=== PATIENT | female | born 1950 | race Caucasian/White ===

== ENCOUNTER → 2016-08-10 | Outpatient (CLI) | payer MEDICARE ==
[~2016-08-10] MED LIST: REGADENOSON 0.4 MG/5 ML SYRINGE IV ONE
--- NOTE | 2016-08-10 11:10 | NM ---
EXAMINATION TYPE: NM stress lexiscan cardiolite DATE OF EXAM: 08/10/2016 COMPARISON: NONE HISTORY: Abnormal EKG per order. History of tobacco use quit 20 years ago and history of diabetes TECHNIQUE: After the intravenous administration of 10.4 mCi Tc 99m Sestamibi - Cardiolite resting SP ECT images acquired 45 minutes post injection. The patient received 0.4mg Lexiscan, 27.5 mCi Tc 99m Sestamibi - Stress images obtained [address] injection FINDINGS: Review of stress and rest SPECT images demonstrates large area of nonperfusion involving anterior lef t ventricular wall on stress and rest SPECT images suspicious for large infarct in the LAD distributi on. Gated analysis shows normal wall motion of other ruvalcaba with an estimated left ventricular ejecti on fraction of 55 %. 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 No convincing evidence for reversible ischemia.
--- NOTE | 2016-08-10 12:12 | EST ---
DATE OF SERVICE: 08/10/2016 AGE: 65Y SEX: F HT: 62" WT: 267 lbs. Protocol Dimitry: Other: Lexiscan Cardiolite Stage: Dur. of Exercise: *Heart Rate Blood Pressure *Rest: 72 Rest: 176/91 * *Max. Achieved: 100 Maximum BP: 190/80 85% PMHR: 130 100% PMHR: 153 *METS: INDICATIONS: Abnormal EKG. MEDICATIONS: Patient was given Lexiscan injection over a period of 15 seconds. Peak heart rate of 100 was achieved. Maximum blood pressure of 190/80 mmHg was noted. Resting EKG shows normal sinus rhythm with normal IN interval and QRS duration and normal ST-T waves. No ST segment depression suggestive of ischemia was noted. The results of the nuclear study will follow .
== END ==
LOC: RADNMMAIN 07:57
PROVIDERS: ATTEND Internal Medicine
DX: R94.31 Abnormal electrocardiogram [ECG] [EKG] (principal)
CPT/HCPCS: 93017; 78452; A9500; J2785

== ENCOUNTER 2016-09-03 05:45 | Day surgery (SDC) | payer MEDICARE ==
[2016-08-28 14:28] VITALS: BMI 47.5
[2016-09-03] MEDS ORDERED: ALPRAZolam 0.5 MG TAB PO PRN (05:58)
[2016-09-03] MEDS ORDERED: ALPRAZolam 0.25 MG TAB PO PRN (05:58)
[2016-09-03] MEDS ORDERED: NITROGLYCERIN SL TABS 0.4 MG TAB SUBLINGUAL PRN ×2 (05:58→08:25)
[2016-09-03] MEDS ORDERED: ASPIRIN 325 MG TAB PO STA (05:58)
[2016-09-03] MEDS ORDERED: ATORVASTATIN 80 MG TAB PO STA (05:58)
[2016-09-03] MEDS ORDERED: SODIUM CHLORIDE 0.9% 1,000 ML in EMPTY BAG 1 BAG IV ONE (06:00)
[2016-09-03 06:41] LABS: Glucose,Whole Blood 133 mg/dL (75-99)
[2016-09-03] MEDS ORDERED: diphenhydrAMINE 50 MG/ML 1 ML VIAL IVP ONE (07:36)
[2016-09-03] MEDS ORDERED: fentaNYL (PF) 50 MCG/ML 2 ML AMP IV ONE (07:36)
[2016-09-03] MEDS ORDERED: LIDOCAINE 2% INJ 20 MG/ML SQ ONE (07:44)
[2016-09-03] MEDS ORDERED: VERAPAMIL SYRINGE (5 MG/10 ML) INTRAARTER ONE (07:45)
[2016-09-03] MEDS ORDERED: HEPARIN SODIUM 1,000 UN/ML (10ML VL) IV ONE (07:54)
[2016-09-03] MEDS ORDERED: BIVALIRUDIN BOLUS 250 MG/50 ML IV ONE (08:00)
[2016-09-03] MEDS ORDERED: BIVALIRUDIN 250 MG in SODIUM CHLORIDE 0.9% 35 ML IV ONE (08:00)
[2016-09-03] MEDS ORDERED: CLOPIDOGREL 75 MG TAB PO ONE (08:02)
[2016-09-03] MEDS ORDERED: NITROGLYCERIN 1000MCG/10ML SYRINGE INTRACORON ONE (08:07)
[2016-09-03 08:18] LABS: Anion Gap 7 mmol/L; Blood Urea Nitrogen 18 mg/dL (7-17); Calcium 9.1 mg/dL (8.4-10.2); Carbon Dioxide 27 mmol/L (22-30); Chloride 106 mmol/L (98-107); Glucose 151 mg/dL (74-99); Non-African American GFR(MDRD) >60 (>60 ml/min/1.73 sqM); Potassium 4.6 mmol/L (3.5-5.1); Sodium 140 mmol/L (137-145)
[2016-09-03] MEDS ORDERED: IODIXANOL 320 MG/ML 100 ML INTRAARTER ONE (08:19)
[2016-09-03] MEDS ORDERED: ATROPINE SULFATE 0.1 MG/ML 10ML SYRINGE IV PRN (08:25)
[2016-09-03] MEDS ORDERED: MAG HYDROX/AL HYDROX/SIMETH 30 ML CUP PO PRN (08:25)
[2016-09-03] MEDS ORDERED: RX INFO: IV CONTRAST WAS GIVEN 1 EACH MISC MISCELLANE PRN (08:25)
[2016-09-03] MEDS ORDERED: SODIUM CHLORIDE 0.9% 1,000 ML IV SCH (08:30)
[2016-09-03] MEDS: LISINOPRIL 2.5 MG TAB PO SCH (10:09)
[2016-09-03] MEDS: CALCIUM CARB-VIT D 500MG-200UN 1 EACH TAB PO SCH (10:09)
[2016-09-03] MEDS: MULTIVITAMINS, THERA 1 EACH TAB PO SCH (10:10)
[2016-09-03] MEDS: CYANOCOBALAMIN 500 MCG TAB PO SCH (10:10)
[2016-09-03] MEDS: GLIMEPIRIDE 2 MG TAB PO SCH ×2 (10:10→18:48)
[2016-09-03] MEDS: METOPROLOL TARTRATE 25 MG TAB PO SCH ×2 (10:11→21:45)
--- NOTE | 2016-09-03 10:47 | CC ---
Mrs. Sim is a 65-year-old female with known history of diabetes mellitus who presented with symptoms of dyspnea, underwent myocardial perfusion imaging that reveal anterior wall defect. In view of that, recommendation made regarding cardiac catheterization. The procedure as well as the risks and complications were discussed with the patient who is in full understanding and agreement. PROCEDURE: The patient was brought to the [facility] in the fasting semi-sedated state after receiving fentanyl and Benadryl and achieving moderate conscious sedated state. Using Xylocaine anesthesia and Seldinger technique, a 6 Armenian sheath as introduced in the right radial artery. Selective right and left angiograph were performed using 5 Armenian 3.5 Bend right Gina catheter. Multiple views of the right coronary artery including annabel-axial views were obtained. Following that, a 5 Armenian tight Pigtail catheter was introduced in the left ventricle and pressures were calculated. Following that, catheter was removed. Images were reviewed. Of note, patient received 5000 units of intravenous heparin, as well as intra-arterial Verapamil. FINDINGS: LEFT MAIN: This is a large size vessel bifurcating into left circumflex, left anterior descending artery and ramus intermedius. Left main coronary artery is without any obstructive coronary artery disease. LEFT ANTERIOR DESCENDING ARTERY: This is a large-sized vessel reaching toward the apex with a wrap around apex segment, giving rise to a small diagonal branch before the takeoff of the obtuse marginal branch in midsegment. There is an eccentric 70% plaque. The rest of the vessel has mild intimal disease without any evidence of high-grade stenosis. LEFT CIRCUMFLEX: This is a nondominant vessel given rise to one obtuse marginal branch of large caliber. The left circumflex and its branches have no evidence of obstructive coronary artery disease. RAMUS INTERMEDIUS: This is a moderately sized vessel reaching toward the apical lateral wall. The ramus intermedius has a 40% to 50% plaque proximally. The rest of the vessel has no high-grade stenosis. RIGHT CORONARY ARTERY: This has a large dominant vessel bifurcating into distal edge of PDA, posterolateral segment and branches. The right coronary artery in midsegment has a plaque of 20%. The rest of the vessel has no high- grade stenosis. LEFT VENTRICULOGRAM: Left ventriculogram is not performed. HEMODYNAMICS: There was no gradient across the aortic valve. The left ventricular end-diastolic pressure was 20 mmHg. CONCLUSION: 1. Significant disease in the mid LAD artery. 2. Mild disease in the ramus intermedius as well as the mid-right coronary artery. RECOMMENDATION: In view of the finding anatomy, I have recommended proceeding with angioplasty and stenting of the LAD. The procedure, risks and complications were discussed with the patient in full understanding and agreement. JARED
--- NOTE | 2016-09-03 10:59 | PTCA ---
Mrs. Sim is a 65-year-old female with known history of diabetes mellitus who had no myocardial imaging, underwent cardiac catheterization, was found to have mid LAD significant disease. In view of that, recommendation made regarding angioplasty and stenting. The procedure as well as risks and complications were discussed with the patient who was in full understanding and agreement. PROCEDURE: A 6 Finnish FL3.5 guiding catheter introduced into the system after cannulating the left main, a 0.014 Advance medium J-wire was advanced across the lesion, positioned distally, then a 2.5 x 15 mm Xience Alpine stent was deployed, post-dilated at 14 atmospheres, after the last inflation, after appropriate weight, the balloon and the guidewire were removed back in the guided catheter, images ere obtained and repeated. Those images reveal stable successful stenting at that point. The guiding catheter, the balloon and the guidewire were removed. The sheath was removed. Hemostasis was obtained with deployment of a TR band. There was no immediate complication. Patient was returned to her room in stable condition. Of note, patient has no chest discomfort but she had mild EKG changes which resolved at the end of the procedure. She received Angiomax per protocol as well as oral loading dose of Clopidogrel. RESULTS: Successful stenting of the mid-LAD with reduction in stenosis from 70 % to 0%. RECOMMENDATION: Patient will be continued on aspirin, Plavix, beta navarro Resumed patient's statin. The importable of dual antiplatelet treatment was discussed with the patient and her family who are in full understanding and agreement. Duration of the procedure is 37 minutes. MTDD
--- NOTE | 2016-09-03 11:06 | MISC ---
Dear Dr. Wooten; I had the pleasure to perform cardiac catheterization, coronary angioplasty and stenting on Mrs. Sim at [facility] on September 03, 2016 and a full copy of the procedure not is being forwarded to you. In brief, she was found to have significant disease involving the mid LAD and underwent successful stenting of that vessel using a drug-eluting stent. I am hopeful that this procedure will stabilize her status and thank you again for allowing me to participate in this patient's personal care. Please fee free to call for any questions. Sincerely yours; Krysta Hooper. JARED
[2016-09-03 19:43] VITALS: RESP 18
[2016-09-03] MEDS ORDERED: ZOLPIDEM 5 MG TAB PO PRN (21:00)
[2016-09-03] MEDS ORDERED: ATORVASTATIN 40 MG TAB PO SCH (21:00)
[2016-09-03 21:51] LABS: Glucose,Whole Blood 102 mg/dL (75-99)
[2016-09-03] MEDS ORDERED: amLODIPine 5 MG TAB PO STA (22:10)
[2016-09-04 05:42] LABS: Glucose,Whole Blood 114 mg/dL (75-99)
[2016-09-04] MEDS: GLIMEPIRIDE 2 MG TAB PO SCH (06:30)
[2016-09-04 07:18] LABS: Calcium 9.3 mg/dL (8.4-10.2); Potassium 4.4 mmol/L (3.5-5.1)
[2016-09-04] MEDS: LISINOPRIL 2.5 MG TAB PO SCH (09:00)
[2016-09-04] MEDS: CALCIUM CARB-VIT D 500MG-200UN 1 EACH TAB PO SCH (09:00)
[2016-09-04] MEDS: CYANOCOBALAMIN 500 MCG TAB PO SCH (09:00)
[2016-09-04] MEDS ORDERED: ASPIRIN 81 MG CHEW PO SCH (09:00)
[2016-09-04] MEDS: MULTIVITAMINS, THERA 1 EACH TAB PO SCH (09:00)
[2016-09-04] MEDS ORDERED: CLOPIDOGREL 75 MG TAB PO SCH (09:00)
[2016-09-04] MEDS: METOPROLOL TARTRATE 25 MG TAB PO SCH (09:01)
[2016-09-04] MEDS ORDERED: amLODIPine 5 MG TAB PO SCH (09:15)
[2016-09-04 10:04] VITALS: BP 204/88; PULSE 73; TEMP 97.4
--- NOTE | 2016-09-04 10:52 | PN ---
Mrs. Sim is a 65-year-old female with known history of hypertension, hyperlipidemia, diabetes mellitus who presented with an abnormal myocardial perfusion imaging. Underwent cardiac catheterization and was found to have critical stenosis involving the mid LAD, underwent stenting of that vessel. She is doing well this morning, ambulating without difficulty. Denying any chest pain, dizziness or palpitation. She continues to be on aspirin once a day , Lipitor 40 mg daily, Plavix 75 mg daily, glimepiride 2 mg twice a day, lisinopril 2.5 mg daily, metoprolol tartrate 25 mg twice a day. PHYSICAL EXAMINATION: Blood pressure running in the 150s to 160s with the heart rate in the 60s. LUNGS: Clear. HEART: Regular rate and rhythm. S1, S2. No S3, no rub. ABDOMEN: Soft, nontender. Obese. EXTREMITIES: No edema. Lab data revealed a BUN and creatinine of 18 and 1.12. Potassium 4.4. EKG revealed no acute changes. IMPRESSION: 1. Status post stenting of the left anterior descending coronary artery. 2. Hypertension. 3. Hyperlipidemia. 4. Diabetes mellitus. 5. History of chronic kidney disease. RECOMMENDATION: From the cardiac standpoint, she is stable to be discharged home today. She will follow her blood pressure and depending on the trend. Further recommendation will be made. JARED
== END 2016-09-04 09:56 | disposition home or self-care (01) ==
LOC: CATHCVL 05:45 → 6SEL 08:17 → CATHCVL 09-04 09:56
PROVIDERS: ATTEND Internal Medicine Interventional Cardiology
DX: I25.10 Atherosclerotic heart disease of native coronary artery without angina pectoris (principal); N18.9 Chronic kidney disease, unspecified; I12.9 Hypertensive chronic kidney disease with stage 1 through stage 4 chronic kidney disease, or unspecified chronic kidney disease; Z87.891 Personal history of nicotine dependence; E11.9 Type 2 diabetes mellitus without complications; Z79.84 Long term (current) use of oral hypoglycemic drugs; E78.5 Hyperlipidemia, unspecified
CPT/HCPCS: 94760; 93458; 85347; 80048 ×2; 99152; 99153 ×2; C9600; C1769 ×2; C1887; C1894; C1874; J2001; J1200; Q9967; J3010; J1644; J0583

== ENCOUNTER → 2016-11-02 | Outpatient (CLI) | payer MEDICARE | END | disposition home or self-care (01) | LOC: RADCTMAIN 13:55 | PROVIDERS: ATTEND Internal Medicine | DX: R09.02 Hypoxemia (principal) | CPT/HCPCS: 82565; 84520 ==

== ENCOUNTER 2018-04-06 09:55 | Emergency (ER) | payer MEDICARE ==
--- NOTE | 2018-04-06 10:20 | ED ---
Fall HPI - General Chief Complaint: Fall Stated Complaint: fall Time Seen by Provider: 04/06/18 10:02 Source: patient Mode of arrival: wheelchair - History of Present Illness Initial Comments: 67-year-old female with past medical history of diabetes presenting today for chief complaint of fall. Patient states that her cat puked on the steps in her home, he states he stepped on it slipping down 3 steps on her butt. She states when she stood up she noticed left hip pain, she denied any back pain. She denied any sharp shooting pain down the legs numbness tingling or loss of sensation. She states she can ambulate however this increases the pain at the left hip. She denies any head injury, injury to the neck or upper back, she denies any loss of conscious. Patient denies any chest pain, dyspnea, dyspnea on exertion, dizziness, headache or any other symptoms prior to falling. She states it was mechanical from slipping on what substance on stairs. Patient denies any pain of the upper extremities. She denies any pain of the knees or ankles. Remaining review of systems negative, upon arrival patient is ambulatory does not appear to have difficulties. Patient denies any recent fever , chills, shortness of breath, chest pain, back pain, abdominal pain, nausea or vomiting, numbness or tingling, dysuria or hematuria, constipation or diarrhea, headaches or visual changes, or any other complaints. Patient denies taking any medication prior to arrival, she states she doesn't need any. - Related Data Home Medications Medication Instructions Recorded Confirmed Aspirin [Adult Low Dose Aspirin EC] 81 mg PO DAILY 08/28/16 09/03/16 Calcium Carbonate [Calcium] 600 mg PO DAILY 08/28/16 09/03/16 Cyanocobalamin (Vitamin B-12) 2,000 mcg PO DAILY 08/28/16 09/03/16 [Vitamin B-12] Lisinopril [Zestril] 2.5 mg PO QAM 08/28/16 09/03/16 Multivit-Min/FA/Lycopen/Lutein 1 each PO DAILY 08/28/16 09/03/16 [Centrum Silver Tablet] Previous Rx's Medication Instructions Recorded Glimepiride [Amaryl] 2 mg PO BID #60 tablet 07/09/13 metFORMIN HCL [Glucophage] 500 mg PO AC-BID #60 tab 07/09/13 Atorvastatin [Lipitor] 40 mg PO HS #90 tab 09/04/16 Clopidogrel [Plavix] 75 mg PO DAILY #90 tab 09/04/16 Metoprolol Tartrate [Lopressor] 25 mg PO BID #180 tab 09/04/16 Nitroglycerin Sl Tabs [Nitrostat] 0.4 mg SUBLINGUAL Q5M PRN #25 tab 09/04/16 amLODIPine BESYLATE [Norvasc] 5 mg PO DAILY #1 tablet 09/04/16 Allergies Allergy/AdvReac Type Severity Reaction Status Date / Time No Known Allergies Allergy Verified 04/06/18 10:00 Review of Systems ROS Statement: Those systems with pertinent positive or pertinent negative responses have been documented in the HPI. ROS Other: All systems not noted in ROS Statement are negative. Past Medical History Past Medical History: Diabetes Mellitus, Skin Disorder Additional Past Medical History / Comment(s): Hx Psoriasis History of Any Multi-Drug Resistant Organisms: None Reported Past Surgical History: No Surgical Hx Reported Additional Past Surgical History / Comment(s): Cataracts, abcess on buttocks. Past Anesthesia/Blood Transfusion Reactions: No Reported Reaction Past Psychological History: No Psychological Hx Reported Smoking Status: Former smoker Past Alcohol Use History: None Reported Past Drug Use History: None Reported - Past Family History Mother Family Medical History: Hypertension Father Family Medical History: Hypertension General Exam - General Exam Comments Initial Comments: General: The patient is awake and alert, in no distress, and does not appear acutely ill. Eye: Pupils are equal, round and reactive to light, extra-ocular movements are intact. No nystagmus. There is normal conjunctiva bilaterally. No signs of icterus. Ears, nose, mouth and throat: There are moist mucous membranes and no oral lesions. Neck: The neck is supple, there is no tenderness or JVD. Cardiovascular: There is a regular rate and rhythm. No murmur, rub or gallop is appreciated. Respiratory: Lungs are clear to auscultation, respirations are non-labored, breath sounds are equal. No wheezes, stridor, rales, or rhonchi. Gastrointestinal: Soft, non-distended, non-tender abdomen without masses or organomegaly noted. There is no rebound or guarding present. Musculoskeletal: Upon inspection of the hip there is no ecchymosis, soft tissue swelling or erythema. No abrasions or lacerations. Neuro inspection of the thoracic and lumbar spine. There is no pain to palpation of the cervical thoracic or lumbar spine neither paravertebral or midline. Patient did have tenderness to palpation over the left hip lateral aspect. Patient does have full range of motion at the hips bilaterally, including extensor mechanism intact. Strength 5/5 of the lower extremities including at the hips, knees ankles bilaterally equal comparison. Sensation intact of the lower extremities including the saddle region of the lower extremities equal bilaterally. DP pulses equal bilaterally 2+. There is an area of ecchymosis of the right billings, pt denies any knee pain, no large hematomas. Neurological: A&O x 3. CN II-XII intact, There are no obvious motor or sensory deficits. Coordination appears grossly intact. Speech is normal. Skin: Skin is warm and dry and no rashes or lesions are noted. Psychiatric: Cooperative, appropriate mood & affect, normal judgment. Limitations: no limitations Course Vital Signs 04/06/18 04/06/18 09:57 11:38 Temperature 97.9 F 97.7 F Pulse Rate 79 78 Respiratory 18 19 Rate Blood Pressure 138/76 153/83 O2 Sat by Pulse 98 96 Oximetry Medical Decision Making - Medical Decision Making 67-year-old female presenting today for chief complaint of fall left hip pain. Upon examination patient has no midline tenderness to palpation of the thoracic or lumbar spine. She no complaints of radicular symptoms, full strength of the lower extremities with no neurovascular deficits. Patient did have localized pain to the left hip upon palpation. X-ray negative for acute osseous process. Patient is ambulatory. Patient refuses any pain medication. Patient denied any head or neck injury. At this time I do feel patient is stable for discharge with outpatient follow-up in the next 1-2 days. Return parameters were discussed at length with patient who verbalized understanding. I did discuss case with attending provider Dr. Ryan reviewed imaging studies patient discharged in stable condition, attending provider agreeable with plan and discharge. Disposition Clinical Impression: Left hip pain, Fall Disposition: HOME SELF-CARE Condition: Good Instructions (If sedation given, give patient instructions): Fall Prevention ( ED), Hip Pain (ED) Additional Instructions: Please use medication as discussed. Please follow-up with family doctor in the next 2 days. Please return to emergency room if the symptoms increase or worsen or for any other concerns. Is patient prescribed a controlled substance at d/c from ED?: No Referrals: Dimple Wooten MD [Primary Care Provider] - 1-2 days Time of Disposition: 11:28
--- NOTE | 2018-04-06 11:13 | XR ---
EXAMINATION TYPE: AP view pelvis and 2 views left hip DATE OF EXAM: 04/06/2018 COMPARISON: NONE HISTORY: 67-year-old female with pain after fall FINDINGS: Mild degenerative superolateral joint space narrowing of the hips. Mild osteopenia. No acute fracture , subluxation, or dislocation seen. IMPRESSION: Mild degenerative changes of the hips. Mild osteopenia. No acute fracture seen.
[2018-04-06 11:39] VITALS: BP 153/83; PULSE 78; RESP 19; TEMP 97.7
== END 2018-04-06 11:39 | disposition home or self-care (01) ==
LOC: EC 09:55
DX: M25.552 Pain in left hip (principal); S80.11XA Contusion of right lower leg, initial encounter; Z87.891 Personal history of nicotine dependence; Z53.29 Procedure and treatment not carried out because of patient's decision for other reasons; Z79.82 Long term (current) use of aspirin; Z79.899 Other long term (current) drug therapy; W10.9XXA Fall (on) (from) unspecified stairs and steps, initial encounter; Y92.89 Other specified places as the place of occurrence of the external cause
CPT/HCPCS: 73502; 99283

== ENCOUNTER 2018-04-08 08:58 | Inpatient (IN) | payer MEDICARE ==
[2018-04-08] MEDS ORDERED: KETOROLAC 60 MG/2 ML VIAL IVP STA (09:24)
[2018-04-08] MEDS ORDERED: MORPHINE SULFATE 2 MG/ML SYRINGE IVP STA (09:25)
--- NOTE | 2018-04-08 09:28 | ED ---
General Adult HPI - General Chief complaint: Fall Stated complaint: Fall/Back Pain Time Seen by Provider: 04/08/18 09:00 Source: EMS, RN notes reviewed Mode of arrival: EMS Limitations: no limitations - History of Present Illness Initial comments: This is a 67-year-old female presents emergency Department complaining of left hip pain. Patient states she fell on Saturday and was able to walk out of the emergency department but was in quite a bit of pain. Patient states since then the pain is gotten worse and she is unable to and related all. Patient states the pain is in the posterior hip. Patient states his been no injuries since the original injury. Patient denies any lower back pain. Patient denies any knee pain. Patient has no other complaints. - Related Data Home Medications Medication Instructions Recorded Confirmed Aspirin [Adult Low Dose Aspirin EC] 81 mg PO DAILY 08/28/16 04/08/18 Multivit-Min/FA/Lycopen/Lutein 1 tab PO DAILY 08/28/16 04/08/18 [Centrum Silver Tablet] Cholecalciferol (Vitamin D3) 2,000 unit PO DAILY 04/08/18 04/08/18 [Vitamin D3] Glimepiride [Amaryl] 4 mg PO BID 04/08/18 04/08/18 Levothyroxine Sodium [Synthroid] 25 mcg PO DAILY 04/08/18 04/08/18 Lisinopril [Zestril] 5 mg PO DAILY 04/08/18 04/08/18 Vit C/E/Zn/Coppr/Lutein/Zeaxan 2 cap PO DAILY 04/08/18 04/08/18 [Preservision Areds 2 Softgel] sitaGLIPtin [Januvia] 50 mg PO DAILY 04/08/18 04/08/18 Previous Rx's Medication Instructions Recorded Atorvastatin [Lipitor] 40 mg PO HS #90 tab 09/04/16 Metoprolol Tartrate [Lopressor] 25 mg PO BID #180 tab 09/04/16 Nitroglycerin Sl Tabs [Nitrostat] 0.4 mg SUBLINGUAL Q5M PRN #25 tab 09/04/16 amLODIPine BESYLATE [Norvasc] 5 mg PO DAILY #1 tablet 09/04/16 Allergies Allergy/AdvReac Type Severity Reaction Status Date / Time No Known Allergies Allergy Verified 04/08/18 10:13 Review of Systems ROS Statement: Those systems with pertinent positive or pertinent negative responses have been documented in the HPI. ROS Other: All systems not noted in ROS Statement are negative. Past Medical History Past Medical History: Diabetes Mellitus, Skin Disorder Additional Past Medical History / Comment(s): Hx Psoriasis History of Any Multi-Drug Resistant Organisms: None Reported Past Surgical History: No Surgical Hx Reported Additional Past Surgical History / Comment(s): Cataracts, abcess on buttocks. Past Anesthesia/Blood Transfusion Reactions: No Reported Reaction Past Psychological History: No Psychological Hx Reported Smoking Status: Former smoker Past Alcohol Use History: None Reported Past Drug Use History: None Reported - Past Family History Mother Family Medical History: Hypertension Father Family Medical History: Hypertension General Exam - General Exam Comments Initial Comments: GENERAL Patient is well-developed and well-nourished. Patient is in mild distress. EYES Patient's pupils are equal and round. Extraocular motion is intact SKIN Unremarkable NEURO The patient is alert and oriented 3 PYSCH Patient has normal interpersonal interactions. MUSCULOSKELETAL Patient has tenderness in the posterior left hip. Patient has pain with external rotation and flexion. Limitations: no limitations Course Vital Signs 04/08/18 09:02 Temperature 99.4 F Pulse Rate 86 Respiratory 16 Rate Blood Pressure 135/52 O2 Sat by Pulse 85 L Oximetry Medical Decision Making - Medical Decision Making CAT scan showed a nondisplaced subtle fracture of the sacrum I spoke with Dr. Govea he agreed to admit the patient admitted the patient wrote admitting orders. Disposition Clinical Impression: Sacral fracture, Unable to ambulate Disposition: ADMITTED IP TO THIS [facility] Referrals: Dimple Wooten MD [Primary Care Provider] - 1-2 days Time of Disposition: 12:50
--- NOTE | 2018-04-08 10:49 | CT ---
EXAMINATION TYPE: CT hip LT wo con DATE OF EXAM: 04/08/2018 COMPARISON: Radiograph 04/06/2018 HISTORY: 67-year-old female left hip pain after fall 2 days ago Fall TECHNIQUE: Contiguous axial scanning of the left hip without IV contrast. Coronal and sagittal recons tructions performed. CT DLP: 856.5 mGycm Automated exposure control for dose reduction was used. FINDINGS: There is osteopenia with loss of the tensile trabecula of the proximal femur.. No displaced fracture. Mild degenerative changes of the hips. There are no hip joint effusion. No pelvic free fluid. No evidence of soft tissue abnormality. IMPRESSION: 1. OSTEOPENIA. NO DISPLACED FRACTURES. IF THERE REMAINS PERSISTENT CLINICAL CONCERN FOR OCCULT OSSEOU S INJURY OR IF THE PATIENT IS NONWEIGHTBEARING, MRI CAN PROVIDE MORE SENSITIVE EVALUATION. 2. NOTE THAT THE SACRUM IS NOT INCLUDED ON THIS EXAM OF THE LEFT HIP.
--- NOTE | 2018-04-08 11:37 | CT ---
EXAMINATION TYPE: CT pelvis wo con DATE OF EXAM: 04/08/2018 COMPARISON: Correlation CT left hip and prior radiographs. HISTORY: 67-year-old female Fall/back pain TECHNIQUE: Contiguous axial scanning of the pelvis without IV contrast. Coronal and sagittal reconstr uctions performed. CT DLP: 724.4 mGycm Automated exposure control for dose reduction was used. FINDINGS: Small to moderate sized 2.3 cm wide fat-containing umbilical hernia. Again, there is osteopenia with loss of the tensile trabecula of the proximal femurs. No displaced pe lvic bone or proximal femoral fracture is identified. There is very subtle cortical irregularity involving the left sacroiliac, refer to coronal image 76 a nd very subtle cortical lucency of the left sacral alar, refer to coronal image 72, 73, and 74. Minim al presacral soft tissue thickening here. Pronounced osteopenia limits assessment. Moderate degenerative disc disease with discussed by complex and facet arthropathy lower lumbar spine . Mild bilateral neural foraminal stenosis at L5-S1. IMPRESSION: 1. FINDINGS HIGHLY SUSPICIOUS FOR A VERY SUBTLE NONDISPLACED ZONE 1 LEFT SACRAL ALAR INSUFFICIENCY FR ACTURE (CORONAL IMAGES 72 THROUGH 76). 2. OSTEOPENIA. NO DISPLACED PELVIC FRACTURES.
[2018-04-08] MEDS ORDERED: SODIUM CHLORIDE 0.9% 1,000 ML IV ONE (12:52)
[2018-04-08] MEDS: MORPHINE SULFATE 2 MG/ML SYRINGE IVP PRN ×2 (15:38→20:51)
[2018-04-08 17:11] LABS: Glucose,Whole Blood 96 mg/dL (75-99)
[2018-04-08] MEDS: KETOROLAC 30 MG/ML 1 ML VIAL IVP SCH (17:30)
[2018-04-08] MEDS ORDERED: NITROGLYCERIN SL TABS 0.4 MG TAB SUBLINGUAL PRN (19:22)
--- NOTE | 2018-04-08 19:45 | P.HPIM ---
History of Present Illness H&P Date: 04/08/18 Chief Complaint: Sacrum fracture 67-year-old morbidly obese female one of Dr. Wooten's patient with past medical history of CAD, diabetes, hypertension, hypothyroidism and hyperlipidemia who has obstructive sleep apnea and had known history of CAD post PCI and stent placement seen cardiology regular basis. Patient apparently fell on Saturday and developed to have severe left hip pain and lower back pain. Ended up coming to [facility] where was seen and evaluated finding came back negative for any major fracture. Patient continued to have significant decline in mobility not been able to ambulate walk or put any pressure on the left hip area ended up coming to the emergency department today by EMS further testing including lumbar and sacral x-ray along with CAT scan revealed sacrum fracture. Otherwise the hip is a clear. Patient was admitted to the hospital to control her symptoms Will be seen orthopedics and see if there is any intervention required at this point. Review of Systems CONSTITUTIONAL: Morbidly obese laying in bed complaining of lower back pain and sacrum pain in no acute respiratory distress. EYES: No icterus sclerae, no conjunctivitis. EARS, NOSE, MOUTH, THROAT, and FACE: No sore throat, lymphadenopathy, carotid bruits or deformity. RESPIRATORY: No SOB cough or wheezes. CARDIOVASCULAR: No CP, Palpitation, PND, Orthopnea, or angina. GASTROINTESTINAL: No Abd pain, Nausea or vomiting, no Diarrhea or constipation, No GI Bleed, no distention or masses. GENITOURINARY: Negative for Hematuria or UTI, no kidney stones. INTEGUMENT/BREAST: Negative for any muscular injury with mild osteoarthritis.. HEMATOLOGIC/LYMPHATIC: Negative for bleed or purpura. MUSCULOSKELTAL: Positive left hip pain and sacral pain as well. NEURLOGICAL: No LOC, Sz or syncope, blurred vision dizziness or abnormality.. BEHAVIORAL/PSYCH: Negative. ENDOCRINE: Negative. Past Medical History Past Medical History: Diabetes Mellitus, Skin Disorder Additional Past Medical History / Comment(s): Hx Psoriasis History of Any Multi-Drug Resistant Organisms: None Reported Past Surgical History: No Surgical Hx Reported Additional Past Surgical History / Comment(s): Cataracts, abcess on buttocks. Past Anesthesia/Blood Transfusion Reactions: No Reported Reaction Past Psychological History: No Psychological Hx Reported Smoking Status: Former smoker Past Alcohol Use History: None Reported Additional Past Alcohol Use History / Comment(s): Smoked 1 PPD for 20 yrs quit 30 yrs ago Past Drug Use History: None Reported - Past Family History Mother Family Medical History: Hypertension Father Family Medical History: Hypertension Medications and Allergies Home Medications Medication Instructions Recorded Confirmed Type Aspirin [Adult Low Dose Aspirin EC] 81 mg PO DAILY 08/28/16 04/08/18 History Multivit-Min/FA/Lycopen/Lutein 1 tab PO DAILY 08/28/16 04/08/18 History [Centrum Silver Tablet] Atorvastatin [Lipitor] 40 mg PO HS #90 tab 09/04/16 04/08/18 Rx Metoprolol Tartrate [Lopressor] 25 mg PO BID #180 tab 09/04/16 04/08/18 Rx Nitroglycerin Sl Tabs [Nitrostat] 0.4 mg SUBLINGUAL Q5M PRN #25 tab 09/04/16 Rx amLODIPine BESYLATE [Norvasc] 5 mg PO DAILY #1 tablet 09/04/16 04/08/18 Rx Cholecalciferol (Vitamin D3) 2,000 unit PO DAILY 04/08/18 04/08/18 History [Vitamin D3] Glimepiride [Amaryl] 4 mg PO BID 04/08/18 04/08/18 History Levothyroxine Sodium [Synthroid] 25 mcg PO DAILY 04/08/18 04/08/18 History Lisinopril [Zestril] 5 mg PO DAILY 04/08/18 04/08/18 History Vit C/E/Zn/Coppr/Lutein/Zeaxan 2 cap PO DAILY 04/08/18 04/08/18 History [Preservision Areds 2 Softgel] sitaGLIPtin [Januvia] 50 mg PO DAILY 04/08/18 04/08/18 History Allergies Allergy/AdvReac Type Severity Reaction Status Date / Time No Known Allergies Allergy Verified 04/08/18 10:13 Physical Exam Vitals: Vital Signs Temp Pulse Resp BP Pulse Ox 04/08/18 16:00 16 04/08/18 14:56 98.2 F 68 16 118/56 93 L 04/08/18 13:05 73 18 135/69 96 04/08/18 10:05 75 16 96 04/08/18 09:02 99.4 F 86 16 135/52 85 L Intake and Output 04/08/18 04/08/18 04/08/18 06:59 14:59 22:59 Other: Weight 117.934 kg General Appearance: Alert, cooperative, no distress, appears stated age. Morbidly obese laying in bed still in pain Neck HEENT: Supple, no lymphadenopathy, no thyroid enlargement, no carotid bruits. Lungs: Clear to auscultation without crackles or wheezes no rhonchi, no deformity. Chest Wall: Chest wall normal expansion with deep inspiration no tenderness and no deformity was found on exam, no costochondral pain or discomfort. Heart: Regular rate and rhythm, S1, S2 normal, no murmur, rub or gallop. Back: Significant pain and discomfort in the lumbar area in the sacral area with no major deformity otherwise. Abdomen: Soft, non-tender, bowel sounds active all four quadrants, no masses, no organomegaly. Extremities: 1+ edema left hip has limited mobility with slight discomfort when attempting to and an irritated the hip. Still have mild discomfort in both knees. Pulses: 2+ and symmetric. Skin: Skin color, texture, tugor normal, no rashes or lesions. Neurologic: Alert oriented x3 cranial nerves II through XII intact, no motor deficit, no abnormal balance or gait. Thrombosis Risk Factor Assmnt - DVT/VTE Prophylaxis DVT/VTE Prophylaxis: Pharmacologic Prophylaxis ordered, Mechanical Prophylaxis ordered - Choose All That Apply Each Factor Represents 1 point: Obesity (BMI >25) Each Risk Factor Represents 2 Points: Age 61-74 years Thrombosis Risk Factor Assessment Total Risk Factor Score: 3 Thrombosis Risk Factor Assessment Level: Moderate Risk Assessment and Plan Assessment: 1 severe intractable left hip pain and sacral pain: Combination of fracture of the sacrum with possible occult fracture of the hip, patient will be seen orthopedic continue pain management bedrest and physical therapy will be started and advanced gradually might need to go for further testing including possible bone scan if needed to exclude the full possibility of hip fracture this point. 2 CAD post PCI and stent placement still seeing cardiology and has been on secondary prevention at this point. 3 type 2 diabetes on oral hypoglycemic agent still on the glyburide 4 mg twice a day and use metformin along with Januvia continue oral medication continue Accu-Chek with sliding scales coverage by Humalog before meals and at bedtime. 4 hypertension: Remain on lisinopril 5 mg a day and metoprolol 25 mg twice a day. 5 hyperlipidemia: Has been on atorvastatin 40 mg daily. 6 hypothyroidism continue levothyroxine 25 g daily. 7 chronic edema: On demand Dyazide or furosemide. 8 severe GERD/GI prophylaxis: Patient will be on Pepcid 20 mg daily. 9 DVT prophylaxis: Patient will be on heparin 5000 units subcutaneous twice a day continue Venodyne boots and knee-high AKIN hose. CODE STATUS: Full code. Admit patient to inpatient status for more than 2 nights.
[2018-04-08] MEDS: GLIMEPIRIDE 2 MG TAB PO SCH (20:04)
[2018-04-08] MEDS: ATORVASTATIN 40 MG TAB PO SCH (20:04)
[2018-04-08] MEDS: METOPROLOL TARTRATE 25 MG TAB PO SCH (20:04)
[2018-04-08 20:50] LABS: Glucose,Whole Blood 107 mg/dL (75-99)
--- NOTE | 2018-04-08 22:21 | XR ---
PROCEDURE: XR lumbar spine - 3V DATE AND TIME: 04/08/2018 6:34 PM CLINICAL INDICATION: PHH; low back pain TECHNIQUE: AP and 2 crosstable lateral views were obtained. COMPARISON: None FINDINGS: There is no fracture or malalignment. The soft tissues are unremarkable. IMPRESSION: NO ACUTE PROCESS.
[2018-04-09] MEDS: KETOROLAC 30 MG/ML 1 ML VIAL IVP SCH ×4 (00:23→19:02)
[2018-04-09] MEDS: LEVOTHYROXINE 25 MCG TAB PO SCH (05:41)
[2018-04-09 07:09] LABS: Glucose,Whole Blood 83 mg/dL (75-99)
[2018-04-09] MEDS ORDERED: HYDROcodone/APAP 5-325MG 1 EACH TAB PO PRN (09:01)
--- NOTE | 2018-04-09 09:09 | P.CNOR ---
History of Present Illness - [facility] Consult date: 04/09/18 Requesting physician: Mukund Tolentino Consult reason: fracture History of present illness: Patient is a pleasant 67-year-old female seen at bedside this morning in consultation for low back buttock pain. She was admitted through the emergency department for pain in difficulty with weightbearing due to the pain. She states she fell on her buttocks on 04/05/2018. She slipped on her steps and fell backwards. She's had pain in the low back and buttock area since. She denies radicular symptoms down her lower extremities including numbness, tingling or weakness. She has no loss of bowel or bladder control. She has no saddle anesthesia. Computed tomography scan of the pelvis showed subtle sacral insufficiency fracture at the left ala zone 1. No other acute process seen. She has no other complaints today. Review of Systems All systems: negative Past Medical History Past Medical History: Diabetes Mellitus, Skin Disorder Additional Past Medical History / Comment(s): Hx Psoriasis History of Any Multi-Drug Resistant Organisms: None Reported Past Surgical History: No Surgical Hx Reported Additional Past Surgical History / Comment(s): Cataracts, abcess on buttocks. Past Anesthesia/Blood Transfusion Reactions: No Reported Reaction Past Psychological History: No Psychological Hx Reported Smoking Status: Former smoker Past Alcohol Use History: None Reported Additional Past Alcohol Use History / Comment(s): Smoked 1 PPD for 20 yrs quit 30 yrs ago Past Drug Use History: None Reported - Past Family History Mother Family Medical History: Hypertension Father Family Medical History: Hypertension Medications and Allergies Home Medications Medication Instructions Recorded Confirmed Type Aspirin [Adult Low Dose Aspirin EC] 81 mg PO DAILY 08/28/16 04/08/18 History Multivit-Min/FA/Lycopen/Lutein 1 tab PO DAILY 08/28/16 04/08/18 History [Centrum Silver Tablet] Atorvastatin [Lipitor] 40 mg PO HS #90 tab 09/04/16 04/08/18 Rx Metoprolol Tartrate [Lopressor] 25 mg PO BID #180 tab 09/04/16 04/08/18 Rx Nitroglycerin Sl Tabs [Nitrostat] 0.4 mg SUBLINGUAL Q5M PRN #25 tab 09/04/16 Rx amLODIPine BESYLATE [Norvasc] 5 mg PO DAILY #1 tablet 09/04/16 04/08/18 Rx Cholecalciferol (Vitamin D3) 2,000 unit PO DAILY 04/08/18 04/08/18 History [Vitamin D3] Glimepiride [Amaryl] 4 mg PO BID 04/08/18 04/08/18 History Levothyroxine Sodium [Synthroid] 25 mcg PO DAILY 04/08/18 04/08/18 History Lisinopril [Zestril] 5 mg PO DAILY 04/08/18 04/08/18 History Vit C/E/Zn/Coppr/Lutein/Zeaxan 2 cap PO DAILY 04/08/18 04/08/18 History [Preservision Areds 2 Softgel] sitaGLIPtin [Januvia] 50 mg PO DAILY 04/08/18 04/08/18 History Allergies Allergy/AdvReac Type Severity Reaction Status Date / Time No Known Allergies Allergy Verified 04/08/18 10:13 Physical Examination Inspection of the low back or lower extremities are benign. There is no deformity, erythema or ecchymoses. Lower extremities show there is no true straight leg raising. She has low back, buttock pain with range of motion of the hips. Motor L2 through S1 is intact 5 out of 5 bilaterally. Sensation to light touch is intact L2 through S1 dermatomes. Reflexes are 1+ knee jerk and ankle jerk. There is no clonus or pathological reflexes. Calves are soft and nontender. 2+ dorsalis pedis pulse and less than 2 second cap refill is present. Results Computed tomography scan of the pelvis shows very subtle nondisplaced sacral insufficiency fracture at the left ala zone 1. No displacement. X-rays lumbar spine show multilevel degenerative disc disease with no acute process or fractures or instability. - Labs Labs: Abnormal Lab Results - Last 24 Hours (Table) 04/08/18 Range/Units 20:39 POC Glucose (mg/dL) 107 H (75-99) mg/dL - Diagnostic results Lumbar AP/lateral x-ray: report reviewed, image reviewed Assessment and Plan (1) Sacral fracture Narrative/Plan: Patient has no neurological symptoms nor deficit. CT suggest subtle sacral insufficiency fracture. There is no plans for immediate surgical intervention. Recommend working with physical therapy, protected weightbearing as tolerated , and pain management. She may benefit from placement an extended care facility. She may follow-up as an outpatient in 1 week. Current Visit: Yes Status: Acute Code(s): S32.10XA - UNSP FRACTURE OF SACRUM , INIT ENCNTR FOR CLOSED FRACTURE SNOMED Code(s): 548194852 Time with Patient: Less than 30
[2018-04-09] MEDS: VIT A,C & E-LUTEIN-MINERALS 1 EACH TAB PO SCH (10:09)
[2018-04-09] MEDS: amLODIPine 5 MG TAB PO SCH (10:10)
[2018-04-09] MEDS: GLIMEPIRIDE 2 MG TAB PO SCH ×2 (10:10→18:05)
[2018-04-09] MEDS: METOPROLOL TARTRATE 25 MG TAB PO SCH ×2 (10:10→20:27)
[2018-04-09] MEDS: CHOLECALCIFEROL 1,000 UNIT TAB PO SCH (10:10)
[2018-04-09] MEDS: ASPIRIN 81 MG PO SCH (10:11)
[2018-04-09] MEDS: LINAGLIPTIN 5 MG TABLET PO SCH (10:11)
[2018-04-09] MEDS: LISINOPRIL 5 MG TAB PO SCH (10:11)
--- NOTE | 2018-04-09 11:42 | P.PN ---
Subjective Progress Note Date: 04/09/18 67-year-old morbidly obese female one of Dr. Wooten's patient with past medical history of CAD, diabetes, hypertension, hypothyroidism and hyperlipidemia who has obstructive sleep apnea and had known history of CAD post PCI and stent placement seen cardiology regular basis. Patient apparently fell on Saturday and developed to have severe left hip pain and lower back pain. Ended up coming to [facility] where was seen and evaluated finding came back negative for any major fracture. Patient continued to have significant decline in mobility not been able to ambulate walk or put any pressure on the left hip area ended up coming to the emergency department today by EMS further testing including lumbar and sacral x-ray along with CAT scan revealed sacrum fracture. Otherwise the hip is a clear. Patient was admitted to the hospital to control her symptoms Will be seen orthopedics and see if there is any intervention required at this point. 04/09: Patient has been seen by orthopedics with recommendations for PT, protected weightbearing as tolerated and pain management. Temperature max 99.6 , heart rate in the 80s and 90s, blood pressure 115/66, pulse ox 96% on room air. Patient states that she didn't sleep well last night. She continues to have low sacral pain and left hip pain. Sister is at the bedside. Physical therapy to start working with the patient today. Social work to follow up regarding subacute rehab. Review of Systems CONSTITUTIONAL: Morbidly obese laying in bed complaining of lower back pain and sacrum pain left hip pain. EYES: No icterus sclerae, no conjunctivitis. EARS, NOSE, MOUTH, THROAT, and FACE: No sore throat, lymphadenopathy, carotid bruits or deformity. RESPIRATORY: No SOB cough or wheezes. CARDIOVASCULAR: No CP, Palpitation, PND, Orthopnea, or angina. GASTROINTESTINAL: No Abd pain, Nausea or vomiting, no Diarrhea or constipation, No GI Bleed, no distention or masses. GENITOURINARY: Negative for Hematuria or UTI, no kidney stones. INTEGUMENT/BREAST: Negative for any muscular injury with mild osteoarthritis.. HEMATOLOGIC/LYMPHATIC: Negative for bleed or purpura. MUSCULOSKELTAL: Positive left hip pain and sacral pain as well. NEURLOGICAL: No LOC, Sz or syncope, blurred vision dizziness or abnormality.. BEHAVIORAL/PSYCH: Negative. ENDOCRINE: Negative. Objective - Vital Signs Vital signs: Vital Signs Temp 99.1 F 04/09/18 07:00 Pulse 92 04/09/18 07:00 Resp 16 04/09/18 07:00 BP 115/66 04/09/18 07:00 Pulse Ox 97 04/08/18 23:50 Intake & Output 04/08/18 04/09/18 04/09/18 18:59 06:59 18:59 Intake Total 480 1066 Output Total 300 Balance 180 1066 Weight 117.934 kg Intake: Oral 480 1066 Output: Urine 300 - Exam General Appearance: Alert, cooperative, no distress, appears stated age. Morbidly obese laying in bed still in pain Neck HEENT: Supple, no lymphadenopathy, no thyroid enlargement, no carotid bruits. Lungs: Clear to auscultation without crackles or wheezes no rhonchi, no deformity. Chest Wall: Chest wall normal expansion with deep inspiration no tenderness and no deformity was found on exam, no costochondral pain or discomfort. Heart: Regular rate and rhythm, S1, S2 normal, no murmur, rub or gallop. Back: Significant pain and discomfort in the lumbar area in the sacral area with no major deformity otherwise. Abdomen: Soft, non-tender, bowel sounds active all four quadrants, no masses, no organomegaly. Extremities: 1+ edema left hip has limited mobility with slight discomfort when attempting to and an irritated the hip. Still have mild discomfort in both knees. Pulses: 2+ and symmetric. Skin: Skin color, texture, tugor normal, no rashes or lesions. Neurologic: Alert oriented x3 cranial nerves II through XII intact, no motor deficit, gait not assessed. - Labs Labs: Abnormal Lab Results - Last 24 Hours (Table) 04/08/18 Range/Units 20:39 POC Glucose (mg/dL) 107 H (75-99) mg/dL Assessment and Plan Plan: 1 severe intractable left hip pain and sacral pain: Combination of fracture of the sacrum with possible occult fracture of the hip, patient will be seen orthopedic continue pain management bedrest and physical therapy will be started and advanced gradually might need to go for further testing including possible bone scan if needed to exclude the full possibility of hip fracture this point. Orthopedic consult appreciated. 2 CAD post PCI and stent placement still seeing cardiology and has been on secondary prevention at this point. 3 type 2 diabetes on oral hypoglycemic agent still on the glyburide 4 mg twice a day and use metformin along with Januvia continue oral medication continue Accu-Chek with sliding scales coverage by Humalog before meals and at bedtime. 4 hypertension: Remain on lisinopril 5 mg a day and metoprolol 25 mg twice a day. 5 hyperlipidemia: Has been on atorvastatin 40 mg daily. 6 hypothyroidism continue levothyroxine 25 g daily. 7 chronic edema: On demand Dyazide or furosemide. 8 severe GERD/GI prophylaxis: Patient will be on Pepcid 20 mg daily. 9 DVT prophylaxis: Patient will be on heparin 5000 units subcutaneous twice a day continue Venodyne boots and knee-high AKIN hose. CODE STATUS: Full code. Discharge plan: Subacute rehab Impression and plan of care have been directed as dictated by the signing physician. Antonette Carson nurse practitioner acting as scribe for signing physician.
[2018-04-09 12:16] LABS: Glucose,Whole Blood 96 mg/dL (75-99)
[2018-04-09] MEDS: MULTIVITAMINS, THERA 1 EACH TAB PO SCH (13:42)
[2018-04-09 17:18] LABS: Glucose,Whole Blood 82 mg/dL (75-99)
[2018-04-09] MEDS: ATORVASTATIN 40 MG TAB PO SCH (20:27)
[2018-04-09 20:43] LABS: Glucose,Whole Blood 76 mg/dL (75-99)
[2018-04-10] MEDS: KETOROLAC 30 MG/ML 1 ML VIAL IVP SCH ×3 (00:47→12:23)
[2018-04-10] MEDS: LEVOTHYROXINE 25 MCG TAB PO SCH (06:14)
[2018-04-10 07:40] LABS: Glucose,Whole Blood 62 mg/dL (75-99)
[2018-04-10] MEDS: amLODIPine 5 MG TAB PO SCH (08:09)
[2018-04-10] MEDS: ASPIRIN 81 MG PO SCH (08:09)
[2018-04-10] MEDS: VIT A,C & E-LUTEIN-MINERALS 1 EACH TAB PO SCH (08:09)
[2018-04-10] MEDS: GLIMEPIRIDE 2 MG TAB PO SCH (08:09)
[2018-04-10] MEDS: LISINOPRIL 5 MG TAB PO SCH (08:09)
[2018-04-10] MEDS: CHOLECALCIFEROL 1,000 UNIT TAB PO SCH (08:09)
[2018-04-10] MEDS: LINAGLIPTIN 5 MG TABLET PO SCH ×2 (08:09→08:13)
[2018-04-10] MEDS: METOPROLOL TARTRATE 25 MG TAB PO SCH (08:09)
[2018-04-10] MEDS: MULTIVITAMINS, THERA 1 EACH TAB PO SCH (08:10)
[2018-04-10 08:15] VITALS: BP 127/75; PULSE 85; RESP 16; TEMP 97.8
[2018-04-10 08:57] LABS: Glucose,Whole Blood 125 mg/dL (75-99)
--- NOTE | 2018-04-10 09:58 | P.DS ---
Providers Date of admission: 04/08/18 12:52 Expected date of discharge: 04/10/18 Attending physician: Martinez Govea Consults: 04/08/18 12:52 Consult Physician Urgent Consulting Provider: Mukund Tolentino Consult Reason/Comments: sacral fracture Do you want consulting provider notified?: Yes Primary care physician: Dimple Wooten Hospital Course: 67-year-old morbidly obese female one of Dr. Wooten's patient with past medical history of CAD, diabetes, hypertension, hypothyroidism and hyperlipidemia who has obstructive sleep apnea and had known history of CAD post PCI and stent placement seen cardiology regular basis. Patient apparently fell on Saturday and developed to have severe left hip pain and lower back pain. Ended up coming to [facility] where was seen and evaluated finding came back negative for any major fracture. Patient continued to have significant decline in mobility not been able to ambulate walk or put any pressure on the left hip area ended up coming to the emergency department today by EMS further testing including lumbar and sacral x-ray along with CAT scan revealed sacrum fracture. Otherwise the hip is a clear. Patient was admitted to the hospital to control her symptoms Will be seen orthopedics and see if there is any intervention required at this point. 04/09: Patient has been seen by orthopedics with recommendations for PT, protected weightbearing as tolerated and pain management. Temperature max 99.6 , heart rate in the 80s and 90s, blood pressure 115/66, pulse ox 96% on room air. Patient states that she didn't sleep well last night. She continues to have low sacral pain and left hip pain. Sister is at the bedside. Physical therapy to start working with the patient today. Social work to follow up regarding subacute rehab. 04/10: Patient has been afebrile, blood pressure 127/75, pulse ox 94% on room air , heart rate running in the 70s and 80s. Patient has worked with physical therapy with recommendations for subacute rehab. The patient has met with social work with plan for discharge to [facility]. At this point, we are waiting for insurance authorization. We will plan to prepare patient for discharge today pending insurance authorization. Discharge diagnoses: 1 severe intractable left hip pain and sacral pain due to fracture of the sacrum 2 CAD post PCI and stent placement 3 type 2 diabetes 4 hypertension 5 hyperlipidemia 6 hypothyroidism 7 chronic edema 8 severe GERD Discharge plan: [place] under the care of Dr. Wooten Impression and plan of care have been directed as dictated by the signing physician. Antonette Carson nurse practitioner acting as scribe for signing physician. Patient Condition at Discharge: Good Plan - Discharge Summary Discharge Rx Participant: Yes New Discharge Prescriptions: New HYDROcodone/APAP 5-325MG [[place] 5-325] 1 each PO Q6HR PRN #12 tab PRN Reason: Pain Continue Multivit-Min/FA/Lycopen/Lutein [Centrum Silver Tablet] 1 tab PO DAILY Aspirin [Adult Low Dose Aspirin EC] 81 mg PO DAILY Atorvastatin [Lipitor] 40 mg PO HS #90 tab Metoprolol Tartrate [Lopressor] 25 mg PO BID #180 tab Nitroglycerin Sl Tabs [Nitrostat] 0.4 mg SUBLINGUAL Q5M PRN #25 tab PRN Reason: Chest Pain amLODIPine BESYLATE [Norvasc] 5 mg PO DAILY #1 tablet Lisinopril [Zestril] 5 mg PO DAILY Glimepiride [Amaryl] 4 mg PO BID Levothyroxine Sodium [Synthroid] 25 mcg PO DAILY sitaGLIPtin [Januvia] 50 mg PO DAILY Vit C/E/Zn/Coppr/Lutein/Zeaxan [Preservision Areds 2 Softgel] 2 cap PO DAILY Cholecalciferol (Vitamin D3) [Vitamin D3] 2,000 unit PO DAILY Discharge Medication List Aspirin [Adult Low Dose Aspirin EC] 81 mg PO DAILY 08/28/16 [History] Multivit-Min/FA/Lycopen/Lutein [Centrum Silver Tablet] 1 tab PO DAILY 08/28/16 [ History] Atorvastatin [Lipitor] 40 mg PO HS #90 tab 09/04/16 [Rx] Metoprolol Tartrate [Lopressor] 25 mg PO BID #180 tab 09/04/16 [Rx] Nitroglycerin Sl Tabs [Nitrostat] 0.4 mg SUBLINGUAL Q5M PRN #25 tab 09/04/16 [Rx ] amLODIPine BESYLATE [Norvasc] 5 mg PO DAILY #1 tablet 09/04/16 [Rx] Cholecalciferol (Vitamin D3) [Vitamin D3] 2,000 unit PO DAILY 04/08/18 [History] Glimepiride [Amaryl] 4 mg PO BID 04/08/18 [History] Levothyroxine Sodium [Synthroid] 25 mcg PO DAILY 04/08/18 [History] Lisinopril [Zestril] 5 mg PO DAILY 04/08/18 [History] Vit C/E/Zn/Coppr/Lutein/Zeaxan [Preservision Areds 2 Softgel] 2 cap PO DAILY [History] sitaGLIPtin [Januvia] 50 mg PO DAILY 04/08/18 [History] HYDROcodone/APAP 5-325MG [[place] 5-325] 1 each PO Q6HR PRN #12 tab 04/10/18 [Rx] Follow up Appointment(s)/Referral(s): Dimple Wooten MD [Primary Care Provider] - 1 Week (at [facility] ) Rene Hill DO [Doctor of Osteopathic Medicine] - 1 Week [facility] Charlie, [NON-STAFF] - As Needed Discharge Disposition: TRANSFER TO SNF/ECF
[2018-04-10 12:13] LABS: Glucose,Whole Blood 82 mg/dL (75-99)
== END 2018-04-10 13:45 | DRG 552 ==
LOC: EC 08:58 → 4SSUR 12:52
PROVIDERS: ADMIT Internal Medicine Geriatric Medicine; ATTEND Internal Medicine Geriatric Medicine
DX: S32.110A Nondisplaced Zone I fracture of sacrum, initial encounter for closed fracture (principal); Z68.42 Body mass index [BMI] 45.0-49.9, adult; E66.01 Morbid (severe) obesity due to excess calories; M51.36 Other intervertebral disc degeneration, lumbar region; I10 Essential (primary) hypertension; G47.33 Obstructive sleep apnea (adult) (pediatric); E03.9 Hypothyroidism, unspecified; E11.9 Type 2 diabetes mellitus without complications; E78.5 Hyperlipidemia, unspecified; I25.10 Atherosclerotic heart disease of native coronary artery without angina pectoris; K21.9 Gastro-esophageal reflux disease without esophagitis; R60.9 Edema, unspecified; L40.9 Psoriasis, unspecified; W01.0XXA Fall on same level from slipping, tripping and stumbling without subsequent striking against object, initial encounter; Z79.82 Long term (current) use of aspirin; Z79.84 Long term (current) use of oral hypoglycemic drugs; Z79.890 Hormone replacement therapy; Z79.899 Other long term (current) drug therapy; Z87.891 Personal history of nicotine dependence; Z98.42 Cataract extraction status, left eye; Z98.41 Cataract extraction status, right eye; Z95.5 Presence of coronary angioplasty implant and graft; Z82.49 Family history of ischemic heart disease and other diseases of the circulatory system
CPT/HCPCS: 72100; 72192; 83036; 96374; 96375; 99285

== ENCOUNTER 2019-01-05 08:34 | Day surgery (SDC) | payer MEDICARE ==
[2019-01-02 09:05] VITALS: BMI 47.5
[~2019-01-05 08:34] MED LIST changes: +LACTATED RINGERS 1,000 ML IV SCH; +LIDOCAINE 1% 20 ML VIAL (10MG/ML) FOR IV START INTRADERMA PRN; -REGADENOSON 0.4 MG/5 ML SYRINGE IV ONE
[2019-01-05 09:07] VITALS: RESP 16; TEMP 97.5
[2019-01-05 09:19] LABS: Glucose,Whole Blood 142 mg/dL (75-99)
[2019-01-05] MEDS ORDERED: PROPOFOL 10 MG/ML 20 ML VIAL IV ONE (09:30)
[2019-01-05] MEDS ORDERED: LIDOCAINE 1% INJ 10MG/ML (20 ML MDV) ONE (09:30)
--- NOTE | 2019-01-05 09:39 | P.GSHP ---
History of Present Illness H&P Date: 01/05/19 Chief Complaint: Colon cancer screening Patient here today for colonoscopy. Last colonoscopy 5 years ago. Patient had hyperplastic rectal polyps at that time. Patient is otherwise asymptomatic. She is not aware of any polyps prior to that. No family history of colon can cer. Past Medical History Past Medical History: Diabetes Mellitus, Hyperlipidemia, Hypertension, Skin Disorder Additional Past Medical History / Comment(s): Hx Psoriasis History of Any Multi-Drug Resistant Organisms: None Reported Past Surgical History: Heart Catheterization With Stent Additional Past Surgical History / Comment(s): Cataracts, abcess on buttocks, colonoscopies Past Anesthesia/Blood Transfusion Reactions: No Reported Reaction Date of Last Stent Placement:: unknown Smoking Status: Former smoker - Past Family History Mother Family Medical History: Hypertension Father Family Medical History: Hypertension Medications and Allergies Home Medications Medication Instructions Recorded Confirmed Type Aspirin [Adult Low Dose Aspirin EC] 81 mg PO DAILY 08/28/16 01/02/19 History Multivit-Min/FA/Lycopen/Lutein 1 tab PO DAILY 08/28/16 01/02/19 History [Centrum Silver Tablet] Atorvastatin [Lipitor] 40 mg PO HS #90 tab 09/04/16 01/02/19 Rx Metoprolol Tartrate [Lopressor] 25 mg PO BID #180 tab 09/04/16 01/02/19 Rx Nitroglycerin Sl Tabs [Nitrostat] 0.4 mg SUBLINGUAL Q5M PRN #25 tab 09/04/16 01/02/19 Rx amLODIPine BESYLATE [Norvasc] 5 mg PO DAILY #1 tablet 09/04/16 01/02/19 Rx Cholecalciferol (Vitamin D3) 2,000 unit PO DAILY 04/08/18 01/02/19 History [Vitamin D3] Glimepiride [Amaryl] 4 mg PO BID 04/08/18 01/02/19 History Levothyroxine Sodium [Synthroid] 25 mcg PO DAILY 04/08/18 01/02/19 History Lisinopril [Zestril] 5 mg PO DAILY 04/08/18 01/02/19 History Vit C/E/Zn/Coppr/Lutein/Zeaxan 2 cap PO DAILY 04/08/18 01/02/19 History [Preservision Areds 2 Softgel] sitaGLIPtin [Januvia] 50 mg PO DAILY 04/08/18 01/02/19 History Canagliflozin [Invokana] 100 mg PO DAILY 01/02/19 01/02/19 History Furosemide [Lasix] 40 mg PO MOWEFR 01/02/19 01/02/19 History Allergies Allergy/AdvReac Type Severity Reaction Status Date / Time No Known Allergies Allergy Verified 01/05/19 09:01 Surgical - Exam Vital Signs Temp Pulse Resp BP Pulse Ox 97.5 F L 80 16 149/80 95 01/05/19 09:06 01/05/19 09:06 01/05/19 09:06 01/05/19 09:06 01/05/19 09:06 Physical exam: General: Well-developed, well-nourished HEENT: Normocephalic, sclerae nonicteric Abdomen: Nontender, nondistended Extremities: No edema Neuro: Alert and oriented Results - Labs Abnormal Lab Results - Last 24 Hours (Table) 01/05/19 Range/Units 09:14 POC Glucose (mg/dL) 142 H (75-99) mg/dL Assessment and Plan (1) Colon cancer screening Narrative/Plan: Will proceed with colonoscopy Current Visit: Yes Status: Acute Code(s): Z12.11 - ENCOUNTER FOR SCREENING FOR MALIGNANT NEOPLASM OF COLON SNOMED Code(s): 936571333
--- NOTE | 2019-01-05 10:11 | P.PCN ---
Date of Procedure: 01/05/19 Procedure(s) Performed: PREOPERATIVE DIAGNOSIS: Colon cancer screening POSTOPERATIVE DIAGNOSIS: Hepatic flexure and sigmoid polyp PROCEDURE: Colonoscopy with snare polypectomy ANESTHESIA: MAC SURGEON: Roldan Mejai M.D. SPECIMENS: Polyps ENDOSCOPIC PROCEDURE: The patient was placed on the endoscopy table in the left decubitus position. The Olympus colonoscope was inserted into the anus and passed under direct visualization to the base of the cecum. The appendiceal orifice was visualized. From that point the scope was slowly withdrawn inspecting all surfaces carefully. There were no neoplastic inflammatory or polypoid lesions throughout the cecum or ascending colon. At the hepatic flexure a small polyp was identified and removed using the snare with cautery technique. The remainder of the transverse and descending colon appear normal. In the sigmoid colon another small polyp was identified and removed in a similar fashion. The remainder of the sigmoid and rectum was normal. There was no visible diverticulosis. Digital rectal examination revealed small internal and external hemorrhoids. The patient was taken to the recovery room in stable condition per anesthesia guidelines. RECOMMENDATIONS: Await biopsy results. Probable colonoscopy 5 years.
[2019-01-05 10:17] VITALS: BP 124/80; PULSE 79
== END 2019-01-05 10:41 | disposition home or self-care (01) ==
LOC: ORWHC2ENDO 08:34
PROVIDERS: ATTEND Surgery
DX: Z12.11 Encounter for screening for malignant neoplasm of colon (principal); D12.3 Benign neoplasm of transverse colon; K63.5 Polyp of colon; K64.4 Residual hemorrhoidal skin tags; K64.8 Other hemorrhoids; I25.10 Atherosclerotic heart disease of native coronary artery without angina pectoris; I10 Essential (primary) hypertension; E78.5 Hyperlipidemia, unspecified; E11.9 Type 2 diabetes mellitus without complications; G47.33 Obstructive sleep apnea (adult) (pediatric); L40.9 Psoriasis, unspecified; Z87.891 Personal history of nicotine dependence; Z79.84 Long term (current) use of oral hypoglycemic drugs; Z79.82 Long term (current) use of aspirin; Z79.890 Hormone replacement therapy; Z79.899 Other long term (current) drug therapy; Z95.5 Presence of coronary angioplasty implant and graft; Z87.19 Personal history of other diseases of the digestive system; Z98.49 Cataract extraction status, unspecified eye; Z99.89 Dependence on other enabling machines and devices; Z82.49 Family history of ischemic heart disease and other diseases of the circulatory system
CPT/HCPCS: 88305; 45385; J2001; J2704

== ENCOUNTER 2019-08-31 15:56 | Inpatient (IN) | payer MEDICARE ==
[2019-08-31] MEDS ORDERED: methylPREDNISolone SOD SUCCI 125 MG/2 ML VIAL IV STA (16:21)
[2019-08-31] MEDS ORDERED: IPRATROPIUM-ALBUTEROL 3 ML NEB INHALATION STA (16:21)
--- NOTE | 2019-08-31 16:23 | ED ---
SOB HPI - General Chief Complaint: Shortness of Breath Stated Complaint: SOB Time Seen by Provider: 08/31/19 16:06 Source: patient, RN notes reviewed, old records reviewed Mode of arrival: wheelchair Limitations: physical limitation - History of Present Illness Initial Comments: This is a 68-year-old female DF for evaluation patient Dese for evaluation of shortness of breath. Patient has hypoxia outpatient setting patient sent to ER for evaluation and management. Patient admits to continue shortness of breath here but no chest pain currently denying any fevers cough or congestion MD Complaint: shortness of breath, cough, pain with inspiration -: days(s) Severity: moderate Severity scale (1-10): 7 Quality: dull Consistency: constant Improves With: rest, bronchodilators Worsens With: exertion Known History Of: COPD Context: recent URI Associated Symptoms: chest pain, pain with inspiration, cough - Related Data Home Medications Medication Instructions Recorded Confirmed Aspirin [Adult Low Dose Aspirin EC] 81 mg PO DAILY 08/28/16 08/31/19 Multivit-Min/FA/Lycopen/Lutein 2 tab PO DAILY 08/28/16 08/31/19 [Centrum Silver Tablet] Cholecalciferol (Vitamin D3) 2,000 unit PO DAILY 04/08/18 08/31/19 [Vitamin D3] Glimepiride [Amaryl] 4 mg PO BID 04/08/18 08/31/19 Levothyroxine Sodium [Synthroid] 25 mcg PO DAILY 04/08/18 08/31/19 Lisinopril [Zestril] 5 mg PO DAILY 04/08/18 08/31/19 Vit C/E/Zn/Coppr/Lutein/Zeaxan 2 cap PO DAILY 04/08/18 08/31/19 [Preservision Areds 2 Softgel] sitaGLIPtin [Januvia] 50 mg PO DAILY 04/08/18 08/31/19 Furosemide [Lasix] 40 mg PO DAILY 01/02/19 08/31/19 Previous Rx's Medication Instructions Recorded Atorvastatin [Lipitor] 40 mg PO HS #90 tab 09/04/16 Metoprolol Tartrate [Lopressor] 25 mg PO BID #180 tab 09/04/16 Nitroglycerin Sl Tabs [Nitrostat] 0.4 mg SUBLINGUAL Q5M PRN #25 tab 09/04/16 amLODIPine BESYLATE [Norvasc] 5 mg PO DAILY #1 tablet 09/04/16 Allergies Allergy/AdvReac Type Severity Reaction Status Date / Time No Known Allergies Allergy Verified 08/31/19 17:41 Review of Systems ROS Statement: Those systems with pertinent positive or pertinent negative responses have been documented in the HPI. ROS Other: All systems not noted in ROS Statement are negative. Past Medical History Past Medical History: Diabetes Mellitus, Hyperlipidemia, Hypertension, Skin Disorder Additional Past Medical History / Comment(s): Hx Psoriasis History of Any Multi-Drug Resistant Organisms: None Reported Past Surgical History: Heart Catheterization With Stent Additional Past Surgical History / Comment(s): Cataracts, abcess on buttocks, colonoscopies Past Anesthesia/Blood Transfusion Reactions: No Reported Reaction Date of Last Stent Placement:: unknown Past Psychological History: No Psychological Hx Reported Smoking Status: Former smoker Past Alcohol Use History: None Reported Past Drug Use History: None Reported - Past Family History Mother Family Medical History: Hypertension Father Family Medical History: Hypertension General Exam Limitations: physical limitation General appearance: alert, in no apparent distress Head exam: Present: atraumatic, normocephalic, normal inspection Eye exam: Present: normal appearance, PERRL, EOMI. Absent: scleral icterus, conjunctival injection, periorbital swelling ENT exam: Present: normal exam, mucous membranes moist Neck exam: Present: normal inspection. Absent: tenderness, meningismus, lymphadenopathy Respiratory exam: Present: respiratory distress, wheezes. Absent: rales, rhonchi, stridor Cardiovascular Exam: Present: regular rate, normal rhythm, normal heart sounds. Absent: systolic murmur, diastolic murmur, rubs, gallop, clicks GI/Abdominal exam: Present: soft, normal bowel sounds. Absent: distended, tenderness, guarding, rebound, rigid Extremities exam: Present: normal inspection, full ROM, normal capillary refill. Absent: tenderness, pedal edema, joint swelling, calf tenderness Back exam: Present: normal inspection Neurological exam: Present: alert, oriented X3, CN II-XII intact Psychiatric exam: Present: normal affect, normal mood Skin exam: Present: warm, dry, intact, normal color. Absent: rash Course Vital Signs 08/31/19 08/31/19 08/31/19 15:58 16:56 17:25 Temperature 98 F Pulse Rate 94 76 78 Respiratory 26 H Rate Blood Pressure 135/75 O2 Sat by Pulse 89 L Oximetry 08/31/19 08/31/19 18:09 18:11 Temperature 98.2 F Pulse Rate 82 Respiratory 16 18 Rate Blood Pressure 150/55 O2 Sat by Pulse 94 L Oximetry - Reevaluation(s) Reevaluation #1: 08/31/19 16:23 Medical records reviewed Reevaluation #2: 08/31/19 17:12 Mild improvement here in the emergency department - Consultations Consultation #1: Spoke with Dr. Wooten who agrees to admit this patient Medical Decision Making - Medical Decision Making 68 female DF for evaluation will be admitted for COPD hypoxia, rule out covert - Lab Data Result diagrams: 08/31/19 16:59 08/31/19 16:59 - EKG Data -: EKG Interpreted by Me (EKG is A. fib of 86 QRS 74 QTC 428) - Radiology Data Radiology results: report reviewed (Chest x-ray is nonspecific me bilateral infiltrates, ), image reviewed Critical Care Time Critical Care Time: Yes Total Critical Care Time: 31 Disposition Clinical Impression: Acute exacerbation of chronic obstructive pulmonary disease, Hypoxia, Pneumonia Narrative: roCOVID Disposition: ADMITTED IP TO THIS HOSP Condition: Fair Is patient prescribed a controlled substance at d/c from ED?: No
[2019-08-31 17:44] LABS: Basophils % (A) 0 %; Eosinophils # (A) 0.1 k/uL (0-0.7); Eosinophils % (A) 1 %; HCT 32.5 % (34.0-46.0); HGB 10.7 gm/dL (11.4-16.0); INR 0.9 (<1.2); Lymphocytes # (A) 1.1 k/uL (1.0-4.8); Lymphocytes % (A) 9 %; MCV 112.3 fL (80.0-100.0); Macrocytosis Marked; Mean Platelet Volume 10.4; Monocytes # (A) 0.5 k/uL (0-1.0); Monocytes % (A) 4 %; Neutrophils # (A) 10.1 k/uL (1.3-7.7); Neutrophils % (A) 85 %; Partial Thromboplastin Time 24.7 sec (22.0-30.0); Platelet Count 236 k/uL (150-450); Prothrombin Time 9.8 sec (9.0-12.0); WBC 11.9 k/uL (3.8-10.6)
[2019-08-31 17:50] LABS: D-Dimer 1.62 mg/L FEU (<0.60)
[2019-08-31 17:54] LABS: C Reactive Protein 198.9 mg/L (<10.0)
[2019-08-31 17:59] LABS: Albumin 3.7 g/dL (3.5-5.0); Calcium 8.9 mg/dL (8.4-10.2); Magnesium 2.3 mg/dL (1.6-2.3); Potassium 4.6 mmol/L (3.5-5.1); Total Bilirubin 0.7 mg/dL (0.2-1.3); Total Protein 6.4 g/dL (6.3-8.2)
[2019-08-31] MEDS: methylPREDNISolone SOD SUCCI 125 MG/2 ML VIAL IV SCH (18:13)
--- NOTE | 2019-08-31 18:56 | XR ---
EXAMINATION TYPE: XR chest 1V portable DATE OF EXAM: 08/31/2019 CLINICAL HISTORY: Suspected COVID-19 pneumonia. Shortness of breath with exertion. TECHNIQUE: Single AP portable upright view of the chest is obtained. COMPARISON: Chest x-ray November 22, 2015 FINDINGS: Suboptimal study due to large body habitus and portable technique. More prominent cardiome mickie. Chronic parenchymal changes with pain and increased opacities mid to lower lung bilaterally fel t present. No pleural effusion or pneumothorax seen. IMPRESSION: More prominent cardiomegaly. Suboptimal study with suggestion of mid to lower lung faint edema and/or infiltrates bilaterally. Progress study advised.
[2019-08-31] MEDS ORDERED: AZITHROMYCIN 500 MG in SODIUM CHLORIDE 0.9% 250 ML IVPB STA (19:25)
[2019-08-31] MEDS: ALBUTEROL NEBULIZED 2.5 MG/3 ML INHALATION SCH (21:02)
[2019-09-01 02:15] LABS: Ferritin 235.2 ng/mL (10.0-291.0)
[2019-09-01] MEDS: methylPREDNISolone SOD SUCCI 125 MG/2 ML VIAL IV SCH ×5 (07:16→23:41)
[2019-09-01] MEDS: ALBUTEROL NEBULIZED 2.5 MG/3 ML INHALATION SCH ×2 (07:19→12:34)
[2019-09-01] MEDS ORDERED: NITROGLYCERIN SL TABS 0.4 MG TAB SUBLINGUAL PRN (07:25)
[2019-09-01] MEDS: BUDESONIDE 0.5 MG/2 ML NEBU INHALATION SCH ×2 (08:06→20:15)
[2019-09-01 08:14] LABS: Glucose,Whole Blood 262 mg/dL (75-99)
[2019-09-01] MEDS ORDERED: ENOXAPARIN 40 MG/0.4 ML SYRINGE SQ SCH (09:00)
[2019-09-01] MEDS: INSULIN ASPART (NovoLOG) 100 UNIT/ML VIAL SQ SCH ×4 (10:03→21:01)
[2019-09-01] MEDS: ASPIRIN 81 MG PO SCH (10:04)
[2019-09-01] MEDS: amLODIPine 5 MG TAB PO SCH (10:04)
[2019-09-01] MEDS: CHOLECALCIFEROL 1,000 UNIT TAB PO SCH (10:04)
[2019-09-01] MEDS: GLIMEPIRIDE 4 MG TAB PO SCH ×2 (10:05→21:10)
[2019-09-01] MEDS: FUROSEMIDE 40 MG TAB PO SCH (10:05)
[2019-09-01] MEDS: LINAGLIPTIN 5 MG TABLET PO SCH (10:06)
[2019-09-01] MEDS: LEVOTHYROXINE 25 MCG TAB PO SCH (10:06)
[2019-09-01] MEDS: MULTIVITAMINS, THERA 1 EACH TAB PO SCH (10:06)
[2019-09-01] MEDS: METOPROLOL TARTRATE 25 MG TAB PO SCH ×2 (10:06→21:01)
[2019-09-01] MEDS: VIT A,C & E-LUTEIN-MINERALS 1 EACH TAB PO SCH (10:07)
--- NOTE | 2019-09-01 12:20 | NM ---
EXAMINATION TYPE: NM pul vent and perfuse DATE OF EXAM: 09/01/2019 COMPARISON: Chest x-ray 08/31/2019 HISTORY: Elevated d-dimer, difficulty breathing TECHNIQUE: Utilizing inhalation of 64.5 mCi Tc 99m DTPA aerosol and intravenous injection of 5.1 mCi of Tc 99m MAA, ventilation and perfusion images are acquired post injection in multiple projections. FINDINGS: No moderate or large mismatched defects are evident. No triple matched defects are evident. IMPRESSION: Low probability for pulmonary embolism
[2019-09-01 12:39] LABS: Glucose,Whole Blood 311 mg/dL (75-99)
[2019-09-01] MEDS ORDERED: IPRATROPIUM-ALBUTEROL 3 ML NEB INHALATION PRN (13:12)
--- NOTE | 2019-09-01 13:19 | P.HPIM ---
History of Present Illness H&P Date: 09/01/19 Chief Complaint: AMI This is a 68-year-old female patient of Dr. Wooten with past medical history of diabetes mellitus type 2, psoriasis, COPD, hypertension, coronary artery disease status post stenting of the mid LAD [place] [address] Zavala, remote history of tobacco use and dependence. Patient states that she developed increasing shortness of breath about 2 days ago along with chest congestion. She states she has not been eating very well the last couple days. She denies any wheezing. She also had a cough but was not originally productive. It is productive this morning. She complains of sweats this morning but no actual fever or chills. She denies having any weakness. Her last bowel movement was yesterday. No nausea or vomiting. No abdominal pain. Patient came into [facility] emergency center for evaluation. She was afebrile, heart rate 94, respiratory rate 26, blood pressure 135/75 and pulse ox 89% on room air. D-dimer 1.6 to. WBC 11.9, hemoglobin 10.7, platelet count 236. BUN 40 creatinine 1.53, sodium 135. Alk phos is 131. CRP 198.9, pro calcitonin 0.17. Chest x-ray reveals more prominent cardiomegaly suboptimal study. Suggest mid to lower faint edema or infiltrate. She was given nebulizer treatment, IV Solu-Medrol 125 mg and she states she was feeling better at the time of evaluation. Patient admitted to the [facility] floor with consult placed to Dr. Adams. Review of Systems Constitutional: Reports fatigue, Reports poor appetite, Reports sweats, Denies chills, Denies fever, Denies weight loss Eyes: denies blurred vision, denies pain Ears, nose, mouth and throat: Denies headache, Denies sore throat, Denies vertigo Cardiovascular: Reports decreased exercise tolerance, Reports dyspnea on exertion, Reports shortness of breath, Denies chest pain, Denies edema, Denies leg edema, Denies lightheadedness Respiratory: Reports cough, Reports cough with sputum, Reports dyspnea, Denies excessive sputum, Denies hemoptysis, Denies home oxygen Gastrointestinal: Reports loss of appetite, Denies abdominal pain, Denies change in bowel habits, Denies diarrhea, Denies melena, Denies nausea, Denies vomiting Genitourinary: Denies dysuria, Denies hematuria, Denies urgency, Denies urinary frequency Musculoskeletal: Denies frequent falls, Denies gait dysfunction, Denies myalgias Integumentary: Denies pruritus, Denies rash, Denies wounds Neurological: Denies change in mentation, Denies change in speech, Denies numbness, Denies seizures, Denies weakness Psychiatric: Denies anxiety, Denies depression Endocrine: Denies fatigue, Denies weight change Past Medical History Past Medical History: Diabetes Mellitus, Hyperlipidemia, Hypertension, Skin Diso rder Additional Past Medical History / Comment(s): Hx Psoriasis History of Any Multi-Drug Resistant Organisms: None Reported Past Surgical History: Heart Catheterization With Stent Additional Past Surgical History / Comment(s): Cataracts, abcess on buttocks, colonoscopies Past Anesthesia/Blood Transfusion Reactions: No Reported Reaction Date of Last Stent Placement:: unknown Past Psychological History: No Psychological Hx Reported Past Alcohol Use History: None Reported Additional Past Alcohol Use History / Comment(s): Patient was a smoker one pack per day for 20 years and quit approximately 30 years ago. She denies any marijuana, street drug or alcohol use. She lives at home and her nephew lives with her. Past Drug Use History: None Reported - Past Family History Mother Family Medical History: Hypertension Additional Family Medical History / Comment(s): Mother in her 80s from old age. Father Family Medical History: Hypertension Additional Family Medical History / Comment(s): Father at age 70 during his sleep of unknown cause. Sister(s) Additional Family Medical History / Comment(s): Patient has 3 sisters and one has from ovarian cancer. One is alive with colon cancer and doing very poorly expected to sound. One sister has no major medical problems. Brother(s) Additional Family Medical History / Comment(s): The patient has 1 brother with no major medical problems. Patient does not have any children. Medications and Allergies Home Medications Medication Instructions Recorded Confirmed Type Aspirin [Adult Low Dose Aspirin EC] 81 mg PO DAILY 08/28/16 08/31/19 History Multivit-Min/FA/Lycopen/Lutein 2 tab PO DAILY 08/28/16 08/31/19 History [Centrum Silver Tablet] Atorvastatin [Lipitor] 40 mg PO HS #90 tab 09/04/16 08/31/19 Rx Metoprolol Tartrate [Lopressor] 25 mg PO BID #180 tab 09/04/16 08/31/19 Rx Nitroglycerin Sl Tabs [Nitrostat] 0.4 mg SUBLINGUAL Q5M PRN #25 tab 09/04/16 08/31/19 Rx amLODIPine BESYLATE [Norvasc] 5 mg PO DAILY #1 tablet 09/04/16 08/31/19 Rx Cholecalciferol (Vitamin D3) 2,000 unit PO DAILY 04/08/18 08/31/19 History [Vitamin D3] Glimepiride [Amaryl] 4 mg PO BID 04/08/18 08/31/19 History Levothyroxine Sodium [Synthroid] 25 mcg PO DAILY 04/08/18 08/31/19 History Lisinopril [Zestril] 5 mg PO DAILY 04/08/18 08/31/19 History Vit C/E/Zn/Coppr/Lutein/Zeaxan 2 cap PO DAILY 04/08/18 08/31/19 History [Preservision Areds 2 Softgel] sitaGLIPtin [Januvia] 50 mg PO DAILY 04/08/18 08/31/19 History Furosemide [Lasix] 40 mg PO DAILY 01/02/19 08/31/19 History Allergies Allergy/AdvReac Type Severity Reaction Status Date / Time No Known Allergies Allergy Verified 08/31/19 17:41 Physical Exam Vitals: Vital Signs Temp Pulse Resp BP Pulse Ox 09/01/19 07:13 76 20 124/76 95 09/01/19 00:28 86 20 106/76 93 L 08/31/19 21:14 80 08/31/19 21:05 76 08/31/19 19:53 85 24 150/74 91 L 08/31/19 18:11 18 08/31/19 18:09 98.2 F 82 16 150/55 94 L 08/31/19 17:25 78 08/31/19 16:56 76 08/31/19 15:58 98 F 94 26 H 135/75 89 L Intake and Output 08/31/19 09/01/19 09/01/19 22:59 06:59 14:59 Other: Weight 117.934 kg Physical Examination Gen: This is a 68-year-old female. She is resting on the ER stretcher and appears in no acute distress. HEENT: Head is atraumatic, normocephalic. Pupils equal, round. Sclerae is anicteric. NECK: Supple. No JVD. No lymphadenopathy. No thyromegaly. LUNGS: Few scattered expiratory wheeze. No intercostal retractions. No accessory muscle usage. HEART: Regular rate and rhythm. No murmur. ABDOMEN: Soft. Bowel sounds are present. No masses. No tenderness. EXTREMITIES: No pedal edema. No calf tenderness. Dorsalis pedis +2 krista aterally. NEUROLOGICAL: Patient is awake, alert and oriented x3. Cranial nerves 2 through 12 are grossly intact. No weakness, good strength in upper and lower extremities. Results CBC & Chem 7: 08/31/19 16:59 08/31/19 16:59 Labs: Abnormal Lab Results - Last 24 Hours (Table) 08/31/19 08/31/19 08/31/19 Range/Units 16:57 16:59 16:59 WBC 11.9 H (3.8-10.6) k/uL RBC 2.90 L (3.80-5.40) m/uL Hgb 10.7 L (11.4-16.0) gm/dL Hct 32.5 L (34.0-46.0) % MCV 112.3 H (80.0-100.0) fL MCH 37.0 H (25.0-35.0) pg Neutrophils # 10.1 H (1.3-7.7) k/uL Macrocytosis Marked A D-Dimer 1.62 H (<0.60) mg/L FEU Sodium (137-145) mmol/L BUN (7-17) mg/dL Creatinine (0.52-1.04) mg/dL Glucose (74-99) mg/dL Alkaline Phosphatase (38-126) U/L C-Reactive Protein (<10.0) mg/L Procalcitonin 0.17 H (0.02-0.09) ng/mL 08/31/19 Range/Units 16:59 WBC (3.8-10.6) k/uL RBC (3.80-5.40) m/uL Hgb (11.4-16.0) gm/dL Hct (34.0-46.0) % MCV (80.0-100.0) fL MCH (25.0-35.0) pg Neutrophils # (1.3-7.7) k/uL Macrocytosis D-Dimer (<0.60) mg/L FEU Sodium 135 L (137-145) mmol/L BUN 40 H (7-17) mg/dL Creatinine 1.53 H (0.52-1.04) mg/dL Glucose 175 H (74-99) mg/dL Alkaline Phosphatase 131 H (38-126) U/L C-Reactive Protein 198.9 H (<10.0) mg/L Procalcitonin (0.02-0.09) ng/mL Thrombosis Risk Factor Assmnt - DVT/VTE Prophylaxis DVT/VTE Prophylaxis: Pharmacologic Prophylaxis ordered Assessment and Plan Plan: 1. Acute hypoxic respiratory failure secondary to acute COPD exacerbation, possible early pneumonia. DuoNeb treatments scheduled 3 times daily and as needed, Pulmicort added 0.5 mg twice daily, continue azithromycin. Solu-Medrol 60 mg IV every [address] Adams. VQ scan low probability for pulmonary embolism 2. Acute kidney injury. Avoid nephrotoxic agents. Recheck renal function in the morning. 3. Diabetes mellitus type 2. Continue glimepiride 4 mg twice daily, Cogentin daily,. 4. Hypothyroidism. Continue levothyroxine 0.5 g daily. 5. Hypertension. Continue amlodipine 5 mg daily, Lopressor 5 mg twice daily. 6. History of coronary artery disease with previous stent of the mid LAD. Continue aspirin 81 mg daily, Lipitor 40 mg at bedtime and Lopressor 7. Hyperlipidemia. Continue atorvastatin. 8. DVT prophylaxis. Lovenox. 9. GI prophylaxis. Protonix. 10. COVID-19 infection not present. Patient will be admitted to the hospital for a minimum of 2 night stay. Discharge plan: Return home Impression and plan of care have been directed as dictated by the signing physician. Antonette Carson nurse practitioner acting as scribe for signing physician.
[2019-09-01 16:40] LABS: Glucose,Whole Blood 304 mg/dL (75-99)
[2019-09-01] MEDS: AZITHROMYCIN 500 MG in SODIUM CHLORIDE 0.9% 250 ML IVPB SCH (16:55)
--- NOTE | 2019-09-01 16:56 | P.CNPUL ---
History of Present Illness Consult date: 09/01/19 Reason for consult: dyspnea History of present illness: There is a morbidly obese 68-year-old female patient who is known to me because of her underlying obstructive sleep apnea the patient has an AHI of 20 and she has been maintenance CPAP pressure of 13 cm of water on outpatient basis. The patient also known to have COPD, coronary artery disease and the patient has undergone previous stenting of the mid LAD back in 2017 and she has diabetes mellitus and hypertension and psoriasis. She is a chronic smoker. The patient came into the hospital because of worsening shortness of breath. She denied having any angina. She had some increased chest congestion. No fever. No chills. No night sweats. No nausea. No vomiting. No abdominal pain. She was afebrile at time of admission and she was hemodynamically stable. D-dimer was at 1.6 with a white cell count of 11.9 and hemoglobin of 10.7. Her BNP was at 40 with a creatinine of 1.5. Her pro-calcitonin level was 0.17. Chest x-ray showed cardiomegaly and was a suboptimal film due to morbid obesity. The VQ scan came back negative on a low probability. She was admitted under the diagnosis of COPD exacerbation. She was started on a combination of bronchodilators and systemic steroids. The price virus nasal swab is still pending for now. The patient currently receiving DuoNeb nebulized treatment [id number], IV Solu-Medrol, Zithromax on empiric antibiotic coverage. Patient is also on oral Lasix 40 mg on a daily basis. Review of Systems Constitutional: Reports fatigue, Reports poor appetite, Reports sweats, Denies chills, Denies fever, Denies weight loss Eyes: denies blurred vision, denies pain Ears, nose, mouth and throat: Denies headache, Denies sore throat, Denies vertigo Cardiovascular: Reports decreased exercise tolerance, Reports dyspnea on exertion, Reports shortness of breath, Denies chest pain, Denies edema, Denies leg edema, Denies lightheadedness Respiratory: Reports cough, Reports cough with sputum, Reports dyspnea, Denies excessive sputum, Denies hemoptysis, Denies home oxygen Gastrointestinal: Reports loss of appetite, Denies abdominal pain, Denies change in bowel habits, Denies diarrhea, Denies melena, Denies nausea, Denies vomiting Genitourinary: Denies dysuria, Denies hematuria, Denies urgency, Denies urinary frequency Musculoskeletal: Denies frequent falls, Denies gait dysfunction, Denies myalgias Integumentary: Denies pruritus, Denies rash, Denies wounds Neurological: Denies change in mentation, Denies change in speech, Denies nu mbness, Denies seizures, Denies weakness Psychiatric: Denies anxiety, Denies depression Endocrine: Denies fatigue, Denies weight change Past Medical History Past Medical History: Coronary Artery Disease (CAD), Diabetes Mellitus, Hyperlipidemia, Hypertension, Skin Disorder, Sleep Apnea/CPAP/BIPAP Additional Past Medical History / Comment(s): Hx Psoriasis History of Any Multi-Drug Resistant Organisms: None Reported Past Surgical History: Heart Catheterization With Stent Additional Past Surgical History / Comment(s): Cataracts, abcess on buttocks, colonoscopies Past Anesthesia/Blood Transfusion Reactions: No Reported Reaction Date of Last Stent Placement:: unknown Past Psychological History: No Psychological Hx Reported Past Alcohol Use History: None Reported Additional Past Alcohol Use History / Comment(s): Patient was a smoker one pack per day for 20 years and quit approximately 30 years ago. She denies any marijuana, street drug or alcohol use. She lives at home and her nephew lives with her. Past Drug Use History: None Reported - Past Family History Mother Family Medical History: Hypertension Additional Family Medical History / Comment(s): Mother in her 80s from old age. Father Family Medical History: Hypertension Additional Family Medical History / Comment(s): Father at age 70 during his sleep of unknown cause. Sister(s) Additional Family Medical History / Comment(s): Patient has 3 sisters and one has from ovarian cancer. One is alive with colon cancer and doing very poorly expected to sound. One sister has no major medical problems. Brother(s) Additional Family Medical History / Comment(s): The patient has 1 brother with no major medical problems. Patient does not have any children. Medications and Allergies Home Medications Medication Instructions Recorded Confirmed Type Aspirin [Adult Low Dose Aspirin EC] 81 mg PO DAILY 08/28/16 08/31/19 History Multivit-Min/FA/Lycopen/Lutein 2 tab PO DAILY 08/28/16 08/31/19 History [Centrum Silver Tablet] Atorvastatin [Lipitor] 40 mg PO HS #90 tab 09/04/16 08/31/19 Rx Metoprolol Tartrate [Lopressor] 25 mg PO BID #180 tab 09/04/16 08/31/19 Rx Nitroglycerin Sl Tabs [Nitrostat] 0.4 mg SUBLINGUAL Q5M PRN #25 tab 09/04/16 08/31/19 Rx amLODIPine BESYLATE [Norvasc] 5 mg PO DAILY #1 tablet 09/04/16 08/31/19 Rx Cholecalciferol (Vitamin D3) 2,000 unit PO DAILY 04/08/18 08/31/19 History [Vitamin D3] Glimepiride [Amaryl] 4 mg PO BID 04/08/18 08/31/19 History Levothyroxine Sodium [Synthroid] 25 mcg PO DAILY 04/08/18 08/31/19 History Lisinopril [Zestril] 5 mg PO DAILY 04/08/18 08/31/19 History Vit C/E/Zn/Coppr/Lutein/Zeaxan 2 cap PO DAILY 04/08/18 08/31/19 History [Preservision Areds 2 Softgel] sitaGLIPtin [Januvia] 50 mg PO DAILY 04/08/18 08/31/19 History Furosemide [Lasix] 40 mg PO DAILY 01/02/19 08/31/19 History Allergies Allergy/AdvReac Type Severity Reaction Status Date / Time No Known Allergies Allergy Verified 08/31/19 17:41 Physical Exam Vitals: Vital Signs Temp Pulse Pulse Resp BP BP Pulse Ox 09/01/19 15:09 79 22 09/01/19 14:54 97.9 F 79 22 148/78 92 L 09/01/19 12:46 98.2 F 69 16 136/73 98 09/01/19 12:22 69 16 136/73 98 09/01/19 07:28 84 09/01/19 07:20 82 09/01/19 07:13 76 20 124/76 95 09/01/19 00:28 86 20 106/76 93 L 08/31/19 21:14 80 08/31/19 21:05 76 08/31/19 19:53 85 24 150/74 91 L 08/31/19 18:11 18 08/31/19 18:09 98.2 F 82 16 150/55 94 L 08/31/19 17:25 78 08/31/19 16:56 76 Intake and Output 09/01/19 09/01/19 09/01/19 06:59 14:59 22:59 Other: # Voids 2 Weight 117.934 kg Gen. appearance obese, comfortable not in acute respiratory distress Head exam was generally normal. There was no scleral icterus or corneal arcus. Mucous membranes were moist. Neck was supple and without jugular venous distension, thyromegaly, or carotid bruits. Carotids were easily palpable bilaterally. There was no adenopathy. Mallampati class IV and there is significant crowding of the posterior oropharynx. Lungs sounds are diminished bilaterally along with some few scattered external wheeze Cardiac exam revealed the PMI to be normally situated and sized. The rhythm was regular and no extrasystoles were noted during several minutes of auscultation. The first and second heart sounds were normal and physiologic splitting of the second heart sound was noted. There were no murmurs, rubs, clicks, or gallops. Abdomen is obese soft ,nontender. No significant organomegaly. No ascites. Organs cannot be accurately palpated. Examination of the extremities revealed easily palpable radial, femoral and pedal pulses. There was no cyanosis, clubbing or edema. Examination of the skin revealed no evidence of significant rashes, suspicious appearing nevi or other concerning lesions. neurologically awake and alert and is no focal neurological deficits. Results - Laboratory Findings CBC and BMP: 08/31/19 16:59 08/31/19 16:59 ABG WBC 11.9 k/uL (3.8-10.6) H 08/31/19 16:59 RBC 2.90 m/uL (3.80-5.40) L 08/31/19 16:59 Hgb 10.7 gm/dL (11.4-16.0) L 08/31/19 16:59 Hct 32.5 % (34.0-46.0) L 08/31/19 16:59 MCV 112.3 fL (80.0-100.0) H 08/31/19 16:59 MCH 37.0 pg (25.0-35.0) H 08/31/19 16:59 MCHC 33.0 g/dL (31.0-37.0) 08/31/19 16:59 RDW 14.0 % (11.5-15.5) 08/31/19 16:59 Plt Count 236 k/uL (150-450) 08/31/19 16:59 Neutrophils % 85 % 08/31/19 16:59 Lymphocytes % 9 % 08/31/19 16:59 Monocytes % 4 % 08/31/19 16:59 Eosinophils % 1 % 08/31/19 16:59 Basophils % 0 % 08/31/19 16:59 Neutrophils # 10.1 k/uL (1.3-7.7) H 08/31/19 16:59 Lymphocytes # 1.1 k/uL (1.0-4.8) 08/31/19 16:59 Monocytes # 0.5 k/uL (0-1.0) 08/31/19 16:59 Eosinophils # 0.1 k/uL (0-0.7) 08/31/19 16:59 Basophils # 0.0 k/uL (0-0.2) 08/31/19 16:59 Manual Slide Review Performed 08/31/19 16:59 Macrocytosis Marked A 08/31/19 16:59 PT 9.8 sec (9.0-12.0) 08/31/19 16:59 INR 0.9 (<1.2) 08/31/19 16:59 APTT 24.7 sec (22.0-30.0) 08/31/19 16:59 D-Dimer 1.62 mg/L FEU (<0.60) H 08/31/19 16:59 Sodium 135 mmol/L (137-145) L 08/31/19 16:59 Potassium 4.6 mmol/L (3.5-5.1) 08/31/19 16:59 Chloride 103 mmol/L (98-107) 08/31/19 16:59 Carbon Dioxide 22 mmol/L (22-30) 08/31/19 16:59 Anion Gap 10 mmol/L 08/31/19 16:59 BUN 40 mg/dL (7-17) H 08/31/19 16:59 Creatinine 1.53 mg/dL (0.52-1.04) H 08/31/19 16:59 Est GFR (CKD-EPI)AfAm 40 (>60 ml/min/1.73 sqM) 08/31/19 16:59 Est GFR (CKD-EPI)NonAf 34 (>60 ml/min/1.73 sqM) 08/31/19 16:59 Glucose 175 mg/dL (74-99) H 08/31/19 16:59 POC Glucose (mg/dL) 311 mg/dL (75-99) H 09/01/19 12:38 POC Glu [employer] Oriana Cerda 09/01/19 12:38 Plasma Lactic Acid Koby 1.4 mmol/L (0.7-2.0) 08/31/19 16:59 Calcium 8.9 mg/dL (8.4-10.2) 08/31/19 16:59 Magnesium 2.3 mg/dL (1.6-2.3) 08/31/19 16:59 Ferritin 235.2 ng/mL (10.0-291.0) 08/31/19 16:59 Total Bilirubin 0.7 mg/dL (0.2-1.3) 08/31/19 16:59 AST 15 U/L (14-36) 08/31/19 16:59 ALT 14 U/L (4-34) 08/31/19 16:59 Alkaline Phosphatase 131 U/L (38-126) H 08/31/19 16:59 Lactate Dehydrogenase 561 U/L (313-618) 08/31/19 16:59 C-Reactive Protein 198.9 mg/L (<10.0) H 08/31/19 16:59 Total Protein 6.4 g/dL (6.3-8.2) 08/31/19 16:59 Albumin 3.7 g/dL (3.5-5.0) 08/31/19 16:59 Procalcitonin 0.17 ng/mL (0.02-0.09) H 08/31/19 16:57 PT/INR, D-dimer PT 9.8 sec (9.0-12.0) 08/31/19 16:59 INR 0.9 (<1.2) 08/31/19 16:59 D-Dimer 1.62 mg/L FEU (<0.60) H 08/31/19 16:59 Abnormal lab findings: Abnormal Labs 08/31/19 08/31/19 08/31/19 16:57 16:59 16:59 WBC 11.9 H RBC 2.90 L Hgb 10.7 L Hct 32.5 L MCV 112.3 H MCH 37.0 H Neutrophils # 10.1 H Macrocytosis Marked A D-Dimer 1.62 H Sodium BUN Creatinine Glucose POC Glucose (mg/dL) Alkaline Phosphatase C-Reactive Protein Procalcitonin 0.17 H 08/31/19 09/01/19 09/01/19 16:59 08:11 12:38 WBC RBC Hgb Hct MCV MCH Neutrophils # Macrocytosis D-Dimer Sodium 135 L BUN 40 H Creatinine 1.53 H Glucose 175 H POC Glucose (mg/dL) 262 H 311 H Alkaline Phosphatase 131 H C-Reactive Protein 198.9 H Procalcitonin - Diagnostic Findings Chest x-ray: image reviewed Assessment and Plan Plan: 1 acute COPD exacerbation with secondary shortness of breath. VQ scan is of a low probability. Chest x-ray showed no clear evidence of pneumonia. Pro calcitonin level is slightly elevated. Patient is being managed accordingly 2 shortness of breath related to above 3 acute kidney injury in the creatinine is up to 1.5 4 coronary artery disease with previous coronary stenting of the mid LAD 5 hyperlipidemia 6 hypertension 7 hypothyroidism 8 obstructive sleep apnea maintained on CPAP at a pressure of 13 cm of water on outpatient basis with her baseline AHI of 20. 9 morbid obesity BMI 47.6 Plan Agree on the current treatment. The the bronchodilators. Continue steroids. Continue antibiotics. Continue oral Lasix. Offer CPAP therapy the same pressure. We'll continue to follow.
[2019-09-01] MEDS: IPRATROPIUM-ALBUTEROL 3 ML NEB INHALATION SCH (20:15)
[2019-09-01 20:37] LABS: Glucose,Whole Blood 226 mg/dL (75-99)
[2019-09-01] MEDS: ATORVASTATIN 40 MG TAB PO SCH (21:01)
[2019-09-02] MEDS: methylPREDNISolone SOD SUCCI 125 MG/2 ML VIAL IV SCH ×4 (06:23→23:14)
[2019-09-02] MEDS: LEVOTHYROXINE 25 MCG TAB PO SCH (06:26)
[2019-09-02 06:56] LABS: Glucose,Whole Blood 289 mg/dL (75-99)
[2019-09-02] MEDS: PANTOPRAZOLE 40 MG TABLET PO SCH (07:02)
[2019-09-02] MEDS: MULTIVITAMINS, THERA 1 EACH TAB PO SCH (07:02)
[2019-09-02] MEDS: ASPIRIN 81 MG PO SCH (07:02)
[2019-09-02] MEDS: amLODIPine 5 MG TAB PO SCH (07:02)
[2019-09-02] MEDS: FUROSEMIDE 40 MG TAB PO SCH (07:03)
[2019-09-02] MEDS: CHOLECALCIFEROL 1,000 UNIT TAB PO SCH (07:03)
[2019-09-02] MEDS: LINAGLIPTIN 5 MG TABLET PO SCH (07:03)
[2019-09-02] MEDS: METOPROLOL TARTRATE 25 MG TAB PO SCH ×2 (07:03→20:37)
[2019-09-02] MEDS: GLIMEPIRIDE 4 MG TAB PO SCH ×2 (07:04→20:37)
[2019-09-02] MEDS: VIT A,C & E-LUTEIN-MINERALS 1 EACH TAB PO SCH (07:04)
[2019-09-02] MEDS: INSULIN ASPART (NovoLOG) 100 UNIT/ML VIAL SQ SCH ×4 (07:05→20:37)
[2019-09-02 07:38] LABS: Albumin 3.6 g/dL (3.5-5.0); Calcium 8.9 mg/dL (8.4-10.2); Total Bilirubin 0.4 mg/dL (0.2-1.3); Total Protein 6.2 g/dL (6.3-8.2)
[2019-09-02 07:41] LABS: HCT 31.8 % (34.0-46.0); HGB 10.3 gm/dL (11.4-16.0); Hypochromasia Slight; MCH 37.1 pg (25.0-35.0); MCHC 32.5 g/dL (31.0-37.0); Macrocytosis Marked; Mean Platelet Volume 9.4; Platelet Count 278 k/uL (150-450); RBC 2.78 m/uL (3.80-5.40); WBC 12.5 k/uL (3.8-10.6)
[2019-09-02 07:48] LABS: MCV 114.3 fL (80.0-100.0)
[2019-09-02] MEDS: BUDESONIDE 0.5 MG/2 ML NEBU INHALATION SCH ×2 (08:43→20:48)
[2019-09-02] MEDS: IPRATROPIUM-ALBUTEROL 3 ML NEB INHALATION SCH ×3 (08:43→20:48)
[2019-09-02] MEDS ORDERED: ENOXAPARIN 30 MG/0.3 ML SYRINGE SQ SCH (09:00)
[2019-09-02 11:40] LABS: Glucose,Whole Blood 384 mg/dL (75-99)
--- NOTE | 2019-09-02 14:09 | P.PN ---
Subjective Progress Note Date: 09/02/19 This is a 68-year-old female patient of Dr. Wooten with past medical history of diabetes mellitus type 2, psoriasis, COPD, hypertension, coronary artery disease status post stenting of the mid LAD [place] [address] Zavala, remote history of tobacco use and dependence. Patient states that she developed increasing shortness of breath about 2 days ago along with chest congestion. She states she has not been eating very well the last couple days. She denies any wheezing. She also had a cough but was not originally productive. It is productive this morning. She complains of sweats this morning but no actual fever or chills. She denies having any weakness. Her last bowel movement was yesterday. No nausea or vomiting. No abdominal pain. Patient came into [facility] emergency center for evaluation. She was afebrile, heart rate 94, respiratory rate 26, blood pressure 135/75 and pulse ox 89% on room air. D-dimer 1.6 to. WBC 11.9, hemoglobin 10.7, platelet count 236. BUN 40 creatinine 1.53, sodium 135. Alk phos is 131. CRP 198.9, pro calcitonin 0.17. Chest x-ray reveals more prominent cardiomegaly suboptimal study. Suggest mid to lower faint edema or infiltrate. She was given nebulizer treatment, IV Solu-Medrol 125 mg and she states she was feeling better at the time of evaluation. Patient admitted to the [facility] floor with consult placed to Dr. Adams. 09/01: Patient has been seen in evaluated by Dr. Adams. Plan is to continue current management. Patient has been afebrile, heart rate 74, blood pressure 129/86, pulse ox 95% on 2 L nasal cannula. Repeat blood work reveals WBC 12.5, hemoglobin 10.3. Sodium 136, potassium 5.0, CO2 21, renal function increasing with BUN 64 and creatinine 1.83. Lasix discontinued. Blood sugars are running in the 200s to 300s. Levemir 24 units at bedtime added. We'll decrease IV Medrol to 40 every 8 hours and start prednisone tomorrow. Patient has been cleared for discharge by pulmonary medicine. Patient states that she has a productive cough. She denies having a bowel movement. Initial EKG shows an irregular rhythm without clear P waves, possible atrial fibrillation which would be new for the patient. Repeat EKG ordered and consult with cardiology. Anticipate possible discharge by tomorrow. Objective - Vital Signs Vital signs: Vital Signs Temp 97.4 F L 09/02/19 07:00 Pulse 84 09/02/19 09:09 Resp 20 09/02/19 07:10 BP 129/86 09/02/19 07:00 Pulse Ox 95 09/02/19 07:00 Intake & Output 09/01/19 09/02/19 09/02/19 18:59 06:59 18:59 Intake Total 250 Balance 250 Weight 117.934 kg Intake: Intake, IV Titration 250 Amount Azithromycin 500 mg In 250 Sodium Chloride 0.9% 250 ml @ 250 mls/hr IVPB DAILY@1800 [facility] Rx#: [id number] Other: # Voids 2 2 - Exam Review of Systems Constitutional: Reports fatigue, Reports poor appetite, Reports sweats, Denies chills, Denies fever, Denies weight loss Eyes: denies blurred vision, denies pain Ears, nose, mouth and throat: Denies headache, Denies sore throat, Denies vertigo Cardiovascular: Reports decreased exercise tolerance, Reports dyspnea on exertion, Reports shortness of breath, Denies chest pain, Denies edema, Denies leg edema, Denies lightheadedness Respiratory: Reports cough, Reports cough with sputum, Reports dyspnea, Denies excessive sputum, Denies hemoptysis, Denies home oxygen Gastrointestinal: Reports loss of appetite, Denies abdominal pain, Denies change in bowel habits, Denies diarrhea, Denies melena, Denies nausea, Denies vomiting Genitourinary: Denies dysuria, Denies hematuria, Denies urgency, Denies urinary frequency Musculoskeletal: Denies frequent falls, Denies gait dysfunction, Denies myalgias Integumentary: Denies pruritus, Denies rash, Denies wounds Neurological: Denies change in mentation, Denies change in speech, Denies numbness, Denies seizures, Denies weakness Psychiatric: Denies anxiety, Denies depression Endocrine: Denies fatigue, Denies weight change, reports abnormal blood sugars Physical Examination Gen: This is a 68-year-old female. She is resting in chair and appears in no acute distress. HEENT: Head is atraumatic, normocephalic. Pupils equal, round. Sclerae is anicteric. NECK: Supple. No JVD. No lymphadenopathy. No thyromegaly. LUNGS: Minimal scattered expiratory wheeze. No intercostal retractions. No accessory muscle usage. HEART: Regular rate and rhythm. No murmur. ABDOMEN: Soft. Bowel sounds are present. No masses. No tenderness. EXTREMITIES: No pedal edema. No calf tenderness. Dorsalis pedis +2 bilaterally. NEUROLOGICAL: Patient is awake, alert and oriented x3. Cranial nerves 2 through 12 are grossly intact. No weakness, good strength in upper and lower extremities. - Labs CBC & Chem 7: 09/02/19 06:38 09/02/19 06:38 Labs: Abnormal Lab Results - Last 24 Hours (Table) 09/01/19 09/01/19 09/01/19 Range/Units 12:38 16:38 20:33 WBC (3.8-10.6) k/uL RBC (3.80-5.40) m/uL Hgb (11.4-16.0) gm/dL Hct (34.0-46.0) % MCV (80.0-100.0) fL MCH (25.0-35.0) pg Macrocytosis Sodium (137-145) mmol/L Carbon Dioxide (22-30) mmol/L BUN (7-17) mg/dL Creatinine (0.52-1.04) mg/dL Glucose (74-99) mg/dL POC Glucose (mg/dL) 311 H 304 H 226 H (75-99) mg/dL Total Protein (6.3-8.2) g/dL 09/02/19 09/02/19 09/02/19 Range/Units 06:38 06:38 06:54 WBC 12.5 H (3.8-10.6) k/uL RBC 2.78 L (3.80-5.40) m/uL Hgb 10.3 L (11.4-16.0) gm/dL Hct 31.8 L (34.0-46.0) % MCV 114.3 H (80.0-100.0) fL MCH 37.1 H (25.0-35.0) pg Macrocytosis Marked A Sodium 136 L (137-145) mmol/L Carbon Dioxide 21 L (22-30) mmol/L BUN 64 H (7-17) mg/dL Creatinine 1.83 H (0.52-1.04) mg/dL Glucose 254 H (74-99) mg/dL POC Glucose (mg/dL) 289 H (75-99) mg/dL Total Protein 6.2 L (6.3-8.2) g/dL 09/02/19 Range/Units 11:37 WBC (3.8-10.6) k/uL RBC (3.80-5.40) m/uL Hgb (11.4-16.0) gm/dL Hct (34.0-46.0) % MCV (80.0-100.0) fL MCH (25.0-35.0) pg Macrocytosis Sodium (137-145) mmol/L Carbon Dioxide (22-30) mmol/L BUN (7-17) mg/dL Creatinine (0.52-1.04) mg/dL Glucose (74-99) mg/dL POC Glucose (mg/dL) 384 H (75-99) mg/dL Total Protein (6.3-8.2) g/dL Microbiology - Last 24 Hours (Table) 08/31/19 20:11 Blood Culture - Preliminary Blood No Growth after 24 hours Assessment and Plan Plan: 1. Acute hypoxic respiratory failure secondary to acute COPD exacerbation, possible early pneumonia. DuoNeb treatments scheduled 3 times daily and as needed, Pulmicort added 0.5 mg twice daily, continue azithromycin. Solu-Medrol decreased to 40 mg every 8 hours since her prednisone in the morning. Consult with Dr. Bryan reynolds. VQ scan low probability for pulmonary embolism 2. Acute kidney injury. Avoid nephrotoxic agents. Recheck renal function in the morning. Discontinue Lasix. 3. Diabetes mellitus type 2, uncontrolled with hyperglycemia secondary to steroids. Continue glimepiride 4 mg twice daily, Tradjenta daily, start Levemir 24 units at bedtime. 4. Hypothyroidism. Continue levothyroxine 25 g daily. 5. Hypertension. Continue amlodipine 5 mg daily, Lopressor 5 mg twice daily. 6. History of coronary artery disease with previous stent of the mid LAD. Continue aspirin 81 mg daily, Lipitor 40 mg at bedtime and Lopressor 7. Hyperlipidemia. Continue atorvastatin. 8. DVT prophylaxis. Lovenox. 9. GI prophylaxis. Protonix. 10. Possible new onset of atrial fibrillation, paroxysmal atrial fibrillation. Repeat EKG and consult with cardiology. Continue Lopressor 25 mg twice daily. 11. COVID-19 infection not present. Discharge plan: Return home Impression and plan of care have been directed as dictated by the signing physician. Antonette Carson nurse practitioner acting as scribe for signing physician.
--- NOTE | 2019-09-02 14:10 | P.PN ---
Subjective Progress Note Date: 09/02/19 Principal diagnosis: acute exacerbation of COPD There is a morbidly obese 68-year-old female patient who is known to me because of her underlying obstructive sleep apnea the patient has an AHI of 20 and she has been maintenance CPAP pressure of 13 cm of water on outpatient basis. The patient also known to have COPD, coronary artery disease and the patient has undergone previous stenting of the mid LAD back in 2017 and she has diabetes mellitus and hypertension and psoriasis. She is a chronic smoker. The patient came into the hospital because of worsening shortness of breath. She denied having any angina. She had some increased chest congestion. No fever. No chills. No night sweats. No nausea. No vomiting. No abdominal pain. She was afebrile at time of admission and she was hemodynamically stable. D-dimer was at 1.6 with a white cell count of 11.9 and hemoglobin of 10.7. Her BNP was at 40 with a creatinine of 1.5. Her pro-calcitonin level was 0.17. Chest x-ray showed cardiomegaly and was a suboptimal film due to morbid obesity. The VQ scan came back negative on a low probability. She was admitted under the diagnosis of COPD exacerbation. She was started on a combination of bronchodilators and systemic steroids. The price virus nasal swab is still pending for now. The patient currently receiving DuoNeb nebulized treatment [id number], IV Solu-Medrol, Zithromax on empiric antibiotic coverage. Patient is also on oral Lasix 40 mg on a daily basis. On 09/02/2019 patient seen in follow-up on general medical surgical floor. she is on 2 L of oxygen with pulse ox of 95%, breathing is improving, patient is doing well, COVID 19 negative, no acute events overnight, patient remains on IV steroids, empiric antibiotics in the form of azithromycin, and nebulized bronchodilators, she is improving. her chest x-ray showed chronic parenchymal changes with increased opacity in the mid to lower lungs bilaterally, no pleural effusion or pneumothorax. VQ scan showed low probability for pulmonary embolism. no complaints of chest pain, no significant cough or congestion, no hemoptysis or pleuritic chest pain.today's labs have been reviewed, showing white blood cell count of 12.5, hemoglobin is 10.3, sodium is 136, potassium 5.0, CO2 is 21, B1 is 64, creatinine is 1.83,renal profile slightly worsened from yesterday, and Lasix is currently on hold Objective - Vital Signs Vital signs: Vital Signs Temp 97.4 F L 09/02/19 07:00 Pulse 84 09/02/19 12:56 Resp 20 09/02/19 07:10 BP 129/86 09/02/19 07:00 Pulse Ox 95 09/02/19 07:00 Intake & Output 09/01/19 09/02/19 09/02/19 18:59 06:59 18:59 Intake Total 250 Balance 250 Weight 117.934 kg Intake: Intake, IV Titration 250 Amount Azithromycin 500 mg In 250 Sodium Chloride 0.9% 250 ml @ 250 mls/hr IVPB DAILY@1800 [facility] Rx#: [id number] Other: # Voids 2 2 - Exam GENERAL EXAM: Alert, very pleasant, 68-year-old white female, on 2 L of oxygen and the pulse ox of 95%comfortable in no apparent distress. HEAD: Normocephalic/atraumatic. EYES: Normal reaction of pupils, equal size. Conjunctiva pink, sclera white. NOSE: Clear with pink turbinates. THROAT: No erythema or exudates. NECK: No masses, no JVD, no thyroid enlargement, no adenopathy. CHEST: No chest wall deformity. Symmetrical expansion. LUNGS: Equal air entry with Limited crackles at the left base, no wheezing CVS: Regular rate and rhythm, normal S1 and S2, no gallops, no murmurs, no rubs ABDOMEN: Soft, nontender. No hepatosplenomegaly, normal bowel sounds, no guarding or rigidity. EXTREMITIES: No clubbing, no edema, no cyanosis, 2+ pulses and upper and lower extremities. MUSCULOSKELETAL: Muscle strength and tone normal. SPINE: No scoliosis or deformity SKIN: No rashes CENTRAL NERVOUS SYSTEM: Alert and oriented -3. No focal deficits, tone is normal in all 4 extremities. PSYCHIATRIC: Alert and oriented -3. Appropriate affect. Intact judgment and insight. - Labs CBC & Chem 7: 09/02/19 06:38 09/02/19 06:38 Labs: Abnormal Lab Results - Last 24 Hours (Table) 09/01/19 09/01/19 09/02/19 Range/Units 16:38 20:33 06:38 WBC 12.5 H (3.8-10.6) k/uL RBC 2.78 L (3.80-5.40) m/uL Hgb 10.3 L (11.4-16.0) gm/dL Hct 31.8 L (34.0-46.0) % MCV 114.3 H (80.0-100.0) fL MCH 37.1 H (25.0-35.0) pg Macrocytosis Marked A Sodium (137-145) mmol/L Carbon Dioxide (22-30) mmol/L BUN (7-17) mg/dL Creatinine (0.52-1.04) mg/dL Glucose (74-99) mg/dL POC Glucose (mg/dL) 304 H 226 H (75-99) mg/dL Total Protein (6.3-8.2) g/dL 09/02/19 09/02/19 09/02/19 Range/Units 06:38 06:54 11:37 WBC (3.8-10.6) k/uL RBC (3.80-5.40) m/uL Hgb (11.4-16.0) gm/dL Hct (34.0-46.0) % MCV (80.0-100.0) fL MCH (25.0-35.0) pg Macrocytosis Sodium 136 L (137-145) mmol/L Carbon Dioxide 21 L (22-30) mmol/L BUN 64 H (7-17) mg/dL Creatinine 1.83 H (0.52-1.04) mg/dL Glucose 254 H (74-99) mg/dL POC Glucose (mg/dL) 289 H 384 H (75-99) mg/dL Total Protein 6.2 L (6.3-8.2) g/dL Microbiology - Last 24 Hours (Table) 08/31/19 20:11 Blood Culture - Preliminary Blood No Growth after 24 hours Assessment and Plan Plan: 1 acute COPD exacerbation with secondary shortness of breath. VQ scan is of a low probability. Chest x-ray showed no clear evidence of pneumonia. Pro calcitonin level is slightly elevated. Patient is being managed accordingly 2 shortness of breath related to above 3 acute kidney injury in the creatinine is up to 1.5 4 coronary artery disease with previous coronary stenting of the mid LAD 5 hyperlipidemia 6 hypertension 7 hypothyroidism 8 obstructive sleep apnea maintained on CPAP at a pressure of 13 cm of water on outpatient basis with her baseline AHI of 20. 9 morbid obesity BMI 47.6 Plan: Continue current medical treatment, patient has improved, slight worsening of renal profile, diuretics were placed on hold, continue bronchodilators, and antibiotics, no clear evidence of pneumonia on the chest x-ray, patient can be considered for discharge home from pulmonary perspective either today or tomorrow. I performed a history & physical examination of the patient and discussed their management with my nurse practitioner, Hannah Beltran. I reviewed the nurse practitioner's note and agree with the documented findings and plan of care. Lung sounds are positive for mild crackles at the left base. The findings and the impression was discussed with the patient. I attest to the documentation by the nurse practitioner. Time with Patient: Less than 30
--- NOTE | 2019-09-02 15:19 | P.CRDCN ---
History of Present Illness History of present illness: HISTORY OF PRESENTING ILLNESS This is a pleasant 68-year-old female past medical history significant for coronary artery disease status post drug-eluting stent placement to the mid LAD in 2017, hypertension, dyslipidemia, diabetes mellitus, obstructive sleep apnea, chronic kidney disease and morbid obesity. She follows in the office with Dr. Zavala. We have been asked to see in consultation for new onset atrial fibrillation. Presented to the hospital with symptoms of shortness of breath and is currently being treated for an acute exacerbation of COPD and pneumonia. EKG on admission revealed atrial fibrillation with controlled ventricular rates. She is seen and examined sitting up in the chair in no acute distress. She states her breathing has greatly improved since admission. Telemetry tracings reveal persistent atrial fibrillation. She denies symptoms of palpitations, dizziness or chest pain. Laboratory data reviewed, WBC 12.5, hemoglobin 10.3, platelets 278, sodium 136, potassium 5.0, creatinine 1.83 with a GFR of 28, d- dimer 1.62, pro-calcitonin 0.17 and magnesium 2.3. Chest x-ray revealed cardiomegaly with possible mid to lower lung edema and/or infiltrates bilaterally. Suboptimal study. VQ scan is low probability for PE. Most recent echocardiogram obtained in the office May 2018 revealed preserved LV systolic function with mild mitral regurgitation and mild tricuspid regurgitation. REVIEW OF SYSTEMS At the time of my exam: CONSTITUTIONAL: Denies fever or chills. CARDIOVASCULAR: Denies chest pain, shortness of breath, orthopnea, PND or palpitations. RESPIRATORY: Denies cough. GASTROINTESTINAL: Denies abdominal pain, diarrhea, constipation, nausea or vomiting. MUSCULOSKELETAL: Denies myalgias. NEUROLOGIC: Denies numbness, tingling or weakness. ENDOCRINE: Denies fatigue, weight change, polydipsia or polyurina. GENITOURINARY: Denies burning, hematuria or urgency with micturation. HEMATOLOGIC: Denies history of anemia or bleeding. PHYSICAL EXAMINATION Blood pressure 129/86 heart rate 84 afebrile and maintaining oxygen saturation on so cannula. CONSTITUTIONAL: No apparent distress. Morbidly obese. HEENT: Head is normocephalic. Pupils are equal, round. Sclerae anicteric. Mucous membranes of the mouth are moist. No JVD. No carotid bruit. CHEST EXAMINATION: Lungs are clear to auscultation. No chest wall tenderness is noted on palpation or with deep breathing. Diminished bilaterally. HEART EXAMINATION: Irregular rate and rhythm. S1, S2 heard. Soft systolic ejection murmur at the left sternal border, no gallops or rub. ABDOMEN: Soft, nontender. Positive bowel sounds. EXTREMITIES: 2+ peripheral pulses, no lower extremity edema and no calf tenderness. NEUROLOGIC EXAMINATION: Patient is awake, alert and oriented x3. ASSESSMENT New onset paroxysmal atrial fibrillation Acute hypoxia Exacerbation of COPD and pneumonia Hypertension Dyslipidemia Diabetes mellitus Chronic kidney disease Coronary artery disease status post PCI 2017 to the [facility] Obstructive sleep apnea Morbid obesity, BMI 47 PLAN Patient is currently rate controlled atrial fibrillation. Initiate Eliquis 5 mg twice a day for a CHADS-VASC score of 4. Obtain 2-D echocardiogram and Doppler study to assess cardiac structure and function. Thank you kindly for this consultation. Nurse Practitioner note has been reviewed, I agree with a documented findings and plan of care. Patient was seen and examined. Past Medical History Past Medical History: Coronary Artery Disease (CAD), Diabetes Mellitus, Hyperlipidemia, Hypertension, Skin Disorder, Sleep Apnea/CPAP/BIPAP Additional Past Medical History / Comment(s): Hx Psoriasis History of Any Multi-Drug Resistant Organisms: None Reported Past Surgical History: Heart Catheterization With Stent Additional Past Surgical History / Comment(s): Cataracts, abcess on buttocks, colonoscopies Past Anesthesia/Blood Transfusion Reactions: No Reported Reaction Date of Last Stent Placement:: unknown Past Psychological History: No Psychological Hx Reported Past Alcohol Use History: None Reported Additional Past Alcohol Use History / Comment(s): Patient was a smoker one pack per day for 20 years and quit approximately 30 years ago. She denies any marijuana, street drug or alcohol use. She lives at home and her nephew lives with her. Past Drug Use History: None Reported - Past Family History Mother Family Medical History: Hypertension Additional Family Medical History / Comment(s): Mother in her 80s from old age. Father Family Medical History: Hypertension Additional Family Medical History / Comment(s): Father at age 70 during his sleep of unknown cause. Sister(s) Additional Family Medical History / Comment(s): Patient has 3 sisters and one has from ovarian cancer. One is alive with colon cancer and doing very poorly expected to sound. One sister has no major medical problems. Brother(s) Additional Family Medical History / Comment(s): The patient has 1 brother with no major medical problems. Patient does not have any children. Medications and Allergies Home Medications Medication Instructions Recorded Confirmed Type Aspirin [Adult Low Dose Aspirin EC] 81 mg PO DAILY 08/28/16 08/31/19 History Multivit-Min/FA/Lycopen/Lutein 2 tab PO DAILY 08/28/16 08/31/19 History [Centrum Silver Tablet] Atorvastatin [Lipitor] 40 mg PO HS #90 tab 09/04/16 08/31/19 Rx Metoprolol Tartrate [Lopressor] 25 mg PO BID #180 tab 09/04/16 08/31/19 Rx Nitroglycerin Sl Tabs [Nitrostat] 0.4 mg SUBLINGUAL Q5M PRN #25 tab 09/04/16 08/31/19 Rx amLODIPine BESYLATE [Norvasc] 5 mg PO DAILY #1 tablet 09/04/16 08/31/19 Rx Cholecalciferol (Vitamin D3) 2,000 unit PO DAILY 04/08/18 08/31/19 History [Vitamin D3] Glimepiride [Amaryl] 4 mg PO BID 04/08/18 08/31/19 History Levothyroxine Sodium [Synthroid] 25 mcg PO DAILY 04/08/18 08/31/19 History Lisinopril [Zestril] 5 mg PO DAILY 04/08/18 08/31/19 History Vit C/E/Zn/Coppr/Lutein/Zeaxan 2 cap PO DAILY 04/08/18 08/31/19 History [Preservision Areds 2 Softgel] sitaGLIPtin [Januvia] 50 mg PO DAILY 04/08/18 08/31/19 History Furosemide [Lasix] 40 mg PO DAILY 01/02/19 08/31/19 History Allergies Allergy/AdvReac Type Severity Reaction Status Date / Time No Known Allergies Allergy Verified 08/31/19 17:41 Physical Exam Vitals: Vital Signs Temp Pulse Pulse Resp BP BP Pulse Ox 09/02/19 12:56 84 09/02/19 12:44 84 09/02/19 09:09 84 09/02/19 08:43 84 09/02/19 07:10 20 09/02/19 07:00 97.4 F L 74 20 129/86 95 09/02/19 03:40 18 09/02/19 01:33 97.5 F L 86 18 106/69 95 09/01/19 21:00 97 141/75 09/01/19 20:39 84 09/01/19 20:16 80 09/01/19 19:17 98.3 F 60 18 103/62 93 L 09/01/19 15:09 79 22 Intake and Output 09/02/19 09/02/19 09/02/19 06:59 14:59 22:59 Other: # Voids 2 Results 09/02/19 06:38 09/02/19 06:38 Cardiac Enzymes 09/02/19 Range/Units 06:38 AST 23 (14-36) U/L CBC 09/02/19 Range/Units 06:38 WBC 12.5 H (3.8-10.6) k/uL RBC 2.78 L (3.80-5.40) m/uL Hgb 10.3 L (11.4-16.0) gm/dL Hct 31.8 L (34.0-46.0) % Plt Count 278 (150-450) k/uL Comprehensive Metabolic Panel 09/02/19 Range/Units 06:38 Sodium 136 L (137-145) mmol/L Potassium 5.0 (3.5-5.1) mmol/L Chloride 105 (98-107) mmol/L Carbon Dioxide 21 L (22-30) mmol/L BUN 64 H (7-17) mg/dL Creatinine 1.83 H (0.52-1.04) mg/dL Glucose 254 H (74-99) mg/dL Calcium 8.9 (8.4-10.2) mg/dL AST 23 (14-36) U/L ALT 20 (4-34) U/L Alkaline Phosphatase 125 (38-126) U/L Total Protein 6.2 L (6.3-8.2) g/dL Albumin 3.6 (3.5-5.0) g/dL Current Medications Generic Name Dose Route Start Last Admin Trade Name Freq PRN Reason Stop Dose Admin Albuterol/Ipratropium 3 ml 09/01/19 20:00 09/02/19 12:44 Duoneb 0.5 Mg-3 Mg/3 Ml Soln INHALATION 3 ml RT-TID [facility]HE[facility] Administration Albuterol/Ipratropium 3 ml 09/01/19 13:12 Duoneb 0.5 Mg-3 Mg/3 Ml Soln INHALATION RT-QID PRN Shortness Of Breath Or Wheezing Amlodipine Besylate 5 mg 09/01/19 09:00 09/02/19 07:02 Norvasc PO 5 mg DAILY DOROTHEA Administration Aspirin 81 mg 09/01/19 09:00 09/02/19 07:02 Aspirin PO 81 mg DAILY DOROTHEA Administration Atorvastatin Calcium 40 mg 09/01/19 21:00 09/01/19 21:01 Lipitor PO 40 mg HS [facility] Administration Budesonide 0.5 mg 09/01/19 08:00 09/02/19 08:43 Pulmicort INHALATION 0.5 mg RT-BID [facility] Administration Cholecalciferol 2,000 unit 09/01/19 09:00 09/02/19 07:03 Vitamin D3 (25 Mcg = 1000 Iu) PO 2,000 unit DAILY [facility] Administration Enoxaparin Sodium 30 mg 09/02/19 09:00 09/02/19 07:04 Lovenox SQ 30 mg DAILY [facility] Administration Glimepiride 4 mg 09/01/19 09:00 09/02/19 07:04 Amaryl PO 4 mg BID [facility] Administration Azithromycin 500 mg/ Sodium 250 mls @ 250 mls/hr 09/01/19 18:00 09/01/19 16:55 Chloride IVPB 250 mls/hr DAILY@1800 [facility] Administration Insulin Aspart 0 unit 09/01/19 07:30 09/02/19 12:16 Novolog SQ 11 unit ACHS [facility] Administration Protocol Insulin Detemir 24 unit 09/02/19 21:00 Levemir SQ HS [facility] Levothyroxine Sodium 25 mcg 09/01/19 09:00 09/02/19 06:26 Synthroid PO 25 mcg DAILY@0630 [facility] Administration Linagliptin 5 mg 09/01/19 09:00 09/02/19 07:03 Tradjenta PO 5 mg DAILY [facility] Administration Methylprednisolone Sodium Succinate 60 mg 08/31/19 18:00 09/02/19 12:15 Solu-Medrol IV Not Given Q6HR [facility] Methylprednisolone Sodium Succinate 40 mg 09/02/19 16:00 Solu-Medrol IV 09/02/19 23:59 Q8HR [facility] Metoprolol Tartrate 25 mg 09/01/19 09:00 09/02/19 07:03 Lopressor PO 25 mg BID [facility] Administration Multivitamins 1 each 09/01/19 09:00 09/02/19 07:02 Theragran PO 1 each DAILY [facility] Administration Multivitamins/Minerals 1 each 09/01/19 09:00 09/02/19 07:04 Ivite PO 1 each DAILY [facility] Administration Nitroglycerin 0.4 mg 09/01/19 07:25 Nitrostat SUBLINGUAL Q5M PRN Chest Pain Pantoprazole Sodium 40 mg 09/02/19 07:30 09/02/19 07:02 Protonix PO 40 mg [id number] [facility] Administration Prednisone 40 mg 09/03/19 09:00 PO DAILY [facility] Intake and Output 09/02/19 09/02/19 09/02/19 06:59 14:59 22:59 Other: # Voids 2 09/02/19 06:38 09/02/19 06:38
[2019-09-02] MEDS ORDERED: methylPREDNISolone SOD SUCCI 40 MG/ML 1 ML VIAL IV SCH (16:00)
[2019-09-02 17:25] LABS: Glucose,Whole Blood 382 mg/dL (75-99)
[2019-09-02] MEDS: AZITHROMYCIN 500 MG in SODIUM CHLORIDE 0.9% 250 ML IVPB SCH (17:31)
--- NOTE | 2019-09-02 18:02 | ECHOF ---
Referral Reason:new onset afib MEASUREMENTS -------- HEIGHT: 157.5 cm WEIGHT: 117.9 kg BP: 129/86 RVIDd: 2.7 cm (< 3.3) IVSd: 1.4 cm (0.6 - 1.1) LVIDd: 3.6 cm (3.9 - 5.3) LVPWd: 1.3 cm (0.6 - 1.1) IVSs: 1.8 cm LVIDs: 2.8 cm LVPWs: 1.5 cm LA Diam: 3.2 cm (2.7 - 3.8) Ao Diam: 3.1 cm (2.0 - 3.7) MV EXCURSION: 10.412 mm (> 18.000) MV EF SLOPE: 79 mm/s (70 - 150) EPSS: 0.3 cm RAP: 15.00 mmHg RVSP: 56.36 mmHg FINDINGS -------- Atrial fibrillation. This was a technically difficult study with suboptimal views. The left ventricular size is normal. There is moderate concentric left ventricular hypertrophy. O verall left ventricular systolic function is normal with, an EF between 55 - 60 %. The right ventricle is normal in size. Normal LA size by volume 22+/-6 ml/m2. The right atrial size is normal. 1.5mg of Definity was utilized for enhancement of images There is mild aortic valve sclerosis. Moderate mitral annular calcification present. Mild mitral regurgitation is present. The tricuspid valve was not well visualized. Mild tricuspid regurgitation present. There is moder ate pulmonary hypertension. The right ventricular systolic pressure, as measured by Doppler, is 56. 36mmHg. The pulmonic valve was not well visualized. There is no pulmonic regurgitation present. The aortic root size is normal. Normal inferior vena cava with less than 50% inspiratory collapse consistent with estimated right atr ial pressure of 15 mmHg. There is no pericardial effusion. CONCLUSIONS -------- 1. This was a technically difficult study with suboptimal views. 2. There is moderate concentric left ventricular hypertrophy. 3. Overall left ventricular systolic function is normal with, an EF between 55 - 60 %. 4. Normal LA size by volume 22+/-6 ml/m2. 5. 1.5mg of Definity was utilized for enhancement of images 6. There is mild aortic valve sclerosis. 7. Moderate mitral annular calcification present. 8. Mild mitral regurgitation is present. 9. Mild tricuspid regurgitation present. 10. There is moderate pulmonary hypertension. 11. There is no pericardial effusion. LEAN FACILITATOR: Fay Reaves RDCS
[2019-09-02 20:28] LABS: Glucose,Whole Blood 307 mg/dL (75-99)
[2019-09-02] MEDS: ATORVASTATIN 40 MG TAB PO SCH (20:37)
[2019-09-02] MEDS: APIXABAN 5 MG TAB PO SCH (20:38)
[2019-09-02] MEDS ORDERED: INSULIN DETEMIR (LEVEMIR) 100 UNIT/ML SYR SQ SCH (21:00)
[2019-09-03] MEDS: LEVOTHYROXINE 25 MCG TAB PO SCH (05:33)
[2019-09-03] MEDS: methylPREDNISolone SOD SUCCI 125 MG/2 ML VIAL IV SCH (05:34)
[2019-09-03 06:46] LABS: Glucose,Whole Blood 260 mg/dL (75-99)
[2019-09-03] MEDS: BUDESONIDE 0.5 MG/2 ML NEBU INHALATION SCH (07:16)
[2019-09-03] MEDS: IPRATROPIUM-ALBUTEROL 3 ML NEB INHALATION SCH ×2 (07:16→11:47)
[2019-09-03 07:41] VITALS: BP 132/76; RESP 18; TEMP 97.6
--- NOTE | 2019-09-03 07:47 | P.DS ---
Providers Date of admission: 08/31/19 16:21 Expected date of discharge: 09/03/19 Attending physician: Dimple Wooten Consults: 08/31/19 16:21 Consult Physician Routine Consulting Provider: Laura Adams Consult Reason/Comments: copd Do you want consulting provider notified?: Yes 09/02/19 13:26 Consult Physician Routine Consulting Provider: Cedric Zavala Consult Reason/Comments: possible afib on admit Do you want consulting provider notified?: Yes Primary care physician: Dimple Wooten Hospital Course: This is a 68-year-old female patient of Dr. Wooten with past medical history of diabetes mellitus type 2, psoriasis, COPD, hypertension, coronary artery disease status post stenting of the mid LAD [place] [address] Zavala, remote history of tobacco use and dependence. Patient states that she developed increasing shortness of breath about 2 days ago along with chest congestion. She states she has not been eating very well the last couple days. She denies any wheezing. She also had a cough but was not originally productive. It is productive this morning. She complains of sweats this morning but no actual fever or chills. She denies having any weakness. Her last bowel movement was yesterday. No nausea or vomiting. No abdominal pain. Patient came into [facility] emergency center for evaluation. She was afebrile, heart rate 94, respiratory rate 26, blood pressure 135/75 and pulse ox 89% on room air. D-dimer 1.6 to. WBC 11.9, hemoglobin 10.7, platelet count 236. BUN 40 creatinine 1.53, sodium 135. Alk phos is 131. CRP 198.9, pro calcitonin 0.17. Chest x-ray reveals more prominent cardiomegaly suboptimal study. Suggest mid to lower faint edema or infiltrate. She was given nebulizer treatment, IV Solu-Medrol 125 mg and she states she was feeling better at the time of evaluation. Patient admitted to the [facility] floor with consult placed to Dr. Adams. 09/01: Patient has been seen in evaluated by Dr. Adams. Plan is to continue current management. Patient has been afebrile, heart rate 74, blood pressure 129/86, pulse ox 95% on 2 L nasal cannula. Repeat blood work reveals WBC 12.5, hemoglobin 10.3. Sodium 136, potassium 5.0, CO2 21, renal function increasing with BUN 64 and creatinine 1.83. Lasix discontinued. Blood sugars are running in the 200s to 300s. Levemir 24 units at bedtime added. We'll decrease IV Medrol to 40 every 8 hours and start prednisone tomorrow. Patient has been cleared for discharge by pulmonary medicine. Patient states that she has a productive cough. She denies having a bowel movement. Initial EKG shows an irregular rhythm without clear P waves, possible atrial fibrillation which would be new for the patient. Repeat EKG ordered and consult with cardiology. A nticipate possible discharge by tomorrow. 09/02: Patient was evaluated yesterday by cardiology for new onset paroxysmal atrial fibrillation. Patient has been started on eliquis, rate is controlled an d patient continued on metoprolol 25 mg twice daily. Echocardiogram reveals EF of 55-60% with moderate concentric left ventricular hypertrophy, mild aortic valve sclerosis. Moderate mitral calcification. Mild mitral regurgitation, mild tricuspid regurgitation, moderate pulmonary hypertension. Patient denies any new complaints. She states her breathing status is stable. Patient has been afebrile, heart rate running in the 70s and 80s, blood pressure 132/76, pulse ox 95% on 2 L nasal cannula. Repeat blood work reveals sodium 136, potassium 5.2, chloride 105, CO2 21, BUN 71 and creatinine 1.58. Nursing will check home oxygen need and patient's pulse ox was 90-93% with ambulation in the hallway. Patient does not require home oxygen. Patient does not have a nebulizer which will be ordered and case liner will arrange. Patient will be discharged home today in stable condition. Discharge diagnoses: 1. Acute hypoxic respiratory failure secondary to acute COPD exacerbation, possible early pneumonia. 2. Acute kidney injury. 3. Diabetes mellitus type 2, uncontrolled with hyperglycemia secondary to steroids. 4. Hypothyroidism. 5. Hypertension. 6. History of coronary artery disease with previous stent of the mid LAD. 7. Hyperlipidemia. 8. New onset of atrial fibrillation, paroxysmal atrial fibrillation. 11. COVID-19 infection not present. Discharge plan: Return home Impression and plan of care have been directed as dictated by the signing physician. Antonette Carson nurse practitioner acting as scribe for signing physician. Patient Condition at Discharge: Good Plan - Discharge Summary Discharge Rx Participant: No New Discharge Prescriptions: New Ipratropium-Albuterol Nebulize [Duoneb 0.5 mg-3 mg/3 ml Soln] 3 ml INHALATION RT-QID #120 ml Apixaban [Eliquis] 5 mg PO BID #60 tab predniSONE 0 mg PO DIRECTED #30 tab Pantoprazole [Protonix] 40 mg PO AC-BRKFST #30 tablet. Azithromycin [Zithromax Tri-Hugo] 500 mg PO DAILY 3 Days #3 tab [place], Insulin Disposable [Bd Ultra-Fine Pen Needle 4mm 32g] 1 needle SQ DIRECTED #30 needle Insulin Detemir [Levemir Flextouch] 27 units SQ HS #1 box Continue Multivit-Min/FA/Lycopen/Lutein [Centrum Silver Tablet] 2 tab PO DAILY Aspirin [Adult Low Dose Aspirin EC] 81 mg PO DAILY Atorvastatin [Lipitor] 40 mg PO HS #90 tab Metoprolol Tartrate [Lopressor] 25 mg PO BID #180 tab Nitroglycerin Sl Tabs [Nitrostat] 0.4 mg SUBLINGUAL Q5M PRN #25 tab PRN Reason: Chest Pain amLODIPine BESYLATE [Norvasc] 5 mg PO DAILY #1 tablet Glimepiride [Amaryl] 4 mg PO BID Levothyroxine Sodium [Synthroid] 25 mcg PO DAILY sitaGLIPtin [Januvia] 50 mg PO DAILY Vit C/E/Zn/Coppr/Lutein/Zeaxan [Preservision Areds 2 Softgel] 2 cap PO DAILY Cholecalciferol (Vitamin D3) [Vitamin D3] 2,000 unit PO DAILY Furosemide [Lasix] 40 mg PO DAILY Changed Lisinopril [Zestril] 2.5 mg PO DAILY #0 Discharge Medication List Aspirin [Adult Low Dose Aspirin EC] 81 mg PO DAILY 08/28/16 [History] Multivit-Min/FA/Lycopen/Lutein [Centrum Silver Tablet] 2 tab PO DAILY 08/28/16 [History] Atorvastatin [Lipitor] 40 mg PO HS #90 tab 09/04/16 [Rx] Metoprolol Tartrate [Lopressor] 25 mg PO BID #180 tab 09/04/16 [Rx] Nitroglycerin Sl Tabs [Nitrostat] 0.4 mg SUBLINGUAL Q5M PRN #25 tab 09/04/16 [Rx] amLODIPine BESYLATE [Norvasc] 5 mg PO DAILY #1 tablet 09/04/16 [Rx] Cholecalciferol (Vitamin D3) [Vitamin D3] 2,000 unit PO DAILY 04/08/18 [History] Glimepiride [Amaryl] 4 mg PO BID 04/08/18 [History] Levothyroxine Sodium [Synthroid] 25 mcg PO DAILY 04/08/18 [History] Vit C/E/Zn/Coppr/Lutein/Zeaxan [Preservision Areds 2 Softgel] 2 cap PO DAILY 04/08/18 [History] sitaGLIPtin [Januvia] 50 mg PO DAILY 04/08/18 [History] Furosemide [Lasix] 40 mg PO DAILY 01/02/19 [History] Apixaban [Eliquis] 5 mg PO BID #60 tab 09/03/19 [Rx] Azithromycin [Zithromax Tri-Hugo] 500 mg PO DAILY 3 Days #3 tab 09/03/19 [Rx] Insulin Detemir [Levemir Flextouch] 27 units SQ HS #1 box 09/03/19 [Rx] Ipratropium-Albuterol Nebulize [Duoneb 0.5 mg-3 mg/3 ml Soln] 3 ml INHALATION RT-QID #120 ml 09/03/19 [Rx] Lisinopril [Zestril] 2.5 mg PO DAILY #0 09/03/19 [Rx] [place], Insulin Disposable [Bd Ultra-Fine Pen Needle 4mm 32g] 1 needle SQ DIRECTED #30 needle 09/03/19 [Rx] Pantoprazole [Protonix] 40 mg PO AC-BRKFST #30 tablet.dr 09/03/19 [Rx] predniSONE 0 mg PO DIRECTED #30 tab 09/03/19 [Rx] Follow up Appointment(s)/Referral(s): Cedric Zavala MD [STAFF PHYSICIAN] - 1 Week Dimple Wooten MD [Primary Care Provider] - 1 Week [facility] [NON-STAFF] - As Needed (nebulizer) Laura Adams MD [STAFF PHYSICIAN] - 1 Week Discharge Disposition: HOME SELF-CARE
[2019-09-03] MEDS: ASPIRIN 81 MG PO SCH (08:21)
[2019-09-03] MEDS: INSULIN ASPART (NovoLOG) 100 UNIT/ML VIAL SQ SCH (08:21)
[2019-09-03] MEDS: CHOLECALCIFEROL 1,000 UNIT TAB PO SCH (08:21)
[2019-09-03] MEDS: APIXABAN 5 MG TAB PO SCH (08:22)
[2019-09-03] MEDS: MULTIVITAMINS, THERA 1 EACH TAB PO SCH (08:22)
[2019-09-03] MEDS: GLIMEPIRIDE 4 MG TAB PO SCH (08:22)
[2019-09-03] MEDS: VIT A,C & E-LUTEIN-MINERALS 1 EACH TAB PO SCH (08:22)
[2019-09-03] MEDS: amLODIPine 5 MG TAB PO SCH (08:22)
[2019-09-03] MEDS: PANTOPRAZOLE 40 MG TABLET PO SCH (08:22)
[2019-09-03] MEDS: LINAGLIPTIN 5 MG TABLET PO SCH (08:22)
[2019-09-03] MEDS: METOPROLOL TARTRATE 25 MG TAB PO SCH (08:22)
[2019-09-03] MEDS ORDERED: predniSONE 20 MG TAB PO SCH (09:00)
[2019-09-03 09:16] LABS: Calcium 9.1 mg/dL (8.4-10.2); Potassium 5.2 mmol/L (3.5-5.1)
[2019-09-03 11:36] LABS: Glucose,Whole Blood 272 mg/dL (75-99)
[2019-09-03 11:58] VITALS: PULSE 72
--- NOTE | 2019-09-03 12:43 | P.PN ---
Subjective Progress Note Date: 09/03/19 Principal diagnosis: acute exacerbation of COPD There is a morbidly obese 68-year-old female patient who is known to me because of her underlying obstructive sleep apnea the patient has an AHI of 20 and she has been maintenance CPAP pressure of 13 cm of water on outpatient basis. The patient also known to have COPD, coronary artery disease and the patient has undergone previous stenting of the mid LAD back in 2017 and she has diabetes mellitus and hypertension and psoriasis. She is a chronic smoker. The patient came into the hospital because of worsening shortness of breath. She denied having any angina. She had some increased chest congestion. No fever. No chills. No night sweats. No nausea. No vomiting. No abdominal pain. She was afebrile at time of admission and she was hemodynamically stable. D-dimer was at 1.6 with a white cell count of 11.9 and hemoglobin of 10.7. Her BNP was at 40 with a creatinine of 1.5. Her pro-calcitonin level was 0.17. Chest x-ray showed cardiomegaly and was a suboptimal film due to morbid obesity. The VQ scan came back negative on a low probability. She was admitted under the diagnosis of COPD exacerbation. She was started on a combination of bronchodilators and systemic steroids. The price virus nasal swab is still pending for now. The patient currently receiving DuoNeb nebulized treatment [id number], IV Solu-Medrol, Zithromax on empiric antibiotic coverage. Patient is also on oral Lasix 40 mg on a daily basis. On 09/02/2019 patient seen in follow-up on general medical surgical floor. she is on 2 L of oxygen with pulse ox of 95%, breathing is improving, patient is doing well, COVID 19 negative, no acute events overnight, patient remains on IV steroids, empiric antibiotics in the form of azithromycin, and nebulized bronchodilators, she is improving. her chest x-ray showed chronic parenchymal changes with increased opacity in the mid to lower lungs bilaterally, no pleural effusion or pneumothorax. VQ scan showed low probability for pulmonary embolism. no complaints of chest pain, no significant cough or congestion, no hemoptysis or pleuritic chest pain.today's labs have been reviewed, showing white blood cell count of 12.5, hemoglobin is 10.3, sodium is 136, potassium 5.0, CO2 is 21, B1 is 64, creatinine is 1.83,renal profile slightly worsened from yesterday, and Lasix is currently on hold On 09/03/2019 patient is seen in follow-up on general medical surgical floor. She is awake and alert, she is sitting up in the chair, in no acute distress, remains on 2 L of oxygen and the pulse ox of 95%, vital signs are stable, breathing is non-labored, lung sounds revealed a few crackles at bilateral posterior bases, no rhonchi or wheezing. Patient is a new onset atrial fibrillation, she was evaluated by cardiology, she has been started on Eliquis for anticoagulation, she has been treated with the Zithromax, oral prednisone, and breathing treatments, occasional cough, no phlegm production. A. fib is controlled, vital signs are stable. Echocardiogram was completely showing moderate concentric LVH, preserved LV function with EF of 55-60%, mild mitral regurg, mild tricuspid regurg, moderate pulmonary hypertension with right-sided pressures of 56.3 mmHg. Objective - Vital Signs Vital signs: Vital Signs Temp 97.6 F 09/03/19 07:02 Pulse 72 09/03/19 11:57 Resp 18 09/03/19 07:02 BP 132/76 09/03/19 07:02 Pulse Ox 95 09/03/19 07:02 Intake & Output 09/02/19 09/03/19 09/03/19 18:59 06:59 18:59 Other: Voiding Method Toilet Toilet # Voids 3 2 - Exam GENERAL EXAM: Alert, very pleasant, 68-year-old white female, on 2 L of oxygen and the pulse ox of 95%comfortable in no apparent distress. HEAD: Normocephalic/atraumatic. EYES: Normal reaction of pupils, equal size. Conjunctiva pink, sclera white. NOSE: Clear with pink turbinates. THROAT: No erythema or exudates. NECK: No masses, no JVD, no thyroid enlargement, no adenopathy. CHEST: No chest wall deformity. Symmetrical expansion. LUNGS: Equal air entry with Limited crackles at the left base, no wheezing CVS: Irregular rate and rhythm, normal S1 and S2, no gallops, no murmurs, no rubs ABDOMEN: Soft, nontender. No hepatosplenomegaly, normal bowel sounds, no guarding or rigidity. EXTREMITIES: No clubbing, no edema, no cyanosis, 2+ pulses and upper and lower extremities. MUSCULOSKELETAL: Muscle strength and tone normal. SPINE: No scoliosis or deformity SKIN: No rashes CENTRAL NERVOUS SYSTEM: Alert and oriented -3. No focal deficits, tone is normal in all 4 extremities. PSYCHIATRIC: Alert and oriented -3. Appropriate affect. Intact judgment and insight. - Labs CBC & Chem 7: 09/02/19 06:38 09/03/19 08:03 Labs: Abnormal Lab Results - Last 24 Hours (Table) 09/02/19 09/02/19 09/03/19 Range/Units 17:03 20:27 06:44 Sodium (137-145) mmol/L Potassium (3.5-5.1) mmol/L Carbon Dioxide (22-30) mmol/L BUN (7-17) mg/dL Creatinine (0.52-1.04) mg/dL Glucose (74-99) mg/dL POC Glucose (mg/dL) 382 H 307 H 260 H (75-99) mg/dL 09/03/19 09/03/19 Range/Units 08:03 11:35 Sodium 136 L (137-145) mmol/L Potassium 5.2 H (3.5-5.1) mmol/L Carbon Dioxide 21 L (22-30) mmol/L BUN 71 H (7-17) mg/dL Creatinine 1.58 H (0.52-1.04) mg/dL Glucose 274 H (74-99) mg/dL POC Glucose (mg/dL) 272 H (75-99) mg/dL Microbiology - Last 24 Hours (Table) 08/31/19 20:11 Blood Culture - Preliminary Blood No Growth after 48 hours Assessment and Plan Plan: 1 acute COPD exacerbation with secondary shortness of breath. VQ scan is of a low probability. Chest x-ray showed no clear evidence of pneumonia. Pro calcitonin level is slightly elevated. Patient is being managed accordingly 2 shortness of breath related to above 3 acute kidney injury in the creatinine is up to 1.5 4 coronary artery disease with previous coronary stenting of the mid LAD 5 hyperlipidemia 6 hypertension 7 hypothyroidism 8 obstructive sleep apnea maintained on CPAP at a pressure of 13 cm of water on outpatient basis with her baseline AHI of 20. 9 morbid obesity BMI 47.6 10 new-onset A. fib, rate controlled, patient has been started on oral Eliquis 11 moderate pulmonary hypertension with right-sided pressures 56 mmHg, mild MR and mild TR, preserved LV function with an EF of 55-60% Plan: Has remained stable overnight, no acute events, no worsening dyspnea, increase activity as tolerated, from pulmonary perspective she stable for discharge home today, she remains in atrial fibrillation with a controlled rate, cardiology consultation has been noted, oral intake patient has been started, patient can be discharged home on prednisone taper, and breathing treatments, she can finish course of oral Zithromax, she will need follow-up in the outpatient clinic in one week I performed a history & physical examination of the patient and discussed their management with my nurse practitioner, Hannah Beltran. I reviewed the nurse practitioner's note and agree with the documented findings and plan of care. Lung sounds are positive for mild crackles at the left base. The findings and the impression was discussed with the patient. I attest to the documentation by the nurse practitioner. Time with Patient: Less than 30
--- NOTE | 2019-09-03 13:34 | P.PN ---
Subjective HISTORY OF PRESENTING ILLNESS This is a pleasant 68-year-old female past medical history significant for coronary artery disease status post drug-eluting stent placement to the mid LAD in 2017, hypertension, dyslipidemia, diabetes mellitus, obstructive sleep apnea, chronic kidney disease and morbid obesity. She follows in the office wi brenden Zavala. She continues to maintain atrial fibrillation on telemetry. No chest pain, shortness of breath, dizziness or palpitations. Blood pressure 132/76 heart rate 72 afebrile and maintaining oxygen saturation on nasal cannula. Echocardiogram reveals preserved LV systolic function with ejection fraction 55-60%, moderate concentric LVH, moderate mitral calcifications, mild MR and mild TR and moderate pulmonary hypertension with an RVSP of 56 mmHg. PHYSICAL EXAMINATION CONSTITUTIONAL: No apparent distress. Morbidly obese. HEENT: Head is normocephalic. Pupils are equal, round. Sclerae anicteric. Mucous membranes of the mouth are moist. No JVD. No carotid bruit. CHEST EXAMINATION: Lungs are clear to auscultation. No chest wall tenderness is noted on palpation or with deep breathing. Diminished bilaterally. HEART EXAMINATION: Irregular rate and rhythm. S1, S2 heard. Soft systolic ejection murmur at the left sternal border, no gallops or rub. EXTREMITIES: 2+ peripheral pulses, no lower extremity edema and no calf tenderness. ASSESSMENT New onset paroxysmal atrial fibrillation Acute hypoxia Exacerbation of COPD and pneumonia Hypertension Dyslipidemia Diabetes mellitus Chronic kidney disease Coronary artery disease status post PCI 2017 to the LAD Obstructive sleep apnea Morbid obesity, BMI 47 PLAN Continue on current medical regimen. Follow-up in the office with Dr. Zavala in 1-2 weeks. Nurse Practitioner note has been reviewed, I agree with a documented findings and plan of care. Patient was seen and examined. Objective - Vital Signs Vital signs: Vital Signs Temp 97.6 F 09/03/19 07:02 Pulse 72 09/03/19 11:57 Resp 18 09/03/19 07:02 BP 132/76 09/03/19 07:02 Pulse Ox 95 09/03/19 07:02 Intake & Output 09/02/19 09/03/19 09/03/19 18:59 06:59 18:59 Other: Voiding Method Toilet Toilet # Voids 3 2 - Labs CBC & Chem 7: 09/02/19 06:38 09/03/19 08:03 Labs: Abnormal Lab Results - Last 24 Hours (Table) 07/15/20 07/15/20 07/16/20 Range/Units 17:03 20:27 06:44 Sodium (137-145) mmol/L Potassium (3.5-5.1) mmol/L Carbon Dioxide (22-30) mmol/L BUN (7-17) mg/dL Creatinine (0.52-1.04) mg/dL Glucose (74-99) mg/dL POC Glucose (mg/dL) 382 H 307 H 260 H (75-99) mg/dL 09/03/19 09/03/19 Range/Units 08:03 11:35 Sodium 136 L (137-145) mmol/L Potassium 5.2 H (3.5-5.1) mmol/L Carbon Dioxide 21 L (22-30) mmol/L BUN 71 H (7-17) mg/dL Creatinine 1.58 H (0.52-1.04) mg/dL Glucose 274 H (74-99) mg/dL POC Glucose (mg/dL) 272 H (75-99) mg/dL Microbiology - Last 24 Hours (Table) 08/31/19 20:11 Blood Culture - Preliminary Blood No Growth after 48 hours
[2019-09-03] MEDS ORDERED: AZITHROMYCIN 500 MG TAB PO SCH (18:00)
--- NOTE | 2019-09-04 09:21 | CDI ---
Documentation Clarification Form Date: 09/04/19 From: Ana Lliia Palomino CCS Phone: If you have a question about this query, please contact Iris Green, Senior Business Development Analyst at [phone] between 8am and 5pm. Admit Date: 08/31/19 Discharge Date:09/03/19 Patient Name: Kayleen Sim Visit Number: [id number] ATTENTION: The Clinical Documentation Specialists (CDI) and [facility] Coding Staff appreciate your assistance in clarifying documentation. Please respond to the clarification below the line at the bottom and electronically sign. The CDI & [facility] Coding staff will review the response and follow-up if needed. Please note: Queries are made part of the Legal Health Record. If you have any questions, please contact the author of this message via ITS. Dear Dr. Wooten, CKD is documented in the 09/01 Consult, 09/02 PN. History/Risk Factors: HTN, DM, Morbid obesity, PHTN, MARELY Clinical Indicators: Acute on chronic renal failure Current BUN/CR/GFR: BUN: 40, 64, 71 CR: 1.53, 1.83, 1.58 GFR: 24, 28, 33 In order to capture the severity of condition, please clarify the stage of the CKD, if known: CKD Stage 1 (GFR > 90) CKD Stage 2 (GFR 60-89) CKD Stage 3 (GFR 30-59) CKD Stage 4 (GFR 15-29) CKD Stage 5 (GFR <15) ESRD Other, please specify Unable to determine Acute on chronic kidney disease stage 3 MTDD
== END 2019-09-03 13:45 | disposition home or self-care (01) | DRG 190 ==
LOC: EC 15:56 → 4SSUR 16:21
PROVIDERS: ADMIT Internal Medicine; ATTEND Internal Medicine
DX: J44.1 Chronic obstructive pulmonary disease with (acute) exacerbation (principal); J96.01 Acute respiratory failure with hypoxia; J18.9 Pneumonia, unspecified organism; N17.9 Acute kidney failure, unspecified; Z68.42 Body mass index [BMI] 45.0-49.9, adult; Z20.828 Contact with and (suspected) exposure to other viral communicable diseases; I27.20 Pulmonary hypertension, unspecified; E11.22 Type 2 diabetes mellitus with diabetic chronic kidney disease; I13.10 Hypertensive heart and chronic kidney disease without heart failure, with stage 1 through stage 4 chronic kidney disease, or unspecified chronic kidney disease; J44.0 Chronic obstructive pulmonary disease with (acute) lower respiratory infection; E11.65 Type 2 diabetes mellitus with hyperglycemia; E66.01 Morbid (severe) obesity due to excess calories; I48.0 Paroxysmal atrial fibrillation; L40.9 Psoriasis, unspecified; I25.10 Atherosclerotic heart disease of native coronary artery without angina pectoris; E78.5 Hyperlipidemia, unspecified; N18.9 Chronic kidney disease, unspecified; E03.9 Hypothyroidism, unspecified; N18.3 Chronic kidney disease, stage 3 (moderate); G47.33 Obstructive sleep apnea (adult) (pediatric); I08.3 Combined rheumatic disorders of mitral, aortic and tricuspid valves; T38.0X5A Adverse effect of glucocorticoids and synthetic analogues, initial encounter; Z79.890 Hormone replacement therapy; Z79.899 Other long term (current) drug therapy; Z79.82 Long term (current) use of aspirin; Z79.84 Long term (current) use of oral hypoglycemic drugs; Z98.42 Cataract extraction status, left eye; Z98.41 Cataract extraction status, right eye; Z87.891 Personal history of nicotine dependence; Z95.5 Presence of coronary angioplasty implant and graft; Z98.890 Other specified postprocedural states; Z82.49 Family history of ischemic heart disease and other diseases of the circulatory system; Z80.41 Family history of malignant neoplasm of ovary; Z80.0 Family history of malignant neoplasm of digestive organs
CPT/HCPCS: 36415; 71045; 78582; 80048; 80053; 82728; 83605; 83615; 83735; 84145; 85025; 85027; 85379; 85610; 85730; 86140; 87040; 93005; 93306; 94640; 96365; 96372; 96375; 96376; 99291

== ENCOUNTER 2020-11-11 08:40 | Inpatient (IN) | payer MEDICARE ==
--- NOTE | 2020-11-11 09:02 | ED ---
General Adult HPI - General Chief complaint: Shortness of Breath Stated complaint: AMI Time Seen by Provider: 11/11/20 08:46 Source: patient Mode of arrival: wheelchair Limitations: no limitations - History of Present Illness Initial comments: Dictation was produced using [employer] dictation software. please excuse any grammatical, word or spelling errors. Chief Complaint: 70-year-old female presents with shortness of breath History of Present Illness: Patient is 70-year-old female she has past medical history of A. fib. Patient states she's been feeling short of breath upon waking this morning. She felt fine last night. Last night her nephew brought over to let us for dinner. Patient doesn't usually eat food-like this. Patient states she takes a water pill. She has a slack cooper. She seen a slack cooper recently for checkup and was told that everything looks fine and that she should follow-up in 6 months. Patient states she feels short of breath. She denies any chest pain. She states worse when she lies flat. She wears CPAP machine at night however due to power outage she did not use it yesterday. Patient c omplains of swelling in her bilateral lower extremities. Denies any fevers. No cough. No constitutional symptoms. No myalgias The ROS documented in this emergency department record has been reviewed and confirmed by me. Those systems with pertinent positive or negative responses have been documented in the HPI. All other systems are other negative and/or noncontributory. PHYSICAL EXAM: General Impression: Alert and oriented x3, mildly dyspneic HEENT: Normocephalic atraumatic, extra-ocular movements intact, pupils equal and reactive to light bilaterally, mucous membranes moist. Cardiovascular: Heart regular rate and rhythm Chest: Able to complete 5-6 word sentences, mildly dyspneic, diffuse crackles with auscultation Abdomen: abdomen soft, non-tender, non-distended, no organomegaly Musculoskeletal: Pulses present and equal in all extremities, 2+ bilateral pitting edema Motor: no focal deficits noted Neurological: CN II-XII grossly intact, no focal motor or sensory deficits noted Skin: Intact with no visualized rashes Psych: Normal affect and mood ED course: 70-year-old male presents to the emergency department for chief complaint of acute dyspnea. Vital signs upon arrival shows 83% on room air, rest of vital signs within acceptable limits. Patient's oxygenation improved with nasal cannula however still in the 80s. Patient ordered for BiPAP. Patient's medications are reviewed. Patient reevaluated after several minutes on BiPAP with improvement of oxygenation and tachypnea. Laboratory evaluation obtained. Mild leukocytosis 12.8. Cardiac panel is negative. Blood gas shows pO2 162 with 40% FiO2 on BiPAP. Metabolic panel is within acceptable limits. Brain natruretic peptide elevated at 3870. Coronal virus negative. Chest x-ray shows prominent pulmonar y interstitium may represent atypical pneumonia. Clinically her symptoms suggest heart failure. Patient given Lasix. She is also started on antibiotics. Patient admitted. Case discussed with Dr. Wooten. Cardiology pulmonology consulted. - Related Data Home Medications Medication Instructions Recorded Confirmed Aspirin [Adult Low Dose Aspirin EC] 81 mg PO DAILY 08/28/16 08/31/19 Multivit-Min/FA/Lycopen/Lutein 2 tab PO DAILY 08/28/16 08/31/19 [Centrum Silver Tablet] Cholecalciferol (Vitamin D3) 2,000 unit PO DAILY 04/08/18 08/31/19 [Vitamin D3] Glimepiride [Amaryl] 4 mg PO BID 04/08/18 08/31/19 Levothyroxine Sodium [Synthroid] 25 mcg PO DAILY 04/08/18 08/31/19 Vit C/E/Zn/Coppr/Lutein/Zeaxan 2 cap PO DAILY 04/08/18 08/31/19 [Preservision Areds 2 Softgel] sitaGLIPtin [Januvia] 50 mg PO DAILY 04/08/18 08/31/19 Furosemide [Lasix] 40 mg PO DAILY 01/02/19 08/31/19 Previous Rx's Medication Instructions Recorded Atorvastatin [Lipitor] 40 mg PO HS #90 tab 09/04/16 Metoprolol Tartrate [Lopressor] 25 mg PO BID #180 tab 09/04/16 Nitroglycerin Sl Tabs [Nitrostat] 0.4 mg SUBLINGUAL Q5M PRN #25 tab 09/04/16 amLODIPine BESYLATE [Norvasc] 5 mg PO DAILY #1 tablet 09/04/16 Apixaban [Eliquis] 5 mg PO BID #60 tab 09/03/19 Azithromycin [Zithromax Tri-Hugo (3 500 mg PO DAILY 3 Days #3 tab 09/03/19 tabs)] Ipratropium-Albuterol Nebulize 3 ml INHALATION RT-QID #120 ml 09/03/19 [Duoneb 0.5 mg-3 mg/3 ml Soln] [place], Insulin Disposable [Bd 1 needle SQ DIRECTED #30 needle 09/03/19 Ultra-Fine Pen Needle 4mm 32g] Pantoprazole [Protonix] 40 mg PO AC-BRKFST #30 tablet. 09/03/19 Semaglutide [Ozempic] 0.25 mg SQ Q7DAYS #1 pen.injctr 09/03/19 lisinopriL [Zestril] 2.5 mg PO DAILY #0 09/03/19 predniSONE 0 mg PO DIRECTED #30 tab 09/03/19 Allergies Allergy/AdvReac Type Severity Reaction Status Date / Time No Known Allergies Allergy Verified 11/11/20 11:33 Review of Systems ROS Statement: Those systems with pertinent positive or pertinent negative responses have been documented in the HPI. ROS Other: All systems not noted in ROS Statement are negative. Past Medical History Past Medical History: Coronary Artery Disease (CAD), Diabetes Mellitus, Hyperlipidemia, Hypertension, Skin Disorder, Sleep Apnea/CPAP/BIPAP Additional Past Medical History / Comment(s): Hx Psoriasis History of Any Multi-Drug Resistant Organisms: None Reported Past Surgical History: Heart Catheterization With Stent Additional Past Surgical History / Comment(s): Cataracts, abcess on buttocks, colonoscopies Past Anesthesia/Blood Transfusion Reactions: No Reported Reaction Date of Last Stent Placement:: unknown Past Psychological History: No Psychological Hx Reported Smoking Status: Never smoker Past Alcohol Use History: None Reported Past Drug Use History: None Reported - Past Family History Mother Family Medical History: Hypertension Additional Family Medical History / Comment(s): Mother in her 80s from old age. Father Family Medical History: Hypertension Additional Family Medical History / Comment(s): Father at age 70 during his sleep of unknown cause. Sister(s) Additional Family Medical History / Comment(s): Patient has 3 sisters and one has from ovarian cancer. One is alive with colon cancer and doing very poorly expected to sound. One sister has no major medical problems. Brother(s) Additional Family Medical History / Comment(s): The patient has 1 brother with no major medical problems. Patient does not have any children. General Exam Limitations: no limitations Course Vital Signs 11/11/20 11/11/20 11/11/20 08:42 08:53 09:18 Temperature 98 F Pulse Rate 72 88 80 Respiratory 18 24 30 H Rate Blood Pressure 112/62 140/114 137/74 O2 Sat by Pulse 83 L 93 L Oximetry 11/11/20 10:21 Temperature Pulse Rate 70 Respiratory 25 H Rate Blood Pressure 118/75 O2 Sat by Pulse 98 Oximetry Medical Decision Making - Lab Data Result diagrams: 11/11/20 09:07 11/11/20 09:07 Lab Results 11/11/20 11/11/20 11/11/20 Range/Units 09:07 09:07 09:07 WBC 12.8 H (3.8-10.6) k/uL RBC 3.20 L (3.80-5.40) m/uL Hgb 11.6 (11.4-16.0) gm/dL Hct 35.5 (34.0-46.0) % MCV 110.9 H (80.0-100.0) fL MCH 36.2 H (25.0-35.0) pg MCHC 32.6 (31.0-37.0) g/dL RDW 14.5 (11.5-15.5) % Plt Count 265 (150-450) k/uL MPV 10.3 Neutrophils % 84 % Lymphocytes % 9 % Monocytes % 4 % Eosinophils % 1 % Basophils % 1 % Neutrophils # 10.8 H (1.3-7.7) k/uL Lymphocytes # 1.1 (1.0-4.8) k/uL Monocytes # 0.5 (0-1.0) k/uL Eosinophils # 0.1 (0-0.7) k/uL Basophils # 0.1 (0-0.2) k/uL Manual Slide Review Performed Macrocytosis Marked A PT 10.7 (9.0-12.0) sec INR 1.0 (<1.2) APTT 24.7 (22.0-30.0) sec Sample Site ABG pH (7.35-7.45) ABG pCO2 (35-45) mmHg ABG pO2 (83-108) mmHg ABG HCO3 (21-25) mmol/L ABG Total CO2 (19-24) mmol/L ABG O2 Saturation (94-97) % ABG Base Excess mmol/L Walter Test FiO2 % Sodium 142 (137-145) mmol/L Potassium 4.5 (3.5-5.1) mmol/L Chloride 107 (98-107) mmol/L Carbon Dioxide 24 (22-30) mmol/L Anion Gap 11 mmol/L BUN 41 H (7-17) mg/dL Creatinine 1.69 H (0.52-1.04) mg/dL Est GFR (CKD-EPI)AfAm 35 (>60 ml/min/1.73 sqM) Est GFR (CKD-EPI)NonAf 30 (>60 ml/min/1.73 sqM) Glucose 190 H (74-99) mg/dL Plasma Lactic Acid Koby (0.7-2.0) mmol/L Calcium 9.4 (8.4-10.2) mg/dL Magnesium 2.5 H (1.6-2.3) mg/dL Total Bilirubin 0.8 (0.2-1.3) mg/dL AST 19 (14-36) U/L ALT 16 (4-34) U/L Alkaline Phosphatase 143 H (38-126) U/L Troponin I (0.000-0.034) ng/mL NT-Pro-B Natriuret Pep pg/mL Total Protein 6.7 (6.3-8.2) g/dL Albumin 4.0 (3.5-5.0) g/dL Coronavirus (PCR) (Not Detectd) 11/11/20 11/11/20 11/11/20 Range/Units 09:07 09:07 09:07 WBC (3.8-10.6) k/uL RBC (3.80-5.40) m/uL Hgb (11.4-16.0) gm/dL Hct (34.0-46.0) % MCV (80.0-100.0) fL MCH (25.0-35.0) pg MCHC (31.0-37.0) g/dL RDW (11.5-15.5) % Plt Count (150-450) k/uL MPV Neutrophils % % Lymphocytes % % Monocytes % % Eosinophils % % Basophils % % Neutrophils # (1.3-7.7) k/uL Lymphocytes # (1.0-4.8) k/uL Monocytes # (0-1.0) k/uL Eosinophils # (0-0.7) k/uL Basophils # (0-0.2) k/uL Manual Slide Review Macrocytosis PT (9.0-12.0) sec INR (<1.2) APTT (22.0-30.0) sec Sample Site ABG pH (7.35-7.45) ABG pCO2 (35-45) mmHg ABG pO2 (83-108) mmHg ABG HCO3 (21-25) mmol/L ABG Total CO2 (19-24) mmol/L ABG O2 Saturation (94-97) % ABG Base Excess mmol/L Walter Test FiO2 % Sodium (137-145) mmol/L Potassium (3.5-5.1) mmol/L Chloride (98-107) mmol/L Carbon Dioxide (22-30) mmol/L Anion Gap mmol/L BUN (7-17) mg/dL Creatinine (0.52-1.04) mg/dL Est GFR (CKD-EPI)AfAm (>60 ml/min/1.73 sqM) Est GFR (CKD-EPI)NonAf (>60 ml/min/1.73 sqM) Glucose (74-99) mg/dL Plasma Lactic Acid Koby 1.9 (0.7-2.0) mmol/L Calcium (8.4-10.2) mg/dL Magnesium (1.6-2.3) mg/dL Total Bilirubin (0.2-1.3) mg/dL AST (14-36) U/L ALT (4-34) U/L Alkaline Phosphatase (38-126) U/L Troponin I <0.012 (0.000-0.034) ng/mL NT-Pro-B Natriuret Pep 3870 pg/mL Total Protein (6.3-8.2) g/dL Albumin (3.5-5.0) g/dL Coronavirus (PCR) (Not Detectd) 11/11/20 11/11/20 Range/Units 10:20 10:50 WBC (3.8-10.6) k/uL RBC (3.80-5.40) m/uL Hgb (11.4-16.0) gm/dL Hct (34.0-46.0) % MCV (80.0-100.0) fL MCH (25.0-35.0) pg MCHC (31.0-37.0) g/dL RDW (11.5-15.5) % Plt Count (150-450) k/uL MPV Neutrophils % % Lymphocytes % % Monocytes % % Eosinophils % % Basophils % % Neutrophils # (1.3-7.7) k/uL Lymphocytes # (1.0-4.8) k/uL Monocytes # (0-1.0) k/uL Eosinophils # (0-0.7) k/uL Basophils # (0-0.2) k/uL Manual Slide Review Macrocytosis PT (9.0-12.0) sec INR (<1.2) APTT (22.0-30.0) sec Sample Site r rad ABG pH 7.53 H (7.35-7.45) ABG pCO2 23 L (35-45) mmHg ABG pO2 162 H (83-108) mmHg ABG HCO3 20 L (21-25) mmol/L ABG Total CO2 20 (19-24) mmol/L ABG O2 Saturation 100.0 H (94-97) % ABG Base Excess -3.1 mmol/L Walter Test Yes FiO2 40 % Sodium (137-145) mmol/L Potassium (3.5-5.1) mmol/L Chloride (98-107) mmol/L Carbon Dioxide (22-30) mmol/L Anion Gap mmol/L BUN (7-17) mg/dL Creatinine (0.52-1.04) mg/dL Est GFR (CKD-EPI)AfAm (>60 ml/min/1.73 sqM) Est GFR (CKD-EPI)NonAf (>60 ml/min/1.73 sqM) Glucose (74-99) mg/dL Plasma Lactic Acid Koby (0.7-2.0) mmol/L Calcium (8.4-10.2) mg/dL Magnesium (1.6-2.3) mg/dL Total Bilirubin (0.2-1.3) mg/dL AST (14-36) U/L ALT (4-34) U/L Alkaline Phosphatase (38-126) U/L Troponin I (0.000-0.034) ng/mL NT-Pro-B Natriuret Pep pg/mL Total Protein (6.3-8.2) g/dL Albumin (3.5-5.0) g/dL Coronavirus (PCR) Not Detected (Not Detectd) Critical Care Time Critical Care Time: Yes Total Critical Care Time: 33 Disposition Clinical Impression: Hypoxia Disposition: ADMITTED IP TO THIS HOSP Condition: Fair Referrals: Dimple Wooten MD [Primary Care Provider] - 1-2 days
--- NOTE | 2020-11-11 09:33 | XR ---
EXAMINATION TYPE: XR chest 1V portable DATE OF EXAM: 11/11/2020 HISTORY: Shortness of breath. COMPARISON: 08/31/19 TECHNIQUE: Single view of the chest is submitted. FINDINGS: Demonstrated are scattered senescent parenchymal change. Prominence of the pulmonary interstitium may reflect underlying atypical pneumonia. Correlate clinica lly. The heart is stable. Hilar and mediastinal structures are within normal limits. Degenerative changes are seen of the dorsal spine. IMPRESSION: 1. Prominence of the pulmonary interstitium may reflect underlying atypical pneumonia. Correlate cli nically.
[2020-11-11 09:47] LABS: Partial Thromboplastin Time 24.7 sec (22.0-30.0); Prothrombin Time 10.7 sec (9.0-12.0)
[2020-11-11 09:52] LABS: Calcium 9.4 mg/dL (8.4-10.2); Magnesium 2.5 mg/dL (1.6-2.3); Potassium 4.5 mmol/L (3.5-5.1); Total Bilirubin 0.8 mg/dL (0.2-1.3); Total Protein 6.7 g/dL (6.3-8.2)
[2020-11-11 09:55] LABS: Basophils # (A) 0.1 k/uL (0-0.2); Basophils % (A) 1 %; Eosinophils # (A) 0.1 k/uL (0-0.7); Eosinophils % (A) 1 %; HCT 35.5 % (34.0-46.0); HGB 11.6 gm/dL (11.4-16.0); Lymphocytes # (A) 1.1 k/uL (1.0-4.8); Lymphocytes % (A) 9 %; MCH 36.2 pg (25.0-35.0); MCHC 32.6 g/dL (31.0-37.0); MCV 110.9 fL (80.0-100.0); Macrocytosis Marked; Mean Platelet Volume 10.3; Monocytes # (A) 0.5 k/uL (0-1.0); Monocytes % (A) 4 %; Neutrophils # (A) 10.8 k/uL (1.3-7.7); Neutrophils % (A) 84 %; Platelet Count 265 k/uL (150-450); RDW 14.5 % (11.5-15.5); WBC 12.8 k/uL (3.8-10.6)
[2020-11-11 10:59] LABS: ABG Base Excess -3.1 mmol/L; ABG HCO3 20 mmol/L (21-25); ABG PCO2 23 mmHg (35-45); ABG PH 7.53 (7.35-7.45); ABG PO2 162 mmHg (83-108); ABG TCO2 20 mmol/L (19-24); Allen Test Performed? Yes
[2020-11-11] MEDS ORDERED: AZITHROMYCIN 500 MG in SODIUM CHLORIDE 0.9% 250 ML IVPB STA (11:29)
[2020-11-11] MEDS ORDERED: FUROSEMIDE 10 MG/ML 4 ML VIAL IV STA (11:29)
[2020-11-11] MEDS ORDERED: cefTRIAXone IN SWFI 1,000 MG/10 ML SYRINGE IVP STA (11:29)
[2020-11-11] MEDS ORDERED: NALOXONE 0.4 MG/ML 1 ML VIAL IV PRN (11:34)
[2020-11-11] MEDS: ACETAMINOPHEN TAB 325 MG TAB PO PRN (11:53)
[2020-11-11] MEDS: SODIUM CHLORIDE 0.9% 1,000 ML IV SCH (12:00)
[2020-11-11 13:35] LABS: Glucose,Whole Blood 147 mg/dL (75-99)
--- NOTE | 2020-11-11 15:17 | P.CNPUL ---
History of Present Illness Consult date: 11/11/20 Requesting physician: Dimple Wooten Reason for consult: dyspnea, cough, COPD, hypoxemia, pneumonia, obstructive sleep apnea Chief complaint: Shortness of breath. History of present illness: Pulmonary/critical care consult dated 11/11/2020. 70-year-old obese white female with a history of atrial fibrillation, who comes into the emergency room on November 11 that 840 in the morning, complaining of shortness of breath. She apparently felt fine the night before. The patient denies any fever or chills. She denies any chest pain or chest discomfort. The patient does have a bit of a dry nonproductive cough. The patient was seen in the emergency room, and she tells me, she was diagnosed as having pneumonia. The patient is currently on saline at 30 mL an hour, and oxygen at 6 L. The patient does have a history of sleep apnea syndrome. She sees my partner for that. She also did smoke for about 15 years. She smoked less than one pack a day. She denies using oxygen at home, and she also denies using oxygen with her CPAP device. She was placed on BiPAP when she was admitted, with settings of 12/6 and 40%. Her medical problems include CAD, diabetes, hyperlipidemia, hypertension, and obstructive sleep apnea syndrome, and she also has a history of psoriasis. In addition, she's had a previous stent. Review of Systems REVIEW OF SYSTEMS: CONSTITUTIONAL: [Negative.] NEUROLOGIC: [ Negative.] HEENT: [ Negative.] CARDIAC: [Negative.] PULMONARY: Shortness of breath. GI: [Negative.] : [Negative.] RHEUMATOLOGIC: [ Negative.] IMMUNOLOGIC: [ Negative.] ENDOCRINE: [Negative. ] DERMATOLOGIC: [Negative.] Past Medical History Past Medical History: Coronary Artery Disease (CAD), Diabetes Mellitus, Hyperli pidemia, Hypertension, Skin Disorder, Sleep Apnea/CPAP/BIPAP Additional Past Medical History / Comment(s): Hx Psoriasis History of Any Multi-Drug Resistant Organisms: None Reported Past Surgical History: Heart Catheterization With Stent Additional Past Surgical History / Comment(s): Cataracts, abcess on buttocks, colonoscopies Past Anesthesia/Blood Transfusion Reactions: No Reported Reaction Date of Last Stent Placement:: unknown Past Psychological History: No Psychological Hx Reported Smoking Status: Never smoker Past Alcohol Use History: None Reported Past Drug Use History: None Reported - Past Family History Mother Family Medical History: Hypertension Additional Family Medical History / Comment(s): Mother in her 80s from old age. Father Family Medical History: Hypertension Additional Family Medical History / Comment(s): Father at age 70 during his sleep of unknown cause. Sister(s) Additional Family Medical History / Comment(s): Patient has 3 sisters and one has from ovarian cancer. One is alive with colon cancer and doing very poorly expected to sound. One sister has no major medical problems. Brother(s) Additional Family Medical History / Comment(s): The patient has 1 brother with no major medical problems. Patient does not have any children. Medications and Allergies Home Medications Medication Instructions Recorded Confirmed Type Aspirin [Adult Low Dose Aspirin EC] 81 mg PO Q48H 08/28/16 11/11/20 History Multivit-Min/FA/Lycopen/Lutein 1 tab PO DAILY 08/28/16 11/11/20 History [Centrum Silver Tablet] Metoprolol Tartrate [Lopressor] 25 mg PO BID #180 tab 09/04/16 11/11/20 Rx amLODIPine BESYLATE [Norvasc] 5 mg PO DAILY #1 tablet 09/04/16 11/11/20 Rx Glimepiride [Amaryl] 4 mg PO BID 04/08/18 11/11/20 History Levothyroxine Sodium [Synthroid] 25 mcg PO DAILY 04/08/18 11/11/20 History Vit C/E/Zn/Coppr/Lutein/Zeaxan 2 cap PO DAILY 04/08/18 11/11/20 History [Preservision Areds 2 Softgel] sitaGLIPtin [Januvia] 50 mg PO DAILY 04/08/18 11/11/20 History Apixaban [Eliquis] 5 mg PO BID #60 tab 09/03/19 11/11/20 Rx Atorvastatin [Lipitor] 40 mg PO DAILY 11/11/20 11/11/20 History Cholecalciferol [Vitamin D3 (25 50 mcg PO DAILY 11/11/20 11/11/20 History Mcg = 1000 Iu)] Furosemide [Lasix] 80 mg PO Q48H 11/11/20 11/11/20 History Semaglutide [Ozempic] 0.25 mg SQ LOZANO 11/11/20 11/11/20 History lisinopriL [Zestril] 5 mg PO DAILY 11/11/20 11/11/20 History Allergies Allergy/AdvReac Type Severity Reaction Status Date / Time No Known Allergies Allergy Verified 11/11/20 11:33 Physical Exam Osteopathic Statement: *. No significant issues noted on an osteopathic structural exam other than those noted in the History and Physical/Consult. Vitals: Vital Signs Temp Pulse Resp BP Pulse Ox 11/11/20 12:33 98.1 F 73 28 H 118/72 98 11/11/20 10:21 70 25 H 118/75 98 11/11/20 09:18 80 30 H 137/74 93 L 11/11/20 08:53 88 24 140/114 11/11/20 08:42 98 F 72 18 112/62 83 L Intake and Output 11/11/20 11/11/20 11/11/20 06:59 14:59 22:59 Other: Weight 121.563 kg No acute distress, oriented 3. Currently on 6 L nasal cannula. No acute distress. No conversational dyspnea or use of accessory muscles. HEENT examination is grossly unremarkable. Neck supple. Full range of motion. No adenopathy thyromegaly or neck vein distention. Cardiovascular examination reveals regular rhythm rate. S1-S2 normal. No S3 or S4. No discernible murmur noted. Heart sounds are distant. Heart rate 73 bpm. Lungs reveal scattered mild to moderate rhonchi. No wheezes or crackles. Breath sounds equal. Saturations are 98%. Abdomen soft bowel sounds are heard. No masses or tenderness. Extremities are intact. No cyanosis or clubbing. The patient does have 1+ edema. There is some chronic venous stasis changes noted as well. Skin is without rash or lesion. Neurologic examination is brief but nonfocal. Results - Laboratory Findings CBC and BMP: 11/11/20 09:07 11/11/20 09:07 ABG ABG pH 7.53 (7.35-7.45) H 11/11/20 10:50 ABG pCO2 23 mmHg (35-45) L 11/11/20 10:50 ABG pO2 162 mmHg (83-108) H 11/11/20 10:50 ABG O2 Saturation 100.0 % (94-97) H 11/11/20 10:50 PT/INR, D-dimer PT 10.7 sec (9.0-12.0) 11/11/20 09:07 INR 1.0 (<1.2) 11/11/20 09:07 Abnormal lab findings: Abnormal Labs 11/11/20 11/11/20 11/11/20 09:07 09:07 10:50 WBC 12.8 H RBC 3.20 L MCV 110.9 H MCH 36.2 H Neutrophils # 10.8 H Macrocytosis Marked A ABG pH 7.53 H ABG pCO2 23 L ABG pO2 162 H ABG HCO3 20 L ABG O2 Saturation 100.0 H BUN 41 H Creatinine 1.69 H Glucose 190 H POC Glucose (mg/dL) Magnesium 2.5 H Alkaline Phosphatase 143 H 11/11/20 13:33 WBC RBC MCV MCH Neutrophils # Macrocytosis ABG pH ABG pCO2 ABG pO2 ABG HCO3 ABG O2 Saturation BUN Creatinine Glucose POC Glucose (mg/dL) 147 H Magnesium Alkaline Phosphatase - Diagnostic Findings Chest x-ray: image reviewed Assessment and Plan Assessment: Shortness of breath, which may be multifactorial, in part related to fluid overload, mild COPD exacerbation, and possible atypical pneumonia. History of CAD with previous stent placement. History of sleep apnea syndrome, currently on CPAP. Morbid obesity. History of diabetes mellitus. History of hyperlipidemia. History of hypertension. History of psoriasis. Plan: Plan dated 11/11/2020. Currently, the patient is on her usual home medications. We will start some updrafts, to be used 4 times a day and when necessary. I don't believe she would benefit from corticosteroids at this time. The patient will also be given an oral antibiotic. Additional recommendations and suggestions are forthcoming. The patient is already feeling much improved. We will wean the oxygen. We will continue to follow make recommendations where appropriate. Time with Patient: Greater than 30
[2020-11-11] MEDS ORDERED: IPRATROPIUM-ALBUTEROL 3 ML NEB INHALATION PRN (15:18)
[2020-11-11] MEDS: IPRATROPIUM-ALBUTEROL 3 ML NEB INHALATION SCH ×2 (15:58→19:49)
[2020-11-11 16:35] LABS: Glucose,Whole Blood 142 mg/dL (75-99)
[2020-11-11] MEDS: INSULIN ASPART (NovoLOG) 100 UNIT/ML VIAL SQ SCH ×2 (17:18→21:00)
[2020-11-11] MEDS: GLIMEPIRIDE 2 MG TAB PO SCH (17:18)
[2020-11-11] MEDS: AMOXIC-POT CLAV 500-125 MG 1 EACH TAB PO SCH (20:19)
[2020-11-11] MEDS: APIXABAN 5 MG TAB PO SCH (20:19)
[2020-11-11] MEDS: METOPROLOL TARTRATE 25 MG TAB PO SCH (20:19)
[2020-11-11] MEDS: FUROSEMIDE 10 MG/ML 4 ML VIAL IV SCH (20:19)
[2020-11-11 20:36] LABS: Glucose,Whole Blood 161 mg/dL (75-99)
[2020-11-12 06:17] LABS: Glucose,Whole Blood 87 mg/dL (75-99)
[2020-11-12] MEDS: INSULIN ASPART (NovoLOG) 100 UNIT/ML VIAL SQ SCH ×4 (06:20→20:23)
[2020-11-12] MEDS: LEVOTHYROXINE 25 MCG TAB PO SCH (06:45)
[2020-11-12] MEDS: GLIMEPIRIDE 2 MG TAB PO SCH ×2 (06:45→17:27)
[2020-11-12] MEDS: IPRATROPIUM-ALBUTEROL 3 ML NEB INHALATION SCH ×4 (08:26→20:14)
[2020-11-12] MEDS: CHOLECALCIFEROL 25 MCG (1000 IU) TABLET PO SCH (09:57)
[2020-11-12] MEDS: amLODIPine 5 MG TAB PO SCH (09:57)
[2020-11-12] MEDS: FUROSEMIDE 10 MG/ML 4 ML VIAL IV SCH ×2 (09:57→20:56)
[2020-11-12] MEDS: APIXABAN 5 MG TAB PO SCH ×2 (09:57→20:22)
[2020-11-12] MEDS: VIT A,C & E-LUTEIN-MINERALS 1 EACH TAB PO SCH (09:57)
[2020-11-12] MEDS: MULTIVITAMINS, THERA 1 EACH TAB PO SCH (09:57)
[2020-11-12] MEDS: ATORVASTATIN 40 MG TAB PO SCH (09:57)
[2020-11-12] MEDS: AMOXIC-POT CLAV 500-125 MG 1 EACH TAB PO SCH ×2 (09:57→20:22)
[2020-11-12] MEDS: ASPIRIN 81 MG PO SCH (09:57)
[2020-11-12] MEDS: METOPROLOL TARTRATE 25 MG TAB PO SCH ×2 (09:58→20:22)
[2020-11-12] MEDS: LINAGLIPTIN 5 MG TABLET PO SCH (09:58)
--- NOTE | 2020-11-12 10:08 | P.HPIM ---
History of Present Illness H&P Date: 11/11/20 HISTORY OF PRESENT ILLNESS: This is a 70-year-old female patient of mine with past medical history of diabetes mellitus type 2, diabetic polyneuropathy, paroxysmal atrial fibrillation, psoriasis, COPD, hypertension, coronary artery disease status post stenting of the mid LAD [place] [address] Zavala, remote history of tobacco use and dependence, obesity with obstructive sleep apnea and obesity hypoventilation syndrome. Patient presented to the emergency department at [facility] today with increased cough and shortness breath associated with dry nonproductive cough for the past 24 hours, patient had a chest x-ray that showed minimal interstitial edema, possible atypical pneumonia, she was given Lasix in the emergency department as well as nebulized treatment she is currently on 6 L nasal cannula her oxygen saturation around 98%, she was started on oral antibiotic and she was admitted to the hospital for evaluation patient was seen by pulmonary medicine in the emergency department he was recommended to continue oral antibiotic as well as at the last treatment in the form of DuoNeb 3 mg nebulization 4 times every day as well as Pulmicort she was admitted to the [facility] for further evaluation and treatment. REVIEW OF SYSTEMS: Constitutional: No documented fever, no chills, no night sweats. No weight change. No weakness, fatigue or lethargy. No daytime sleepiness. HEENT: No headache. No blurred vision or double vision, no loss of vision. No loss of Hearing, no ringing in the ears, no dizziness. No nasal drainage or congestion. No epistaxis. No sore throat. Lungs: positive for shortness of breath, positive for dry cough, no sputum production. No wheezing. Reports dyspnea with activity. Cardiovascular: No chest pain, no lower extremity edema. No palpitations. No paroxysmal nocturnal dyspnea. No orthopnea. No lightheadedness or dizziness. No syncopal episodes. Abdominal: Reports no abdominal pain. No nausea, vomiting. No diarrhea. No constipation. No bloody or tarry stools reports loss of appetite. Genitourinary: No dysuria, increased frequency, urgency. No urinary retention. Musculoskeletal: No myalgias. No muscle weakness, no gait dysfunction, no frequent falls. positive fpr back pain. No neck pain. Integumentary: No wounds, no lesions. positive for dry skin. positive for bruising. No change in hair or nails. Neurologic: No aphasia. No facial droop. No change in mentation. No head injury. No headache. No paralysis. No paresthesia. Psychiatric: No depression. No anxiety. No mood swings. Endocrine: No abnormal blood sugars. No weight change. PAST MEDICAL HISTORY: Hypertension and hypertensive cardiovascular disease Hyperlipidemia. Diabetes mellitus type 2. Diabetic polyneuropathy. Paroxysmal atrial fibrillation. Coronary artery disease status post PCI of the LAD in 2017. COPD Obesity with obstructive sleep apnea. GERD. Psoriasis. Chronic kidney disease stage 3a PAST SURGICAL HISTORY: Left heart catheterization with PCI of the LAD in 2017 Left buttock abscess I&D. Bilateral cataract surgery. SOCIAL HISTORY: Patient used to smoke about a pack every day she smoked for about 15 years and quit many years ago, she denies any alcohol ingestion, no drug use or abuse, she lives by herself. FAMILY HISTORY: Mother in her 80s from old age and had a history of hypertension, father at age of 70 during his sleep of unknown cause possibly CAD and had history of hypertension Patient had 3 sisters one from ovarian cancer one is dying from colon cancer the third one has no major medical problems, PHYSICAL EXAMINATION: General: 70-year-old female sitting up in bed in moderate respiratory distress HEENT: Head is atraumatic, normocephalic, pupils were equal round reactive to light and recommendation, extraocular muscle movement were intact, sclera nonicteric, conjunctivae were pale, mucous membranes of the mouth are somewhat dry. Neck: Supple, no JVP, normal carotid upstroke bilaterally, no lymphadenopathy. Chest: Decreased breath sounds at the bases, few rhonchi, minimal expiratory wheezes, no chest wall tenderness, minimal intercostal retractions. Heart: First heart sound is normal, second heart sounds normal, there is systolic ejection murmur 2/6 located in the left sternal border. Abdomen: Soft, nontender, nondistended, positive bowel sounds Extremities: There is trace edema no calf tenderness DP +1 bilaterally. Neurologic examination: Patient is awake alert and oriented X 3, cranial nerves II-12 appear grossly intact, muscle power were 4 out of 5 in upper extremities and 4 out of 5 in bilateral lower extremities, deep tendon reflexes normal krista aterally. ASSESSMENT AND PLAN: 1. Acute hypoxemic respiratory failure secondary to a combination of acute diastolic heart failure and COPD exacerbation. Continue Lasix 40 mg IV push every 12 hours, continue metoprolol 25 mg orally twice every day, lisinopril 5 mg orally once every day, monitor input and output and daily weight, continue DuoNeb 3 mL nebulization 4 times every day and as needed every 4 hours, pulmonary consultation appreciated, follow-up with the patient very closely. 2. Acute COPD exacerbation. Continue DuoNeb 3 mg nebulization 4 times every day, continue oxygen support, continue to monitor the patient very closely pulmonary is following. 3. Acute diastolic heart failure. Continue patient on metoprolol 25 mg orally twice every day, Lasix 40 mg IV push every 12 hours, lisinopril 5 mg orally once every day, monitor the patient weight input and output as well. 4. hypertension and hypertensive cardio vascular disease. Continue patient on metoprolol 25 mg orally twice every day and lisinopril 5 mg orally once every day monitor the patient blood pressure very closely. 5. Hyperlipidemia. Continue Lipitor 40 mg orally once every day keep LDL cholesterol 55-70 per he 6. Diabetes mellitus type 2. Continue patient on Tradjenta 5 mg orally once every day, Glimeperide 4 mg orally once every day, hold Ozempic in the hospital, continue to monitor the patient BGM before each meal and at bedtime. 7. Paroxysmal atrial fibrillation. Continue metoprolol 25 mg orally twice every day, continue Eliquis 5 mg orally twice every day. 8. Coronary artery disease status post PCI of the LAD in 2017. Continue metoprolol 25 mg orally twice every day, aspirin 81 mg once every day, Lipitor 40 mg orally once every day keep LDL 55-70. 9. Hypothyroidism. Continue Synthroid 25 incision orally once every day. 10. Obesity with obstructive sleep apnea. Continue patient on current CPAP. 11. History of psoriasis. Stable. 12. Chronic kidney disease stage III a. Monitor the patient CMP, avoid nephrotoxins per 13. DVT prophylaxis. Continue patient on Eliquis 5 mg orally twice every day. 14. GI prophylaxis. Continue Protonix 40 mg orally once every day. 15. Admitted to inpatient. Estimated length of stay 2 midnights. 16. Patient is full code. Past Medical History Past Medical History: Coronary Artery Disease (CAD), Diabetes Mellitus, Hyperlipidemia, Hypertension, Skin Disorder, Sleep Apnea/CPAP/BIPAP Additional Past Medical History / Comment(s): Hx Psoriasis History of Any Multi-Drug Resistant Organisms: None Reported Past Surgical History: Heart Catheterization With Stent Additional Past Surgical History / Comment(s): Cataracts, abcess on buttocks, colonoscopies Past Anesthesia/Blood Transfusion Reactions: No Reported Reaction Date of Last Stent Placement:: unknown Past Psychological History: No Psychological Hx Reported Smoking Status: Never smoker Past Alcohol Use History: None Reported Past Drug Use History: None Reported - Past Family History Mother Family Medical History: Hypertension Additional Family Medical History / Comment(s): Mother in her 80s from old age. Father Family Medical History: Hypertension Additional Family Medical History / Comment(s): Father at age 70 during his sleep of unknown cause. Sister(s) Additional Family Medical History / Comment(s): Patient has 3 sisters and one has from ovarian cancer. One is alive with colon cancer and doing very poorly expected to sound. One sister has no major medical problems. Brother(s) Additional Family Medical History / Comment(s): The patient has 1 brother with no major medical problems. Patient does not have any children. Medications and Allergies Home Medications Medication Instructions Recorded Confirmed Type Aspirin [Adult Low Dose Aspirin EC] 81 mg PO Q48H 08/28/16 11/11/20 History Multivit-Min/FA/Lycopen/Lutein 1 tab PO DAILY 08/28/16 11/11/20 History [Centrum Silver Tablet] Metoprolol Tartrate [Lopressor] 25 mg PO BID #180 tab 09/04/16 11/11/20 Rx amLODIPine BESYLATE [Norvasc] 5 mg PO DAILY #1 tablet 09/04/16 11/11/20 Rx Glimepiride [Amaryl] 4 mg PO BID 04/08/18 11/11/20 History Levothyroxine Sodium [Synthroid] 25 mcg PO DAILY 04/08/18 11/11/20 History Vit C/E/Zn/Coppr/Lutein/Zeaxan 2 cap PO DAILY 04/08/18 11/11/20 History [Preservision Areds 2 Softgel] sitaGLIPtin [Januvia] 50 mg PO DAILY 04/08/18 11/11/20 History Apixaban [Eliquis] 5 mg PO BID #60 tab 09/03/19 11/11/20 Rx Atorvastatin [Lipitor] 40 mg PO DAILY 11/11/20 11/11/20 History Cholecalciferol [Vitamin D3 (25 50 mcg PO DAILY 11/11/20 11/11/20 History Mcg = 1000 Iu)] Furosemide [Lasix] 80 mg PO Q48H 11/11/20 11/11/20 History Semaglutide [Ozempic] 0.25 mg SQ LOZANO 11/11/20 11/11/20 History lisinopriL [Zestril] 5 mg PO DAILY 11/11/20 11/11/20 History Allergies Allergy/AdvReac Type Severity Reaction Status Date / Time No Known Allergies Allergy Verified 11/11/20 11:33 Physical Exam Vitals: Vital Signs Temp Pulse Resp BP Pulse Ox 11/11/20 12:33 98.1 F 73 28 H 118/72 98 11/11/20 10:21 70 25 H 118/75 98 11/11/20 09:18 80 30 H 137/74 93 L 11/11/20 08:53 88 24 140/114 11/11/20 08:42 98 F 72 18 112/62 83 L Intake and Output 11/11/20 11/11/20 11/11/20 06:59 14:59 22:59 Other: Weight 121.563 kg Results CBC & Chem 7: 11/11/20 09:07 11/11/20 09:07 Labs: Abnormal Lab Results - Last 24 Hours (Table) 11/11/20 11/11/20 11/11/20 Range/Units 09:07 09:07 10:50 WBC 12.8 H (3.8-10.6) k/uL RBC 3.20 L (3.80-5.40) m/uL MCV 110.9 H (80.0-100.0) fL MCH 36.2 H (25.0-35.0) pg Neutrophils # 10.8 H (1.3-7.7) k/uL Macrocytosis Marked A ABG pH 7.53 H (7.35-7.45) ABG pCO2 23 L (35-45) mmHg ABG pO2 162 H (83-108) mmHg ABG HCO3 20 L (21-25) mmol/L ABG O2 Saturation 100.0 H (94-97) % BUN 41 H (7-17) mg/dL Creatinine 1.69 H (0.52-1.04) mg/dL Glucose 190 H (74-99) mg/dL POC Glucose (mg/dL) (75-99) mg/dL Magnesium 2.5 H (1.6-2.3) mg/dL Alkaline Phosphatase 143 H (38-126) U/L 11/11/20 Range/Units 13:33 WBC (3.8-10.6) k/uL RBC (3.80-5.40) m/uL MCV (80.0-100.0) fL MCH (25.0-35.0) pg Neutrophils # (1.3-7.7) k/uL Macrocytosis ABG pH (7.35-7.45) ABG pCO2 (35-45) mmHg ABG pO2 (83-108) mmHg ABG HCO3 (21-25) mmol/L ABG O2 Saturation (94-97) % BUN (7-17) mg/dL Creatinine (0.52-1.04) mg/dL Glucose (74-99) mg/dL POC Glucose (mg/dL) 147 H (75-99) mg/dL Magnesium (1.6-2.3) mg/dL Alkaline Phosphatase (38-126) U/L
--- NOTE | 2020-11-12 11:03 | P.CRDCN ---
History of Present Illness Consult date: 11/12/20 Consult reason: congestive heart failure History of present illness: History of present illness: This is a 70-year-old female patient of Dr. Zavala with past medical history significant for coronary artery disease status post drug-eluting stent placement to the mid LAD in 2017, paroxysmal atrial fibrillation, hypertension, dyslipidemia, diabetes mellitus, obstructive sleep apnea and obesity hypoventilation syndrome, chronic kidney disease and morbid obesity. Her last hospitalization was in August 2019 which time she was treated for new onset of breath paroxysmal atrial fibrillation and exacerbation of COPD. Patient was initiated on eliquis at that time. Echocardiogram revealed EF of 55-60%, mild aortic valve sclerosis, mild mitral regurgitation, mild tricuspid regurgitation, moderate pulmonary hypertension. Patient presented due to increased cough and shortness of breath. Patient had a dry nonproductive cough for the past day. EKG revealed atrial fibrillation. Chest x-ray revealed minimal interstitial edema, possible atypical pneumonia. Troponin negative times one drop. ProBNP 3870. Coronal virus PCR not detected. Alkaline phosphatase 143. Magnesium 2.5. BUN 41 creatinine 1.69. WBC 12.8 and hemoglobin 0.6. Patient was admitted to the cardiac stepdown unit and started on IV Lasix 40 mg every 12 hours, DuoNeb treatments, Augmentin and home medications were resumed patient states she has had good urine output and feels better since time of admission. Patient relates she had echocardiogram [address] Zavala. Review Of Systems: Constitutional: No fever, no chills. No weakness, fatigue or lethargy. EENT: No headache. No dizziness. Lungs: Reports shortness of breath, reports cough, no sputum production. No wheezing. Cardiovascular: No chest pain, no lower extremity edema. No palpitations. No paroxysmal nocturnal dyspnea. No orthopnea. No lightheadedness or dizziness. No syncopal episodes. Abdominal: No abdominal pain. No nausea, vomiting. No diarrhea. Genitourinary: No dysuria. No urinary retention. Musculoskeletal: No myalgias. No muscle weakness, no gait dysfunction, no fr equent falls. No back pain. No neck pain. Integumentary: No wounds, no lesions. No rash or pruritus. Neurologic: No aphasia. No facial droop. No change in mentation. No head injury. No headache. No paralysis. No paresthesia. Endocrine: No abnormal blood sugars. Physical examination: Gen: This is a morbidly obese 70-year-old female. Patient is resting but appears to be comfortable at rest. VS: Afebrile, heart rate 78, blood pressure 120/64, pulse ox 96% on 4 L nasal cannula. HEENT: Head is atraumatic, normocephalic. Pupils equal, round. Sclerae is anicteric. NECK: Supple. No JVD. No lymphadenopathy. No thyromegaly. LUNGS: Clear to auscultation. No wheezes or rhonchi. No intercostal retractions. HEART: Irregular rate and rhythm. Systolic ejection murmur 2/6 at the left sternal border. ABDOMEN: Soft. Bowel sounds are present. No masses. No tenderness. EXTREMITIES: No pedal edema. No calf tenderness. NEUROLOGICAL: Patient is awake, alert and oriented x3. Cranial nerves 2 through 12 are grossly intact. Assessment: Acute hypoxic respiratory failure Acute diastolic heart failure COPD exacerbation Paroxysmal atrial fibrillation Coronary artery disease status post PCI of the LAD in 2017 Hypertension, hypertensive cardiovascular disease Hyperlipidemia Diabetes mellitus type 2 Obstructive sleep apnea with CPAP Chronic kidney disease stage III Plan: Continue Lasix 40 mg IV twice daily, monitor I&O, daily weights, electrolytes and renal function Continue amlodipine 5 mg daily, eliquis 5 mg twice daily, aspirin 81 mg every 48 hours, Lipitor 40 mg daily, lisinopril 5 mg daily, Lopressor 25 mg twice daily Will obtain echocardiogram report from the office Further recommendations to follow based upon clinical course Thank you kindly for this consultation. Nurse practitioner note has been reviewed, I agree with documented findings and plan of care. Patient was seen and examined. Past Medical History Past Medical History: Coronary Artery Disease (CAD), Diabetes Mellitus, Hyperlipidemia, Hypertension, Skin Disorder, Sleep Apnea/CPAP/BIPAP Additional Past Medical History / Comment(s): Hx Psoriasis History of Any Multi-Drug Resistant Organisms: None Reported Past Surgical History: Heart Catheterization With Stent Additional Past Surgical History / Comment(s): Cataracts, abcess on buttocks, colonoscopies Past Anesthesia/Blood Transfusion Reactions: No Reported Reaction Date of Last Stent Placement:: unknown Past Psychological History: No Psychological Hx Reported Smoking Status: Never smoker Past Alcohol Use History: None Reported Past Drug Use History: None Reported - Past Family History Mother Family Medical History: Hypertension Additional Family Medical History / Comment(s): Mother in her 80s from old age. Father Family Medical History: Hypertension Additional Family Medical History / Comment(s): Father at age 70 during his sleep of unknown cause. Sister(s) Additional Family Medical History / Comment(s): Patient has 3 sisters and one has from ovarian cancer. One is alive with colon cancer and doing very poorly expected to sound. One sister has no major medical problems. Brother(s) Additional Family Medical History / Comment(s): The patient has 1 brother with no major medical problems. Patient does not have any children. Medications and Allergies Home Medications Medication Instructions Recorded Confirmed Type Aspirin [Adult Low Dose Aspirin EC] 81 mg PO Q48H 08/28/16 11/11/20 History Multivit-Min/FA/Lycopen/Lutein 1 tab PO DAILY 08/28/16 11/11/20 History [Centrum Silver Tablet] Metoprolol Tartrate [Lopressor] 25 mg PO BID #180 tab 09/04/16 11/11/20 Rx amLODIPine BESYLATE [Norvasc] 5 mg PO DAILY #1 tablet 09/04/16 11/11/20 Rx Glimepiride [Amaryl] 4 mg PO BID 04/08/18 11/11/20 History Levothyroxine Sodium [Synthroid] 25 mcg PO DAILY 04/08/18 11/11/20 History Vit C/E/Zn/Coppr/Lutein/Zeaxan 2 cap PO DAILY 04/08/18 11/11/20 History [Preservision Areds 2 Softgel] sitaGLIPtin [Januvia] 50 mg PO DAILY 04/08/18 11/11/20 History Apixaban [Eliquis] 5 mg PO BID #60 tab 09/03/19 11/11/20 Rx Atorvastatin [Lipitor] 40 mg PO DAILY 11/11/20 11/11/20 History Cholecalciferol [Vitamin D3 (25 50 mcg PO DAILY 11/11/20 11/11/20 History Mcg = 1000 Iu)] Furosemide [Lasix] 80 mg PO Q48H 11/11/20 11/11/20 History Semaglutide [Ozempic] 0.25 mg SQ LOZANO 11/11/20 11/11/20 History lisinopriL [Zestril] 5 mg PO DAILY 11/11/20 11/11/20 History Allergies Allergy/AdvReac Type Severity Reaction Status Date / Time No Known Allergies Allergy Verified 11/11/20 11:33 Physical Exam Vitals: Vital Signs Temp Pulse Pulse Resp BP BP Pulse Ox 11/12/20 09:01 20 11/12/20 09:00 98.2 F 95 20 120/64 96 11/12/20 08:38 78 18 11/12/20 08:26 75 18 95 11/12/20 04:00 97.9 F 88 20 122/67 95 11/11/20 23:40 98.0 F 82 20 102/72 95 11/11/20 20:00 98.3 F 74 20 110/75 96 11/11/20 19:58 69 11/11/20 19:49 62 11/11/20 16:10 76 11/11/20 16:00 97.3 F L 71 20 119/62 96 11/11/20 15:58 76 11/11/20 14:00 24 11/11/20 13:30 97.2 F L 74 24 108/75 92 L 11/11/20 12:33 98.1 F 73 28 H 118/72 98 Intake and Output 11/11/20 11/12/20 11/12/20 22:59 06:59 14:59 Intake Total 250 250 120 Balance 250 250 120 Intake: IV 10 10 Invasive Line 1 10 10 Oral 240 240 120 Other: Voiding Method Bedside Commode # Voids 1 3 Weight 122.2 kg Results 11/12/20 10:46 11/12/20 10:46 Current Medications Generic Name Dose Route Start Last Admin Trade Name Shanq PRN Reason Stop Dose Admin Acetaminophen 650 mg 11/11/20 11:28 11/11/20 11:53 Acetaminophen Tab 325 Mg Tab PO 650 mg Q6HR PRN Administration Fever and/ or Pain Albuterol/Ipratropium 3 ml 11/11/20 16:00 11/12/20 08:26 Ipratropium-Albuterol 3 Ml Neb INHALATION 3 ml RT-QID DOROTHEA Administration Albuterol/Ipratropium 3 ml 11/11/20 15:18 Ipratropium-Albuterol 3 Ml Neb INHALATION RT-Q2H PRN Shortness Of Breath Or Wheezing Amlodipine Besylate 5 mg 11/12/20 09:00 11/12/20 09:57 Amlodipine 5 Mg Tab PO 5 mg DAILY DOROTHEA Administration Amoxicillin/Clavulanate Potassium 1 each 11/11/20 21:00 11/12/20 09:57 Amoxic-Pot Clav 500-125 Mg 1 Each Tab PO 1 each Q12HR DOROTHEA Administration Apixaban 5 mg 11/11/20 21:00 11/12/20 09:57 Apixaban 5 Mg Tab PO 5 mg BID DOROTHEA Administration Protocol Aspirin 81 mg 11/12/20 09:00 11/12/20 09:57 Aspirin 81 Mg PO 81 mg Q48H DOROTHEA Administration Atorvastatin Calcium 40 mg 11/12/20 09:00 11/12/20 09:57 Atorvastatin 40 Mg Tab PO 40 mg DAILY DOROTHEA Administration Cholecalciferol 50 mcg 11/12/20 09:00 11/12/20 09:57 Cholecalciferol 25 Mcg (1000 Iu) Tablet PO 50 mcg DAILY DOROTHEA Administration Furosemide 40 mg 11/11/20 21:00 11/12/20 09:57 Furosemide 10 Mg/Ml 4 Ml Vial IV 40 mg Q12HR DOROTHEA Administration Glimepiride 4 mg 11/11/20 17:30 11/12/20 06:45 Glimepiride 2 Mg Tab PO 4 mg BID-W/MEALS DOROTHEA Administration Sodium Chloride 1,000 mls @ 20 mls/hr 11/11/20 11:45 11/11/20 12:00 Saline 0.9% IV 20 mls/hr .Q24H DOROTHEA Administration Insulin Aspart 0 unit 11/11/20 17:30 11/12/20 06:20 Insulin Aspart (Novolog) 100 Unit/Ml Vial SQ Not Given ACHS [facility] Protocol Levothyroxine Sodium 25 mcg 11/12/20 06:30 11/12/20 06:45 Levothyroxine 25 Mcg Tab PO 25 mcg 0630 DOROTHEA Administration Linagliptin 5 mg 11/12/20 09:00 11/12/20 09:58 Linagliptin 5 Mg Tablet PO 5 mg DAILY DOROTHEA Administration Lisinopril 5 mg 11/12/20 09:00 Lisinopril 5 Mg Tab PO DAILY [facility] Metoprolol Tartrate 25 mg 11/11/20 21:00 11/12/20 09:58 Metoprolol Tartrate 25 Mg Tab PO 25 mg BID DOROTHEA Administration Multivitamins 1 each 11/12/20 09:00 11/12/20 09:57 Multivitamins, Thera 1 Each Tab PO 1 each DAILY DOROTHEA Administration Multivitamins/Minerals 1 each 11/12/20 09:00 11/12/20 09:57 Vit A,C & F-Ihgzex-Hwpzwvax 1 Each Tab PO 1 each DAILY DOROTHEA Administration Naloxone HCl 0.2 mg 11/11/20 11:34 Naloxone 0.4 Mg/Ml 1 Ml Vial IV Q2M PRN Opioid Reversal Intake and Output 11/11/20 11/12/20 11/12/20 22:59 06:59 14:59 Intake Total 250 250 120 Balance 250 250 120 Intake: IV 10 10 Invasive Line 1 10 10 Oral 240 240 120 Other: Voiding Method Bedside Commode # Voids 1 3 Weight 122.2 kg 11/11/20 09:07 11/11/20 09:07
[2020-11-12 11:13] LABS: Glucose,Whole Blood 127 mg/dL (75-99)
[2020-11-12 11:22] LABS: Basophils # (A) 0.1 k/uL (0-0.2); Basophils % (A) 1 %; Eosinophils # (A) 0.2 k/uL (0-0.7); Eosinophils % (A) 2 %; HCT 30.2 % (34.0-46.0); Lymphocytes # (A) 1.5 k/uL (1.0-4.8); Lymphocytes % (A) 14 %; MCV 111.9 fL (80.0-100.0); Macrocytosis Marked; Mean Platelet Volume 9.9; Monocytes # (A) 0.4 k/uL (0-1.0); Monocytes % (A) 3 %; Neutrophils # (A) 8.9 k/uL (1.3-7.7); Neutrophils % (A) 79 %; Platelet Count 223 k/uL (150-450); WBC 11.4 k/uL (3.8-10.6)
[2020-11-12] MEDS: SODIUM CHLORIDE 0.9% 1,000 ML IV SCH (11:36)
[2020-11-12 11:44] LABS: Albumin 3.6 g/dL (3.5-5.0); Calcium 8.8 mg/dL (8.4-10.2); Total Bilirubin 0.5 mg/dL (0.2-1.3); Total Protein 6.2 g/dL (6.3-8.2)
[2020-11-12] MEDS: lisinopriL 5 MG TAB PO SCH (12:29)
[2020-11-12] MEDS: ACETAMINOPHEN TAB 325 MG TAB PO PRN (12:56)
--- NOTE | 2020-11-12 13:49 | P.PN ---
Subjective Progress Note Date: 11/12/20 Principal diagnosis: COPD exacerbation, atypical pneumonia 70-year-old obese white female with a history of atrial fibrillation, who comes into the emergency room on November 11 in the morning, complaining of shortness of breath. She apparently felt fine the night before. The patient denies any fever or chills. She denies any chest pain or chest discomfort. The patient does have a bit of a dry nonproductive cough. The patient was seen in the emergency room, and she tells me, she was diagnosed as having pneumonia. The patient is currently on saline at 30 mL an hour, and oxygen at 6 L. The patient does have a history of sleep apnea syndrome. She sees my partner for that. She also did smoke for about 15 years. She smoked less than one pack a day. She denies using oxygen at home, and she also denies using oxygen with her CPAP device. She was placed on BiPAP when she was admitted, with settings of 12/6 and 40%. Her medical problems include CAD, diabetes, hyperlipidemia, hypertension, and obstructive sleep apnea syndrome, and she also has a history of psoriasis. In addition, she's had a previous stent. The patient was seen today 11/12/2020 and follow-up on the selective care unit. She is currently sitting up in bed. Awake and alert in no acute distress. Breathing easier today compared to yesterday. Maintaining O2 saturations in the 90s on 4 L/m per nasal cannula. She's afebrile. Hemodynamically stable. White count 11.4. Hemoglobin 10.0. Sodium 137. Potassium 4.0. Creatinine 1.71. She is continued on bronchodilators, antibiotics in the form of Augmentin. Anticoagulated with Eliquis. She remains on IV diuretics. Objective - Vital Signs Vital signs: Vital Signs Temp 98.2 F 11/12/20 09:00 Pulse 80 11/12/20 11:57 Resp 16 11/12/20 11:57 BP 120/64 11/12/20 09:00 Pulse Ox 90 L 11/12/20 11:56 Intake & Output 11/11/20 11/12/20 11/12/20 18:59 06:59 18:59 Intake Total 250 260 670 Balance 250 260 670 Weight 121.563 kg 122.2 kg Intake: IV 10 20 10 Invasive Line 1 10 20 10 Oral 240 240 660 Other: Voiding Method Bedside Commode Bedside Commode Bedside Commode # Voids 3 - Exam GENERAL EXAM: Alert, active, pleasant 70-year-old female patient, on 4 L nasal cannula, comfortable in no apparent distress. HEAD: Normocephalic. EYES: Normal reaction of pupils, equal size. NOSE: Clear with pink turbinates. THROAT: No erythema or exudates. NECK: No masses, no JVD. CHEST: No chest wall deformity. LUNGS: Equal air entry with bibasilar crackles. CVS: S1 and S2 normal with no audible murmur, regular rhythm. ABDOMEN: No hepatosplenomegaly, normal bowel sounds, no guarding or rigidity. SPINE: No scoliosis or deformity SKIN: No rashes CENTRAL NERVOUS SYSTEM: No focal deficits, tone is normal in all 4 extremities. EXTREMITIES: There is no peripheral edema. No clubbing, no cyanosis. Peripheral pulses are intact. - Labs CBC & Chem 7: 11/12/20 10:46 11/12/20 10:46 Labs: Abnormal Lab Results - Last 24 Hours (Table) 11/11/20 11/11/20 11/12/20 Range/Units 16:34 20:35 10:46 WBC 11.4 H (3.8-10.6) k/uL RBC 2.70 L (3.80-5.40) m/uL Hgb 10.0 L D (11.4-16.0) gm/dL Hct 30.2 L (34.0-46.0) % MCV 111.9 H (80.0-100.0) fL MCH 37.0 H (25.0-35.0) pg Neutrophils # 8.9 H (1.3-7.7) k/uL Macrocytosis Marked A BUN (7-17) mg/dL Creatinine (0.52-1.04) mg/dL Glucose (74-99) mg/dL POC Glucose (mg/dL) 142 H 161 H (75-99) mg/dL Total Protein (6.3-8.2) g/dL 11/12/20 11/12/20 Range/Units 10:46 11:11 WBC (3.8-10.6) k/uL RBC (3.80-5.40) m/uL Hgb (11.4-16.0) gm/dL Hct (34.0-46.0) % MCV (80.0-100.0) fL MCH (25.0-35.0) pg Neutrophils # (1.3-7.7) k/uL Macrocytosis BUN 48 H (7-17) mg/dL Creatinine 1.71 H (0.52-1.04) mg/dL Glucose 138 H (74-99) mg/dL POC Glucose (mg/dL) 127 H (75-99) mg/dL Total Protein 6.2 L (6.3-8.2) g/dL Assessment and Plan Assessment: 1 Acute on chronic hypoxemic respiratory failure secondary to fluid volume overload, mild COPD exacerbation, possible atypical pneumonia 2 Obstructive sleep apnea, maintained on CPAP 3 CAD with previous stent placement 4 Morbid obesity 5 Diabetes mellitus 6 Hyperlipidemia 7 Hypertension 8 History of psoriasis Plan: The patient was seen and evaluated by Dr. Bedolla She is currently stable from the pulmonary standpoint Continue the current treatment plan We'll continue to follow I, the cosigning physician, performed a history & physical examination of the patient. Lungs sounds basilar crackles. Maintaining good O2 saturations in the 90s on 4 L/m per nasal. I discussed the assessment and plan of care with my nurse practitioner, Jenna Proctor. I attest to the above note as dictated by her.
[2020-11-12 16:09] LABS: Glucose,Whole Blood 162 mg/dL (75-99)
[2020-11-12 20:20] LABS: Glucose,Whole Blood 193 mg/dL (75-99)
[2020-11-13] MEDS: ACETAMINOPHEN TAB 325 MG TAB PO PRN ×3 (01:51→20:13)
[2020-11-13 06:20] LABS: Glucose,Whole Blood 83 mg/dL (75-99)
[2020-11-13] MEDS: INSULIN ASPART (NovoLOG) 100 UNIT/ML VIAL SQ SCH ×4 (06:29→21:07)
[2020-11-13] MEDS: LEVOTHYROXINE 25 MCG TAB PO SCH (06:36)
[2020-11-13] MEDS: GLIMEPIRIDE 2 MG TAB PO SCH ×2 (06:36→17:57)
[2020-11-13] MEDS: IPRATROPIUM-ALBUTEROL 3 ML NEB INHALATION SCH ×4 (08:07→19:39)
[2020-11-13 09:00] LABS: Calcium 8.5 mg/dL (8.4-10.2); Potassium 4.1 mmol/L (3.5-5.1); Total Bilirubin 0.6 mg/dL (0.2-1.3); Total Protein 5.4 g/dL (6.3-8.2)
[2020-11-13] MEDS: FUROSEMIDE 10 MG/ML 4 ML VIAL IV SCH (09:06)
[2020-11-13] MEDS: AMOXIC-POT CLAV 500-125 MG 1 EACH TAB PO SCH ×2 (09:07→21:07)
[2020-11-13] MEDS: VIT A,C & E-LUTEIN-MINERALS 1 EACH TAB PO SCH (09:07)
[2020-11-13] MEDS: METOPROLOL TARTRATE 25 MG TAB PO SCH ×2 (09:07→20:13)
[2020-11-13] MEDS: APIXABAN 5 MG TAB PO SCH ×2 (09:07→20:13)
[2020-11-13] MEDS: amLODIPine 5 MG TAB PO SCH (09:07)
[2020-11-13] MEDS: lisinopriL 5 MG TAB PO SCH ×2 (09:07→09:18)
[2020-11-13] MEDS: MULTIVITAMINS, THERA 1 EACH TAB PO SCH (09:07)
[2020-11-13] MEDS: LINAGLIPTIN 5 MG TABLET PO SCH (09:07)
[2020-11-13] MEDS: ATORVASTATIN 40 MG TAB PO SCH (09:07)
[2020-11-13] MEDS: CHOLECALCIFEROL 25 MCG (1000 IU) TABLET PO SCH (09:07)
[2020-11-13 09:08] LABS: Basophils # (A) 0.1 k/uL (0-0.2); Basophils % (A) 1 %; Eosinophils # (A) 0.3 k/uL (0-0.7); Eosinophils % (A) 3 %; HCT 25.6 % (34.0-46.0); Lymphocytes # (A) 1.3 k/uL (1.0-4.8); Lymphocytes % (A) 15 %; MCH 36.6 pg (25.0-35.0); MCHC 33.3 g/dL (31.0-37.0); MCV 109.9 fL (80.0-100.0); Macrocytosis Marked; Mean Platelet Volume 10.9; Monocytes # (A) 0.4 k/uL (0-1.0); Monocytes % (A) 4 %; Neutrophils # (A) 6.6 k/uL (1.3-7.7); Neutrophils % (A) 75 %; Platelet Count 194 k/uL (150-450); RBC 2.33 m/uL (3.80-5.40); RDW 15.2 % (11.5-15.5); WBC 8.8 k/uL (3.8-10.6)
[2020-11-13] MEDS: SODIUM CHLORIDE 0.9% 1,000 ML IV SCH (09:09)
[2020-11-13 09:26] LABS: HGB 8.5 gm/dL (11.4-16.0)
--- NOTE | 2020-11-13 09:54 | P.PN ---
Subjective Progress Note Date: 11/12/20 Progress Note: 11/12/2020 HISTORY OF PRESENT ILLNESS: This is a 70-year-old female patient of mine with past medical history of diabetes mellitus type 2, diabetic polyneuropathy, paroxysmal atrial fibrillation, psoriasis, COPD, hypertension, coronary artery disease status post stenting of the mid LAD [place] [address] Zavala, remote history of tobacco use and dependence, obesity with obstructive sleep apnea and obesity hypoventilation syndrome. Patient presented to the emergency department at [facility] today with increased cough and shortness breath associated with dry nonprod uctive cough for the past 24 hours, patient had a chest x-ray that showed minimal interstitial edema, possible atypical pneumonia, she was given Lasix in the emergency department as well as nebulized treatment she is currently on 6 L nasal cannula her oxygen saturation around 98%, she was started on oral antibiotic and she was admitted to the hospital for evaluation patient was seen by pulmonary medicine in the emergency department he was recommended to continue oral antibiotic as well as at the last treatment in the form of DuoNeb 3 mg nebulization 4 times every day as well as Pulmicort she was admitted to the hospital for further evaluation and treatment. 11/12: Patient sitting up in bed in minimal respiratory distress, she continues to be on oxygen, she continues to receive DuoNeb 3 mL nebulization 4 times every day, she does complain of some dry cough with no phlegm production, she c ontinues to have some edema both lower extremities, she appears a bit better than yesterday, she seems to be tolerating her treatment very well. REVIEW OF SYSTEMS: Constitutional: No documented fever, no chills, no night sweats. No weight change. No weakness, fatigue or lethargy. No daytime sleepiness. HEENT: No headache. No blurred vision or double vision, no loss of vision. No loss of Hearing, no ringing in the ears, no dizziness. No nasal drainage or congestion. No epistaxis. No sore throat. Lungs: positive for shortness of breath, positive for dry cough, no sputum production. No wheezing. Reports dyspnea with activity. Cardiovascular: No chest pain, no lower extremity edema. No palpitations. No paroxysmal nocturnal dyspnea. No orthopnea. No lightheadedness or dizziness. No syncopal episodes. Abdominal: Reports no abdominal pain. No nausea, vomiting. No diarrhea. No constipation. No bloody or tarry stools reports loss of appetite. Genitourinary: No dysuria, increased frequency, urgency. No urinary retention. Musculoskeletal: No myalgias. No muscle weakness, no gait dysfunction, no frequent falls. positive fpr back pain. No neck pain. Integumentary: No wounds, no lesions. positive for dry skin. positive for bruising. No change in hair or nails. Neurologic: No aphasia. No facial droop. No change in mentation. No head injury. No headache. No paralysis. No paresthesia. Psychiatric: No depression. No anxiety. No mood swings. Endocrine: No abnormal blood sugars. No weight change. PHYSICAL EXAMINATION: General: 70-year-old female sitting up in bed in moderate respiratory distress HEENT: Head is atraumatic, normocephalic, pupils were equal round reactive to light and recommendation, extraocular muscle movement were intact, sclera nonicteric, conjunctivae were pale, mucous membranes of the mouth are somewhat dry. Neck: Supple, no JVP, normal carotid upstroke bilaterally, no lymphadenopathy. Chest: Decreased breath sounds at the bases, few rhonchi, minimal expiratory wheezes, no chest wall tenderness, minimal intercostal retractions. Heart: First heart sound is normal, second heart sounds normal, there is systolic ejection murmur 2/6 located in the left sternal border. Abdomen: Soft, nontender, nondistended, positive bowel sounds Extremities: There is trace edema no calf tenderness DP +1 bilaterally. Neurologic examination: Patient is awake alert and oriented X 3, cranial nerves II-12 appear grossly intact, muscle power were 4 out of 5 in upper extremities and 4 out of 5 in bilateral lower extremities, deep tendon reflexes normal bilaterally. ASSESSMENT AND PLAN: 1. Acute hypoxemic respiratory failure secondary to a combination of acute diastolic heart failure and COPD exacerbation. Continue Lasix 40 mg IV push every 12 hours, continue metoprolol 25 mg orally twice every day, lisinopril 5 mg orally once every day, monitor input and output and daily weight, continue DuoNeb 3 mL nebulization 4 times every day and as needed every 4 hours, pulmonary consultation appreciated, follow-up with the patient very closely. 2. Acute COPD exacerbation. Continue DuoNeb 3 mg nebulization 4 times every day, continue oxygen support, continue to monitor the patient very closely pulmonary is following. 3. Acute diastolic heart failure. Continue patient on metoprolol 25 mg orally twice every day, Lasix 40 mg IV push every 12 hours, lisinopril 5 mg orally once every day, monitor the patient weight input and output as well. 4. hypertension and hypertensive cardiovascular disease. Continue patient on metoprolol 25 mg orally twice every day and lisinopril 5 mg orally once every day monitor the patient blood pressure very closely. 5. Hyperlipidemia. Continue Lipitor 40 mg orally once every day keep LDL cholesterol 55-70 per he 6. Diabetes mellitus type 2. Continue patient on Tradjenta 5 mg orally once every day, Glimeperide 4 mg orally once every day, hold Ozempic in the hospital, continue to monitor the patient BGM before each meal and at bedtime. 7. Paroxysmal atrial fibrillation. Continue metoprolol 25 mg orally twice every day, continue Eliquis 5 mg orally twice every day. 8. Coronary artery disease status post PCI of the LAD in 2017. Continue metoprolol 25 mg orally twice every day, aspirin 81 mg once every day, Lipitor 40 mg orally once every day keep LDL 55-70. 9. Hypothyroidism. Continue Synthroid 25 incision orally once every day. 10. Obesity with obstructive sleep apnea. Continue patient on current CPAP. 11. History of psoriasis. Stable. 12. Chronic kidney disease stage III a. Monitor the patient CMP, avoid nephrotoxins per 13. DVT prophylaxis. Continue patient on Eliquis 5 mg orally twice every day. 14. GI prophylaxis. Continue Protonix 40 mg orally once every day. 15. we will monitor patient very closely. Objective - Vital Signs Vital signs: Vital Signs Temp 98.2 F 11/12/20 09:00 Pulse 95 11/12/20 09:00 Resp 20 11/12/20 09:01 BP 120/64 11/12/20 09:00 Pulse Ox 96 11/12/20 09:00 Intake & Output 11/11/20 11/12/20 11/12/20 18:59 06:59 18:59 Intake Total 250 260 120 Balance 250 260 120 Weight 121.563 kg 122.2 kg Intake: IV 10 20 Invasive Line 1 10 20 Oral 240 240 120 Other: Voiding Method Bedside Commode Bedside Commode # Voids 3 - Labs CBC & Chem 7: 11/13/20 07:57 11/13/20 07:57 Labs: Abnormal Lab Results - Last 24 Hours (Table) 11/11/20 11/11/20 11/11/20 Range/Units 09:07 10:50 13:33 Neutrophils # 10.8 H (1.3-7.7) k/uL ABG pH 7.53 H (7.35-7.45) ABG pCO2 23 L (35-45) mmHg ABG pO2 162 H (83-108) mmHg ABG HCO3 20 L (21-25) mmol/L ABG O2 Saturation 100.0 H (94-97) % POC Glucose (mg/dL) 147 H (75-99) mg/dL 11/11/20 11/11/20 Range/Units 16:34 20:35 Neutrophils # (1.3-7.7) k/uL ABG pH (7.35-7.45) ABG pCO2 (35-45) mmHg ABG pO2 (83-108) mmHg ABG HCO3 (21-25) mmol/L ABG O2 Saturation (94-97) % POC Glucose (mg/dL) 142 H 161 H (75-99) mg/dL
--- NOTE | 2020-11-13 10:47 | P.PN ---
Subjective Progress Note Date: 11/13/20 Progress Note: 11/13/2020 HISTORY OF PRESENT ILLNESS: This is a 70-year-old female patient of mine with past medical history of diabetes mellitus type 2, diabetic polyneuropathy, paroxysmal atrial fibrillation, psoriasis, COPD, hypertension, coronary artery disease status post stenting of the mid LAD [place] [address] Zavala, remote history of tobacco use and dependence, obesity with obstructive sleep apnea and obesity hypoventilation syndrome. Patient presented to the emergency department at [facility] today with increased cough and shortness breath associated with dry nonprod uctive cough for the past 24 hours, patient had a chest x-ray that showed minimal interstitial edema, possible atypical pneumonia, she was given Lasix in the emergency department as well as nebulized treatment she is currently on 6 L nasal cannula her oxygen saturation around 98%, she was started on oral antibiotic and she was admitted to the hospital for evaluation patient was seen by pulmonary medicine in the emergency department he was recommended to continue oral antibiotic as well as at the last treatment in the form of DuoNeb 3 mg nebulization 4 times every day as well as Pulmicort she was admitted to the hospital for further evaluation and treatment. 11/12: Patient sitting up in bed in minimal respiratory distress, she continues to be on oxygen, she continues to receive DuoNeb 3 mL nebulization 4 times every day, she does complain of some dry cough with no phlegm production, she c ontinues to have some edema both lower extremities, she appears a bit better than yesterday, she seems to be tolerating her treatment very well. 11/13: Patient is feeling a bit better today, she denies any chest pain, she continues to have some minimal cough, no phlegm production, her swelling is much better today, she denies any abdominal pain, nausea vomiting or diarrhea she continues to be taken her medication and seems to be tolerating treatment very well. REVIEW OF SYSTEMS: Constitutional: No documented fever, no chills, no night sweats. No weight change. No weakness, fatigue or lethargy. No daytime sleepiness. HEENT: No headache. No blurred vision or double vision, no loss of vision. No loss of Hearing, no ringing in the ears, no dizziness. No nasal drainage or congestion. No epistaxis. No sore throat. Lungs: positive for shortness of breath, positive for dry cough, no sputum production. No wheezing. Reports dyspnea with activity. Cardiovascular: No chest pain, no lower extremity edema. No palpitations. No paroxysmal nocturnal dyspnea. No orthopnea. No lightheadedness or dizziness. No syncopal episodes. Abdominal: Reports no abdominal pain. No nausea, vomiting. No diarrhea. No constipation. No bloody or tarry stools reports loss of appetite. Genitourinary: No dysuria, increased frequency, urgency. No urinary retention. Musculoskeletal: No myalgias. No muscle weakness, no gait dysfunction, no frequent falls. positive fpr back pain. No neck pain. Integumentary: No wounds, no lesions. positive for dry skin. positive for bruising. No change in hair or nails. Neurologic: No aphasia. No facial droop. No change in mentation. No head injury. No headache. No paralysis. No paresthesia. Psychiatric: No depression. No anxiety. No mood swings. Endocrine: No abnormal blood sugars. No weight change. PHYSICAL EXAMINATION: General: 70-year-old female sitting up in bed in moderate respiratory distress HEENT: Head is atraumatic, normocephalic, pupils were equal round reactive to light and recommendation, extraocular muscle movement were intact, sclera nonicteric, conjunctivae were pale, mucous membranes of the mouth are somewhat dry. Neck: Supple, no JVP, normal carotid upstroke bilaterally, no lymphadenopathy. Chest: Decreased breath sounds at the bases, few rhonchi, minimal expiratory wheezes, no chest wall tenderness, minimal intercostal retractions. Heart: First heart sound is normal, second heart sounds normal, there is systolic ejection murmur 2/6 located in the left sternal border. Abdomen: Soft, nontender, nondistended, positive bowel sounds Extremities: There is trace edema no calf tenderness DP +1 bilaterally. Neurologic examination: Patient is awake alert and oriented X 3, cranial nerves II-12 appear grossly intact, muscle power were 4 out of 5 in upper extremities and 4 out of 5 in bilateral lower extremities, deep tendon reflexes normal bilaterally. ASSESSMENT AND PLAN: 1. Acute hypoxemic respiratory failure secondary to a combination of acute diastolic heart failure and COPD exacerbation. Discontinue IV Lasix and start Lasix 80 mg orally once every day to start tomorrow morning,, continue m etoprolol 25 mg orally twice every day, lisinopril 5 mg orally once every day, monitor input and output and daily weight, continue DuoNeb 3 mL nebulization 4 times every day and as needed every 4 hours, continue Augmentin 500/125 mg orally twice every day, likely patient will be discharged home in the next 24 hours. 2. Acute COPD exacerbation. Continue DuoNeb 3 mg nebulization 4 times every day, continue oxygen support, continue to monitor the patient very closely pulmonary is following. 3. Acute/chronic diastolic heart failure. Continue patient on metoprolol 25 mg orally twice every day, Lasix 80 mg orally daily, lisinopril 5 mg orally once every day, monitor the patient weight input and output as well. 4. hypertension and hypertensive cardiovascular disease. Continue patient on metoprolol 25 mg orally twice every day and lisinopril 5 mg orally once every day monitor the patient blood pressure very closely. 5. Hyperlipidemia. Continue Lipitor 40 mg orally once every day keep LDL cholesterol 55-70 per he 6. Diabetes mellitus type 2. Continue patient on Tradjenta 5 mg orally once every day, Glimeperide 4 mg orally once every day, hold Ozempic in the hospital, continue to monitor the patient BGM before each meal and at bedtime. 7. Paroxysmal atrial fibrillation. Continue metoprolol 25 mg orally twice every day, continue Eliquis 5 mg orally twice every day. 8. Coronary artery disease status post PCI of the LAD in 2017. Continue metoprolol 25 mg orally twice every day, aspirin 81 mg once every day, Lipitor 40 mg orally once every day keep LDL 55-70. 9. Hypothyroidism. Continue Synthroid 25 incision orally once every day. 10. Obesity with obstructive sleep apnea. Continue patient on current CPAP. 11. History of psoriasis. Stable. 12. Chronic kidney disease stage III a. Monitor the patient CMP, avoid nephrotoxins per 13. DVT prophylaxis. Continue patient on Eliquis 5 mg orally twice every day. 14. GI prophylaxis. Continue Protonix 40 mg orally once every day. 15. Home in AM Objective - Vital Signs Vital signs: Vital Signs Temp 98.3 F 11/13/20 07:50 Pulse 76 11/13/20 08:21 Resp 18 11/13/20 07:50 BP 100/50 11/13/20 07:50 Pulse Ox 93 L 11/13/20 07:50 Intake & Output 0911/13/20 11/13/20 18:59 06:59 18:59 Intake Total 940 100 250 Output Total 1100 1320 260 Balance -160 -1220 -10 Weight 121.4 kg Intake: IV 20 10 Invasive Line 1 20 10 Oral 920 100 240 Output: Urine 1100 1320 260 Other: Voiding Method Toilet # Voids 0 3 - Labs CBC & Chem 7: 11/13/20 07:57 11/13/20 07:57 Labs: Abnormal Lab Results - Last 24 Hours (Table) 11/12/20 11/12/20 11/12/20 Range/Units 10:46 10:46 10:46 WBC 11.4 H (3.8-10.6) k/uL RBC 2.70 L (3.80-5.40) m/uL Hgb 10.0 L D (11.4-16.0) gm/dL Hct 30.2 L (34.0-46.0) % MCV 111.9 H (80.0-100.0) fL MCH 37.0 H (25.0-35.0) pg Neutrophils # 8.9 H (1.3-7.7) k/uL Macrocytosis Marked A Sodium (137-145) mmol/L BUN 48 H (7-17) mg/dL Creatinine 1.71 H (0.52-1.04) mg/dL Glucose 138 H (74-99) mg/dL POC Glucose (mg/dL) (75-99) mg/dL Total Protein 6.2 L (6.3-8.2) g/dL Albumin (3.5-5.0) g/dL Procalcitonin 0.17 H (0.02-0.09) ng/mL 11/12/20 11/12/20 11/12/20 Range/Units 11:11 16:08 20:19 WBC (3.8-10.6) k/uL RBC (3.80-5.40) m/uL Hgb (11.4-16.0) gm/dL Hct (34.0-46.0) % MCV (80.0-100.0) fL MCH (25.0-35.0) pg Neutrophils # (1.3-7.7) k/uL Macrocytosis Sodium (137-145) mmol/L BUN (7-17) mg/dL Creatinine (0.52-1.04) mg/dL Glucose (74-99) mg/dL POC Glucose (mg/dL) 127 H 162 H 193 H (75-99) mg/dL Total Protein (6.3-8.2) g/dL Albumin (3.5-5.0) g/dL Procalcitonin (0.02-0.09) ng/mL 11/13/20 11/13/20 Range/Units 07:57 07:57 WBC (3.8-10.6) k/uL RBC 2.33 L (3.80-5.40) m/uL Hgb 8.5 L D (11.4-16.0) gm/dL Hct 25.6 L (34.0-46.0) % MCV 109.9 H (80.0-100.0) fL MCH 36.6 H (25.0-35.0) pg Neutrophils # (1.3-7.7) k/uL Macrocytosis Marked A Sodium 136 L (137-145) mmol/L BUN 54 H (7-17) mg/dL Creatinine 1.77 H (0.52-1.04) mg/dL Glucose (74-99) mg/dL POC Glucose (mg/dL) (75-99) mg/dL Total Protein 5.4 L (6.3-8.2) g/dL Albumin 3.0 L (3.5-5.0) g/dL Procalcitonin (0.02-0.09) ng/mL
[2020-11-13 11:55] LABS: Glucose,Whole Blood 76 mg/dL (75-99)
--- NOTE | 2020-11-13 12:03 | XR ---
EXAMINATION TYPE: XR chest 1V portable DATE OF EXAM: 11/13/2020 COMPARISON: 11/11/2020 HISTORY: CHF TECHNIQUE: Single frontal view of the chest is obtained. FINDINGS: There is no focal air space opacity, pleural effusion, or pneumothorax seen. The cardiac silhouette size is within normal limits. The osseous structures are intact. IMPRESSION: No acute process.
--- NOTE | 2020-11-13 12:52 | P.PN ---
Subjective Progress Note Date: 11/13/20 Principal diagnosis: COPD exacerbation, atypical pneumonia 70-year-old obese white female with a history of atrial fibrillation, who comes into the emergency room on November 11 in the morning, complaining of shortness of breath. She apparently felt fine the night before. The patient denies any fever or chills. She denies any chest pain or chest discomfort. The patient does have a bit of a dry nonproductive cough. The patient was seen in the emergency room, and she tells me, she was diagnosed as having pneumonia. The patient is currently on saline at 30 mL an hour, and oxygen at 6 L. The patient does have a history of sleep apnea syndrome. She sees my partner for that. She also did smoke for about 15 years. She smoked less than one pack a day. She denies using oxygen at home, and she also denies using oxygen with her CPAP device. She was placed on BiPAP when she was admitted, with settings of 12/6 and 40%. Her medical problems include CAD, diabetes, hyperlipidemia, hypertension, and obstructive sleep apnea syndrome, and she also has a history of psoriasis. In addition, she's had a previous stent. The patient was seen today 11/12/2020 and follow-up on the selective care unit. She is currently sitting up in bed. Awake and alert in no acute distress. Breathing easier today compared to yesterday. Maintaining O2 saturations in the 90s on 4 L/m per nasal cannula. She's afebrile. Hemodynamically stable. White count 11.4. Hemoglobin 10.0. Sodium 137. Potassium 4.0. Creatinine 1.71. She is continued on bronchodilators, antibiotics in the form of Augmentin. Anticoagulated with Eliquis. She remains on IV diuretics. The patient is seen today 11/13/2020 follow-up on the selective care unit. She is currently sitting up in a chair at the bedside. Awake and alert in no acute distress. Denies any worsening shortness of breath, cough or congestion. Some dyspnea on exertion. Maintaining O2 saturations in the 90s on 3 L/m per nasal cannula. White count 8.8. Hemoglobin 8.5. Sodium 136. Potassium 4.1. Creatinine 1.77. She remains on DuoNeb inhalations antibiotics in the form of Augmentin. Anticoagulated with Eliquis. Remains on oral diuretics. Follow-up chest x-ray reveals no acute pulmonary process. Objective - Vital Signs Vital signs: Vital Signs Temp 98.3 F 11/13/20 07:50 Pulse 80 11/13/20 12:00 Resp 18 11/13/20 07:50 BP 100/50 11/13/20 07:50 Pulse Ox 93 L 11/13/20 07:50 Intake & Output 11/12/20 11/13/20 11/13/20 18:59 06:59 18:59 Intake Total 940 100 250 Output Total 1100 1320 260 Balance -160 -1220 -10 Weight 121.4 kg Intake: IV 20 10 Invasive Line 1 20 10 Oral 920 100 240 Output: Urine 1100 1320 260 Other: Voiding Method Toilet # Voids 0 3 - Exam GENERAL EXAM: Alert, active, pleasant 70-year-old female patient, on 3 L nasal cannula, comfortable in no apparent distress. HEAD: Normocephalic. EYES: Normal reaction of pupils, equal size. NOSE: Clear with pink turbinates. THROAT: No erythema or exudates. NECK: No masses, no JVD. CHEST: No chest wall deformity. LUNGS: Equal air entry with no crackles, rhonchi or wheeze. CVS: S1 and S2 normal with no audible murmur, regular rhythm. ABDOMEN: No hepatosplenomegaly, normal bowel sounds, no guarding or rigidity. SPINE: No scoliosis or deformity SKIN: No rashes CENTRAL NERVOUS SYSTEM: No focal deficits, tone is normal in all 4 extremities. EXTREMITIES: There is no peripheral edema. No clubbing, no cyanosis. Peripheral pulses are intact. - Labs CBC & Chem 7: 11/13/20 07:57 11/13/20 07:57 Labs: Abnormal Lab Results - Last 24 Hours (Table) 11/12/20 11/12/20 11/12/20 Range/Units 10:46 16:08 20:19 RBC (3.80-5.40) m/uL Hgb (11.4-16.0) gm/dL Hct (34.0-46.0) % MCV (80.0-100.0) fL MCH (25.0-35.0) pg Macrocytosis Sodium (137-145) mmol/L BUN (7-17) mg/dL Creatinine (0.52-1.04) mg/dL POC Glucose (mg/dL) 162 H 193 H (75-99) mg/dL Total Protein (6.3-8.2) g/dL Albumin (3.5-5.0) g/dL Procalcitonin 0.17 H (0.02-0.09) ng/mL 11/13/20 11/13/20 Range/Units 07:57 07:57 RBC 2.33 L (3.80-5.40) m/uL Hgb 8.5 L D (11.4-16.0) gm/dL Hct 25.6 L (34.0-46.0) % MCV 109.9 H (80.0-100.0) fL MCH 36.6 H (25.0-35.0) pg Macrocytosis Marked A Sodium 136 L (137-145) mmol/L BUN 54 H (7-17) mg/dL Creatinine 1.77 H (0.52-1.04) mg/dL POC Glucose (mg/dL) (75-99) mg/dL Total Protein 5.4 L (6.3-8.2) g/dL Albumin 3.0 L (3.5-5.0) g/dL Procalcitonin (0.02-0.09) ng/mL Assessment and Plan Assessment: 1 Acute on chronic hypoxemic respiratory failure secondary to fluid volume overload, mild COPD exacerbation, possible atypical pneumonia 2 Obstructive sleep apnea, maintained on CPAP 3 CAD with previous stent placement 4 Morbid obesity 5 Diabetes mellitus 6 Hyperlipidemia 7 Hypertension 8 History of psoriasis Plan: The patient was seen and evaluated by Dr. Bedolla Follow-up chest x-ray reveals no acute pulmonary process She is currently stable from the pulmonary standpoint Titrate the FiO2 as tolerated Probable home in the a.m. We'll continue to follow I, the cosigning physician, performed a history & physical examination of the patient. Lungs sounds clear. Maintaining good O2 saturations in the 90s on 3 L/m per nasal. I discussed the assessment and plan of care with my nurse practitioner, Jenna Proctor. I attest to the above note as dictated by her.
--- NOTE | 2020-11-13 12:53 | P.PN ---
Subjective Progress Note Date: 11/13/20 History of present illness: This is a 70-year-old female patient of Dr. Zavala with past medical history s ignificant for coronary artery disease status post drug-eluting stent placement to the mid LAD in 2017, paroxysmal atrial fibrillation, hypertension, dyslipidemia, diabetes mellitus, obstructive sleep apnea and obesity hypoventilation syndrome, chronic kidney disease and morbid obesity. Her last hospitalization was in August 2019 which time she was treated for new onset of breath paroxysmal atrial fibrillation and exacerbation of COPD. Patient was initiated on eliquis at that time. Echocardiogram revealed EF of 55-60%, mild aortic valve sclerosis, mild mitral regurgitation, mild tricuspid regurgitation, moderate pulmonary hypertension. Patient presented due to increased cough and shortness of breath. Patient had a dry nonproductive cough for the past day. EKG revealed atrial fibrillation. Chest x-ray revealed minimal interstitial edema, possible atypical pneumonia. Troponin negative times one drop. ProBNP 3870. Coronal virus PCR not detected. Alkaline phosphatase 143. Magnesium 2.5. BUN 41 creatinine 1.69. WBC 12.8 and hemoglobin 0.6. Patient was admitted to the cardiac stepdown unit and started on IV Lasix 40 mg every 12 hours, DuoNeb treatments, Augmentin and home medications were resumed patient states she has had good urine output and feels better since time of a dmission. Patient relates she had echocardiogram [address] Zavala. 11/13: Patient states her breathing status is improved today. No lower extremity edema. She has already been switched over to oral Lasix at 80 mg daily. Weight is stable. Repeat hemoglobin 8.5, BUN 54 creatinine 1.77 and potassium 4.1. Repeat chest x-ray shows no acute process. pvc monitor has been a sinus rhyt . Physical examination: Gen: This is a morbidly obese 70-year-old female. Patient is resting but appears to be comfortable at rest. VS: Afebrile, heart rate 78, blood pressure 120/64, pulse ox 96% on 4 L nasal cannula. HEENT: Head is atraumatic, normocephalic. Pupils equal, round. Sclerae is anicteric. NECK: Supple. No JVD. No lymphadenopathy. No thyromegaly. LUNGS: Clear to auscultation. Few scattered rhonchi. Minimal expiratory wheeze. No intercostal retractions. HEART: Irregular rate and rhythm. Systolic ejection murmur 2/6 at the left sternal border. ABDOMEN: Soft. Bowel sounds are present. No masses. No tenderness. EXTREMITIES: No pedal edema. No calf tenderness. NEUROLOGICAL: Patient is awake, alert and oriented x3. Cranial nerves 2 through 12 are grossly intact. Assessment: Acute hypoxic respiratory failure Acute diastolic heart failure COPD exacerbation Paroxysmal atrial fibrillation Coronary artery disease status post PCI of the LAD in 2017 Hypertension, hypertensive cardiovascular disease Hyperlipidemia Diabetes mellitus type 2 Obstructive sleep apnea with CPAP Chronic kidney disease stage III Plan: Continue Lasix transitioned to 80 mg oral daily, monitor I&O, daily weights, electrolytes and renal function Continue amlodipine 5 mg daily, eliquis 5 mg twice daily, aspirin 81 mg every 48 hours, Lipitor 40 mg daily, lisinopril 5 mg daily, Lopressor 25 mg twice daily Will obtain echocardiogram report from the office Further recommendations to follow based upon clinical course Thank you kindly for this consultation. Nurse practitioner note has been reviewed, I agree with documented findings and plan of care. Patient was seen and examined. Objective - Vital Signs Vital signs: Vital Signs Temp 98.3 F 11/13/20 07:50 Pulse 76 11/13/20 08:21 Resp 18 11/13/20 07:50 BP 100/50 11/13/20 07:50 Pulse Ox 93 L 11/13/20 07:50 Intake & Output 11/12/20 11/13/20 11/13/20 18:59 06:59 18:59 Intake Total 940 100 250 Output Total 1100 1320 260 Balance -160 -1220 -10 Weight 121.4 kg Intake: IV 20 10 Invasive Line 1 20 10 Oral 920 100 240 Output: Urine 1100 1320 260 Other: Voiding Method Toilet # Voids 0 3 - Labs CBC & Chem 7: 11/13/20 07:57 11/13/20 07:57 Labs: Abnormal Lab Results - Last 24 Hours (Table) 11/12/20 11/12/20 11/12/20 Range/Units 10:46 10:46 16:08 RBC (3.80-5.40) m/uL Hgb (11.4-16.0) gm/dL Hct (34.0-46.0) % MCV (80.0-100.0) fL MCH (25.0-35.0) pg Macrocytosis Sodium (137-145) mmol/L BUN 48 H (7-17) mg/dL Creatinine 1.71 H (0.52-1.04) mg/dL Glucose 138 H (74-99) mg/dL POC Glucose (mg/dL) 162 H (75-99) mg/dL Total Protein 6.2 L (6.3-8.2) g/dL Albumin (3.5-5.0) g/dL Procalcitonin 0.17 H (0.02-0.09) ng/mL 11/12/20 11/13/20 11/13/20 Range/Units 20:19 07:57 07:57 RBC 2.33 L (3.80-5.40) m/uL Hgb 8.5 L D (11.4-16.0) gm/dL Hct 25.6 L (34.0-46.0) % MCV 109.9 H (80.0-100.0) fL MCH 36.6 H (25.0-35.0) pg Macrocytosis Marked A Sodium 136 L (137-145) mmol/L BUN 54 H (7-17) mg/dL Creatinine 1.77 H (0.52-1.04) mg/dL Glucose (74-99) mg/dL POC Glucose (mg/dL) 193 H (75-99) mg/dL Total Protein 5.4 L (6.3-8.2) g/dL Albumin 3.0 L (3.5-5.0) g/dL Procalcitonin (0.02-0.09) ng/mL
[2020-11-13 16:28] LABS: Glucose,Whole Blood 90 mg/dL (75-99)
[2020-11-13 20:32] LABS: Glucose,Whole Blood 142 mg/dL (75-99)
[2020-11-14 06:16] LABS: Glucose,Whole Blood 78 mg/dL (75-99)
[2020-11-14] MEDS: INSULIN ASPART (NovoLOG) 100 UNIT/ML VIAL SQ SCH ×4 (06:28→21:35)
[2020-11-14] MEDS: GLIMEPIRIDE 2 MG TAB PO SCH ×2 (06:37→17:30)
[2020-11-14] MEDS: LEVOTHYROXINE 25 MCG TAB PO SCH (06:37)
[2020-11-14 07:49] LABS: Basophils # (A) 0.1 k/uL (0-0.2); Basophils % (A) 1 %; Eosinophils # (A) 0.7 k/uL (0-0.7); Eosinophils % (A) 8 %; HCT 27.1 % (34.0-46.0); Lymphocytes # (A) 1.8 k/uL (1.0-4.8); Lymphocytes % (A) 20 %; MCHC 33.2 g/dL (31.0-37.0); MCV 111.2 fL (80.0-100.0); Macrocytosis Marked; Mean Platelet Volume 10.4; Monocytes # (A) 0.5 k/uL (0-1.0); Monocytes % (A) 6 %; Neutrophils # (A) 5.8 k/uL (1.3-7.7); Neutrophils % (A) 62 %; Platelet Count 241 k/uL (150-450); RBC 2.44 m/uL (3.80-5.40); RDW 15.5 % (11.5-15.5); WBC 9.3 k/uL (3.8-10.6)
[2020-11-14 08:01] LABS: Albumin 3.1 g/dL (3.5-5.0); Calcium 9.4 mg/dL (8.4-10.2); Magnesium 2.3 mg/dL (1.6-2.3); Potassium 4.3 mmol/L (3.5-5.1); Total Bilirubin 0.5 mg/dL (0.2-1.3); Total Protein 5.7 g/dL (6.3-8.2)
[2020-11-14] MEDS: IPRATROPIUM-ALBUTEROL 3 ML NEB INHALATION SCH ×4 (08:32→19:45)
[2020-11-14] MEDS ORDERED: FUROSEMIDE 80 MG TAB PO SCH (09:00)
[2020-11-14] MEDS: ASPIRIN 81 MG PO SCH (09:23)
[2020-11-14] MEDS: amLODIPine 5 MG TAB PO SCH (09:23)
[2020-11-14] MEDS: MULTIVITAMINS, THERA 1 EACH TAB PO SCH (09:23)
[2020-11-14] MEDS: CHOLECALCIFEROL 25 MCG (1000 IU) TABLET PO SCH (09:23)
[2020-11-14] MEDS: AMOXIC-POT CLAV 500-125 MG 1 EACH TAB PO SCH ×2 (09:24→21:34)
[2020-11-14] MEDS: METOPROLOL TARTRATE 25 MG TAB PO SCH ×2 (09:24→21:33)
[2020-11-14] MEDS: LINAGLIPTIN 5 MG TABLET PO SCH (09:24)
[2020-11-14] MEDS: VIT A,C & E-LUTEIN-MINERALS 1 EACH TAB PO SCH (09:24)
[2020-11-14] MEDS: APIXABAN 5 MG TAB PO SCH ×2 (09:24→21:33)
[2020-11-14] MEDS: ATORVASTATIN 40 MG TAB PO SCH (09:24)
--- NOTE | 2020-11-14 11:06 | P.PN ---
Subjective Progress Note Date: 11/14/20 COPD exacerbation, atypical pneumonia 70-year-old obese white female with a history of atrial fibrillation, who comes into the emergency room on November 11 in the morning, complaining of shortness of breath. She apparently felt fine the night before. The patient denies any fever or chills. She denies any chest pain or chest discomfort. The patient does have a bit of a dry nonproductive cough. The patient was seen in the emergency room, and she tells me, she was diagnosed as having pneumonia. The patient is currently on saline at 30 mL an hour, and oxygen at 6 L. The patient does have a history of sleep apnea syndrome. She sees my partner for that. She also did smoke for about 15 years. She smoked less than one pack a day. She denies using oxygen at home, and she also denies using oxygen with her CPAP device. She was placed on BiPAP when she was admitted, with settings of 12/6 and 40%. Her medical problems include CAD, diabetes, hyperlipidemia, hypertension, and obstructive sleep apnea syndrome, and she also has a history of psoriasis. In addition, she's had a previous stent. The patient was seen today 11/12/2020 and follow-up on the selective care unit. She is currently sitting up in bed. Awake and alert in no acute distress. Breathing easier today compared to yesterday. Maintaining O2 saturations in the 90s on 4 L/m per nasal cannula. She's afebrile. Hemodynamically stable. White count 11.4. Hemoglobin 10.0. Sodium 137. Potassium 4.0. Creatinine 1.71. She is continued on bronchodilators, antibiotics in the form of Augmentin. Anticoagulated with Eliquis. She remains on IV diuretics. The patient is seen today 11/13/2020 follow-up on the selective care unit. She is currently sitting up in a chair at the bedside. Awake and alert in no acute distress. Denies any worsening shortness of breath, cough or congestion. Some dyspnea on exertion. Maintaining O2 saturations in the 90s on 3 L/m per nasal cannula. White count 8.8. Hemoglobin 8.5. Sodium 136. Potassium 4.1. Creatinine 1.77. She remains on DuoNeb inhalations antibiotics in the form of Augmentin. Anticoagulated with Eliquis. Remains on oral diuretics. Follow-up chest x-ray reveals no acute pulmonary process. 11/14/2020, the patient is feeling slightly better. She is on and off on oxygen and she was placed again and actually at 2 L per minute nasal cannula. She is having some chest congestion and wheezing. The cough is nonproductive. No other complaints otherwise for now. She has brought her own CPAP even from home and she also has a touch fullface mask. She has CAD, diabetes mellitus, hyperlipidemia, hypertension and obstructive sleep apnea as comorbid conditions. She has undergone previous coronary stenting. The patient remains on Lasix. The patient is a ask smoker. She does not utilize home oxygen. Her proBNP level was 3870 in time of admission. Her blood gas showed no significant CO2 retention. Objective - Vital Signs Vital signs: Vital Signs Temp 98.4 F 11/14/20 08:00 Pulse 92 11/14/20 08:49 Resp 18 11/14/20 08:00 BP 114/70 11/14/20 08:00 Pulse Ox 90 L 11/14/20 08:00 Intake & Output 11/13/20 11/14/20 11/14/20 18:59 06:59 18:59 Intake Total 740 260 120 Output Total 3560 100 Balance -2820 160 120 Weight 121 kg Intake: IV 20 20 Invasive Line 1 20 20 Oral 720 240 120 Output: Urine 3560 100 Other: # Voids 2 1 - Exam GENERAL EXAM: Alert, active, pleasant 70-year-old female patient, on 2 L nasal cannula, comfortable in no apparent distress. HEAD: Normocephalic. EYES: Normal reaction of pupils, equal size. NOSE: Clear with pink turbinates. THROAT: No erythema or exudates. NECK: No masses, no JVD. CHEST: No chest wall deformity. LUNGS: Equal air entry with no crackles, rhonchi or wheeze. CVS: S1 and S2 normal with no audible murmur, regular rhythm. ABDOMEN: No hepatosplenomegaly, normal bowel sounds, no guarding or rigidity. SPINE: No scoliosis or deformity SKIN: No rashes CENTRAL NERVOUS SYSTEM: No focal deficits, tone is normal in all 4 extremities. EXTREMITIES: There is no peripheral edema. No clubbing, no cyanosis. Peripheral pulses are intact. - Labs CBC & Chem 7: 11/14/20 07:19 11/14/20 07:19 Labs: Abnormal Lab Results - Last 24 Hours (Table) 11/13/20 11/14/20 11/14/20 Range/Units 20:31 07:19 07:19 RBC 2.44 L (3.80-5.40) m/uL Hgb 9.0 L (11.4-16.0) gm/dL Hct 27.1 L (34.0-46.0) % MCV 111.2 H (80.0-100.0) fL MCH 37.0 H (25.0-35.0) pg Macrocytosis Marked A BUN 62 H (7-17) mg/dL Creatinine 1.77 H (0.52-1.04) mg/dL Glucose 61 L (74-99) mg/dL POC Glucose (mg/dL) 142 H (75-99) mg/dL Total Protein 5.7 L (6.3-8.2) g/dL Albumin 3.1 L (3.5-5.0) g/dL Assessment and Plan Plan: 1 Acute on chronic hypoxemic respiratory failure secondary to fluid volume overload, mild COPD exacerbation, possible atypical pneumonia 2 Obstructive sleep apnea, maintained on CPAP 3 CAD with previous stent placement 4 Morbid obesity 5 Diabetes mellitus 6 Hyperlipidemia 7 Hypertension 8 History of psoriasis Plan: Improving clinically wean down the FiO2 further to maintain a saturation above 90% Add prednisone burst taper at time of discharge. Meanwhile, I'm going to put that on IV Solu Medrol 40 mg every 8 hours over the next 24 hours. Chest x-ray from yesterday was noted. Follow-up chest x-ray reveals no acute pulmonary process She is currently stable from the pulmonary standpoint Titrate the FiO2 as tolerated We'll continue to follow
--- NOTE | 2020-11-14 11:13 | P.PN ---
Subjective This is a 70-year-old female patient of Dr. Zavala with past medical history significant for coronary artery disease status post drug-eluting stent placement to the mid LAD in 2017, paroxysmal atrial fibrillation, hypertension, dyslipidemia, diabetes mellitus, obstructive sleep apnea and obesity hypoventilation syndrome, chronic kidney disease and morbid obesity. Her last hospitalization was in August 2019 which time she was treated for new onset of breath paroxysmal atrial fibrillation and exacerbation of COPD. Patient was initiated on eliquis at that time. Echocardiogram revealed EF of 55-60%, mild aortic valve sclerosis, mild mitral regurgitation, mild tricuspid regurgitation, moderate pulmonary hypertension. Patient presented due to increased cough and shortness of breath. Patient had a dry nonproductive cough for the past day. EKG revealed atrial fibrillation. Chest x-ray revealed minimal interstitial edema, possible atypical pneumonia. Troponin negative times one drop. ProBNP 3870. Coronal virus PCR not detected. Alkaline phosphatase 143. Magnesium 2.5. BUN 41 creatinine 1.69. WBC 12.8 and hemoglobin 0.6. Patient was admitted to the cardiac stepdown unit and started on IV Lasix 40 mg every 12 hours, DuoNeb treatments, Augmentin and home medications were resumed patient states she has had good urine output and feels better since time of admission. Patient relates she had echocardiogram [address] Zavala. 11/14/2020 Patient seen and examined sitting up in recliner chair in no acute distress. She continues to feel somewhat short of breath and congested with a productive cough. She denies chest pain, dizziness or palpitations. Blood pressure 114/70 heart rate 92 afebrile maintaining oxygen saturation on nasal cannula. Laboratory data reviewed, WBC 9.3, hemoglobin 9, platelets 241, sodium 137, potassium 4.3, creatinine 1.77 and magnesium 2.3. Currently maintained on amlodipine 5 mg daily, Eliquis 5 mg twice a day, aspirin 81 mg every other day, atorvastatin 40 mg daily, Lasix 80 mg by mouth daily, lisinopril 5 mg daily and Lopressor 25 mg twice a day. Telemetry tracings reveals she is currently in atrial fibrillation with controlled ventricular rate. Physical examination: Gen: This is a morbidly obese 70-year-old female. Patient is resting but appears to be comfortable at rest. HEENT: Head is atraumatic, normocephalic. Pupils equal, round. Sclerae is anicteric. NECK: Supple. No JVD. No lymphadenopathy. No thyromegaly. LUNGS: Clear to auscultation. Few scattered rhonchi. Minimal expiratory wheeze. No intercostal retractions. HEART: Irregular rate and rhythm. Systolic ejection murmur 2/6 at the left sternal border. EXTREMITIES: No pedal edema. No calf tenderness. Assessment: Acute hypoxic respiratory failure Acute diastolic heart failure COPD exacerbation Paroxysmal atrial fibrillation Coronary artery disease status post PCI of the LAD in 2017 Hypertension, hypertensive cardiovascular disease Hyperlipidemia Diabetes mellitus type 2 Obstructive sleep apnea with CPAP Chronic kidney disease stage III Former nicotine dependence Plan: Decrease daily oral Lasix to 60 mg. Follow renal function in the morning. Increase activity as tolerated. Nurse practitioner note has been reviewed, I agree with documented findings and plan of care. Patient was seen and examined. Objective - Vital Signs Vital signs: Vital Signs Temp 98.4 F 11/14/20 08:00 Pulse 92 11/14/20 08:49 Resp 18 11/14/20 08:00 BP 114/70 11/14/20 08:00 Pulse Ox 90 L 11/14/20 08:00 Intake & Output 11/13/20 11/14/20 11/14/20 18:59 06:59 18:59 Intake Total 740 260 120 Output Total 3560 100 Balance -2820 160 120 Weight 121 kg Intake: IV 20 20 Invasive Line 1 20 20 Oral 720 240 120 Output: Urine 3560 100 Other: # Voids 2 1 - Labs CBC & Chem 7: 11/14/20 07:19 11/14/20 07:19 Labs: Abnormal Lab Results - Last 24 Hours (Table) 11/13/20 11/14/20 11/14/20 Range/Units 20:31 07:19 07:19 RBC 2.44 L (3.80-5.40) m/uL Hgb 9.0 L (11.4-16.0) gm/dL Hct 27.1 L (34.0-46.0) % MCV 111.2 H (80.0-100.0) fL MCH 37.0 H (25.0-35.0) pg Macrocytosis Marked A BUN 62 H (7-17) mg/dL Creatinine 1.77 H (0.52-1.04) mg/dL Glucose 61 L (74-99) mg/dL POC Glucose (mg/dL) 142 H (75-99) mg/dL Total Protein 5.7 L (6.3-8.2) g/dL Albumin 3.1 L (3.5-5.0) g/dL
[2020-11-14] MEDS ORDERED: methylPREDNISolone SOD SUCCI 40 MG/ML 1 ML VIAL IV SCH (11:15)
[2020-11-14 11:24] LABS: Glucose,Whole Blood 205 mg/dL (75-99)
[2020-11-14 13:44] LABS: Glucose,Whole Blood 179 mg/dL (75-99)
[2020-11-14] MEDS: lisinopriL 5 MG TAB PO SCH (13:45)
[2020-11-14 16:28] LABS: Glucose,Whole Blood 179 mg/dL (75-99)
[2020-11-14 20:16] LABS: Glucose,Whole Blood 314 mg/dL (75-99)
[2020-11-14] MEDS: ACETAMINOPHEN TAB 325 MG TAB PO PRN (21:33)
[2020-11-14] MEDS: methylPREDNISolone SOD SUCCI 40 MG/ML 1 ML VIAL IV SCH (21:34)
[2020-11-15 06:17] LABS: Glucose,Whole Blood 232 mg/dL (75-99)
[2020-11-15] MEDS: methylPREDNISolone SOD SUCCI 40 MG/ML 1 ML VIAL IV SCH (06:26)
[2020-11-15] MEDS: LEVOTHYROXINE 25 MCG TAB PO SCH (06:27)
[2020-11-15] MEDS: GLIMEPIRIDE 2 MG TAB PO SCH ×2 (06:27→17:26)
[2020-11-15] MEDS: INSULIN ASPART (NovoLOG) 100 UNIT/ML VIAL SQ SCH ×6 (06:28→20:34)
[2020-11-15 07:35] LABS: Calcium 9.2 mg/dL (8.4-10.2)
[2020-11-15] MEDS: IPRATROPIUM-ALBUTEROL 3 ML NEB INHALATION SCH ×4 (07:44→20:29)
[2020-11-15] MEDS: AMOXIC-POT CLAV 500-125 MG 1 EACH TAB PO SCH ×2 (09:19→20:33)
[2020-11-15] MEDS: VIT A,C & E-LUTEIN-MINERALS 1 EACH TAB PO SCH (09:20)
[2020-11-15] MEDS: MULTIVITAMINS, THERA 1 EACH TAB PO SCH (09:20)
[2020-11-15] MEDS: CHOLECALCIFEROL 25 MCG (1000 IU) TABLET PO SCH (09:20)
[2020-11-15] MEDS: LINAGLIPTIN 5 MG TABLET PO SCH (09:20)
[2020-11-15] MEDS: ATORVASTATIN 40 MG TAB PO SCH (09:20)
[2020-11-15] MEDS: METOPROLOL TARTRATE 25 MG TAB PO SCH ×2 (09:20→20:33)
[2020-11-15] MEDS: lisinopriL 5 MG TAB PO SCH (09:20)
[2020-11-15] MEDS: amLODIPine 5 MG TAB PO SCH (09:20)
[2020-11-15] MEDS: APIXABAN 5 MG TAB PO SCH ×2 (09:20→20:33)
[2020-11-15] MEDS: FUROSEMIDE 20 MG TAB PO SCH (09:20)
[2020-11-15 11:52] LABS: Glucose,Whole Blood 238 mg/dL (75-99)
--- NOTE | 2020-11-15 11:58 | P.PN ---
Subjective This is a 70-year-old female patient of Dr. Zavala with past medical history significant for coronary artery disease status post drug-eluting stent placement to the mid LAD in 2017, paroxysmal atrial fibrillation, hypertension, dyslipidemia, diabetes mellitus, obstructive sleep apnea and obesity hypoventilation syndrome, chronic kidney disease and morbid obesity. Her last hospitalization was in August 2019 which time she was treated for new onset of breath paroxysmal atrial fibrillation and exacerbation of COPD. Patient was initiated on eliquis at that time. Echocardiogram revealed EF of 55-60%, mild aortic valve sclerosis, mild mitral regurgitation, mild tricuspid regurgitation, moderate pulmonary hypertension. Patient presented due to increased cough and shortness of breath. Patient had a dry nonproductive cough for the past day. EKG revealed atrial fibrillation. Chest x-ray revealed minimal interstitial edema, possible atypical pneumonia. Troponin negative times one drop. ProBNP 3870. Coronal virus PCR not detected. Alkaline phosphatase 143. Magnesium 2.5. BUN 41 creatinine 1.69. WBC 12.8 and hemoglobin 0.6. Patient was admitted to the cardiac stepdown unit and started on IV Lasix 40 mg every 12 hours, DuoNeb treatments, Augmentin and home medications were resumed patient states she has had good urine output and feels better since time of admission. Patient relates she had echocardiogram [address] Zavala. 11/15/2020 Patient seen and examined sitting up in no acute distress. She continues to feel congested. Ongoing shortness of breath. No chest pain, dizziness or palpitations. Blood pressure 106/56 heart rate 84 afebrile and maintaining oxygen saturation on room air. Laboratory data reviewed, sodium 134, potassium 5 and creatinine 1.79. Physical examination: Gen: This is a morbidly obese 70-year-old female. Patient is resting but appears to be comfortable at rest. HEENT: Head is atraumatic, normocephalic. Pupils equal, round. Sclerae is anicteric. NECK: Supple. No JVD. No lymphadenopathy. No thyromegaly. LUNGS: Expiratory wheezes. No rales or rhonchi. HEART: Irregular rate and rhythm. Systolic ejection murmur 2/6 at the left sternal border. EXTREMITIES: No pedal edema. No calf tenderness. Assessment: Acute hypoxic respiratory failure Acute diastolic heart failure COPD exacerbation Paroxysmal atrial fibrillation Coronary artery disease status post PCI of the LAD in 2017 Hypertension, hypertensive cardiovascular disease Hyperlipidemia Diabetes mellitus type 2 Obstructive sleep apnea with CPAP Chronic kidney disease stage III Former nicotine dependence Plan: Stable from a cardiac perspective on current regimen. We will follow along as needed, please call with further questions or concerns. Nurse practitioner note has been reviewed, I agree with documented findings and plan of care. Patient was seen and examined. Objective - Vital Signs Vital signs: Vital Signs Temp 97.8 F 11/15/20 08:45 Pulse 84 11/15/20 10:54 Resp 18 11/15/20 08:45 BP 106/56 11/15/20 08:45 Pulse Ox 92 L 11/15/20 08:45 Intake & Output 11/14/20 11/15/20 11/15/20 18:59 06:59 18:59 Intake Total 587 98 8079 Output Total 1800 400 600 Balance -860 -390 770 Weight 121.2 kg Intake: IV 20 10 10 Invasive Line 1 20 10 Invasive Line 2 10 Oral 920 1360 Output: Urine 1800 400 600 Other: Voiding Method Toilet # Voids 1 - Labs CBC & Chem 7: 11/14/20 07:19 11/15/20 06:37 Labs: Abnormal Lab Results - Last 24 Hours (Table) 11/14/20 11/14/20 11/14/20 Range/Units 13:43 16:27 20:14 Sodium (137-145) mmol/L Carbon Dioxide (22-30) mmol/L BUN (7-17) mg/dL Creatinine (0.52-1.04) mg/dL Glucose (74-99) mg/dL POC Glucose (mg/dL) 179 H 179 H 314 H (75-99) mg/dL 11/15/20 11/15/20 Range/Units 06:16 06:37 Sodium 134 L (137-145) mmol/L Carbon Dioxide 21 L (22-30) mmol/L BUN 79 H (7-17) mg/dL Creatinine 1.79 H (0.52-1.04) mg/dL Glucose 199 H (74-99) mg/dL POC Glucose (mg/dL) 232 H (75-99) mg/dL
--- NOTE | 2020-11-15 12:11 | P.PN ---
Subjective Progress Note Date: 11/15/20 COPD exacerbation, atypical pneumonia 70-year-old obese white female with a history of atrial fibrillation, who comes into the emergency room on November 11 in the morning, complaining of shortness of breath. She apparently felt fine the night before. The patient denies any fever or chills. She denies any chest pain or chest discomfort. The patient does have a bit of a dry nonproductive cough. The patient was seen in the emergency room, and she tells me, she was diagnosed as having pneumonia. The patient is currently on saline at 30 mL an hour, and oxygen at 6 L. The patient does have a history of sleep apnea syndrome. She sees my partner for that. She also did smoke for about 15 years. She smoked less than one pack a day. She denies using oxygen at home, and she also denies using oxygen with her CPAP device. She was placed on BiPAP when she was admitted, with settings of 12/6 and 40%. Her medical problems include CAD, diabetes, hyperlipidemia, hypertension, and obstructive sleep apnea syndrome, and she also has a history of psoriasis. In addition, she's had a previous stent. The patient was seen today 11/12/2020 and follow-up on the selective care unit. She is currently sitting up in bed. Awake and alert in no acute distress. Breathing easier today compared to yesterday. Maintaining O2 saturations in the 90s on 4 L/m per nasal cannula. She's afebrile. Hemodynamically stable. White count 11.4. Hemoglobin 10.0. Sodium 137. Potassium 4.0. Creatinine 1.71. She is continued on bronchodilators, antibiotics in the form of Augmentin. Anticoagulated with Eliquis. She remains on IV diuretics. The patient is seen today 11/13/2020 follow-up on the selective care unit. She is currently sitting up in a chair at the bedside. Awake and alert in no acute distress. Denies any worsening shortness of breath, cough or congestion. Some dyspnea on exertion. Maintaining O2 saturations in the 90s on 3 L/m per nasal cannula. White count 8.8. Hemoglobin 8.5. Sodium 136. Potassium 4.1. Creatinine 1.77. She remains on DuoNeb inhalations antibiotics in the form of Augmentin. Anticoagulated with Eliquis. Remains on oral diuretics. Follow-up chest x-ray reveals no acute pulmonary process. 11/14/2020, the patient is feeling slightly better. She is on and off on oxygen and she was placed again and actually at 2 L per minute nasal cannula. She is having some chest congestion and wheezing. The cough is nonproductive. No other complaints otherwise for now. She has brought her own CPAP even from home and she also has a touch fullface mask. She has CAD, diabetes mellitus, hyperlipidemia, hypertension and obstructive sleep apnea as comorbid conditions. She has undergone previous coronary stenting. The patient remains on Lasix. The patient is ex smoker. She does not utilize home oxygen. Her proBNP level was 3870 in time of admission. Her blood gas showed no significant CO2 retention. On today's evaluation of 11/15/2020, the patient is feeling better. She is sitting up on a chair. She is having her lunch. She is on room air oxygen. She is short of breath. Her cough is nonproductive. No chest pain. Much less bronchospastic and wheezy compared to yesterday. Chest congestion is also subsided. The patient is utilizing her on CPAP from home. She is an ex-smoker. She is on oral Lasix for now. She is taking Lasix at a dose of 60 mg by mouth daily. She is also on long-term articulation with Eliquis. She has been switched to oral Augmentin 8 500 mg every 12 hours. I had on IV Solu Medrol for yesterday and I'm going to put on a prednisone burst taper. She has developed some mild hyperglycemia related to steroids. NovoLog is at 6 units with meals 3 times a day and she also has a scaly in addition to Trajenda for blood sugar control. Objective - Vital Signs Vital signs: Vital Signs Temp 97.8 F 11/15/20 08:45 Pulse 84 11/15/20 10:54 Resp 18 11/15/20 08:45 BP 106/56 11/15/20 08:45 Pulse Ox 92 L 11/15/20 08:45 Intake & Output 11/14/20 11/15/20 11/15/20 18:59 06:59 18:59 Intake Total 340 37 4469 Output Total 1800 400 600 Balance -860 -390 770 Weight 121.2 kg Intake: IV 20 10 10 Invasive Line 1 20 10 Invasive Line 2 10 Oral 920 1360 Output: Urine 1800 400 600 Other: Voiding Method Toilet # Voids 1 - Exam GENERAL EXAM: Alert, active, pleasant 70-year-old female patient, on room air oxygen, comfortable in no apparent distress. HEAD: Normocephalic. EYES: Normal reaction of pupils, equal size. NOSE: Clear with pink turbinates. THROAT: No erythema or exudates. NECK: No masses, no JVD. CHEST: No chest wall deformity. LUNGS: Equal air entry with no crackles, rhonchi or wheeze. CVS: S1 and S2 normal with no audible murmur, regular rhythm. ABDOMEN: No hepatosplenomegaly, normal bowel sounds, no guarding or rigidity. SPINE: No scoliosis or deformity SKIN: No rashes CENTRAL NERVOUS SYSTEM: No focal deficits, tone is normal in all 4 extremities. EXTREMITIES: There is no peripheral edema. No clubbing, no cyanosis. Peripheral pulses are intact. - Labs CBC & Chem 7: 11/14/20 07:19 11/15/20 06:37 Labs: Abnormal Lab Results - Last 24 Hours (Table) 11/14/20 11/14/20 11/14/20 Range/Units 13:43 16:27 20:14 Sodium (137-145) mmol/L Carbon Dioxide (22-30) mmol/L BUN (7-17) mg/dL Creatinine (0.52-1.04) mg/dL Glucose (74-99) mg/dL POC Glucose (mg/dL) 179 H 179 H 314 H (75-99) mg/dL 11/15/20 11/15/20 11/15/20 Range/Units 06:16 06:37 11:50 Sodium 134 L (137-145) mmol/L Carbon Dioxide 21 L (22-30) mmol/L BUN 79 H (7-17) mg/dL Creatinine 1.79 H (0.52-1.04) mg/dL Glucose 199 H (74-99) mg/dL POC Glucose (mg/dL) 232 H 238 H (75-99) mg/dL Assessment and Plan Plan: 1 Acute on chronic hypoxemic respiratory failure secondary to fluid volume overload, mild COPD exacerbation, possible atypical pneumonia, clinically improved. The patient is currently on room air oxygen. She is not having any significant respiratory distress. Her last chest x-rays from 11/13/2020 and it showed no acute processes and there was no focal airspace disease or pneumothorax or consolidation. She responded nicely with a combination of diuretics steroids and antibiotics which is currently on oral Augmentin. 2 Obstructive sleep apnea, maintained on CPAP 3 CAD with previous stent placement 4 Morbid obesity 5 Diabetes mellitus 6 Hyperlipidemia 7 Hypertension 8 History of psoriasis Plan: Improving clinically Patient is currently on room air oxygen Stop IV Solu Medrol and put the patient prednisone burst taper Monitor the blood sugars Chest x-ray was noted from 11/13/2020 She is currently stable from the pulmonary standpoint Increase mobility as tolerated and discharge planning is in progress. Continue oral Lasix for now. We'll continue to follow
--- NOTE | 2020-11-15 14:38 | P.PN ---
Subjective Progress Note Date: 11/14/20 Progress Note: 11/13/2020 HISTORY OF PRESENT ILLNESS: This is a 70-year-old female patient of mine with past medical history of diabetes mellitus type 2, diabetic polyneuropathy, paroxysmal atrial fibrillation, psoriasis, COPD, hypertension, coronary artery disease status post stenting of the mid LAD [place] [address] Zavala, remote history of tobacco use and dependence, obesity with obstructive sleep apnea and obesity hypoventilation syndrome. Patient presented to the emergency department at [facility] today with increased cough and shortness breath associated with dry nonprod uctive cough for the past 24 hours, patient had a chest x-ray that showed minimal interstitial edema, possible atypical pneumonia, she was given Lasix in the emergency department as well as nebulized treatment she is currently on 6 L nasal cannula her oxygen saturation around 98%, she was started on oral antibiotic and she was admitted to the hospital for evaluation patient was seen by pulmonary medicine in the emergency department he was recommended to continue oral antibiotic as well as at the last treatment in the form of DuoNeb 3 mg nebulization 4 times every day as well as Pulmicort she was admitted to the hospital for further evaluation and treatment. 11/12: Patient sitting up in bed in minimal respiratory distress, she continues to be on oxygen, she continues to receive DuoNeb 3 mL nebulization 4 times every day, she does complain of some dry cough with no phlegm production, she c ontinues to have some edema both lower extremities, she appears a bit better than yesterday, she seems to be tolerating her treatment very well. 11/13: Patient is feeling a bit better today, she denies any chest pain, she continues to have some minimal cough, no phlegm production, her swelling is much better today, she denies any abdominal pain, nausea vomiting or diarrhea she continues to be taken her medication and seems to be tolerating treatment very well. 11/14: Patient's breathing is improved today from yesterday. She has some dyspnea with exertion, nonproductive cough, no lower extremity edema. Patient chest x-ray shows no acute cardio pulmonary process. She isn't Solu-Medrol 40 mg every 8 hours, Lasix transitioned to oral at 80 mg daily. REVIEW OF SYSTEMS: Constitutional: No documented fever, no chills, no night sweats. No weight change. No weakness, fatigue or lethargy. No daytime sleepiness. HEENT: No headache. No blurred vision or double vision, no loss of vision. No loss of Hearing, no ringing in the ears, no dizziness. No nasal drainage or congestion. No epistaxis. No sore throat. Lungs: positive for shortness of breath, positive for dry cough, no sputum production. Denies wheezing. Reports dyspnea with activity. Cardiovascular: No chest pain, denies lower extremity edema. No palpitations. No paroxysmal nocturnal dyspnea. No orthopnea. No lightheadedness or dizziness. No syncopal episodes. Abdominal: Reports no abdominal pain. No nausea, vomiting. No diarrhea. No constipation. No bloody or tarry stools reports loss of appetite. Genitourinary: No dysuria, increased frequency, urgency. No urinary retention. Musculoskeletal: No myalgias. No muscle weakness, no gait dysfunction, no frequent falls. positive fpr back pain. No neck pain. Integumentary: No wounds, no lesions. positive for dry skin. positive for bruising. No change in hair or nails. Neurologic: No aphasia. No facial droop. No change in mentation. No head injury. No headache. No paralysis. No paresthesia. Psychiatric: No depression. No anxiety. No mood swings. Endocrine: No abnormal blood sugars. No weight change. PHYSICAL EXAMINATION: General: 70-year-old female sitting up in bed in no respiratory distress HEENT: Head is atraumatic, normocephalic, pupils were equal round reactive to light and recommendation, extraocular muscle movement were intact, sclera nonicteric, conjunctivae were pale, mucous membranes of the mouth are somewhat dry. Neck: Supple, no JVP, normal carotid upstroke bilaterally, no lymphadenopathy. Chest: Decreased breath sounds at the bases, no chest wall tenderness, minimal intercostal retractions. Heart: First heart sound is normal, second heart sounds normal, there is systolic ejection murmur 2/6 located in the left sternal border. Abdomen: Soft, nontender, nondistended, positive bowel sounds Extremities: There is no edema no calf tenderness DP +1 bilaterally. Neurologic examination: Patient is awake alert and oriented X 3, cranial nerves II-12 appear grossly intact, muscle power were 4 out of 5 in upper extremities and 4 out of 5 in bilateral lower extremities, deep tendon reflexes normal bilaterally. ASSESSMENT AND PLAN: 1. Acute hypoxemic respiratory failure secondary to a combination of acute diastolic heart failure and COPD exacerbation. Continue Lasix 80 mg orally once every day, continue metoprolol 25 mg orally twice every day, lisinopril 5 mg orally once every day, monitor input and output and daily weight, continue DuoNeb 3 mL nebulization 4 times every day and as needed every 4 hours, continue Augmentin 500/125 mg orally twice every day, likely patient will be discharged home in the next 24 hours. 2. Acute COPD exacerbation. Continue DuoNeb 3 mg nebulization 4 times every day, continue oxygen support, continue IV Solu-Medrol 40 mg every 8 hours, continue to monitor the patient very closely pulmonary is following. 3. Acute/chronic diastolic heart failure. Continue patient on metoprolol 25 mg orally twice every day, Lasix 80 mg orally daily, lisinopril 5 mg orally once every day, monitor the patient weight input and output as well. 4. hypertension and hypertensive cardiovascular disease. Continue patient on metoprolol 25 mg orally twice every day and lisinopril 5 mg orally once every day monitor the patient blood pressure very closely. 5. Hyperlipidemia. Continue Lipitor 40 mg orally once every day keep LDL cholesterol 55-70 per he 6. Diabetes mellitus type 2. Continue patient on Tradjenta 5 mg orally once every day, Glimeperide 4 mg orally once every day, hold Ozempic in the hospital, continue to monitor the patient BGM before each meal and at bedtime. 7. Paroxysmal atrial fibrillation. Continue metoprolol 25 mg orally twice every day, continue Eliquis 5 mg orally twice every day. 8. Coronary artery disease status post PCI of the LAD in 2017. Continue metoprolol 25 mg orally twice every day, aspirin 81 mg once every day, Lipitor 40 mg orally once every day keep LDL 55-70. 9. Hypothyroidism. Continue Synthroid 25 incision orally once every day. 10. Obesity with obstructive sleep apnea. Continue patient on current CPAP. 11. History of psoriasis. Stable. 12. Chronic kidney disease stage III a. Monitor the patient CMP, avoid nephrotoxins per 13. DVT prophylaxis. Continue patient on Eliquis 5 mg orally twice every day. 14. GI prophylaxis. Continue Protonix 40 mg orally once every day. 15. Home in AM Objective - Vital Signs Vital signs: Vital Signs Temp 98.4 F 11/14/20 08:00 Pulse 76 11/14/20 12:01 Resp 18 11/14/20 08:00 BP 114/70 11/14/20 08:00 Pulse Ox 90 L 11/14/20 08:00 Intake & Output 11/13/20 11/14/20 11/14/20 18:59 06:59 18:59 Intake Total 740 260 130 Output Total 3560 100 Balance -2820 160 130 Weight 121 kg Intake: IV 20 20 10 Invasive Line 1 20 20 10 Oral 720 240 120 Output: Urine 3560 100 Other: # Voids 2 1 - Labs CBC & Chem 7: 11/14/20 07:19 11/15/20 06:37 Labs: Abnormal Lab Results - Last 24 Hours (Table) 11/13/20 11/14/20 11/14/20 Range/Units 20:31 07:19 07:19 RBC 2.44 L (3.80-5.40) m/uL Hgb 9.0 L (11.4-16.0) gm/dL Hct 27.1 L (34.0-46.0) % MCV 111.2 H (80.0-100.0) fL MCH 37.0 H (25.0-35.0) pg Macrocytosis Marked A BUN 62 H (7-17) mg/dL Creatinine 1.77 H (0.52-1.04) mg/dL Glucose 61 L (74-99) mg/dL POC Glucose (mg/dL) 142 H (75-99) mg/dL Total Protein 5.7 L (6.3-8.2) g/dL Albumin 3.1 L (3.5-5.0) g/dL 11/14/20 Range/Units 11:23 RBC (3.80-5.40) m/uL Hgb (11.4-16.0) gm/dL Hct (34.0-46.0) % MCV (80.0-100.0) fL MCH (25.0-35.0) pg Macrocytosis BUN (7-17) mg/dL Creatinine (0.52-1.04) mg/dL Glucose (74-99) mg/dL POC Glucose (mg/dL) 205 H (75-99) mg/dL Total Protein (6.3-8.2) g/dL Albumin (3.5-5.0) g/dL
[2020-11-15 16:51] LABS: Glucose,Whole Blood 285 mg/dL (75-99)
[2020-11-15] MEDS ORDERED: methylPREDNISolone SOD SUCCI 40 MG/ML 1 ML VIAL IV SCH (18:00)
[2020-11-15 20:03] LABS: Glucose,Whole Blood 297 mg/dL (75-99)
[2020-11-16] MEDS: GLIMEPIRIDE 2 MG TAB PO SCH (06:26)
[2020-11-16] MEDS: LEVOTHYROXINE 25 MCG TAB PO SCH (06:26)
[2020-11-16 07:21] LABS: Glucose,Whole Blood 197 mg/dL (75-99)
[2020-11-16] MEDS: INSULIN ASPART (NovoLOG) 100 UNIT/ML VIAL SQ SCH ×2 (07:28)
[2020-11-16] MEDS: IPRATROPIUM-ALBUTEROL 3 ML NEB INHALATION SCH ×2 (07:57→11:08)
--- NOTE | 2020-11-16 08:19 | P.DS ---
Providers Date of admission: 11/11/20 11:34 Expected date of discharge: 11/16/20 Attending physician: Dimple Wooten Consults: 11/11/20 11:31 Consult Physician Routine Consulting Provider: Pranav Bedolla Consult Reason/Comments: hypoxic respiratory failure Do you want consulting provider notified?: Yes 11/11/20 11:34 Consult Physician Routine Consulting Provider: Cedric Zavala Consult Reason/Comments: suspect heart failure Do you want consulting provider notified?: Yes Primary care physician: Dimple Wooten Hospital Course: HISTORY OF PRESENT ILLNESS: This is a 70-year-old female patient of [facility] with past medical history of diabetes mellitus type 2, diabetic polyneuropathy, paroxysmal atrial fibrillation, psoriasis, COPD, hypertension, coronary artery disease status post stenting of the mid LAD [place] [address] Zavala, remote history of tobacco use and dependence, obesity with obstructive sleep apnea and obesity hypoventilation syndrome. Patient presented to the emergency department at [facility] today with increased cough and shortness breath associated with dry nonproductive cough for the past 24 hours, patient had a chest x-ray that showed minimal interstitial edema, possible atypical pneumonia, she was given Lasix in the emergency department as well as nebulized treatment she is currently on 6 L nasal cannula her oxygen saturation around 98%, she was started on oral antibiotic and she was admitted to the hospital for evaluation patient was seen by pulmonary medicine in the emergency department he was recommended to continue oral antibiotic as well as at the last treatment in the form of DuoNeb 3 mg nebulization 4 times every day as well as Pulmicort she was admitted to the hospital for further evaluation and treatment. 11/12: Patient sitting up in bed in minimal respiratory distress, she continues to be on oxygen, she continues to receive DuoNeb 3 mL nebulization 4 times every day, she does complain of some dry cough with no phlegm production, she continues to have some edema both lower extremities, she appears a bit better than yesterday, she seems to be tolerating her treatment very well. 11/13: Patient is feeling a bit better today, she denies any chest pain, she continues to have some minimal cough, no phlegm production, her swelling is much better today, she denies any abdominal pain, nausea vomiting or diarrhea she continues to be taken her medication and seems to be tolerating treatment very well. 11/14: Patient's breathing is improved today from yesterday. She has some dyspnea with exertion, nonproductive cough, no lower extremity edema. Patient chest x-ray shows no acute cardio pulmonary process. She isn't Solu-Medrol 40 mg every 8 hours, Lasix transitioned to oral at 80 mg daily. 11/15: She states that her breathing is a little better from yesterday, lower extremity edema is improved. Solu-Medrol will be decreased to 40 mg every 12 hours. Lasix has been decreased to 60 mg daily. Breathing is slightly better from yesterday growing daily. Patient is upset that blood sugars are elevated secondary to steroids, and usually well controlled at home. Anticipate discharge home tomorrow. 11/16: She states that she is feeling a lot better today. Breathing status is stable and at baseline. She will be transitioned to oral prednisone taper and resume home dose of Lasix. Blood sugars remain elevated which will improve at home once she is on oral prednisone and able to take her diabetic medications from home. Patient will be discharged today in stable condition. DISCHARGE DIAGNOSES: 1. Acute hypoxemic respiratory failure secondary to a combination of acute diastolic heart failure and COPD exacerbation. 2. Acute COPD exacerbation. 3. Acute ON Chronic diastolic heart failure. 4. hypertension and hypertensive cardiovascular disease. 5. Hyperlipidemia. 6. Diabetes mellitus type 2, uncontrolled with hyperglycemia secondary to steroids. 7. Paroxysmal atrial fibrillation. 8. Coronary artery disease status post PCI of the LAD in 2017. 9. Hypothyroidism. 10. Obesity with obstructive sleep apnea. 11. History of psoriasis. 12. Chronic kidney disease stage III a. DISCHARGE PLAN: Home Impression and plan of care have been directed as dictated by the signing physician. Antonette Carson nurse practitioner acting as scribe for signing physician. Patient Condition at Discharge: Good Plan - Discharge Summary Discharge Rx Participant: No New Discharge Prescriptions: New Amoxic-Pot Clav 500-125 mg [Augmentin 500-125 mg] 1 each PO Q12HR #14 tab Ipratropium-Albuterol Nebulize [Duoneb 0.5 mg-3 mg/3 ml Soln] 3 ml INHALATION RT-QID #120 inh predniSONE 0 mg PO DIRECTED #30 tab Continue Multivit-Min/FA/Lycopen/Lutein [Centrum Silver Tablet] 1 tab PO DAILY Aspirin [Adult Low Dose Aspirin EC] 81 mg PO Q48H Metoprolol Tartrate [Lopressor] 25 mg PO BID #180 tab amLODIPine BESYLATE [Norvasc] 5 mg PO DAILY #1 tablet Glimepiride [Amaryl] 4 mg PO BID Levothyroxine Sodium [Synthroid] 25 mcg PO DAILY sitaGLIPtin [Januvia] 50 mg PO DAILY Vit C/E/Zn/Coppr/Lutein/Zeaxan [Preservision Areds 2 Softgel] 2 cap PO DAILY Apixaban [Eliquis] 5 mg PO BID #60 tab Atorvastatin [Lipitor] 40 mg PO DAILY Cholecalciferol [Vitamin D3 (25 Mcg = 1000 Iu)] 50 mcg PO DAILY Furosemide [Lasix] 80 mg PO Q48H lisinopriL [Zestril] 5 mg PO DAILY Semaglutide [Ozempic] 0.25 mg SQ LOZANO Discharge Medication List Aspirin [Adult Low Dose Aspirin EC] 81 mg PO Q48H 08/28/16 [History] Multivit-Min/FA/Lycopen/Lutein [Centrum Silver Tablet] 1 tab PO DAILY 08/28/16 [History] Metoprolol Tartrate [Lopressor] 25 mg PO BID #180 tab 09/04/16 [Rx] amLODIPine BESYLATE [Norvasc] 5 mg PO DAILY #1 tablet 09/04/16 [Rx] Glimepiride [Amaryl] 4 mg PO BID 04/08/18 [History] Levothyroxine Sodium [Synthroid] 25 mcg PO DAILY 04/08/18 [History] Vit C/E/Zn/Coppr/Lutein/Zeaxan [Preservision Areds 2 Softgel] 2 cap PO DAILY 04/08/18 [History] sitaGLIPtin [Januvia] 50 mg PO DAILY 04/08/18 [History] Apixaban [Eliquis] 5 mg PO BID #60 tab 09/03/19 [Rx] Atorvastatin [Lipitor] 40 mg PO DAILY 11/11/20 [History] Cholecalciferol [Vitamin D3 (25 Mcg = 1000 Iu)] 50 mcg PO DAILY 11/11/20 [History] Furosemide [Lasix] 80 mg PO Q48H 11/11/20 [History] Semaglutide [Ozempic] 0.25 mg SQ LOZANO 11/11/20 [History] lisinopriL [Zestril] 5 mg PO DAILY 11/11/20 [History] Amoxic-Pot Clav 500-125 mg [Augmentin 500-125 mg] 1 each PO Q12HR #14 tab 11/16/20 [Rx] Ipratropium-Albuterol Nebulize [Duoneb 0.5 mg-3 mg/3 ml Soln] 3 ml INHALATION RT-QID #120 inh 11/16/20 [Rx] predniSONE 0 mg PO DIRECTED #30 tab 11/16/20 [Rx] Follow up Appointment(s)/Referral(s): Cedric Zavala MD [STAFF PHYSICIAN] - 11/29/20 10:30 am Dimple Wooten MD [Primary Care Provider] - 11/24/20 1:45 pm Laura Adams MD [STAFF PHYSICIAN] - 12/01/20 2:45 am (With Jenna Proctor NP) Patient Instructions/Handouts: COPD (Chronic Obstructive Pulmonary Disease) (DC), Acute Respiratory Failure (GEN) Discharge Disposition: HOME SELF-CARE
[2020-11-16] MEDS ORDERED: predniSONE 20 MG TAB PO SCH (09:00)
[2020-11-16 09:28] VITALS: BP 97/61; PULSE 95; RESP 18; TEMP 98
[2020-11-16] MEDS: LINAGLIPTIN 5 MG TABLET PO SCH (09:29)
[2020-11-16] MEDS: ATORVASTATIN 40 MG TAB PO SCH (09:29)
[2020-11-16] MEDS: VIT A,C & E-LUTEIN-MINERALS 1 EACH TAB PO SCH (09:29)
[2020-11-16] MEDS: APIXABAN 5 MG TAB PO SCH (09:30)
[2020-11-16] MEDS: ASPIRIN 81 MG PO SCH (09:30)
[2020-11-16] MEDS: lisinopriL 5 MG TAB PO SCH (09:30)
[2020-11-16] MEDS: amLODIPine 5 MG TAB PO SCH (09:30)
[2020-11-16] MEDS: METOPROLOL TARTRATE 25 MG TAB PO SCH (09:30)
[2020-11-16] MEDS: AMOXIC-POT CLAV 500-125 MG 1 EACH TAB PO SCH (09:30)
[2020-11-16] MEDS: FUROSEMIDE 20 MG TAB PO SCH (09:30)
[2020-11-16] MEDS: CHOLECALCIFEROL 25 MCG (1000 IU) TABLET PO SCH (09:30)
[2020-11-16] MEDS: MULTIVITAMINS, THERA 1 EACH TAB PO SCH (09:31)
--- NOTE | 2020-11-16 10:56 | P.PN ---
Subjective Progress Note Date: 11/16/20 COPD exacerbation, atypical pneumonia 70-year-old obese white female with a history of atrial fibrillation, who comes into the emergency room on November 11 in the morning, complaining of shortness of breath. She apparently felt fine the night before. The patient denies any fever or chills. She denies any chest pain or chest discomfort. The patient does have a bit of a dry nonproductive cough. The patient was seen in the emergency room, and she tells me, she was diagnosed as having pneumonia. The patient is currently on saline at 30 mL an hour, and oxygen at 6 L. The patient does have a history of sleep apnea syndrome. She sees my partner for that. She also did smoke for about 15 years. She smoked less than one pack a day. She denies using oxygen at home, and she also denies using oxygen with her CPAP device. She was placed on BiPAP when she was admitted, with settings of 12/6 and 40%. Her medical problems include CAD, diabetes, hyperlipidemia, hypertension, and obstructive sleep apnea syndrome, and she also has a history of psoriasis. In addition, she's had a previous stent. The patient was seen today 11/12/2020 and follow-up on the selective care unit. She is currently sitting up in bed. Awake and alert in no acute distress. Breathing easier today compared to yesterday. Maintaining O2 saturations in the 90s on 4 L/m per nasal cannula. She's afebrile. Hemodynamically stable. White count 11.4. Hemoglobin 10.0. Sodium 137. Potassium 4.0. Creatinine 1.71. She is continued on bronchodilators, antibiotics in the form of Augmentin. Anticoagulated with Eliquis. She remains on IV diuretics. The patient is seen today 11/13/2020 follow-up on the selective care unit. She is currently sitting up in a chair at the bedside. Awake and alert in no acute distress. Denies any worsening shortness of breath, cough or congestion. Some dyspnea on exertion. Maintaining O2 saturations in the 90s on 3 L/m per nasal cannula. White count 8.8. Hemoglobin 8.5. Sodium 136. Potassium 4.1. Creatinine 1.77. She remains on DuoNeb inhalations antibiotics in the form of Augmentin. Anticoagulated with Eliquis. Remains on oral diuretics. Follow-up chest x-ray reveals no acute pulmonary process. 11/14/2020, the patient is feeling slightly better. She is on and off on oxygen and she was placed again and actually at 2 L per minute nasal cannula. She is having some chest congestion and wheezing. The cough is nonproductive. No other complaints otherwise for now. She has brought her own CPAP even from home and she also has a touch fullface mask. She has CAD, diabetes mellitus, hyperlipidemia, hypertension and obstructive sleep apnea as comorbid conditions. She has undergone previous coronary stenting. The patient remains on Lasix. The patient is ex smoker. She does not utilize home oxygen. Her proBNP level was 3870 in time of admission. Her blood gas showed no significant CO2 retention. On today's evaluation of 11/15/2020, the patient is feeling better. She is sitting up on a chair. She is having her lunch. She is on room air oxygen. She is short of breath. Her cough is nonproductive. No chest pain. Much less bronchospastic and wheezy compared to yesterday. Chest congestion is also subsided. The patient is utilizing her on CPAP from home. She is an ex-smoker. She is on oral Lasix for now. She is taking Lasix at a dose of 60 mg by mouth daily. She is also on long-term articulation with Eliquis. She has been switched to oral Augmentin 8 500 mg every 12 hours. I had on IV Solu Medrol for yesterday and I'm going to put on a prednisone burst taper. She has developed some mild hyperglycemia related to steroids. NovoLog is at 6 units with meals 3 times a day and she also has a scaly in addition to Trajenda for blood sugar control. 11/16/2020, the patient is doing well. No specific complaints. She is on room air oxygen. She continues to improve in terms of her COPD exacerbation. She was switched to oral Augmentin. She was also on IV Solu-Medrol and I started on a prednisone burst taper as of yesterday. She has no other new complaints otherwise. On room air oxygen her pulse ox is 92%. The derangements are being done to discharge this patient home today. She is on long-term and to coa gulation with Eliquis. She is also on oral Lasix. Blood sugar from today is at 197. Overall fluid balance over this past 3 days has been essentially negative and the patient's has been maintaining a negative fluid balance while being on Lasix. Objective - Vital Signs Vital signs: Vital Signs Temp 98 F 11/16/20 09:27 Pulse 95 11/16/20 09:27 Resp 18 11/16/20 09:27 BP 97/61 11/16/20 09:27 Pulse Ox 92 L 11/16/20 09:27 Intake & Output 11/15/20 11/16/20 11/16/20 18:59 06:59 18:59 Intake Total 2297 240 Output Total 1800 600 Balance 497 -360 Weight 121.4 kg Intake: IV 20 Invasive Line 2 20 Oral 2277 240 Output: Urine 1800 600 Other: Voiding Method Toilet Toilet # Voids 2 - Exam GENERAL EXAM: Alert, active, pleasant 70-year-old female patient, on room air oxygen, comfortable in no apparent distress. HEAD: Normocephalic. EYES: Normal reaction of pupils, equal size. NOSE: Clear with pink turbinates. THROAT: No erythema or exudates. NECK: No masses, no JVD. CHEST: No chest wall deformity. LUNGS: Equal air entry with no crackles, rhonchi or wheeze. CVS: S1 and S2 normal with no audible murmur, regular rhythm. ABDOMEN: No hepatosplenomegaly, normal bowel sounds, no guarding or rigidity. SPINE: No scoliosis or deformity SKIN: No rashes CENTRAL NERVOUS SYSTEM: No focal deficits, tone is normal in all 4 extremities. EXTREMITIES: There is no peripheral edema. No clubbing, no cyanosis. Periphera l pulses are intact. - Labs CBC & Chem 7: 11/14/20 07:19 11/15/20 06:37 Labs: Abnormal Lab Results - Last 24 Hours (Table) 11/15/20 11/15/20 11/15/20 Range/Units 11:50 16:49 20:02 POC Glucose (mg/dL) 238 H 285 H 297 H (75-99) mg/dL 11/16/20 Range/Units 07:18 POC Glucose (mg/dL) 197 H (75-99) mg/dL Assessment and Plan Plan: 1 Acute on chronic hypoxemic respiratory failure secondary to fluid volume overload, mild COPD exacerbation, possible atypical pneumonia, clinically improved. The patient is currently on room air oxygen. She is not having any significant respiratory distress. Her last chest x-rays from 11/13/2020 and it showed no acute processes and there was no focal airspace disease or pneumothorax or consolidation. She responded nicely with a combination of diuretics steroids and antibiotics which is currently on oral Augmentin. 2 Obstructive sleep apnea, maintained on CPAP 3 CAD with previous stent placement 4 Morbid obesity 5 Diabetes mellitus 6 Hyperlipidemia 7 Hypertension 8 History of psoriasis Plan: Improving clinically, consider discharging home today Patient is currently on room air oxygen Prednisone burst taper Monitor the blood sugars Chest x-ray was noted from 11/13/2020 She is currently stable from the pulmonary standpoint continue the course of Augmentin at home. DuoNeb about treatments around the clock. Continue using her own CPAP. We'll continue to follow on an outpatient basis.
--- NOTE | 2020-11-16 14:25 | P.PN ---
Subjective Progress Note Date: 11/15/20 HISTORY OF PRESENT ILLNESS: This is a 70-year-old female patient of mine with past medical his tory of diabetes mellitus type 2, diabetic polyneuropathy, paroxysmal atrial fibrillation, psoriasis, COPD, hypertension, coronary artery disease status post stenting of the mid LAD [place] [address] Zavala, remote history of tobacco use and dependence, obesity with obstructive sleep apnea and obesity hypoventilation syndrome. Patient presented to the emergency department at [facility] today with increased cough and shortness breath associated with dry nonproductive cough for the past 24 hours, patient had a chest x-ray that showed minimal interstitial edema, possible atypical pneumonia, she was given Lasix in the emergency department as well as nebulized treatment she is currently on 6 L nasal cannula her oxygen saturation around 98%, she was started on oral antibiotic and she was admitted to the hospital for evaluation patient was seen by pulmonary medicine in the emergency department he was recommended to continue oral antibiotic as well as at the last treatment in the form of DuoNeb 3 mg nebulization 4 times every day as well as Pulmicort she was admitted to the hospital for further evaluation and treatment. 11/12: Patient sitting up in bed in minimal respiratory distress, she continues to be on oxygen, she continues to receive DuoNeb 3 mL nebulization 4 times every day, she does complain of some dry cough with no phlegm production, she continues to have some edema both lower extremities, she appears a bit better than yesterday, she seems to be tolerating her treatment very well. 11/13: Patient is feeling a bit better today, she denies any chest pain, she continues to have some minimal cough, no phlegm production, her swelling is much better today, she denies any abdominal pain, nausea vomiting or diarrhea she continues to be taken her medication and seems to be tolerating treatment very well. 11/14: Patient's breathing is improved today from yesterday. She has some dyspnea with exertion, nonproductive cough, no lower extremity edema. Patient chest x-ray shows no acute cardio pulmonary process. She isn't Solu-Medrol 40 mg every 8 hours, Lasix transitioned to oral at 80 mg daily. 11/15: She states that her breathing is a little better from yesterday, lower extremity edema is improved. Solu-Medrol will be decreased to 40 mg every 12 hours. Lasix has been decreased to 60 mg daily. Breathing is slightly better from yesterday growing daily. Patient is upset that blood sugars are elevated secondary to steroids, and usually well controlled at home. Anticipate discharge home tomorrow. REVIEW OF SYSTEMS: Constitutional: No documented fever, no chills, no night sweats. No weight change. No weakness, fatigue or lethargy. No daytime sleepiness. HEENT: No headache. No blurred vision or double vision, no loss of vision. No loss of Hearing, no ringing in the ears, no dizziness. No nasal drainage or congestion. No epistaxis. No sore throat. Lungs: positive for shortness of breath, positive for dry cough, no sputum production. Denies wheezing. Reports dyspnea with activity. Cardiovascular: No chest pain, denies lower extremity edema. No palpitations. No paroxysmal nocturnal dyspnea. No orthopnea. No lightheadedness or diz ziness. No syncopal episodes. Abdominal: Reports no abdominal pain. No nausea, vomiting. No diarrhea. No constipation. No bloody or tarry stools reports loss of appetite. Genitourinary: No dysuria, increased frequency, urgency. No urinary retention. Musculoskeletal: No myalgias. No muscle weakness, no gait dysfunction, no frequent falls. positive fpr back pain. No neck pain. Integumentary: No wounds, no lesions. positive for dry skin. positive for bruising. No change in hair or nails. Neurologic: No aphasia. No facial droop. No change in mentation. No head injury. No headache. No paralysis. No paresthesia. Psychiatric: No depression. No anxiety. No mood swings. Endocrine: Elevated abnormal blood sugars. No weight change. PHYSICAL EXAMINATION: General: 70-year-old female sitting up in bed in no respiratory distress HEENT: Head is atraumatic, normocephalic, pupils were equal round reactive to light and recommendation, extraocular muscle movement were intact, sclera nonicteric, conjunctivae were pale, mucous membranes of the mouth are somewhat dry. Neck: Supple, no JVP, normal carotid upstroke bilaterally, no lymphadenopathy. Chest: Decreased breath sounds at the bases, no chest wall tenderness, minimal intercostal retractions. Heart: First heart sound is normal, second heart sounds normal, there is systolic ejection murmur 2/6 located in the left sternal border. Abdomen: Soft, nontender, nondistended, positive bowel sounds Extremities: There is no edema no calf tenderness DP +1 bilaterally. Neurologic examination: Patient is awake alert and oriented X 3, cranial nerves II-12 appear grossly intact, muscle power were 4 out of 5 in upper extremities and 4 out of 5 in bilateral lower extremities. ASSESSMENT AND PLAN: 1. Acute hypoxemic respiratory failure secondary to a combination of acute diastolic heart failure and COPD exacerbation. Continue Lasix 60 mg orally once every day, continue metoprolol 25 mg orally twice every day, lisinopril 5 mg orally once every day, monitor input and output and daily weight, continue DuoNeb 3 mL nebulization 4 times every day and as needed every 4 hours, continue Augmentin 500/125 mg orally twice every day, likely patient will be discharged home in the next 24 hours. 2. Acute COPD exacerbation. Continue DuoNeb 3 mg nebulization 4 times every day, continue oxygen support, continue IV Solu-Medrol 40 mg decreased frequency to every 12 hours, continue to monitor the patient very closely pulmonary is following. 3. Acute/chronic diastolic heart failure. Continue patient on metoprolol 25 mg orally twice every day, Lasix 80 mg orally daily, lisinopril 5 mg orally once every day, monitor the patient weight input and output as well. 4. hypertension and hypertensive cardiovascular disease. Continue patient on metoprolol 25 mg orally twice every day and lisinopril 5 mg orally once every day monitor the patient blood pressure very closely. 5. Hyperlipidemia. Continue Lipitor 40 mg orally once every day keep LDL cholesterol 55-70 per he 6. Diabetes mellitus type 2, uncontrolled with hyperglycemia secondary to steroids. Continue patient on Tradjenta 5 mg orally once every day, Glimeperide 4 mg orally once every day, hold Ozempic in the hospital, continue to monitor the patient BGM before each meal and at bedtime. Steroids frequency decreased. 7. Paroxysmal atrial fibrillation. Continue metoprolol 25 mg orally twice every day, continue Eliquis 5 mg orally twice every day. 8. Coronary artery disease status post PCI of the LAD in 2017. Continue metoprolol 25 mg orally twice every day, aspirin 81 mg once every day, Lipitor 40 mg orally once every day keep LDL 55-70. 9. Hypothyroidism. Continue Synthroid 25 incision orally once every day. 10. Obesity with obstructive sleep apnea. Continue patient on current CPAP. 11. History of psoriasis. Stable. 12. Chronic kidney disease stage III a. Monitor the patient CMP, avoid nephrotoxins per 13. DVT prophylaxis. Continue patient on Eliquis 5 mg orally twice every day. 14. GI prophylaxis. Continue Protonix 40 mg orally once every day. 15. Home in AM Impression and plan of care have been directed as dictated by the signing physician. Antonette Carson nurse practitioner acting as scribe for signing physician. Objective - Vital Signs Vital signs: Vital Signs Temp 98.4 F 11/15/20 04:00 Pulse 86 11/15/20 04:00 Resp 18 11/15/20 04:00 BP 175/71 11/15/20 04:00 Pulse Ox 93 L 11/15/20 04:00 Intake & Output 11/14/20 11/15/20 11/15/20 18:59 06:59 18:59 Intake Total 940 10 Output Total 1800 400 Balance -860 -390 Weight 121.2 kg Intake: IV 20 10 Invasive Line 1 20 10 Oral 920 Output: Urine 1800 400 Other: Voiding Method Toilet # Voids 1 - Labs CBC & Chem 7: 11/14/20 07:19 11/15/20 06:37 Labs: Abnormal Lab Results - Last 24 Hours (Table) 11/14/20 11/14/20 11/14/20 Range/Units 07:19 07:19 11:23 RBC 2.44 L (3.80-5.40) m/uL Hgb 9.0 L (11.4-16.0) gm/dL Hct 27.1 L (34.0-46.0) % MCV 111.2 H (80.0-100.0) fL MCH 37.0 H (25.0-35.0) pg Macrocytosis Marked A BUN 62 H (7-17) mg/dL Creatinine 1.77 H (0.52-1.04) mg/dL Glucose 61 L (74-99) mg/dL POC Glucose (mg/dL) 205 H (75-99) mg/dL Total Protein 5.7 L (6.3-8.2) g/dL Albumin 3.1 L (3.5-5.0) g/dL 11/14/20 11/14/20 11/14/20 Range/Units 13:43 16:27 20:14 RBC (3.80-5.40) m/uL Hgb (11.4-16.0) gm/dL Hct (34.0-46.0) % MCV (80.0-100.0) fL MCH (25.0-35.0) pg Macrocytosis BUN (7-17) mg/dL Creatinine (0.52-1.04) mg/dL Glucose (74-99) mg/dL POC Glucose (mg/dL) 179 H 179 H 314 H (75-99) mg/dL Total Protein (6.3-8.2) g/dL Albumin (3.5-5.0) g/dL 11/15/20 Range/Units 06:16 RBC (3.80-5.40) m/uL Hgb (11.4-16.0) gm/dL Hct (34.0-46.0) % MCV (80.0-100.0) fL MCH (25.0-35.0) pg Macrocytosis BUN (7-17) mg/dL Creatinine (0.52-1.04) mg/dL Glucose (74-99) mg/dL POC Glucose (mg/dL) 232 H (75-99) mg/dL Total Protein (6.3-8.2) g/dL Albumin (3.5-5.0) g/dL
== END 2020-11-16 11:08 | disposition home or self-care (01) | DRG 291 ==
LOC: EC 08:40 → 3SCARD 11:34
PROVIDERS: ADMIT Internal Medicine; ATTEND Internal Medicine
PROC: 5A09357 Assistance with Respiratory Ventilation, Less than 24 Consecutive Hours, Continuous Positive Airway Pressure (ICD-10-PCS; principal; 2020-11-11)
DX: I13.0 Hypertensive heart and chronic kidney disease with heart failure and stage 1 through stage 4 chronic kidney disease, or unspecified chronic kidney disease (principal); J18.9 Pneumonia, unspecified organism; I50.33 Acute on chronic diastolic (congestive) heart failure; J96.21 Acute and chronic respiratory failure with hypoxia; J44.0 Chronic obstructive pulmonary disease with (acute) lower respiratory infection; E87.3 Alkalosis; J44.1 Chronic obstructive pulmonary disease with (acute) exacerbation; Z68.42 Body mass index [BMI] 45.0-49.9, adult; E03.9 Hypothyroidism, unspecified; E11.22 Type 2 diabetes mellitus with diabetic chronic kidney disease; E11.42 Type 2 diabetes mellitus with diabetic polyneuropathy; E11.65 Type 2 diabetes mellitus with hyperglycemia; E66.01 Morbid (severe) obesity due to excess calories; E78.5 Hyperlipidemia, unspecified; F17.200 Nicotine dependence, unspecified, uncomplicated; G47.33 Obstructive sleep apnea (adult) (pediatric); I08.1 Rheumatic disorders of both mitral and tricuspid valves; I27.20 Pulmonary hypertension, unspecified; Z20.822 Contact with and (suspected) exposure to COVID-19; I25.10 Atherosclerotic heart disease of native coronary artery without angina pectoris; I48.0 Paroxysmal atrial fibrillation; N18.31 Chronic kidney disease, stage 3a; T38.0X5A Adverse effect of glucocorticoids and synthetic analogues, initial encounter; Z79.01 Long term (current) use of anticoagulants; Z79.82 Long term (current) use of aspirin; Z79.84 Long term (current) use of oral hypoglycemic drugs; Z79.890 Hormone replacement therapy; Z79.899 Other long term (current) drug therapy; Z80.0 Family history of malignant neoplasm of digestive organs; Z80.41 Family history of malignant neoplasm of ovary; Z82.49 Family history of ischemic heart disease and other diseases of the circulatory system; Z95.5 Presence of coronary angioplasty implant and graft
CPT/HCPCS: 36415; 36600; 71045; 80048; 80053; 82805; 83605; 83735; 83880; 84145; 84484; 85025; 85610; 85730; 87635; 93005; 94640; 94660; 94760; 99291

== ENCOUNTER 2020-11-25 13:11 | Inpatient (IN) | payer MEDICARE ==
[2020-11-25 14:48] LABS: Albumin 3.6 g/dL (3.5-5.0); Calcium 8.8 mg/dL (8.4-10.2); Potassium 5.1 mmol/L (3.5-5.1); Total Bilirubin 0.4 mg/dL (0.2-1.3); Total Protein 5.9 g/dL (6.3-8.2)
[2020-11-25 14:58] LABS: Prothrombin Time 10.9 sec (9.0-12.0)
[2020-11-25 15:02] LABS: Partial Thromboplastin Time 20.3 sec (22.0-30.0)
[2020-11-25 15:15] LABS: Basophils % (A) 0 %; Eosinophils % (A) 0 %; HCT 20.6 % (34.0-46.0); Hypochromasia Slight; Lymphocytes # (A) 1.7 k/uL (1.0-4.8); Lymphocytes % (A) 8 %; MCH 35.1 pg (25.0-35.0); MCHC 31.5 g/dL (31.0-37.0); Macrocytosis Marked; Mean Platelet Volume 10.1; Monocytes # (A) 0.9 k/uL (0-1.0); Monocytes % (A) 4 %; Neutrophils # (A) 17.1 k/uL (1.3-7.7); Neutrophils % (A) 85 %; Platelet Count 389 k/uL (150-450); Poikilocytosis Slight; RBC 1.85 m/uL (3.80-5.40); RDW 15.8 % (11.5-15.5)
[2020-11-25 15:17] LABS: HGB 6.5 gm/dL (11.4-16.0); MCV 111.5 fL (80.0-100.0)
[2020-11-25] MEDS ORDERED: NALOXONE 0.4 MG/ML 1 ML VIAL IV PRN (17:02)
--- NOTE | 2020-11-25 18:41 | ED ---
General Adult HPI - General Chief complaint: Recheck/Abnormal Lab/Rx Stated complaint: low hgb sent by pcp Time Seen by Provider: 11/25/20 15:03 Source: patient, RN notes reviewed, old records reviewed Mode of arrival: ambulatory Limitations: no limitations - History of Present Illness Initial comments: I evaluated the patient when she was placed in a room. Work up was started by triage. Patient is a 70-year-old female with past medical history remarkable for CAD, diabetes, hypertension, paroxysmal atrial fibrillation on elliquis, COPD who presents emergency Department after being sent in by PCP for anemia. Patient has been feeling fatigued lately, but denies any fevers, chills, sick contacts. Denies any chest pain, shortness breath, abdominal pain, nausea, vomiting. Denies any bloody emesis. Denies any worsening darkening of her stools. Denies any black tarry stools. Denies any pain with defecation. Denies any bright red blood per rectum. Denies any hematuria. She does have a history of CK D as well. She has no known source of acute bleeding. She states that this fatigue has been ongoing since she was last in the hospital. Hemoglobin was found to be in the upper 6's and her PCP instructed her to come to the emergency department. She states she last received a colonoscopy approximately 1 year ago and it was normal. She is no history of GI bleed. She has no acute complaints at this time. - Related Data Home Medications Medication Instructions Recorded Confirmed Aspirin [Adult Low Dose Aspirin EC] 81 mg PO Q48H 08/28/16 11/25/20 Multivit-Min/FA/Lycopen/Lutein 1 tab PO DAILY 08/28/16 11/25/20 [Centrum Silver Tablet] Glimepiride [Amaryl] 4 mg PO BID 04/08/18 11/25/20 Levothyroxine Sodium [Synthroid] 25 mcg PO DAILY 04/08/18 11/25/20 Vit C/E/Zn/Coppr/Lutein/Zeaxan 2 cap PO DAILY 04/08/18 11/25/20 [Preservision Areds 2 Softgel] sitaGLIPtin [Januvia] 50 mg PO DAILY 04/08/18 11/25/20 Atorvastatin [Lipitor] 40 mg PO DAILY 11/11/20 11/25/20 Cholecalciferol [Vitamin D3 (25 50 mcg PO DAILY 11/11/20 11/25/20 Mcg = 1000 Iu)] Furosemide [Lasix] 80 mg PO Q48H 11/11/20 11/25/20 Semaglutide [Ozempic] 0.25 mg SQ LOZANO 11/11/20 11/25/20 lisinopriL [Zestril] 5 mg PO DAILY 11/11/20 11/25/20 predniSONE See Taper PO DAILY 11/25/20 11/25/20 Previous Rx's Medication Instructions Recorded Metoprolol Tartrate [Lopressor] 25 mg PO BID #180 tab 09/04/16 amLODIPine BESYLATE [Norvasc] 5 mg PO DAILY #1 tablet 09/04/16 Apixaban [Eliquis] 5 mg PO BID #60 tab 09/03/19 Ipratropium-Albuterol Nebulize 3 ml INHALATION RT-QID #120 inh 11/16/20 [Duoneb 0.5 mg-3 mg/3 ml Soln] Allergies Allergy/AdvReac Type Severity Reaction Status Date / Time No Known Allergies Allergy Verified 11/25/20 16:40 Review of Systems ROS Statement: Those systems with pertinent positive or pertinent negative responses have been documented in the HPI. Review of Systems: CONST: Endorses generalized fatigue. EYES: Denies blurry vision ENT: Denies nasal congestion C/V: Denies Chest pain RESP: Denies shortness of breath GI: Denies abdominal pain : Denies dysuria SKIN: Denies rash. MSK: Denies joint pain. NEURO: Denies headache ROS Other: All systems not noted in ROS Statement are negative. Past Medical History Past Medical History: Coronary Artery Disease (CAD), Diabetes Mellitus, Hyperlipidemia, Hypertension, Skin Disorder, Sleep Apnea/CPAP/BIPAP Additional Past Medical History / Comment(s): Hx Psoriasis History of Any Multi-Drug Resistant Organisms: None Reported Past Surgical History: Heart Catheterization With Stent Additional Past Surgical History / Comment(s): Cataracts, abcess on buttocks, colonoscopies Past Anesthesia/Blood Transfusion Reactions: No Reported Reaction Date of Last Stent Placement:: unknown Past Psychological History: No Psychological Hx Reported Smoking Status: Never smoker Past Alcohol Use History: None Reported Past Drug Use History: None Reported - Past Family History Mother Family Medical History: Hypertension Additional Family Medical History / Comment(s): Mother in her 80s from old age. Father Family Medical History: Hypertension Additional Family Medical History / Comment(s): Father at age 70 during his sleep of unknown cause. Sister(s) Additional Family Medical History / Comment(s): Patient has 3 sisters and one has from ovarian cancer. One is alive with colon cancer and doing very po albino expected to sound. One sister has no major medical problems. Brother(s) Additional Family Medical History / Comment(s): The patient has 1 brother with no major medical problems. Patient does not have any children. General Exam - General Exam Comments Initial Comments: General: Appears in no acute distress. HEAD: Normal with no signs of head trauma. EYES: PERRLA, EOMI, conjunctiva normal, no discharge. No conjunctival pallor. ENT: Hearing grossly intact, normal oropharynx. RESPIRATORY: Clear breath sounds bilaterally. No wheezes, rales, or rhonchi. C/V: Regular rate and rhythm. S1 and S2 auscultated, no edema, peripheral pulses 2+ and intact throughout ABD: Abd is soft, nontender, nondistended. Rectal exam was performed in the presence of a female staff member. There is no gross blood. There is a uncomplicated external hemorrhoid. Stools are brown in color. FOB T was sent. EXT: Normal range of motion, no obvious deformity SKIN: No rashes or lesions observed on exposed skin. NEURO: Alert and oriented x 4. Cranial nerves II-XII intact. No focal sensory or strength deficits. Limitations: no limitations Course Vital Signs 11/25/20 11/25/20 11/25/20 14:10 15:56 17:50 Temperature 98 F 97.9 F Pulse Rate 71 68 61 Respiratory 18 18 16 Rate Blood Pressure 97/44 124/63 107/51 O2 Sat by Pulse 94 L 99 Oximetry Medical Decision Making - Medical Decision Making Based on the patient's presentation and physical exam, I'm concerned for acute symptomatically anemia at this time. There is no obvious source of bleeding. Occult blood will be sent. CBC and basic labs were sent by nursing in triage. Patient's exam is otherwise unremarkable. Vital signs are within normal limits and stable. She has no signs of acute significant bleeding, she is not tachycardic, has no pain, and rectal exam was relatively unremarkable. She is resting comfortably at this time. Patient was in agreement this plan. Patient's trace studies were remarkable for a macrocytic anemia with a hemoglobin of 6.5. Baseline hemoglobin for the patient is typically above 8 or 9. Patient has an elevated BUN/creatinine the setting of CK D. Patient is mildly hyponatremic to 132. Troponin is negative. FOB T did result positive. Inform the patient results of her laboratory studies. We will transfuse her 2 u nits of blood. I contacted her PCP, Dr. Wooten who sent the patient into the emergency department for evaluation. He was in agreement this plan. We will admit the patient a repeat CBC tomorrow. She remained stable throughout her time in the emergency department. She has no episodes of large GI bleeding. She was in agreement this plan. GI was consulted by myself, Dr. Núñez. Patient was therefore admitted in stable condition to a telemetry bed. We will hold her nightly elliquis dose tonight. - Lab Data Result diagrams: 11/25/20 14:30 11/25/20 14:30 Lab Results 11/25/20 11/25/20 11/25/20 Range/Units 14:30 14:30 14:30 WBC 20.0 H (3.8-10.6) k/uL RBC 1.85 L (3.80-5.40) m/uL Hgb 6.5 L* (11.4-16.0) gm/dL Hct 20.6 L (34.0-46.0) % MCV 111.5 H D (80.0-100.0) fL MCH 35.1 H (25.0-35.0) pg MCHC 31.5 (31.0-37.0) g/dL RDW 15.8 H (11.5-15.5) % Plt Count 389 (150-450) k/uL MPV 10.1 Neutrophils % 85 % Lymphocytes % 8 % Monocytes % 4 % Eosinophils % 0 % Basophils % 0 % Neutrophils # 17.1 H (1.3-7.7) k/uL Lymphocytes # 1.7 (1.0-4.8) k/uL Monocytes # 0.9 (0-1.0) k/uL Eosinophils # 0.0 (0-0.7) k/uL Basophils # 0.0 (0-0.2) k/uL Hypochromasia Slight Poikilocytosis Slight Macrocytosis Marked A PT 10.9 (9.0-12.0) sec INR 1.0 (<1.2) APTT 20.3 L (22.0-30.0) sec Sodium 132 L (137-145) mmol/L Potassium 5.1 (3.5-5.1) mmol/L Chloride 102 (98-107) mmol/L Carbon Dioxide 21 L (22-30) mmol/L Anion Gap 9 mmol/L BUN 64 H (7-17) mg/dL Creatinine 1.69 H (0.52-1.04) mg/dL Est GFR (CKD-EPI)AfAm 35 (>60 ml/min/1.73 sqM) Est GFR (CKD-EPI)NonAf 30 (>60 ml/min/1.73 sqM) Glucose 230 H (74-99) mg/dL Calcium 8.8 (8.4-10.2) mg/dL Total Bilirubin 0.4 (0.2-1.3) mg/dL AST 25 (14-36) U/L ALT 75 H (4-34) U/L Alkaline Phosphatase 79 (38-126) U/L Troponin I (0.000-0.034) ng/mL Total Protein 5.9 L (6.3-8.2) g/dL Albumin 3.6 (3.5-5.0) g/dL Stool Occult Blood (Negative) Blood Type Blood Type Confirm Blood Type Recheck Bld Type Recheck Status Antibody Screen Crossmatch Spec Expiration Date 11/25/20 11/25/20 11/25/20 Range/Units 14:30 15:15 15:20 WBC (3.8-10.6) k/uL RBC (3.80-5.40) m/uL Hgb (11.4-16.0) gm/dL Hct (34.0-46.0) % MCV (80.0-100.0) fL MCH (25.0-35.0) pg MCHC (31.0-37.0) g/dL RDW (11.5-15.5) % Plt Count (150-450) k/uL MPV Neutrophils % % Lymphocytes % % Monocytes % % Eosinophils % % Basophils % % Neutrophils # (1.3-7.7) k/uL Lymphocytes # (1.0-4.8) k/uL Monocytes # (0-1.0) k/uL Eosinophils # (0-0.7) k/uL Basophils # (0-0.2) k/uL Hypochromasia Poikilocytosis Macrocytosis PT (9.0-12.0) sec INR (<1.2) APTT (22.0-30.0) sec Sodium (137-145) mmol/L Potassium (3.5-5.1) mmol/L Chloride (98-107) mmol/L Carbon Dioxide (22-30) mmol/L Anion Gap mmol/L BUN (7-17) mg/dL Creatinine (0.52-1.04) mg/dL Est GFR (CKD-EPI)AfAm (>60 ml/min/1.73 sqM) Est GFR (CKD-EPI)NonAf (>60 ml/min/1.73 sqM) Glucose (74-99) mg/dL Calcium (8.4-10.2) mg/dL Total Bilirubin (0.2-1.3) mg/dL AST (14-36) U/L ALT (4-34) U/L Alkaline Phosphatase (38-126) U/L Troponin I <0.012 (0.000-0.034) ng/mL Total Protein (6.3-8.2) g/dL Albumin (3.5-5.0) g/dL Stool Occult Blood (Negative) Blood Type A Positive Blood Type Confirm A Positive Blood Type Recheck No Previous Record Bld Type Recheck Status CABO Indicated Antibody Screen NEGATIVE Crossmatch See Detail Spec Expiration Date 11/28/2020 - 231411/25/20 Range/Units 17:00 WBC (3.8-10.6) k/uL RBC (3.80-5.40) m/uL Hgb (11.4-16.0) gm/dL Hct (34.0-46.0) % MCV (80.0-100.0) fL MCH (25.0-35.0) pg MCHC (31.0-37.0) g/dL RDW (11.5-15.5) % Plt Count (150-450) k/uL MPV Neutrophils % % Lymphocytes % % Monocytes % % Eosinophils % % Basophils % % Neutrophils # (1.3-7.7) k/uL Lymphocytes # (1.0-4.8) k/uL Monocytes # (0-1.0) k/uL Eosinophils # (0-0.7) k/uL Basophils # (0-0.2) k/uL Hypochromasia Poikilocytosis Macrocytosis PT (9.0-12.0) sec INR (<1.2) APTT (22.0-30.0) sec Sodium (137-145) mmol/L Potassium (3.5-5.1) mmol/L Chloride (98-107) mmol/L Carbon Dioxide (22-30) mmol/L Anion Gap mmol/L BUN (7-17) mg/dL Creatinine (0.52-1.04) mg/dL Est GFR (CKD-EPI)AfAm (>60 ml/min/1.73 sqM) Est GFR (CKD-EPI)NonAf (>60 ml/min/1.73 sqM) Glucose (74-99) mg/dL Calcium (8.4-10.2) mg/dL Total Bilirubin (0.2-1.3) mg/dL AST (14-36) U/L ALT (4-34) U/L Alkaline Phosphatase (38-126) U/L Troponin I (0.000-0.034) ng/mL Total Protein (6.3-8.2) g/dL Albumin (3.5-5.0) g/dL Stool Occult Blood Positive H (Negative) Blood Type Blood Type Confirm Blood Type Recheck Bld Type Recheck Status Antibody Screen Crossmatch Spec Expiration Date Disposition Clinical Impression: Occult blood positive stool, Symptomatic anemia, History of atrial fibrillation, 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
[2020-11-25] MEDS: IPRATROPIUM-ALBUTEROL 3 ML NEB INHALATION SCH (20:11)
[2020-11-26] MEDS: METOPROLOL TARTRATE 25 MG TAB PO SCH ×2 (01:34→08:57)
[2020-11-26] MEDS: GLIMEPIRIDE 2 MG TAB PO SCH ×3 (01:34→17:24)
[2020-11-26] MEDS: LEVOTHYROXINE 25 MCG TAB PO SCH (06:33)
[2020-11-26 08:25] LABS: African American GFR (CKD) 37 (>60 ml/min/1.73 sqM); Anion Gap 4 mmol/L; Blood Urea Nitrogen 57 mg/dL (7-17); Calcium 8.6 mg/dL (8.4-10.2); Carbon Dioxide 25 mmol/L (22-30); Chloride 106 mmol/L (98-107); Glucose 53 mg/dL (74-99); Non-African American GFR(CKD) 32 (>60 ml/min/1.73 sqM); Potassium 4.7 mmol/L (3.5-5.1); Sodium 135 mmol/L (137-145)
[2020-11-26 08:33] LABS: Anisocytosis Slight; Basophils % (A) 0 %; Eosinophils # (A) 0.2 k/uL (0-0.7); Eosinophils % (A) 1 %; HCT 25.9 % (34.0-46.0); Hypochromasia Slight; Lymphocytes # (A) 3.5 k/uL (1.0-4.8); Lymphocytes % (A) 23 %; MCH 33.1 pg (25.0-35.0); MCHC 32.2 g/dL (31.0-37.0); Macrocytosis Moderate; Mean Platelet Volume 10.7; Monocytes # (A) 0.9 k/uL (0-1.0); Monocytes % (A) 6 %; Neutrophils # (A) 10.4 k/uL (1.3-7.7); Neutrophils % (A) 67 %; Platelet Count 310 k/uL (150-450); Poikilocytosis Moderate; RBC 2.52 m/uL (3.80-5.40); RDW 18.7 % (11.5-15.5); WBC 15.5 k/uL (3.8-10.6)
[2020-11-26 08:35] LABS: HGB 8.3 gm/dL (11.4-16.0); MCV 102.8 fL (80.0-100.0)
[2020-11-26] MEDS: ATORVASTATIN 40 MG TAB PO SCH (08:57)
[2020-11-26] MEDS: amLODIPine 5 MG TAB PO SCH (08:58)
[2020-11-26] MEDS: lisinopriL 5 MG TAB PO SCH (08:59)
[2020-11-26] MEDS ORDERED: APIXABAN 2.5 MG TABLET PO SCH (09:00)
[2020-11-26] MEDS: LINAGLIPTIN 5 MG TABLET PO SCH (09:40)
[2020-11-26] MEDS: IPRATROPIUM-ALBUTEROL 3 ML NEB INHALATION SCH ×4 (09:45→21:04)
[2020-11-26 10:39] LABS: Glucose,Whole Blood 131 mg/dL (75-99)
[2020-11-26 12:34] VITALS: BMI 47.2
--- NOTE | 2020-11-26 12:57 | P.HPIM ---
History of Present Illness H&P Date: 11/26/20 Chief Complaint: Symptomatic anemia HISTORY OF PRESENT ILLNESS: This is a 70-year-old female patient of mine with past medical history of diabetes mellitus type 2, diabetic polyneuropathy, paroxysmal atrial fibrillation, psoriasis, COPD, hypertension, coronary artery disease status post stenting of the mid LAD [place] [address] Zavala, remote history of tobacco use and dependence, obesity with obstructive sleep apnea and obesity hypoventilation syndrome, patient was recently hospitalized at [facility] between 11/11/2020 of 11/16/2020 after she was admitted for acute hypoxemic respiratory failure due to pneumonia as well as acute exacerbation of the diastolic heart failure and COPD exacerbation, she was treated with IV antibiotic as well as IV diuretics and IV steroid, and she was seen in my office a few days ago when she was complaining of increased fatigue and tiredness with increased shortness breath laboratory evaluation did show evidence of significant anemia with a hemoglobin of 6.9 patient was directed to go to the emergency department for evaluation repeated blood count showed 70 result she was admitted to the hospital and type and cross and transfuse 2 units of packed red blood cells were done, and the patient was admitted to the floor with GI consultation. REVIEW OF SYSTEMS: Constitutional: No documented fever, no chills, no night sweats. positive for weight change. positive for weakness, positive for fatigue or lethargy. positive for daytime sleepiness. HEENT: No headache. No blurred vision or double vision, no loss of vision. No loss of Hearing, no ringing in the ears, no dizziness. No nasal drainage or con gestion. No epistaxis. No sore throat. Lungs: positive for shortness of breath, positive for dry cough, no sputum production. No wheezing. Reports dyspnea with activity. Cardiovascular: No chest pain, no lower extremity edema. No palpitations. No paroxysmal nocturnal dyspnea. No orthopnea. No lightheadedness or dizziness. No syncopal episodes. Abdominal: Reports no abdominal pain. No nausea, vomiting. No diarrhea. No constipation. No bloody or tarry stools reports loss of appetite. Genitourinary: No dysuria, increased frequency, urgency. No urinary retention. Musculoskeletal: No myalgias. No muscle weakness, no gait dysfunction, no frequent falls. positive fpr back pain. No neck pain. Integumentary: No wounds, no lesions. positive for dry skin. positive for bruising. No change in hair or nails. Neurologic: No aphasia. No facial droop. No change in mentation. No head injury. No headache. No paralysis. No paresthesia. Psychiatric: No depression. No anxiety. No mood swings. Endocrine: No abnormal blood sugars. No weight change. PAST MEDICAL HISTORY: Hypertension and hypertensive cardiovascular disease Hyperlipidemia. Diabetes mellitus type 2. Diabetic polyneuropathy. Paroxysmal atrial fibrillation. Coronary artery disease status post PCI of the LAD in 2017. COPD Obesity with obstructive sleep apnea. GERD. Psoriasis. Chronic kidney disease stage 3a PAST SURGICAL HISTORY: Left heart catheterization with PCI of the LAD in 2017 Left buttock abscess I&D. Bilateral cataract surgery. SOCIAL HISTORY: Patient used to smoke about a pack every day she smoked for about 15 years and quit many years ago, she denies any alcohol ingestion, no drug use or abuse, she lives by herself. FAMILY HISTORY: Mother in her 80s from old age and had a history of hypertension, father at age of 70 during his sleep of unknown cause possibly CAD and had history of hypertension Patient had 3 sisters one from ovarian cancer one is dying from colon cancer the third one has no major medical problems, PHYSICAL EXAMINATION: General: 70-year-old female sitting up in bed in moderate respiratory distress HEENT: Head is atraumatic, normocephalic, pupils were equal round reactive to light and recommendation, extraocular muscle movement were intact, sclera nonicteric, conjunctivae were pale, mucous membranes of the mouth are somewhat dry. Neck: Supple, no JVP, normal carotid upstroke bilaterally, no lymphadenopathy. Chest: Decreased breath sounds at the bases, few rhonchi, minimal expiratory wheezes, no chest wall tenderness, no intercostal retractions. Heart: First heart sound is normal, second heart sounds normal, there is systolic ejection murmur 2/6 located in the left sternal border. Abdomen: Soft, nontender, nondistended, positive bowel sounds Extremities: There is trace edema no calf tenderness DP +1 bilaterally. Neurologic examination: Patient is awake alert and oriented X 3, cranial nerves II-12 appear grossly intact, muscle power were 4 out of 5 in upper extremities and 4 out of 5 in bilateral lower extremities, deep tendon reflexes normal bilaterally. ASSESSMENT AND PLAN: 1. Acute symptomatic anemia without evidence of GI bleed . Patient does appear to have significant macrocytosis, we will check B12, folic acid, LDH, reticulocyte count, iron and TIBC ferritin level, light chain protein And lambda as well as serum protein electrophoresis. Patient is status post 2 units of packed red blood cell , Hold Eliquis for now, GI and Hem-Onc evaluation 2 . COPD Continue DuoNeb 3 mg nebulization 4 times every day, continue oxygen support, continue to monitor the patient very closely. 3. Chronic diastolic heart failure. Continue patient on metoprolol 25 mg orally twice every day, Lasix 80 mg orally every 48 hours, lisinopril 5 mg orally once every day, monitor the patient weight input and output as well. 4. hypertension and hypertensive cardiovascular disease. Continue patient on metoprolol 25 mg orally twice every day and lisinopril 5 mg orally once every day monitor the patient blood pressure very closely. 5. Hyperlipidemia. Continue Lipitor 40 mg orally once every day keep LDL cholesterol 55-70 per he 6. Diabetes mellitus type 2. Continue patient on Tradjenta 5 mg orally once every day, Glimeperide 4 mg orally once every day, hold Ozempic in the hospital, continue to monitor the patient BGM before each meal and at bedtime. 7. Paroxysmal atrial fibrillation. Continue metoprolol 25 mg orally twice every day, hold Eliquis. 8. Coronary artery disease status post PCI of the LAD in 2017. Continue metoprolol 25 mg orally twice every day, aspirin 81 mg once every day, Lipitor 40 mg orally once every day keep LDL 55-70. 9. Hypothyroidism. Continue Synthroid 25 incision orally once every day. 10. Obesity with obstructive sleep apnea. Continue patient on current CPAP. 11. History of psoriasis. Stable. 12. Chronic kidney disease stage III a. Monitor the patient CMP, avoid nephrotoxins . 13. DVT prophylaxis. Continue patient on Bilateral knee-high tigist hose 14. GI prophylaxis. Continue Protonix 40 mg IVP daily 15. Admitted to inpatient. Estimated length of stay 2 midnights. 16. Patient is full code. Past Medical History Past Medical History: Coronary Artery Disease (CAD), Diabetes Mellitus, Hyperlipidemia, Hypertension, Skin Disorder, Sleep Apnea/CPAP/BIPAP Additional Past Medical History / Comment(s): Hx Psoriasis History of Any Multi-Drug Resistant Organisms: None Reported Past Surgical History: Heart Catheterization With Stent Additional Past Surgical History / Comment(s): Cataracts, abcess on buttocks, colonoscopies Past Anesthesia/Blood Transfusion Reactions: No Reported Reaction Date of Last Stent Placement:: unknown Past Psychological History: No Psychological Hx Reported Additional Psychological History / Comment(s): Pt has an adult nephew who resides with her. She is independent. Smoking Status: Never smoker Past Alcohol Use History: None Reported Additional Past Alcohol Use History / Comment(s): . Past Drug Use History: None Reported - Past Family History Mother Family Medical History: Hypertension Additional Family Medical History / Comment(s): Mother in her 80s from old age. Father Family Medical History: Hypertension Additional Family Medical History / Comment(s): Father at age 70 during his sleep of unknown cause. Sister(s) Additional Family Medical History / Comment(s): Patient has 3 sisters and one has from ovarian cancer. One is alive with colon cancer and doing very poorly expected to sound. One sister has no major medical problems. Brother(s) Additional Family Medical History / Comment(s): The patient has 1 brother with no major medical problems. Patient does not have any children. Medications and Allergies Home Medications Medication Instructions Recorded Confirmed Type Aspirin [Adult Low Dose Aspirin EC] 81 mg PO Q48H 08/28/16 11/25/20 History Multivit-Min/FA/Lycopen/Lutein 1 tab PO DAILY 08/28/16 11/25/20 History [Centrum Silver Tablet] Metoprolol Tartrate [Lopressor] 25 mg PO BID #180 tab 09/04/16 11/25/20 Rx amLODIPine BESYLATE [Norvasc] 5 mg PO DAILY #1 tablet 09/04/16 11/25/20 Rx Glimepiride [Amaryl] 4 mg PO BID 04/08/18 11/25/20 History Levothyroxine Sodium [Synthroid] 25 mcg PO DAILY 04/08/18 11/25/20 History Vit C/E/Zn/Coppr/Lutein/Zeaxan 2 cap PO DAILY 04/08/18 11/25/20 History [Preservision Areds 2 Softgel] sitaGLIPtin [Januvia] 50 mg PO DAILY 04/08/18 11/25/20 History Apixaban [Eliquis] 5 mg PO BID #60 tab 09/03/19 11/25/20 Rx Atorvastatin [Lipitor] 40 mg PO DAILY 11/11/20 11/25/20 History Cholecalciferol [Vitamin D3 (25 50 mcg PO DAILY 11/11/20 11/25/20 History Mcg = 1000 Iu)] Furosemide [Lasix] 80 mg PO Q48H 11/11/20 11/25/20 History Semaglutide [Ozempic] 0.25 mg SQ LOZANO 11/11/20 11/25/20 History lisinopriL [Zestril] 5 mg PO DAILY 11/11/20 11/25/20 History Ipratropium-Albuterol Nebulize 3 ml INHALATION RT-QID #120 inh 11/16/20 11/25/20 Rx [Duoneb 0.5 mg-3 mg/3 ml Soln] predniSONE See Taper PO DAILY 11/25/20 11/25/20 History Allergies Allergy/AdvReac Type Severity Reaction Status Date / Time No Known Allergies Allergy Verified 11/25/20 16:40 Physical Exam Vitals: Vital Signs Temp Pulse Pulse Pulse Resp BP BP 11/26/20 09:53 63 11/26/20 09:46 62 11/26/20 09:12 62 112/61 11/26/20 09:00 62 112/61 11/26/20 04:45 97.7 F 67 20 104/66 11/26/20 02:09 98 F 63 18 116/68 11/26/20 01:37 18 11/26/20 00:50 87 16 113/53 11/25/20 23:00 120 H 28 H 167/93 11/25/20 21:40 77 16 117/60 11/25/20 21:20 78 18 115/64 11/25/20 20:50 98.3 F 84 18 106/74 11/25/20 20:44 98.0 F 87 18 112/67 11/25/20 20:21 64 11/25/20 20:20 87.8 F L 88 15 118/51 11/25/20 20:13 66 11/25/20 20:10 98.9 F 82 16 94/55 11/25/20 20:04 98.9 F 70 18 118/53 11/25/20 19:45 97.8 F 71 16 114/71 11/25/20 18:30 97.8 F 70 16 116/76 11/25/20 18:00 97.8 F 74 16 104/58 11/25/20 17:50 97.9 F 61 16 107/51 11/25/20 15:56 68 18 124/63 11/25/20 14:10 98 F 71 18 97/44 Pulse Ox 11/26/20 09:53 11/26/20 09:46 11/26/20 09:12 11/26/20 09:00 11/26/20 04:45 11/26/20 02:09 99 11/26/20 01:37 11/26/20 00:50 95 11/25/20 23:00 95 11/25/20 21:40 11/25/20 21:20 11/25/20 20:50 11/25/20 20:44 96 11/25/20 20:21 11/25/20 20:20 98 11/25/20 20:13 11/25/20 20:10 97 11/25/20 20:04 98 11/25/20 19:45 99 11/25/20 18:30 98 11/25/20 18:00 98 11/25/20 17:50 11/25/20 15:56 99 11/25/20 14:10 94 L Intake and Output 11/25/20 11/26/20 11/26/20 22:59 06:59 14:59 Intake Total 620 100 Balance 620 100 Intake: Oral 100 Blood Product 620 Rc As-1 Unit 310 [id number] Rc As-1 Unit 310 [id number] Other: Voiding Method Toilet Weight 117.027 kg Results CBC & Chem 7: 11/26/20 07:23 11/26/20 07:23 Labs: Abnormal Lab Results - Last 24 Hours (Table) 11/25/20 11/25/20 11/25/20 Range/Units 14:30 14:30 14:30 WBC 20.0 H (3.8-10.6) k/uL RBC 1.85 L (3.80-5.40) m/uL Hgb 6.5 L* (11.4-16.0) gm/dL Hct 20.6 L (34.0-46.0) % MCV 111.5 H D (80.0-100.0) fL MCH 35.1 H (25.0-35.0) pg RDW 15.8 H (11.5-15.5) % Neutrophils # 17.1 H (1.3-7.7) k/uL Macrocytosis Marked A APTT 20.3 L (22.0-30.0) sec Sodium 132 L (137-145) mmol/L Carbon Dioxide 21 L (22-30) mmol/L BUN 64 H (7-17) mg/dL Creatinine 1.69 H (0.52-1.04) mg/dL Glucose 230 H (74-99) mg/dL ALT 75 H (4-34) U/L Total Protein 5.9 L (6.3-8.2) g/dL Stool Occult Blood (Negative) Crossmatch 11/25/20 11/25/20 11/26/20 Range/Units 15:15 17:00 07:23 WBC 15.5 H (3.8-10.6) k/uL RBC 2.52 L (3.80-5.40) m/uL Hgb 8.3 L D (11.4-16.0) gm/dL Hct 25.9 L (34.0-46.0) % MCV 102.8 H D (80.0-100.0) fL MCH (25.0-35.0) pg RDW 18.7 H (11.5-15.5) % Neutrophils # 10.4 H (1.3-7.7) k/uL Macrocytosis APTT (22.0-30.0) sec Sodium (137-145) mmol/L Carbon Dioxide (22-30) mmol/L BUN (7-17) mg/dL Creatinine (0.52-1.04) mg/dL Glucose (74-99) mg/dL ALT (4-34) U/L Total Protein (6.3-8.2) g/dL Stool Occult Blood Positive H (Negative) Crossmatch See Detail 11/26/20 Range/Units 07:23 WBC (3.8-10.6) k/uL RBC (3.80-5.40) m/uL Hgb (11.4-16.0) gm/dL Hct (34.0-46.0) % MCV (80.0-100.0) fL MCH (25.0-35.0) pg RDW (11.5-15.5) % Neutrophils # (1.3-7.7) k/uL Macrocytosis APTT (22.0-30.0) sec Sodium 135 L (137-145) mmol/L Carbon Dioxide (22-30) mmol/L BUN 57 H (7-17) mg/dL Creatinine 1.61 H (0.52-1.04) mg/dL Glucose 53 L (74-99) mg/dL ALT (4-34) U/L Total Protein (6.3-8.2) g/dL Stool Occult Blood (Negative) Crossmatch Thrombosis Risk Factor Assmnt - Choose All That Apply Each Factor Represents 1 point: Obesity (BMI >25) Other Risk Factors: Yes Each Risk Factor Represents 2 Points: Age 61-74 years Thrombosis Risk Factor Assessment Total Risk Factor Score: 3 Thrombosis Risk Factor Assessment Level: Moderate Risk
[2020-11-26] MEDS: PANTOPRAZOLE 40 MG/10 ML VIAL IVP SCH (13:02)
[2020-11-26 13:22] LABS: Reticulocyte % 4.6 % (0.5-2.0)
[2020-11-26 23:09] LABS: % Iron Saturation 19.91 (12.00-45.00); Ferritin 47.9 ng/mL (10.0-291.0); Folate, Serum 19.7 ng/mL (4.40-31.00)
[2020-11-27] MEDS: METOPROLOL TARTRATE 25 MG TAB PO SCH ×3 (03:49→20:14)
[2020-11-27] MEDS: LEVOTHYROXINE 25 MCG TAB PO SCH (05:55)
[2020-11-27] MEDS: IPRATROPIUM-ALBUTEROL 3 ML NEB INHALATION SCH ×4 (08:40→19:19)
[2020-11-27] MEDS: CHOLECALCIFEROL 25 MCG (1000 IU) TABLET PO SCH (09:08)
[2020-11-27] MEDS: VIT A,C & E-LUTEIN-MINERALS 1 EACH TAB PO SCH (09:08)
[2020-11-27] MEDS: GLIMEPIRIDE 2 MG TAB PO SCH ×2 (09:08→17:59)
[2020-11-27] MEDS: ATORVASTATIN 40 MG TAB PO SCH (09:08)
[2020-11-27] MEDS: lisinopriL 5 MG TAB PO SCH (09:08)
[2020-11-27] MEDS: amLODIPine 5 MG TAB PO SCH (09:08)
[2020-11-27] MEDS: PANTOPRAZOLE 40 MG/10 ML VIAL IVP SCH (09:08)
[2020-11-27] MEDS: FUROSEMIDE 80 MG TAB PO SCH (09:08)
[2020-11-27] MEDS: MULTIVITAMINS, THERA 1 EACH TAB PO SCH (09:08)
[2020-11-27] MEDS: LINAGLIPTIN 5 MG TABLET PO SCH (09:08)
--- NOTE | 2020-11-27 12:29 | P.CONS ---
History of Present Illness - Reason for Consult Consult date: 11/27/20 anemia Requesting physician: Dimple Wooten - Chief Complaint Fatigue, SOB, and OP labs showing Hgb 6.7 - History of Present Illness Ms. Sim is a very pleasant 70 yo female with a history of DM2, diabetic polyneuropathy, paroxysmal atrial fibrillation on AC, psoriasis, COPD, hypertension, coronary artery disease status post stenting of the mid LAD [place] [address] Zavala, remote history of tobacco use and dependence, obesity with obstructive sleep apnea and obesity hypoventilation syndrome. She was recently hospitalized at [facility] between 11/11- after she was admitted for acute hypoxemic respiratory failure due to pneumonia as well as acute exacerbation of the diastolic heart failure and COPD exacerbation, she was treated with IV antibiotic as well as IV diuretics and IV steroid. She followed up with her PCP a few days later with persistent complaints of fatigue and increased shortness of breath. Blood work was done revealing a hemoglobin of 6.6 and patient was advised to go to the ER. In the ER repeat CBC revealed a white count of 20, hemoglobin 6.5, MCV 111, platelets 389. She received 2 units of blood with improvement of hemoglobin to 8.3. GI was consulted. They were also consulted for further evaluation of recurrent prostatic anemia. Her white count improved to 15.5. Overall she feels much better after her blood transfusion. She was discharged with a hemoglobin of 9 during her recent hospital stay for pneumonia. Baseline hemoglobin around 11, macrocytic with an MCV of 105-114. Workup so far including reticulocyte count was high, normal iron panel with 19% saturation and ferritin of 47, normal B12 and folate, sligh tly elevated LDH of 260, creatinine 1.6 which is around her baseline. Haptoglobin and protein electrophoresis is pending. Calcium is normal at 8.6. Fecal occult blood was positive. She denies any current bleeding however she does admit after some prodding to dark black stools a few days prior to admission. She is on anticoagulation as well for her atrial fibrillation and has extensive bilateral upper extremity bruising from this. No smoking, alcohol, or drug use. She lives alone. Her niece is at bedside who lives close by. Family history of ovarian cancer in one sister and colon cancer and another sister, otherwise no known family history of blood disorders or other malignancies. She did have a colonoscopy 2 years ago. No reflux or abdominal pain. Past Medical History Past Medical History: Coronary Artery Disease (CAD), Diabetes Mellitus, Hyperlipidemia, Hypertension, Skin Disorder, Sleep Apnea/CPAP/BIPAP Additional Past Medical History / Comment(s): Hx Psoriasis History of Any Multi-Drug Resistant Organisms: None Reported Past Surgical History: Heart Catheterization With Stent Additional Past Surgical History / Comment(s): Cataracts, abcess on buttocks, colonoscopies Past Anesthesia/Blood Transfusion Reactions: No Reported Reaction Date of Last Stent Placement:: unknown Past Psychological History: No Psychological Hx Reported Additional Psychological History / Comment(s): Pt has an adult nephew who resides with her. She is independent. Smoking Status: Never smoker Past Alcohol Use History: None Reported Additional Past Alcohol Use History / Comment(s): . Past Drug Use History: None Reported - Past Family History Mother Family Medical History: Hypertension Additional Family Medical History / Comment(s): Mother in her 80s from old age. Father Family Medical History: Hypertension Additional Family Medical History / Comment(s): Father at age 70 during his sleep of unknown cause. Sister(s) Additional Family Medical History / Comment(s): Patient has 3 sisters and one has from ovarian cancer. One is alive with colon cancer and doing very poorly expected to sound. One sister has no major medical problems. Brother(s) Additional Family Medical History / Comment(s): The patient has 1 brother with no major medical problems. Patient does not have any children. Medications and Allergies Home Medications Medication Instructions Recorded Confirmed Type Aspirin [Adult Low Dose Aspirin EC] 81 mg PO Q48H 08/28/16 11/25/20 History Multivit-Min/FA/Lycopen/Lutein 1 tab PO DAILY 08/28/16 11/25/20 History [Centrum Silver Tablet] Metoprolol Tartrate [Lopressor] 25 mg PO BID #180 tab 09/04/16 11/25/20 Rx amLODIPine BESYLATE [Norvasc] 5 mg PO DAILY #1 tablet 09/04/16 11/25/20 Rx Glimepiride [Amaryl] 4 mg PO BID 04/08/18 11/25/20 History Levothyroxine Sodium [Synthroid] 25 mcg PO DAILY 04/08/18 11/25/20 History Vit C/E/Zn/Coppr/Lutein/Zeaxan 2 cap PO DAILY 04/08/18 11/25/20 History [Preservision Areds 2 Softgel] sitaGLIPtin [Januvia] 50 mg PO DAILY 04/08/18 11/25/20 History Apixaban [Eliquis] 5 mg PO BID #60 tab 09/03/19 11/25/20 Rx Atorvastatin [Lipitor] 40 mg PO DAILY 11/11/20 11/25/20 History Cholecalciferol [Vitamin D3 (25 50 mcg PO DAILY 11/11/20 11/25/20 History Mcg = 1000 Iu)] Furosemide [Lasix] 80 mg PO Q48H 11/11/20 11/25/20 History Semaglutide [Ozempic] 0.25 mg SQ LOZANO 11/11/20 11/25/20 History lisinopriL [Zestril] 5 mg PO DAILY 11/11/20 11/25/20 History Ipratropium-Albuterol Nebulize 3 ml INHALATION RT-QID #120 inh 11/16/20 11/25/20 Rx [Duoneb 0.5 mg-3 mg/3 ml Soln] predniSONE See Taper PO DAILY 11/25/20 11/25/20 History Allergies Allergy/AdvReac Type Severity Reaction Status Date / Time No Known Allergies Allergy Verified 11/25/20 16:40 Physical Exam Vitals: Vital Signs Temp Pulse Pulse Resp BP Pulse Ox 11/27/20 04:50 98.4 F 72 20 110/57 94 L 11/26/20 21:26 70 105/64 11/26/20 20:01 20 11/26/20 20:00 98.2 F 70 20 105/59 96 11/26/20 17:01 69 11/26/20 16:51 66 11/26/20 12:19 98 F 76 17 102/51 98 Intake and Output 11/26/20 11/27/20 11/27/20 22:59 06:59 14:59 Intake Total 100 Balance 100 Intake: Oral 100 Other: Voiding Method Toilet # Voids 3 Gen.: In no acute distress. HEENT: Mucosa moist. Lungs: No respiratory distress. Heart: Regular rate. Abdomen: Soft. MSK: Appropriate strength in all 4 extremities. Neuro: Alert and oriented 3. Skin: No jaundice. Extensive ecchymosis on bilateral upper extremities. Psych: Appropriate affect. 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 Sim is a very pleasant 70-year-old female with a history of multiple comorbidities who is here for symptomatic anemia. She had a recent hospital stay for pneumonia, treated with antibiotics and steroids. Discharge with hemoglobin of 9 and presented to her PCPs office with increasing fatigue and shortness of breath, found to have a hemoglobin in the 6's. She was advised to go to the ER where she was transfused 2 units with significant improvement of her symptoms. No obvious bleeding source although her workup revealed positive occult blood. She is on anticoagulation with extensive bilateral upper e xtremity ecchymosis. I suspect her acute drop in hemoglobin is due to a bleed as her retics are high and FOBT positive. She mentions dark black stools a few days prior to admission although she is constipated at this time. Her iron panel does not reveal significant iron deficiency and she had a colonoscopy 2 years ago. Agree with GI evaluation. B12 and folate are normal. Protein electrophoresis is pending. Her LDH is only slightly elevated, doubt this is due to hemolysis however will need to await haptoglobin. Will also obtain labs (LDH, haptoglobin, iron panel/ferritin) to pretransfusion labs which will be more accurate, as these can be affected by the transfusion. Would hold her anticoagulation and repeat her CBC later today. Anticoagulation can be resumed if her hemoglobin remains stable without any new active signs of bleeding. She might have an underlying bone marrow disorder causing her chronic anemia. She would benefit from continued follow-up once discharged to reassess her anemia and consider further workup such as a bone marrow biopsy. Discussed her case with patient and her niece at bedside in detail. They're agreeable to the plan. All of their questions were answered. Discussed her case with her primary team as well as nursing staff.
[2020-11-27 12:56] LABS: ALT 58 U/L (4-34); AST 27 U/L (14-36); African American GFR (CKD) 37 (>60 ml/min/1.73 sqM); Albumin 3.5 g/dL (3.5-5.0); Albumin/Globulin Ratio 1.5; Alkaline Phosphatase 78 U/L (38-126); Anion Gap 8 mmol/L; Blood Urea Nitrogen 47 mg/dL (7-17); Calcium 8.7 mg/dL (8.4-10.2); Carbon Dioxide 20 mmol/L (22-30); Chloride 105 mmol/L (98-107); Globulin 2.3 g/dL; Glucose 84 mg/dL (74-99); Non-African American GFR(CKD) 32 (>60 ml/min/1.73 sqM); Potassium 4.8 mmol/L (3.5-5.1); Sodium 133 mmol/L (137-145); Total Bilirubin 0.8 mg/dL (0.2-1.3); Total Protein 5.8 g/dL (6.3-8.2)
[2020-11-27 12:57] LABS: Anisocytosis Slight; Basophils % (A) 0 %; Eosinophils # (A) 0.3 k/uL (0-0.7); Eosinophils % (A) 1 %; HGB 9.1 gm/dL (11.4-16.0); Hypochromasia Slight; Lymphocytes # (A) 2.1 k/uL (1.0-4.8); Lymphocytes % (A) 10 %; MCH 33.6 pg (25.0-35.0); MCHC 32.4 g/dL (31.0-37.0); MCV 103.8 fL (80.0-100.0); Macrocytosis Moderate; Mean Platelet Volume 9.4; Monocytes # (A) 0.9 k/uL (0-1.0); Monocytes % (A) 4 %; Neutrophils # (A) 16.7 k/uL (1.3-7.7); Neutrophils % (A) 83 %; Platelet Count 377 k/uL (150-450); Poikilocytosis Slight; RDW 18.3 % (11.5-15.5); WBC 20.2 k/uL (3.8-10.6)
[2020-11-27 19:18] LABS: Protein, Total 5.2 g/dL (6.2-8.2)
[2020-11-27] MEDS ORDERED: ASPIRIN 81 MG PO SCH (21:00)
[2020-11-28] MEDS: LEVOTHYROXINE 25 MCG TAB PO SCH (05:58)
[2020-11-28 06:40] LABS: Anisocytosis Slight; HGB 8.4 gm/dL (11.4-16.0); Hypochromasia Slight; MCH 33.6 pg (25.0-35.0); MCHC 32.2 g/dL (31.0-37.0); MCV 104.4 fL (80.0-100.0); Macrocytosis Marked; Mean Platelet Volume 10.6; Platelet Count 343 k/uL (150-450); Poikilocytosis Slight; RBC 2.49 m/uL (3.80-5.40); RDW 18.2 % (11.5-15.5)
[2020-11-28] MEDS: IPRATROPIUM-ALBUTEROL 3 ML NEB INHALATION SCH ×4 (07:29→19:05)
[2020-11-28] MEDS: VIT A,C & E-LUTEIN-MINERALS 1 EACH TAB PO SCH (07:35)
[2020-11-28] MEDS: GLIMEPIRIDE 2 MG TAB PO SCH ×2 (07:35→17:42)
[2020-11-28] MEDS: LINAGLIPTIN 5 MG TABLET PO SCH (07:35)
[2020-11-28] MEDS: MULTIVITAMINS, THERA 1 EACH TAB PO SCH (07:35)
[2020-11-28] MEDS: ATORVASTATIN 40 MG TAB PO SCH (07:35)
[2020-11-28] MEDS: PANTOPRAZOLE 40 MG TABLET PO SCH (07:36)
[2020-11-28] MEDS: lisinopriL 5 MG TAB PO SCH (07:36)
[2020-11-28] MEDS: CHOLECALCIFEROL 25 MCG (1000 IU) TABLET PO SCH (07:36)
[2020-11-28] MEDS: METOPROLOL TARTRATE 25 MG TAB PO SCH ×2 (07:36→20:17)
[2020-11-28] MEDS: amLODIPine 5 MG TAB PO SCH (07:36)
[2020-11-28 09:29] LABS: Neutrophils % (M) 76 %; Nucleated Red Blood Cells 1 /100 WBC (0-0); Total Cells Counted 200
[2020-11-28 09:30] LABS: Eosinophils # (M) 0.76 k/uL (0-0.7); Lymphocytes # (M) 2.42 k/uL (1.0-4.8); Neutrophils # (M) 11.48 k/uL (1.3-7.7); Polychromasia Present; WBC 15.1 k/uL (3.8-10.6)
[2020-11-28 10:27] LABS: African American GFR (CKD) 35.1 (60.0-200.0); Albumin 3.3 g/dL (3.8-4.9); Albumin/Globulin Ratio 2.09 (1.60-3.17); Anion Gap 11.1 mmol/L (4.00-12.00); BUN/Creat Ratio 24.25 Ratio (12.00-20.00); Blood Urea Nitrogen 40.5 mg/dL (9.0-27.0); Calcium 8.3 mg/dL (8.7-10.3); Carbon Dioxide 20.4 mmol/L (21.6-31.8); Globulin 1.6 g/dL (1.6-3.3); Non-African American GFR(CKD) 30.3 (60.0-200.0); Potassium 4.8 mmol/L (3.5-5.5); Total Bilirubin 0.5 mg/dL (0.30-1.20); Total Protein 4.9 g/dL (6.2-8.2)
[2020-11-28] MEDS: LACTULOSE 20 GM/30 ML CUP PO SCH ×2 (10:50→20:17)
--- NOTE | 2020-11-28 11:51 | P.CONS ---
History of Present Illness - Reason for Consult Consult date: 11/28/20 Anemia, GI bleed Requesting physician: Dimple Wooten - Chief Complaint abnormal labs - History of Present Illness This a 70-year-old female with a past medical history for coronary artery disease, diabetes, hypertension, atrial fibrillation on Eliquis and COPD who was sent in by her primary care physician for abnormal outpatient labs. The patient was noted to be anemic with a hemoglobin of 6.5. Patient denies previous blood transfusions. She is status post 2 units of PRBC transfusion this admission. She does report having black stools over the last 1-2 weeks duration. She was recently hospitalized with a COPD exacerbation and was started on a prednisone taper dose. She has no previous history of peptic ulcer disease, no history of GI bleed, denies any other NSAID use. She denies any abdominal pain, nausea, or vomiting. Bowel movements have been normal other than dark. She had a colonoscopy in 2019 as a screening colonoscopy with Dr. Mejia which was sig nificant for polypectomy. Current labs WBC 15.1 hemoglobin 8.4 hematocrit 26 platelet count 343,000, patient had iron studies that were not consistent with iron deficiency anemia however this may have been drawn after blood transfusion. Review of Systems REVIEW OF SYSTEMS: CARDIOPULMONARY: No chest pain or shortness of breath. Gastrointestinal: No abdominal pain. No nausea or vomiting. No hematemesis, coffee-ground emesis. No rectal bleeding, patient reporting black stool for the last 1-2 week duration. GENITOURINARY: No dysuria or hematuria. MUSCULOSKELETAL: Reports normal range of motion., Joint pain. SKIN: No rashes. No jaundice. ENDOCRINE: No chills, fevers. No excessive weight gain or loss. No polydipsia or polyuria. PSYCHIATRIC: Unremarkable. NEUROLOGY: No change in mental status. Denies dizziness, headache. ENT: Vision unremarkable. CONSTITUTIONAL: No recent weight loss. No fever, chills, night sweats. Past Medical History Past Medical History: Coronary Artery Disease (CAD), Diabetes Mellitus, Hyperlipidemia, Hypertension, Skin Disorder, Sleep Apnea/CPAP/BIPAP Additional Past Medical History / Comment(s): Hx Psoriasis History of Any Multi-Drug Resistant Organisms: None Reported Past Surgical History: Heart Catheterization With Stent Additional Past Surgical History / Comment(s): Cataracts, abcess on buttocks, colonoscopies Past Anesthesia/Blood Transfusion Reactions: No Reported Reaction Date of Last Stent Placement:: unknown Past Psychological History: No Psychological Hx Reported Additional Psychological History / Comment(s): Pt has an adult nephew who resides with her. She is independent. Smoking Status: Never smoker Past Alcohol Use History: None Reported Additional Past Alcohol Use History / Comment(s): . Past Drug Use History: None Reported - Past Family History Mother Family Medical History: Hypertension Additional Family Medical History / Comment(s): Mother in her 80s from old age. Father Family Medical History: Hypertension Additional Family Medical History / Comment(s): Father at age 70 during his sleep of unknown cause. Sister(s) Additional Family Medical History / Comment(s): Patient has 3 sisters and one has from ovarian cancer. One is alive with colon cancer and doing very poorly expected to sound. One sister has no major medical problems. Brother(s) Additional Family Medical History / Comment(s): The patient has 1 brother with no major medical problems. Patient does not have any children. Medications and Allergies Home Medications Medication Instructions Recorded Confirmed Type Aspirin [Adult Low Dose Aspirin EC] 81 mg PO Q48H 08/28/16 11/25/20 History Multivit-Min/FA/Lycopen/Lutein 1 tab PO DAILY 08/28/16 11/25/20 History [Centrum Silver Tablet] Metoprolol Tartrate [Lopressor] 25 mg PO BID #180 tab 09/04/16 11/25/20 Rx amLODIPine BESYLATE [Norvasc] 5 mg PO DAILY #1 tablet 09/04/16 11/25/20 Rx Glimepiride [Amaryl] 4 mg PO BID 04/08/18 11/25/20 History Levothyroxine Sodium [Synthroid] 25 mcg PO DAILY 04/08/18 11/25/20 History Vit C/E/Zn/Coppr/Lutein/Zeaxan 2 cap PO DAILY 04/08/18 11/25/20 History [Preservision Areds 2 Softgel] sitaGLIPtin [Januvia] 50 mg PO DAILY 04/08/18 11/25/20 History Apixaban [Eliquis] 5 mg PO BID #60 tab 09/03/19 11/25/20 Rx Atorvastatin [Lipitor] 40 mg PO DAILY 11/11/20 11/25/20 History Cholecalciferol [Vitamin D3 (25 50 mcg PO DAILY 11/11/20 11/25/20 History Mcg = 1000 Iu)] Furosemide [Lasix] 80 mg PO Q48H 11/11/20 11/25/20 History Semaglutide [Ozempic] 0.25 mg SQ LOZANO 11/11/20 11/25/20 History lisinopriL [Zestril] 5 mg PO DAILY 11/11/20 11/25/20 History Ipratropium-Albuterol Nebulize 3 ml INHALATION RT-QID #120 inh 11/16/20 11/25/20 Rx [Duoneb 0.5 mg-3 mg/3 ml Soln] predniSONE See Taper PO DAILY 11/25/20 11/25/20 History Allergies Allergy/AdvReac Type Severity Reaction Status Date / Time No Known Allergies Allergy Verified 11/25/20 16:40 Physical Exam Vitals: Vital Signs Temp Pulse Pulse Pulse Resp BP Pulse Ox 11/28/20 07:44 79 126/74 11/28/20 05:23 98 F 64 18 100/49 93 L 11/28/20 03:59 97.7 F 88 22 125/72 91 L 11/27/20 19:29 82 11/27/20 19:19 77 11/27/20 18:16 97.8 F 78 18 137/77 97 11/27/20 11:31 97.6 F 71 18 130/69 98 Intake and Output 11/27/20 11/28/20 11/28/20 22:59 06:59 14:59 Other: Voiding Method Toilet Toilet # Voids 2 # Bowel Movements 1 General appearance: The patient is alert, oriented, appears in no acute distress. HET: Head is normocephalic and atraumatic. Conjunctiva pink. Sclera anicteric. Neck: Supple without lymphadenopathy. Trachea midline. Heart: S1 S2. Regular rate and rhythm. Lungs: Clear to auscultation. Abdomen: Soft, nontender, nondistended with bowel sounds. No guarding or rigidity. Skin: No rashes. No jaundice. Extremities: Normal skin color and turgor. No pedal edema. Neurological: No focal deficits. Alert and oriented 3.. Results CBC & Chem 7: 11/28/20 05:45 11/28/20 05:45 Labs: Abnormal Lab Results - Last 24 Hours (Table) 11/25/20 11/26/20 11/27/20 Range/Units 14:30 08:24 12:28 WBC 20.2 H (3.8-10.6) k/uL RBC 2.70 L (3.80-5.40) m/uL Hgb 9.1 L (11.4-16.0) gm/dL Hct 28.0 L (34.0-46.0) % MCV 103.8 H (80.0-100.0) fL RDW 18.3 H (11.5-15.5) % Neutrophils # 16.7 H (1.3-7.7) k/uL Macrocytosis Haptoglobin 217.0 H (31.2-198.0) mg/dL Sodium (137-145) mmol/L Carbon Dioxide (22-30) mmol/L BUN (7-17) mg/dL Creatinine (0.52-1.04) mg/dL ALT (4-34) U/L Lactate Dehydrogenase 648 H (313-618) U/L Total Protein (6.3-8.2) g/dL Total Protein (PEP) 5.2 L (6.2-8.2) g/dL 11/27/20 11/28/20 Range/Units 12:32 05:45 WBC 15.3 H (3.8-10.6) k/uL RBC 2.49 L (3.80-5.40) m/uL Hgb 8.4 L (11.4-16.0) gm/dL Hct 26.0 L (34.0-46.0) % MCV 104.4 H (80.0-100.0) fL RDW 18.2 H (11.5-15.5) % Neutrophils # (1.3-7.7) k/uL Macrocytosis Marked A Haptoglobin (31.2-198.0) mg/dL Sodium 133 L (137-145) mmol/L Carbon Dioxide 20 L (22-30) mmol/L BUN 47 H (7-17) mg/dL Creatinine 1.59 H (0.52-1.04) mg/dL ALT 58 H (4-34) U/L Lactate Dehydrogenase (313-618) U/L Total Protein 5.8 L (6.3-8.2) g/dL Total Protein (PEP) (6.2-8.2) g/dL Assessment and Plan (1) Symptomatic anemia Narrative/Plan: This is 70-year-old female who was recently admitted to the hospital with COPD. She was started on a prednisone taper dose which she is now completed. She has a history of coronary artery disease including atrial fibrillation currently on Eliquis, last taken 11/25/2020. She was noted to have an outpatient hemoglobin of 6.5 and was told to come to the emergency department for admission and blood transfusion. She is status post 2 units PRBC transfusion with a repeat hemoglobin today of 8.4. She has no previous history of GI bleed. No previous history of EGD, peptic ulcer disease, esophagitis, or upper GI bleed. Patient had a screening colonoscopy in [address] Mejia which was significant for polypectomy. She states that she has been having some weakness and fatigue over the last couple weeks duration and went for the blood work. States that she has also noticed black stool for the last 1-2 weeks duration. We'll plan on EGD for further evaluation. Possible etiologies include peptic ulcer disease, esophagitis, gastritis, AVM, or other possible etiologies. Current Visit: Yes Status: Acute Code(s): D64.9 - ANEMIA, UNSPECIFIED SNOMED Code(s): 168706724 (2) Melena Current Visit: Yes Status: Acute Code(s): K92.1 - MELENA SNOMED Code(s): 9419697 (3) CKD (chronic kidney disease) Current Visit: Yes Status: Acute Code(s): N18.9 - CHRONIC KIDNEY DISEASE, UNSPECIFIED SNOMED Code(s): 045842471 (4) History of atrial fibrillation Current Visit: Yes Status: Acute Code(s): Z86.79 - PERSONAL HISTORY OF OTHER DISEASES OF THE CIRCULATORY SYSTEM SNOMED Code(s): 311429967 (5) Occult blood positive stool Current Visit: Yes Status: Acute Code(s): R19.5 - OTHER FECAL ABNORMALITIES SNOMED Code(s): 75286250 Plan: 1. Keep nothing by mouth 2. Continue to hold Eliquis 3. Protonix for GI prophylaxis 4. CBC daily, transfuse for hemoglobin less than 7 5. Will proceed with EGD today. Procedure discussed with patient in detail including risks and benefits. Patient willing to proceed. Thank you for this consultation, we will continue to follow Dr. Felicitas Núñez I agree with the dictator's note, documented as a scribe by Ariella Jameson.
[2020-11-28] MEDS ORDERED: LIDOCAINE 1% INJ 10MG/ML (20 ML MDV) ONE (12:17)
[2020-11-28] MEDS ORDERED: PROPOFOL 10 MG/ML 20 ML VIAL IV ONE (12:17)
[2020-11-28] MEDS ORDERED: SODIUM CHLORIDE 0.9% 500 ML 500 ML IV ONE (12:21)
--- NOTE | 2020-11-28 12:30 | P.PCN ---
Date of Procedure: 11/28/20 Procedure(s) Performed: BRIEF HISTORY: Patient is a 70-year-old, pleasant, white female admitted hospital with black tarry stools and severe symptomatic anemia and hemoglobin of 6.5 g/dL. She received his of the obesity transition. Has A. fib diagnosed 3 months ago and has been on a Eliquis which is on hold for 2 days. Her last colonoscopy was 2 years ago. He scheduled for an upper endoscopy to evaluate further.. PROCEDURE PERFORMED: Esophagogastroduodenoscopy with biopsy. PREOPERATIVE DIAGNOSIS: Black tarry stools and severe symptomatic anemia. IV sedation per anesthesia. PROCEDURE: After informed consent was obtained, the patient was brought into the endoscopy unit. IV sedation was administered by Anesthesia under continuous monitoring. Initially the Olympus GIF-140 video endoscope was inserted into the mouth. Esophagus intubated without any difficulty. It was gradually advanced in to the stomach and duodenum and carefully examined. The bulb and the second part of the duodenum appeared normal. The scope at this time was withdrawn to the stomach, adequately insufflated with air, and upon careful examination, mucosa of the antrum had mild patchy areas of erythema and biopsies were done from this area. The, body, cardia and the fundus appeared normal. The scope was then withdrawn into the esophagus. The GE junction was located at 39 cm from the incisors. The esophagus appeared normal. There were no erosions or ulcerations seen and the patient tolerated the procedure well. IMPRESSION: 1. Mild antral gastritis. 2. No evidence of esophagitis, peptic ulcer disease or angiectasia. RECOMMENDATIONS: The findings of this examination were discussed with the patient . Since no upper GI source of bleeding identified, she'll be scheduled for a small bowel capsule endoscopy today. She can be started on a liquid diet after the capsule endoscopy.
[2020-11-28] MEDS ORDERED: SIMETHICONE 40 MG/0.6 ML DROPS 2,000 MG/30 ML BOTTLE PO ONE (13:02)
--- NOTE | 2020-11-28 14:26 | P.PN ---
Subjective Progress Note Date: 11/28/20 HISTORY OF PRESENT ILLNESS: This is a 70-year-old female patient of mine with past medical his tory of diabetes mellitus type 2, diabetic polyneuropathy, paroxysmal atrial fibrillation, psoriasis, COPD, hypertension, coronary artery disease status post stenting of the mid LAD [place] [address] Zavala, remote history of tobacco use and dependence, obesity with obstructive sleep apnea and obesity hypoventilation syndrome, patient was recently hospitalized at [facility] between 11/11/2020 of 11/16/2020 after she was admitted for acute hypoxemic respiratory failure due to pneumonia as well as acute exacerbation of the diastolic heart failure and COPD exacerbation, she was treated with IV antibiotic as well as IV diuretics and IV steroid, and she was seen in my office a few days ago when she was complaining of increased fatigue and tiredness with increased shortness breath laboratory evaluation did show evidence of significant anemia with a hemoglobin of 6.9 patient was directed to go to the emergency department for evaluation repeated blood count showed 70 result she was admitted to the hospital and type and cross and transfuse 2 units of packed red blood cells were done, and the patient was admitted to the floor with GI consultation. 11/28: Patient denies having any abdominal pain. She states her bowel movement yesterday was black. She has been made nothing by mouth and underwent EGD with Dr. Felicitas Núñez that revealed mild antral gastritis. No evidence of esophagitis, peptic ulcer disease or angiectasia. Patient is scheduled for small bowel follow-through. Repeat hemoglobin 8.4, BUN 40 and creatinine 1.7.. Repeat blood work ordered for the morning. REVIEW OF SYSTEMS: Constitutional: No documented fever, no chills, no night sweats. positive for weight change. positive for weakness, positive for fatigue or lethargy. positive for daytime sleepiness. HEENT: No headache. No blurred vision or double vision, no loss of vision. No loss of Hearing, no ringing in the ears, no dizziness. No nasal drainage or congestion. No epistaxis. No sore throat. Lungs: positive for shortness of breath, positive for dry cough, no sputum production. No wheezing. Reports dyspnea with activity. Cardiovascular: No chest pain, no lower extremity edema. No palpitations. No paroxysmal nocturnal dyspnea. No orthopnea. No lightheadedness or dizziness. No syncopal episodes. Abdominal: Reports no abdominal pain. No nausea, vomiting. No diarrhea. No constipation. Reports bloody or tarry stools, reports loss of appetite. Genitourinary: No dysuria, increased frequency, urgency. No urinary retention. Musculoskeletal: No myalgias. No muscle weakness, no gait dysfunction, no frequent falls. positive fpr back pain. No neck pain. Integumentary: No wounds, no lesions. positive for dry skin. positive for bruising. No change in hair or nails. Neurologic: No aphasia. No facial droop. No change in mentation. No head injury. No headache. No paralysis. No paresthesia. Psychiatric: No depression. No anxiety. No mood swings. Endocrine: No abnormal blood sugars. No weight change. PHYSICAL EXAMINATION: General: 70-year-old female sitting on the edge of the bed in no acute distress HEENT: Head is atraumatic, normocephalic, pupils were equal round reactive to light and recommendation, extraocular muscle movement were intact, sclera nonicteric, conjunctivae were pale, mucous membranes of the mouth are somewhat dry. Neck: Supple, no JVP, normal carotid upstroke bilaterally, no lymphadenopathy. Chest: Decreased breath sounds at the bases, few rhonchi, minimal expiratory wheezes, no chest wall tenderness, no intercostal retractions. Heart: First heart sound is normal, second heart sounds normal, there is systolic ejection murmur 2/6 located in the left sternal border. Abdomen: Soft, nontender, nondistended, positive bowel sounds. No abdominal tenderness. Extremities: There is trace edema no calf tenderness DP +1 bilaterally. Neurologic examination: Patient is awake alert and oriented X 3, cranial nerves II-12 appear grossly intact, muscle power were 4 out of 5 in upper extremities and 4 out of 5 in bilateral lower extremities, deep tendon reflexes normal bilaterally. ASSESSMENT AND PLAN: 1. Acute symptomatic anemia secondary to GI bleed. Patient is status post 2 units of packed red blood cell, Hold Eliquis for now, GI and Hem-Onc evaluation, status post EGD, patient scheduled for small bowel endoscopy. 2. COPD without exacerbation. Continue DuoNeb 3 mg nebulization 4 times every day, continue oxygen support, continue to monitor the patient very closely. 3. Chronic diastolic heart failure. Continue patient on metoprolol 25 mg orally twice every day, Lasix 80 mg orally every 48 hours, lisinopril 5 mg orally once every day, monitor the patient weight input and output as well. 4. Hypertension and hypertensive cardiovascular disease. Continue patient on metoprolol 25 mg orally twice every day and lisinopril 5 mg orally once every day monitor the patient blood pressure very closely. 5. Hyperlipidemia. Continue Lipitor 40 mg orally once every day keep LDL cholesterol 55-70 per he 6. Diabetes mellitus type 2. Continue patient on Tradjenta 5 mg orally once every day, Glimeperide 4 mg orally once every day, hold Ozempic in the hospital, continue to monitor the patient BGM before each meal and at bedtime. 7. Paroxysmal atrial fibrillation. Continue metoprolol 25 mg orally twice every day, hold Eliquis. 8. Coronary artery disease status post PCI of the LAD in 2017. Continue metoprolol 25 mg orally twice every day, aspirin 81 mg once every day, Lipitor 40 mg orally once every day keep LDL 55-70. 9. Hypothyroidism. Continue Synthroid 25 incision orally once every day. 10. Obesity with obstructive sleep apnea. Continue patient on current CPAP. 11. History of psoriasis. Stable. 12. Chronic kidney disease stage III a. Monitor the patient CMP, avoid nephro toxins . 13. DVT prophylaxis. Continue patient on Bilateral knee-high tigist hose 14. GI prophylaxis. Continue Protonix 40 mg IVP daily 15. Patient is full code. DISCHARGE PLAN: Home Impression and plan of care have been directed as dictated by the signing physician. Antonette Carson nurse practitioner acting as scribe for signing physician. Objective - Vital Signs Vital signs: Vital Signs Temp 98 F 11/28/20 05:23 Pulse 79 11/28/20 07:44 Resp 18 11/28/20 05:23 BP 126/74 11/28/20 07:44 Pulse Ox 93 L 11/28/20 05:23 Intake & Output 11/27/20 11/28/20 11/28/20 18:59 06:59 18:59 Other: Voiding Method Toilet Toilet # Voids 2 # Bowel Movements 1 - Labs CBC & Chem 7: 11/28/20 05:45 11/28/20 05:45 Labs: Abnormal Lab Results - Last 24 Hours (Table) 11/25/20 11/26/20 11/27/20 Range/Units 14:30 08:24 12:28 WBC 20.2 H (3.8-10.6) k/uL RBC 2.70 L (3.80-5.40) m/uL Hgb 9.1 L (11.4-16.0) gm/dL Hct 28.0 L (34.0-46.0) % MCV 103.8 H (80.0-100.0) fL RDW 18.3 H (11.5-15.5) % Neutrophils # 16.7 H (1.3-7.7) k/uL Macrocytosis Haptoglobin 217.0 H (31.2-198.0) mg/dL Sodium (137-145) mmol/L Carbon Dioxide (22-30) mmol/L BUN (7-17) mg/dL Creatinine (0.52-1.04) mg/dL ALT (4-34) U/L Lactate Dehydrogenase 648 H (313-618) U/L Total Protein (6.3-8.2) g/dL Total Protein (PEP) 5.2 L (6.2-8.2) g/dL 11/27/20 11/28/20 Range/Units 12:32 05:45 WBC 15.3 H (3.8-10.6) k/uL RBC 2.49 L (3.80-5.40) m/uL Hgb 8.4 L (11.4-16.0) gm/dL Hct 26.0 L (34.0-46.0) % MCV 104.4 H (80.0-100.0) fL RDW 18.2 H (11.5-15.5) % Neutrophils # (1.3-7.7) k/uL Macrocytosis Marked A Haptoglobin (31.2-198.0) mg/dL Sodium 133 L (137-145) mmol/L Carbon Dioxide 20 L (22-30) mmol/L BUN 47 H (7-17) mg/dL Creatinine 1.59 H (0.52-1.04) mg/dL ALT 58 H (4-34) U/L Lactate Dehydrogenase (313-618) U/L Total Protein 5.8 L (6.3-8.2) g/dL Total Protein (PEP) (6.2-8.2) g/dL
--- NOTE | 2020-11-28 16:30 | P.PN ---
Subjective Progress Note Date: 11/28/20 Principal diagnosis: Anemia on AC therapy Work-up this far reviewed, no signs of hemolysis. Iron studies are likely not full accurate given draw time in relation to transfusion. Patient seen and examined this am, she was headed to pill swallow Objective - Vital Signs Vital signs: Vital Signs Temp 98 F 11/28/20 05:23 Pulse 79 11/28/20 07:44 Resp 18 11/28/20 05:23 BP 126/74 11/28/20 07:44 Pulse Ox 93 L 11/28/20 05:23 Intake & Output 11/27/20 11/28/20 11/28/20 18:59 06:59 18:59 Other: Voiding Method Toilet Toilet # Voids 2 # Bowel Movements 1 - Exam Alert Morbidly obese Eccymosis bilateral legs and arms Lungs: CTA Abdomen Soft Edema Calm - Constitutional General appearance: Present: cooperative - Labs CBC & Chem 7: 11/28/20 05:45 11/28/20 05:45 Labs: Abnormal Lab Results - Last 24 Hours (Table) 11/25/20 11/26/20 11/27/20 Range/Units 14:30 08:24 12:28 WBC 20.2 H (3.8-10.6) k/uL RBC 2.70 L (3.80-5.40) m/uL Hgb 9.1 L (11.4-16.0) gm/dL Hct 28.0 L (34.0-46.0) % MCV 103.8 H (80.0-100.0) fL RDW 18.3 H (11.5-15.5) % Neutrophils # 16.7 H (1.3-7.7) k/uL Macrocytosis Haptoglobin 217.0 H (31.2-198.0) mg/dL Sodium (137-145) mmol/L Carbon Dioxide (22-30) mmol/L BUN (7-17) mg/dL Creatinine (0.52-1.04) mg/dL ALT (4-34) U/L Lactate Dehydrogenase 648 H (313-618) U/L Total Protein (6.3-8.2) g/dL Total Protein (PEP) 5.2 L (6.2-8.2) g/dL 11/27/20 11/28/20 Range/Units 12:32 05:45 WBC 15.3 H (3.8-10.6) k/uL RBC 2.49 L (3.80-5.40) m/uL Hgb 8.4 L (11.4-16.0) gm/dL Hct 26.0 L (34.0-46.0) % MCV 104.4 H (80.0-100.0) fL RDW 18.2 H (11.5-15.5) % Neutrophils # (1.3-7.7) k/uL Macrocytosis Marked A Haptoglobin (31.2-198.0) mg/dL Sodium 133 L (137-145) mmol/L Carbon Dioxide 20 L (22-30) mmol/L BUN 47 H (7-17) mg/dL Creatinine 1.59 H (0.52-1.04) mg/dL ALT 58 H (4-34) U/L Lactate Dehydrogenase (313-618) U/L Total Protein 5.8 L (6.3-8.2) g/dL Total Protein (PEP) (6.2-8.2) g/dL Assessment and Plan (1) Macrocytic anemia Current Visit: Yes Status: Acute Code(s): D53.9 - NUTRITIONAL ANEMIA, UNSPECIFIED SNOMED Code(s): 15727559 (2) Leukocytosis Current Visit: Yes Status: Acute Code(s): D72.829 - ELEVATED WHITE BLOOD CELL COUNT, UNSPECIFIED SNOMED Code(s): 385096005 Plan: Assessment: Macrocytic Anemia: - May have compoenent of iron deficiency although further work-up in progress - GI evaluation today, await results Leukocytosis: - Infectious/Reactive - Other associated causes to be ruled out further as well
[2020-11-28 17:00] LABS: % Iron Saturation 14.93 (12.00-45.00); Iron 63 ug/dL (50-170); Total Iron Binding Capacity 420 ug/dL (228-460)
[2020-11-28] MEDS ORDERED: SENNOSIDES-DOCUSATE SODIUM 1 EACH TAB PO SCH (21:00)
[2020-11-29] MEDS: LEVOTHYROXINE 25 MCG TAB PO SCH (05:45)
[2020-11-29] MEDS: LACTULOSE 20 GM/30 ML CUP PO SCH (07:23)
[2020-11-29] MEDS: GLIMEPIRIDE 2 MG TAB PO SCH (07:23)
[2020-11-29] MEDS: IPRATROPIUM-ALBUTEROL 3 ML NEB INHALATION SCH ×2 (07:23→11:00)
[2020-11-29] MEDS: VIT A,C & E-LUTEIN-MINERALS 1 EACH TAB PO SCH (07:23)
[2020-11-29] MEDS: METOPROLOL TARTRATE 25 MG TAB PO SCH (07:23)
[2020-11-29] MEDS: FUROSEMIDE 80 MG TAB PO SCH (07:24)
[2020-11-29] MEDS: ATORVASTATIN 40 MG TAB PO SCH (07:24)
[2020-11-29] MEDS: MULTIVITAMINS, THERA 1 EACH TAB PO SCH (07:24)
[2020-11-29] MEDS: PANTOPRAZOLE 40 MG TABLET PO SCH (07:25)
[2020-11-29] MEDS: CHOLECALCIFEROL 25 MCG (1000 IU) TABLET PO SCH (07:25)
[2020-11-29] MEDS: amLODIPine 5 MG TAB PO SCH (07:26)
[2020-11-29] MEDS: LINAGLIPTIN 5 MG TABLET PO SCH (07:26)
[2020-11-29] MEDS: lisinopriL 5 MG TAB PO SCH (07:26)
--- NOTE | 2020-11-29 08:08 | P.DS ---
Providers Date of admission: 11/25/20 17:02 Expected date of discharge: 11/29/20 Attending physician: Dimple Wooten Consults: 11/25/20 17:03 Consult Physician Routine Consulting Provider: Rosalinda Núñez Consult Reason/Comments: anemia, rule out gi bleed Do you want consulting provider notified?: Yes 11/26/20 12:50 Consult Physician Routine Consulting Provider: Manuel Naqvi Consult Reason/Comments: ANEMIA WITH MACROCYTOSIS Do you want consulting provider notified?: Yes Primary care physician: Dimple Wooten Hospital Course: HISTORY OF PRESENT ILLNESS: This is a 70-year-old female patient of [facility] with past medical history of diabetes mellitus type 2, diabetic polyneuropathy, paroxysmal atrial fibrillation, psoriasis, COPD, hypertension, coronary artery disease status post stenting of the mid LAD [place] [address] Zavala, remote history of tobacco use and dependence, obesity with obstructive sleep apnea and obesity hypoventilation syndrome, patient was recently hospitalized at [facility] between 11/11/2020 of 11/16/2020 after she was admitted for acute hypoxemic respiratory failure due to pneumonia as well as acute exacerbation of the diastolic heart failure and COPD exacerbation, she was treated with IV antibiotic as well as IV diuretics and IV steroid, and she was seen in my office a few days ago when she was complaining of increased fatigue and tiredness with increased shortness breath laboratory evaluation did show evidence of significant anemia with a hemoglobin of 6.9 patient was directed to go to the emergency department for evaluation repeated blood count showed 70 result she was admitted to the hospital and type and cross and transfuse 2 units of packed red blood cells were done, and the patient was admitted to the floor with GI consultation. 11/28: Patient denies having any abdominal pain. She states her bowel movement yesterday was black. She has been made nothing by mouth and underwent EGD with Dr. Felicitas Núñez that revealed mild antral gastritis. No evidence of esophagitis, peptic ulcer disease or angiectasia. Patient is scheduled for small bowel follow-through. Repeat hemoglobin 8.4, BUN 40 and creatinine 1.7. Repeat blood work ordered for the morning. 11/29: Hemoglobin yesterday was 8.4 with white count of 15.1, platelet count of 343. BUN 40 and creatinine 1.7. Repeat hemoglobin today is 8.5. Patient stat es that she had dark stool last night. She denies any shortness of breath or cough. She does have some left arm swelling most likely due to IV site. Yesterday, patient underwent EGD with Dr. Felicitas Núñez as above and also underwent small bowel endoscopy found no obvious source of bleeding but will be further reviewed. Patient is clear from GI for discharge with recommendations to hold eliquis for 1 week. Patient will be discharged home today in stable condition. ASSESSMENT AND PLAN: 1. Acute symptomatic anemia secondary to GI bleed. 2. COPD without exacerbation. 3. Chronic diastolic heart failure. 4. Hypertension and hypertensive cardiovascular disease. 5. Hyperlipidemia. 6. Diabetes mellitus type 2. 7. Paroxysmal atrial fibrillation. 8. Coronary artery disease status post PCI of the LAD in 2017. 9. Hypothyroidism. 10. Obesity with obstructive sleep apnea. 11. History of psoriasis. Stable. 12. Chronic kidney disease stage III a. DISCHARGE PLAN: Home Impression and plan of care have been directed as dictated by the signing physician. Antonette Carson nurse practitioner acting as scribe for signing physician. Patient Condition at Discharge: Stable Plan - Discharge Summary Discharge Rx Participant: Yes New Discharge Prescriptions: New Lactulose [Cephulac] 20 gm PO BID #1800 ml Continue Multivit-Min/FA/Lycopen/Lutein [Centrum Silver Tablet] 1 tab PO DAILY Aspirin [Adult Low Dose Aspirin EC] 81 mg PO Q48H Metoprolol Tartrate [Lopressor] 25 mg PO BID #180 tab amLODIPine BESYLATE [Norvasc] 5 mg PO DAILY #1 tablet Glimepiride [Amaryl] 4 mg PO BID Levothyroxine Sodium [Synthroid] 25 mcg PO DAILY sitaGLIPtin [Januvia] 50 mg PO DAILY Vit C/E/Zn/Coppr/Lutein/Zeaxan [Preservision Areds 2 Softgel] 2 cap PO DAILY Atorvastatin [Lipitor] 40 mg PO DAILY Cholecalciferol [Vitamin D3 (25 Mcg = 1000 Iu)] 50 mcg PO DAILY Furosemide [Lasix] 80 mg PO Q48H lisinopriL [Zestril] 5 mg PO DAILY Semaglutide [Ozempic] 0.25 mg SQ LOZANO Ipratropium-Albuterol Nebulize [Duoneb 0.5 mg-3 mg/3 ml Soln] 3 ml INHALATION RT-QID #120 inh predniSONE See Taper PO DAILY Apixaban [Eliquis] 5 mg PO BID #60 tab Discharge Medication List Aspirin [Adult Low Dose Aspirin EC] 81 mg PO Q48H 08/28/16 [History] Multivit-Min/FA/Lycopen/Lutein [Centrum Silver Tablet] 1 tab PO DAILY 08/28/16 [History] Metoprolol Tartrate [Lopressor] 25 mg PO BID #180 tab 09/04/16 [Rx] amLODIPine BESYLATE [Norvasc] 5 mg PO DAILY #1 tablet 09/04/16 [Rx] Glimepiride [Amaryl] 4 mg PO BID 04/08/18 [History] Levothyroxine Sodium [Synthroid] 25 mcg PO DAILY 04/08/18 [History] Vit C/E/Zn/Coppr/Lutein/Zeaxan [Preservision Areds 2 Softgel] 2 cap PO DAILY 04/08/18 [History] sitaGLIPtin [Januvia] 50 mg PO DAILY 04/08/18 [History] Atorvastatin [Lipitor] 40 mg PO DAILY 11/11/20 [History] Cholecalciferol [Vitamin D3 (25 Mcg = 1000 Iu)] 50 mcg PO DAILY 11/11/20 [History] Furosemide [Lasix] 80 mg PO Q48H 11/11/20 [History] Semaglutide [Ozempic] 0.25 mg SQ LOZANO 11/11/20 [History] lisinopriL [Zestril] 5 mg PO DAILY 11/11/20 [History] Ipratropium-Albuterol Nebulize [Duoneb 0.5 mg-3 mg/3 ml Soln] 3 ml INHALATION RT-QID #120 inh 11/16/20 [Rx] predniSONE See Taper PO DAILY 11/25/20 [History] Apixaban [Eliquis] 5 mg PO BID #60 tab 11/29/20 [Rx] Lactulose [Cephulac] 20 gm PO BID #1800 ml 11/29/20 [Rx] Follow up Appointment(s)/Referral(s): Dimple Wooetn MD [Primary Care Provider] - 1 Week Rosalinda Núñez MD [STAFF PHYSICIAN] - 1 Week Juan Manuel Hancock MD [STAFF PHYSICIAN] - 1 Week ( ) Discharge Disposition: HOME SELF-CARE
[2020-11-29 08:55] LABS: ALT 43 U/L (4-34); AST 20 U/L (14-36); African American GFR (CKD) 41 (>60 ml/min/1.73 sqM); Albumin 2.9 g/dL (3.5-5.0); Albumin/Globulin Ratio 1.4; Alkaline Phosphatase 77 U/L (38-126); Anion Gap 5 mmol/L; Blood Urea Nitrogen 34 mg/dL (7-17); Calcium 8.5 mg/dL (8.4-10.2); Carbon Dioxide 23 mmol/L (22-30); Chloride 106 mmol/L (98-107); Globulin 2.1 g/dL; Glucose 90 mg/dL (74-99); Non-African American GFR(CKD) 35 (>60 ml/min/1.73 sqM); Potassium 4.5 mmol/L (3.5-5.1); Sodium 134 mmol/L (137-145); Total Bilirubin 0.4 mg/dL (0.2-1.3)
[2020-11-29] MEDS ORDERED: ASPIRIN 81 MG PO SCH (09:00)
[2020-11-29 09:27] LABS: Anisocytosis Slight; HCT 26.5 % (34.0-46.0); HGB 8.5 gm/dL (11.4-16.0); Hypochromasia Moderate; MCH 33.8 pg (25.0-35.0); MCV 105.7 fL (80.0-100.0); Macrocytosis Marked; Mean Platelet Volume 10.6; Platelet Count 345 k/uL (150-450); Poikilocytosis Slight; RBC 2.51 m/uL (3.80-5.40); RDW 17.8 % (11.5-15.5); WBC 11.6 k/uL (3.8-10.6)
[2020-11-29 10:46] LABS: Free Kappa Lt Chain Qnt, Serum 1.59 mg/dL (0.33-1.94)
--- NOTE | 2020-11-29 11:03 | P.PN ---
Subjective Progress Note Date: 11/29/20 Principal diagnosis: symptomatic anemia In f/u pt feels well, denies bleeding, she is awaiting the capsule endoscopy results and is anxious to go home Objective - Vital Signs Vital signs: Vital Signs Temp 97.5 F L 11/29/20 05:00 Pulse 72 11/29/20 07:34 Resp 16 11/29/20 07:22 BP 112/62 11/29/20 07:22 Pulse Ox 98 11/29/20 05:00 Intake & Output 11/28/20 11/29/20 11/29/20 18:59 06:59 18:59 Intake Total 100 360 Balance 100 360 Intake: IV 100 Oral 360 Other: Voiding Method Toilet Toilet Toilet # Voids 4 1 - Constitutional General appearance: Present: cooperative, no acute distress, obese - EENT Eyes: Present: anicteric sclerae, EOMI ENT: Present: hearing grossly normal - Respiratory Details: resp even and unlabored at rest - Integumentary Integumentary Comment(s): scattered ecchymosis on the upper extremities - Neurologic Neurologic: Present: CNII-XII intact (grossly) - Psychiatric Psychiatric: Present: A&O x's 3, appropriate affect, intact judgment & insight - Labs CBC & Chem 7: 11/29/20 06:07 11/29/20 06:07 Labs: Abnormal Lab Results - Last 24 Hours (Table) 11/27/20 11/29/20 11/29/20 Range/Units 11:57 06:07 06:07 WBC 11.6 H (3.8-10.6) k/uL RBC 2.51 L (3.80-5.40) m/uL Hgb 8.5 L (11.4-16.0) gm/dL Hct 26.5 L (34.0-46.0) % MCV 105.7 H (80.0-100.0) fL RDW 17.8 H (11.5-15.5) % Macrocytosis Marked A Haptoglobin 244.0 H (31.2-198.0) mg/dL Sodium 134 L (137-145) mmol/L BUN 34 H (7-17) mg/dL Creatinine 1.48 H (0.52-1.04) mg/dL ALT 43 H (4-34) U/L Total Protein 5.0 L (6.3-8.2) g/dL Albumin 2.9 L (3.5-5.0) g/dL Assessment and Plan (1) CKD (chronic kidney disease) Current Visit: Yes Status: Chronic Priority: Medium Code(s): N18.9 - CHRONIC KIDNEY DISEASE, UNSPECIFIED SNOMED Code(s): 929689507 (2) Macrocytic anemia Current Visit: Yes Status: Acute Priority: High Code(s): D53.9 - NUTRITIONAL ANEMIA, UNSPECIFIED SNOMED Code(s): 42350973 Plan: Work up reveals iron deficiency. Plan will be for parenteral iron infusion outpt. Hematology will schedule and contact pt. Pt confirms that she can get to and from appts. Will see how iron improves pt Hgb. If she remains below 9 she could be initiated on Epo supplement, once her iron stores are adequate, for anemia of CKD. Outpt f/u. Hgb stable today.
[2020-11-29 13:04] LABS: Albumin 3.09 g/dL (3.80-4.90); Gamma Globulin 0.49 g/dL (0.70-1.50)
[2020-11-29 13:28] VITALS: BP 107/75; PULSE 62; RESP 18; TEMP 97.7
--- NOTE | 2020-11-29 14:11 | P.PN ---
Subjective Progress Note Date: 11/29/20 Principal diagnosis: Anemia, GI bleed 70-year-old female with multiple comorbidities with a history of atrial fibrillation who has been on Eliquis been admitted for anemia. She was found to have an outpatient hemoglobin is 6.5. She was admitted and given 2 units of PRBC transfusion. Yesterday she underwent an EGD without any evidence of esophagitis, peptic ulcer disease and ectasia or active bleeding or old blood noted. She had mild antral gastritis. She underwent a small bowel capsule endoscopy without any evidence of any active bleeding or overt old blood noted. Patient states she did have a bowel movement today that was dark. She denies any abdominal pain, nausea, or vomiting. Hemoglobin is stable at 8.5. She's been tolerating her diet. States she is feeling much better. She states she would like to go home. Objective - Vital Signs Vital signs: Vital Signs Temp 97.5 F L 11/29/20 05:00 Pulse 72 11/29/20 07:34 Resp 16 11/29/20 07:22 BP 112/62 11/29/20 07:22 Pulse Ox 98 11/29/20 05:00 Intake & Output 11/28/20 11/29/20 11/29/20 18:59 06:59 18:59 Intake Total 100 360 Balance 100 360 Intake: IV 100 Oral 360 Other: Voiding Method Toilet Toilet # Voids 4 1 - Exam General appearance: The patient is alert, oriented, appears in no acute distress. HET: Head is normocephalic and atraumatic. Conjunctiva pink. Sclera anicteric. Neck: Supple without lymphadenopathy. Abdomen: Soft, nontender, nondistended with bowel sounds. No guarding or rigidity. Extremities: Normal skin color and turgor. No pedal edema Skin: No rashes, no jaundice Neurological: No focal deficits. Alert and oriented -3. - Labs CBC & Chem 7: 11/29/20 06:07 11/29/20 06:07 Labs: Abnormal Lab Results - Last 24 Hours (Table) 11/28/20 11/29/20 11/29/20 Range/Units 05:45 06:07 06:07 WBC 11.6 H (3.8-10.6) k/uL RBC 2.51 L (3.80-5.40) m/uL Hgb 8.5 L (11.4-16.0) gm/dL Hct 26.5 L (34.0-46.0) % MCV 105.7 H (80.0-100.0) fL RDW 17.8 H (11.5-15.5) % Macrocytosis Marked A Sodium 134 L (137-145) mmol/L Carbon Dioxide 20.4 L (21.6-31.8) mmol/L BUN 40.5 H 34 H (9.0-27.0) mg/dL Creatinine 1.7 H 1.48 H (0.6-1.5) mg/dL Est GFR (CKD-EPI)AfAm 35.1 L (60.0-200.0) Est GFR (CKD-EPI)NonAf 30.3 L (60.0-200.0) BUN/Creatinine Ratio 24.25 H (12.00-20.00) Ratio Glucose 51 L (70-110) mg/dL Calcium 8.3 L (8.7-10.3) mg/dL ALT 46 H 43 H (8-44) U/L Total Protein 4.9 L 5.0 L (6.2-8.2) g/dL Albumin 3.3 L 2.9 L (3.8-4.9) g/dL Assessment and Plan (1) Symptomatic anemia Narrative/Plan: This is 70-year-old female who was recently admitted to the hospital with COPD. She was started on a prednisone taper dose which she is now completed. She has a history of coronary artery disease including atrial fibrillation currently on Eliquis, last taken 11/25/2020. She was noted to have an outpatient hemoglobin of 6.5 and was told to come to the emergency department for admission and blood transfusion. She is status post 2 units PRBC transfusion with a repeat h emoglobin today of 8.4. She has no previous history of GI bleed. No previous history of EGD, peptic ulcer disease, esophagitis, or upper GI bleed. Patient had a screening colonoscopy [place] [address] Mejia which was significant for polypectomy. She states that she has been having some weakness and fatigue over the last couple weeks duration and went for the blood work. States that she has also noticed black stool for the last 1-2 weeks duration. We'll plan on EGD for further evaluation. Possible etiologies include peptic ulcer disease, esophagitis, gastritis, AVM, or other possible etiologies. Patient underwent EGD yesterday with no active bleeding noted. No evidence of peptic ulcer disease, esophagitis or AVMs. Patient did have a mild case of gastritis. Patient also underwent a small bowel capsule endoscopy. No evidence of old blood or active bleeding. Occasional nonbleeding AVMs. I commended holding Eliquis 1 week. Current Visit: Yes Status: Acute Code(s): D64.9 - ANEMIA, UNSPECIFIED SNOMED Code(s): 443362078 (2) Melena Current Visit: Yes Status: Acute Code(s): K92.1 - MELENA SNOMED Code(s): 6704536 (3) CKD (chronic kidney disease) Current Visit: Yes Status: Chronic Priority: Medium Code(s): N18.9 - CHRONIC KIDNEY DISEASE, UNSPECIFIED SNOMED Code(s): 631280040 (4) History of atrial fibrillation Narrative/Plan: Recommend holding Eliquis x 1 week Current Visit: Yes Status: Acute Code(s): Z86.79 - PERSONAL HISTORY OF OTHER DISEASES OF THE CIRCULATORY SYSTEM SNOMED Code(s): 759295075 (5) Occult blood positive stool Current Visit: Yes Status: Acute Code(s): R19.5 - OTHER FECAL ABNORMALITIES SNOMED Code(s): 49223668 Plan: 1. Diet as tolerated 2. Continue to hold Eliquis 1 week 3. Protonix for GI prophylaxis 4. Patient is status post EGD and small bowel capsule endoscopy. No evidence of active bleeding. Likely nonbleeding AVM was the cause. Would recommend holding Eliquis for 1 week. Thank you for this consultation, patient is cleared by gastroenterology for gopal lerner. Dr. Felicitas Núñez I agree with the dictator's note, documented as a scribe by Ariella Jameson.
== END 2020-11-29 14:53 | disposition home or self-care (01) | DRG 378 ==
LOC: EC 13:11 → 5NMEDONC 17:02
PROVIDERS: ADMIT Internal Medicine; ATTEND Internal Medicine
PROC: 30233N1 Transfusion of Nonautologous Red Blood Cells into Peripheral Vein, Percutaneous Approach (ICD-10-PCS; 2020-11-25)
PROC: 0DB78ZX Excision of Stomach, Pylorus, Via Natural or Artificial Opening Endoscopic, Diagnostic (ICD-10-PCS; principal; 2020-11-28 07:45)
DX: K29.71 Gastritis, unspecified, with bleeding (principal); E87.1 Hypo-osmolality and hyponatremia; I50.32 Chronic diastolic (congestive) heart failure; I13.0 Hypertensive heart and chronic kidney disease with heart failure and stage 1 through stage 4 chronic kidney disease, or unspecified chronic kidney disease; T82.898A Other specified complication of vascular prosthetic devices, implants and grafts, initial encounter; D62 Acute posthemorrhagic anemia; D53.9 Nutritional anemia, unspecified; D72.829 Elevated white blood cell count, unspecified; D75.89 Other specified diseases of blood and blood-forming organs; E03.9 Hypothyroidism, unspecified; E11.22 Type 2 diabetes mellitus with diabetic chronic kidney disease; E11.42 Type 2 diabetes mellitus with diabetic polyneuropathy; E66.9 Obesity, unspecified; E78.5 Hyperlipidemia, unspecified; G47.33 Obstructive sleep apnea (adult) (pediatric); I25.10 Atherosclerotic heart disease of native coronary artery without angina pectoris; I48.0 Paroxysmal atrial fibrillation; Z20.822 Contact with and (suspected) exposure to COVID-19; J44.9 Chronic obstructive pulmonary disease, unspecified; N18.31 Chronic kidney disease, stage 3a; M79.89 Other specified soft tissue disorders; Z79.01 Long term (current) use of anticoagulants; Z79.82 Long term (current) use of aspirin; Z79.84 Long term (current) use of oral hypoglycemic drugs; Z79.890 Hormone replacement therapy; Z79.899 Other long term (current) drug therapy; Z80.0 Family history of malignant neoplasm of digestive organs; Z80.41 Family history of malignant neoplasm of ovary; Z82.49 Family history of ischemic heart disease and other diseases of the circulatory system; Z87.891 Personal history of nicotine dependence; Z95.5 Presence of coronary angioplasty implant and graft; Y84.8 Other medical procedures as the cause of abnormal reaction of the patient, or of later complication, without mention of misadventure at the time of the procedure; Y92.239 Unspecified place in hospital as the place of occurrence of the external cause
CPT/HCPCS: 36415; 43239; 80048; 80053; 82272; 82607; 82668; 82728; 82746; 83010; 83540; 83550; 83615; 83883; 83921; 84165; 84484; 85025; 85027; 85045; 85610; 85730; 86334; 86335; 86850; 86900; 86901; 86920; 87635; 88305; 91110; 94640; 99285

== ENCOUNTER 2020-12-31 10:09 | Inpatient (IN) | payer MEDICARE ==
[2020-12-31] MEDS ORDERED: IPRATROPIUM-ALBUTEROL 3 ML NEB INHALATION STA (10:36)
[2020-12-31 10:59] LABS: Albumin 3.3 g/dL (3.5-5.0); Anisocytosis Slight; Basophils % (A) 0 %; Calcium 8.4 mg/dL (8.4-10.2); Eosinophils % (A) 0 %; HCT 29.9 % (34.0-46.0); HGB 9.8 gm/dL (11.4-16.0); Lymphocytes # (A) 0.6 k/uL (1.0-4.8); Lymphocytes % (A) 7 %; MCH 34.6 pg (25.0-35.0); MCHC 32.6 g/dL (31.0-37.0); MCV 106.1 fL (80.0-100.0); Macrocytosis Marked; Magnesium 2.1 mg/dL (1.6-2.3); Mean Platelet Volume 10.4; Monocytes # (A) 0.2 k/uL (0-1.0); Monocytes % (A) 2 %; Neutrophils # (A) 7.9 k/uL (1.3-7.7); Neutrophils % (A) 90 %; Platelet Count 215 k/uL (150-450); Potassium 4.1 mmol/L (3.5-5.1); RBC 2.82 m/uL (3.80-5.40); RDW 19.7 % (11.5-15.5); Total Bilirubin 0.4 mg/dL (0.2-1.3); Total Protein 5.9 g/dL (6.3-8.2); WBC 8.9 k/uL (3.8-10.6)
--- NOTE | 2020-12-31 10:59 | ED ---
General Adult HPI - General Chief complaint: Shortness of Breath Stated complaint: AMI Time Seen by Provider: 12/31/20 10:19 Source: patient, RN notes reviewed Mode of arrival: wheelchair Limitations: no limitations - History of Present Illness Initial comments: This a 70-year-old female presents emergency from chief complaint of shortness breath. Patient states started having increased respiratory night. Patient states she does have underlying COPD. Patient states that she's been wheezing, on alleviated with her breathing treatments. Patient states that she has struggle with induration second or shortness breath states that she cannot get a full sentence out because she is short of breath. Patient has appears or chills no prior COVID-19 she has had a prior vaccination. Patient denies chest pain, leg swelling of the usual. - Related Data Home Medications Medication Instructions Recorded Confirmed Aspirin [Adult Low Dose Aspirin EC] 81 mg PO Q48H 08/28/16 12/31/20 Multivit-Min/FA/Lycopen/Lutein 1 tab PO DAILY 08/28/16 12/31/20 [Centrum Silver Tablet] Glimepiride [Amaryl] 4 mg PO BID 04/08/18 12/31/20 Levothyroxine Sodium [Synthroid] 25 mcg PO DAILY 04/08/18 12/31/20 Vit C/E/Zn/Coppr/Lutein/Zeaxan 2 cap PO DAILY 04/08/18 12/31/20 [Preservision Areds 2 Softgel] sitaGLIPtin [Januvia] 50 mg PO DAILY 04/08/18 12/31/20 Atorvastatin [Lipitor] 40 mg PO DAILY 11/11/20 12/31/20 Cholecalciferol [Vitamin D3 (25 50 mcg PO DAILY 11/11/20 12/31/20 Mcg = 1000 Iu)] Furosemide [Lasix] 80 mg PO Q48H 11/11/20 12/31/20 Semaglutide [Ozempic] 0.25 mg SQ LOZANO 11/11/20 12/31/20 lisinopriL [Zestril] 5 mg PO DAILY 11/11/20 12/31/20 Previous Rx's Medication Instructions Recorded Metoprolol Tartrate [Lopressor] 25 mg PO BID #180 tab 09/04/16 amLODIPine BESYLATE [Norvasc] 5 mg PO DAILY #1 tablet 09/04/16 Ipratropium-Albuterol Nebulize 3 ml INHALATION RT-QID #120 inh 11/16/20 [Duoneb 0.5 mg-3 mg/3 ml Soln] Apixaban [Eliquis] 5 mg PO BID #60 tab 11/29/20 Lactulose [Cephulac] 20 gm PO BID #1800 ml 11/29/20 Allergies Allergy/AdvReac Type Severity Reaction Status Date / Time No Known Allergies Allergy Verified 12/31/20 11:50 Review of Systems ROS Statement: Those systems with pertinent positive or pertinent negative responses have been documented in the HPI. ROS Other: All systems not noted in ROS Statement are negative. Past Medical History Past Medical History: Coronary Artery Disease (CAD), Heart Failure, COPD, Diabetes Mellitus, Hyperlipidemia, Hypertension, Skin Disorder, Sleep Apnea/CPAP/BIPAP Additional Past Medical History / Comment(s): Hx Psoriasis History of Any Multi-Drug Resistant Organisms: None Reported Past Surgical History: Heart Catheterization With Stent Additional Past Surgical History / Comment(s): Cataracts, abcess on buttocks, colonoscopies Past Anesthesia/Blood Transfusion Reactions: No Reported Reaction Date of Last Stent Placement:: unknown Past Psychological History: No Psychological Hx Reported Smoking Status: Never smoker Past Alcohol Use History: None Reported Past Drug Use History: None Reported - Past Family History Mother Family Medical History: Hypertension Additional Family Medical History / Comment(s): Mother in her 80s from old age. Father Family Medical History: Hypertension Additional Family Medical History / Comment(s): Father at age 70 during his sleep of unknown cause. Sister(s) Additional Family Medical History / Comment(s): Patient has 3 sisters and one has from ovarian cancer. One is alive with colon cancer and doing very poorly expected to sound. One sister has no major medical problems. Brother(s) Additional Family Medical History / Comment(s): The patient has 1 brother with no major medical problems. Patient does not have any children. General Exam Limitations: no limitations General appearance: alert, in no apparent distress Head exam: Present: atraumatic, normocephalic, normal inspection Eye exam: Present: normal appearance, PERRL, EOMI. Absent: scleral icterus, conjunctival injection, periorbital swelling ENT exam: Present: normal exam, normal oropharynx, mucous membranes moist Neck exam: Present: normal inspection, full ROM. Absent: tenderness, meningismus, lymphadenopathy Respiratory exam: Present: respiratory distress, wheezes. Absent: normal lung sounds bilaterally, rales, rhonchi, stridor Cardiovascular Exam: Present: tachycardia, irregular rhythm, normal heart sounds. Absent: regular rate, normal rhythm, systolic murmur, diastolic murmur, rubs, gallop, clicks GI/Abdominal exam: Present: soft, normal bowel sounds. Absent: distended, tenderness, guarding, rebound, rigid Extremities exam: Present: pedal edema (Minimal) Skin exam: Present: warm, dry, intact, normal color. Absent: rash Course Vital Signs 12/31/20 12/31/20 12/31/20 10:10 10:30 11:00 Temperature 98.4 F Pulse Rate 109 H 110 H 112 H Respiratory 24 22 22 Rate Blood Pressure 129/58 109/60 104/60 O2 Sat by Pulse 91 L 91 L 91 L Oximetry 12/31/20 12/31/20 12/31/20 11:42 12:00 12:05 Temperature Pulse Rate 110 H 111 H 111 H Respiratory Rate Blood Pressure 118/66 O2 Sat by Pulse 91 L Oximetry Medical Decision Making - Medical Decision Making 70-year-old presented for dyspnea. Patient is hypoxic nor from 8991. Patient did have multiple breathing treatments continue has shortness of breath. Patient also had a component of CHF was given Lasix. Patient will be admitted with ulnar consult, further management and treatment. - Lab Data Result diagrams: 12/31/20 12:25 12/31/20 10:41 Lab Results 12/31/20 12/31/20 12/31/20 Range/Units 10:41 10:41 10:41 WBC 8.9 (3.8-10.6) k/uL RBC 2.82 L (3.80-5.40) m/uL Hgb 9.8 L (11.4-16.0) gm/dL Hct 29.9 L (34.0-46.0) % MCV 106.1 H (80.0-100.0) fL MCH 34.6 (25.0-35.0) pg MCHC 32.6 (31.0-37.0) g/dL RDW 19.7 H (11.5-15.5) % Plt Count 215 (150-450) k/uL MPV 10.4 Neutrophils % 90 % Lymphocytes % 7 % Monocytes % 2 % Eosinophils % 0 % Basophils % 0 % Neutrophils # 7.9 H (1.3-7.7) k/uL Lymphocytes # 0.6 L (1.0-4.8) k/uL Monocytes # 0.2 (0-1.0) k/uL Eosinophils # 0.0 (0-0.7) k/uL Basophils # 0.0 (0-0.2) k/uL Manual Slide Review Performed Poikilocytosis (manual Present Anisocytosis Slight Anisocytosis (manual) Present Macrocytosis Marked A PT 11.2 (9.0-12.0) sec INR 1.1 (<1.2) APTT 31.2 H (22.0-30.0) sec Sodium 134 L (137-145) mmol/L Potassium 4.1 (3.5-5.1) mmol/L Chloride 101 (98-107) mmol/L Carbon Dioxide 20 L (22-30) mmol/L Anion Gap 13 mmol/L BUN 44 H (7-17) mg/dL Creatinine 1.74 H (0.52-1.04) mg/dL Est GFR (CKD-EPI)AfAm 33 (>60 ml/min/1.73 sqM) Est GFR (CKD-EPI)NonAf 29 (>60 ml/min/1.73 sqM) Glucose 43 L* (74-99) mg/dL Calcium 8.4 (8.4-10.2) mg/dL Magnesium 2.1 (1.6-2.3) mg/dL Total Bilirubin 0.4 (0.2-1.3) mg/dL AST 46 H (14-36) U/L ALT 31 (4-34) U/L Alkaline Phosphatase 152 H (38-126) U/L Troponin I (0.000-0.034) ng/mL NT-Pro-B Natriuret Pep pg/mL Total Protein 5.9 L (6.3-8.2) g/dL Albumin 3.3 L (3.5-5.0) g/dL 12/31/20 12/31/20 Range/Units 10:41 10:41 WBC (3.8-10.6) k/uL RBC (3.80-5.40) m/uL Hgb (11.4-16.0) gm/dL Hct (34.0-46.0) % MCV (80.0-100.0) fL MCH (25.0-35.0) pg MCHC (31.0-37.0) g/dL RDW (11.5-15.5) % Plt Count (150-450) k/uL MPV Neutrophils % % Lymphocytes % % Monocytes % % Eosinophils % % Basophils % % Neutrophils # (1.3-7.7) k/uL Lymphocytes # (1.0-4.8) k/uL Monocytes # (0-1.0) k/uL Eosinophils # (0-0.7) k/uL Basophils # (0-0.2) k/uL Manual Slide Review Poikilocytosis (manual Anisocytosis Anisocytosis (manual) Macrocytosis PT (9.0-12.0) sec INR (<1.2) APTT (22.0-30.0) sec Sodium (137-145) mmol/L Potassium (3.5-5.1) mmol/L Chloride (98-107) mmol/L Carbon Dioxide (22-30) mmol/L Anion Gap mmol/L BUN (7-17) mg/dL Creatinine (0.52-1.04) mg/dL Est GFR (CKD-EPI)AfAm (>60 ml/min/1.73 sqM) Est GFR (CKD-EPI)NonAf (>60 ml/min/1.73 sqM) Glucose (74-99) mg/dL Calcium (8.4-10.2) mg/dL Magnesium (1.6-2.3) mg/dL Total Bilirubin (0.2-1.3) mg/dL AST (14-36) U/L ALT (4-34) U/L Alkaline Phosphatase (38-126) U/L Troponin I 0.043 H* (0.000-0.034) ng/mL NT-Pro-B Natriuret Pep 6260 pg/mL Total Protein (6.3-8.2) g/dL Albumin (3.5-5.0) g/dL Disposition Clinical Impression: CKD (chronic kidney disease), Acute exacerbation of chronic obstructive pulmonary disease, Hypoxia, Hypoglycemia, CHF (congestive heart failure), COVID- 19 Disposition: ADMITTED IP TO THIS HOSP Condition: Fair
[2020-12-31 11:03] LABS: INR 1.1 (<1.2); Partial Thromboplastin Time 31.2 sec (22.0-30.0); Prothrombin Time 11.2 sec (9.0-12.0)
[2020-12-31 11:49] LABS: Anisocytosis (M) Present; Poikilocytosis (M) Present
[2020-12-31] MEDS ORDERED: methylPREDNISolone SOD SUCCI 125 MG/2 ML VIAL IV STA (11:53)
[2020-12-31] MEDS ORDERED: FUROSEMIDE 10 MG/ML 4 ML VIAL IV STA (11:53)
[2020-12-31] MEDS ORDERED: ALBUTEROL NEBULIZED 2.5 MG/3 ML INHALATION PRN (11:55)
[2020-12-31] MEDS ORDERED: IPRATROPIUM-ALBUTEROL 3 ML NEB INHALATION SCH (12:00)
--- NOTE | 2020-12-31 12:06 | P.HPIM ---
History of Present Illness H&P Date: 12/31/20 Chief Complaint: Shortness of breath HISTORY OF PRESENT ILLNESS: This is a 70-year-old female patient of mine with past medical history of diabetes mellitus type 2, diabetic polyneuropathy, paroxysmal atrial fibrillation, psoriasis, COPD, hypertension, coronary artery disease status post stenting of the mid LAD [place] [address] Zavala, remote history of tobacco use and dependence, obesity with obstructive sleep apnea and obesity hypoventilation syndrome, patient was recently hospitalized at [facility] between 11/11/2020 of 11/16/2020 after she was admitted for acute hypoxemic respiratory failure due to pneumonia as well as acute exacerbation of the diastolic heart failure and COPD exacerbation, she was treated with IV antibiotic as well as IV diuretics and IV steroid, then she developed to have a significant fatigue and tiredness she was hospitalized on November 26 through November 29 for acute and chronic anemia with hemoglobin of 5.9, she did receive blood procedure that time was seen in consultation by gastroenterology underwent EGD that showed chronic gastritis without evidence of expiratory bacteria she was seen in consultation by hematology and he was recommended for the patient to receive IV iron infusion as an outpatient and if her iron stores are adequate she will be started on erythropoietin treatment as an outpatient, patient stated that she was in her usual state of health until about yesterday when she went to sleep and stated her recliner woke up in the morning and she was extreme short of breath not able to catch her breath she did receive breathing treatment did not help much she called her nephew who came and brought her to the ER at [facility] , patient was hypoxemic with oxygenation of 87-88% on room air she was started on oxygen supply, she was started on Solu-Medrol 60 mg IV push every 6 hours, she was somewhat hypoglycemic she was given orange juice along with peanut butter and crackers her blood glucose level is around 57, chest x-ray was orders of any anatomic dictation, her hemoglobin is better at 9.9 today, her troponin slightly elevated, we will consult cardiology we will consult pulmonary medicine as well for further evaluation and recommendation, while the patient in the emergency department her COVID-19 PCR came back positive patient was admitted for Covid 19 with droplet precautions. REVIEW OF SYSTEMS: Constitutional: No documented fever, no chills, no night sweats. positive for weight change. positive for weakness, positive for fatigue or lethargy. positive for daytime sleepiness. HEENT: No headache. No blurred vision or double vision, no loss of vision. No loss of Hearing, no ringing in the ears, no dizziness. No nasal drainage or congestion. No epistaxis. No sore throat. Lungs: positive for shortness of breath, positive for dry cough, no sputum production. Positive for wheezing. Reports dyspnea with activity. Cardiovascular: No chest pain, mild lower extremity edema. No palpitations. No paroxysmal nocturnal dyspnea. No orthopnea. No lightheadedness or dizziness. No syncopal episodes. Abdominal: Reports no abdominal pain. No nausea, vomiting. No diarrhea. No constipation. No bloody or tarry stools reports loss of appetite. Genitourinary: No dysuria, increased frequency, urgency. No urinary retention. Musculoskeletal: No myalgias. No muscle weakness, no gait dysfunction, no frequent falls. positive fpr back pain. No neck pain. Integumentary: No wounds, no lesions. positive for dry skin. positive for bruising. No change in hair or nails. Neurologic: No aphasia. No facial droop. No change in mentation. No head injury. No headache. No paralysis. No paresthesia. Psychiatric: No depression. No anxiety. No mood swings. Endocrine: hypoglycemic episode. PAST MEDICAL HISTORY: Hypertension and hypertensive cardiovascular disease Hyperlipidemia. Diabetes mellitus type 2. Diabetic polyneuropathy. Paroxysmal atrial fibrillation. Coronary artery disease status post PCI of the LAD in 2017. COPD Obesity with obstructive sleep apnea. GERD. Psoriasis. Chronic kidney disease stage 3a PAST SURGICAL HISTORY: Left heart catheterization with PCI of the LAD in 2017 Left buttock abscess I&D. Bilateral cataract surgery. SOCIAL HISTORY: Patient used to smoke about a pack every day she smoked for about 15 years and quit many years ago, she denies any alcohol ingestion, no drug use or abuse, she lives by herself. FAMILY HISTORY: Mother in her 80s from old age and had a history of hypertension, father at age of 70 during his sleep of unknown cause possibly CAD and had history of hypertension Patient had 3 sisters one from ovarian cancer one is dying from colon cancer the third one has no major medical problems, PHYSICAL EXAMINATION: General: 70-year-old female sitting up in bed in moderate respiratory distress HEENT: Head is atraumatic, normocephalic, pupils were equal round reactive to light and recommendation, extraocular muscle movement were intact, sclera nonicteric, conjunctivae were pale, mucous membranes of the mouth are somewhat dry. Neck: Supple, no JVP, normal carotid upstroke bilaterally, no lymphadenopathy. Chest: Decreased breath sounds at the bases, few rhonchi, minimal expiratory wheezes, no chest wall tenderness, mild intercostal retractions. Heart: First heart sound is normal, second heart sounds normal, there is systolic ejection murmur 2/6 located in the left sternal border. Abdomen: Soft, nontender, nondistended, positive bowel sounds Extremities: There is +2 edema no calf tenderness DP +1 bilaterally. Neurologic examination: Patient is awake alert and oriented X 3, cranial nerves II-12 appear grossly intact, muscle power were 4 out of 5 in upper extremities and 4 out of 5 in bilateral lower extremities, deep tendon reflexes normal bilaterally. ASSESSMENT AND PLAN: 1. Acute hypoxemic respiratory failure due to acute exacerbation of COPD along with acute diastolic heart failure and COVID-19. Start the patient on Solu- Medrol 60 mg IV push every 6 hours, DuoNeb nebulization 4 times every day, oxygen support, Pulmicort 1 mL nebulization twice every day, start the patient on Lasix 40 mg IV push every 12 hours, input and output and daily weight obtain pulmonary and cardiology consultation. 2 .Acute COPD exacerbation Continue DuoNeb 3 mg nebulization 4 times every day, continue oxygen support, continue Solu-Medrol 60 mg IV push every 6 hours 3. Acute on Chronic diastolic heart failure. Continue patient on metoprolol 25 mg orally twice every day, Lasix 40 mg IV push every 12 hours, lisinopril 5 mg orally once every day, monitor input and output and daily weight. 4. hypertension and hypertensive cardiovascular disease. Continue patient on metoprolol 25 mg orally twice every day and lisinopril 5 mg orally once every da y monitor the patient blood pressure very closely. 5. Hyperlipidemia. Continue Lipitor 40 mg orally once every day keep LDL cholesterol 55-70 6. Diabetes mellitus type 2. Continue patient on Januvia 50 mg orally once every day, discontinue Glimeperide, continue patient on Ozempic 0.25 mg SC q week on Sundays 7. Paroxysmal atrial fibrillation. Continue metoprolol 25 mg orally twice ev yong day, Eliquis 5 mg orally twice every day. 8. Coronary artery disease status post PCI of the LAD in 2017. Continue metoprolol 25 mg orally twice every day, aspirin 81 mg once every day, Lipitor 40 mg orally once every day keep LDL 55-70. 9. Hypothyroidism. Continue Synthroid 25 incision orally once every day. 10. Obesity with obstructive sleep apnea. Continue patient on current CPAP. 11. History of psoriasis. Stable. 12. Chronic kidney disease stage III a. Monitor the patient CMP, avoid nephrotoxins . 13. Anemia of chronic kidney disease status post IV iron infusion as an outpatient she may need to be started on erythropoietin 14. DVT prophylaxis. Continue patient on Bilateral knee-high tigist hose, and Eliquis 2.5 mg orally twice every day 15. GI prophylaxis. Continue Protonix 40 mg IVP daily 16. Admitted to inpatient. Estimated length of stay 2 midnights. 17. Patient is full code. Past Medical History Past Medical History: Coronary Artery Disease (CAD), Heart Failure, COPD, Diabetes Mellitus, Hyperlipidemia, Hypertension, Skin Disorder, Sleep Apnea/CPAP/BIPAP Additional Past Medical History / Comment(s): Hx Psoriasis History of Any Multi-Drug Resistant Organisms: None Reported Past Surgical History: Heart Catheterization With Stent Additional Past Surgical History / Comment(s): Cataracts, abcess on buttocks, colonoscopies Past Anesthesia/Blood Transfusion Reactions: No Reported Reaction Date of Last Stent Placement:: unknown Past Psychological History: No Psychological Hx Reported Smoking Status: Never smoker Past Alcohol Use History: None Reported Past Drug Use History: None Reported - Past Family History Mother Family Medical History: Hypertension Additional Family Medical History / Comment(s): Mother in her 80s from old age. Father Family Medical History: Hypertension Additional Family Medical History / Comment(s): Father at age 70 during his sleep of unknown cause. Sister(s) Additional Family Medical History / Comment(s): Patient has 3 sisters and one has from ovarian cancer. One is alive with colon cancer and doing very poorly expected to sound. One sister has no major medical problems. Brother(s) Additional Family Medical History / Comment(s): The patient has 1 brother with no major medical problems. Patient does not have any children. Medications and Allergies Home Medications Medication Instructions Recorded Confirmed Type Aspirin [Adult Low Dose Aspirin EC] 81 mg PO Q48H 08/28/16 12/31/20 History Multivit-Min/FA/Lycopen/Lutein 1 tab PO DAILY 08/28/16 12/31/20 History [Centrum Silver Tablet] Metoprolol Tartrate [Lopressor] 25 mg PO BID #180 tab 09/04/16 12/31/20 Rx amLODIPine BESYLATE [Norvasc] 5 mg PO DAILY #1 tablet 09/04/16 12/31/20 Rx Glimepiride [Amaryl] 4 mg PO BID 04/08/18 12/31/20 History Levothyroxine Sodium [Synthroid] 25 mcg PO DAILY 04/08/18 12/31/20 History Vit C/E/Zn/Coppr/Lutein/Zeaxan 2 cap PO DAILY 04/08/18 12/31/20 History [Preservision Areds 2 Softgel] sitaGLIPtin [Januvia] 50 mg PO DAILY 04/08/18 12/31/20 History Atorvastatin [Lipitor] 40 mg PO DAILY 11/11/20 12/31/20 History Cholecalciferol [Vitamin D3 (25 50 mcg PO DAILY 11/11/20 12/31/20 History Mcg = 1000 Iu)] Furosemide [Lasix] 80 mg PO Q48H 11/11/20 12/31/20 History Semaglutide [Ozempic] 0.25 mg SQ LOZANO 11/11/20 12/31/20 History lisinopriL [Zestril] 5 mg PO DAILY 11/11/20 12/31/20 History Ipratropium-Albuterol Nebulize 3 ml INHALATION RT-QID #120 inh 11/16/20 12/31/20 Rx [Duoneb 0.5 mg-3 mg/3 ml Soln] Apixaban [Eliquis] 5 mg PO BID #60 tab 11/29/20 12/31/20 Rx Lactulose [Cephulac] 20 gm PO BID #1800 ml 11/29/20 12/31/20 Rx Allergies Allergy/AdvReac Type Severity Reaction Status Date / Time No Known Allergies Allergy Verified 12/31/20 11:50 Physical Exam Vitals: Vital Signs Temp Pulse Resp BP Pulse Ox 12/31/20 11:42 110 H 12/31/20 10:10 98.4 F 109 H 24 129/58 91 L Intake and Output 11/12/21 11/13/21 11/13/21 22:59 06:59 14:59 Other: Weight 120.202 kg Results CBC & Chem 7: 12/31/20 12:25 12/31/20 12:25 Labs: Abnormal Lab Results - Last 24 Hours (Table) 12/31/20 12/31/20 12/31/20 Range/Units 10:41 10:41 10:41 RBC 2.82 L (3.80-5.40) m/uL Hgb 9.8 L (11.4-16.0) gm/dL Hct 29.9 L (34.0-46.0) % MCV 106.1 H (80.0-100.0) fL RDW 19.7 H (11.5-15.5) % Neutrophils # 7.9 H (1.3-7.7) k/uL Lymphocytes # 0.6 L (1.0-4.8) k/uL Macrocytosis Marked A APTT 31.2 H (22.0-30.0) sec Sodium 134 L (137-145) mmol/L Carbon Dioxide 20 L (22-30) mmol/L BUN 44 H (7-17) mg/dL Creatinine 1.74 H (0.52-1.04) mg/dL Glucose 43 L* (74-99) mg/dL AST 46 H (14-36) U/L Alkaline Phosphatase 152 H (38-126) U/L Troponin I (0.000-0.034) ng/mL Total Protein 5.9 L (6.3-8.2) g/dL Albumin 3.3 L (3.5-5.0) g/dL 12/31/20 Range/Units 10:41 RBC (3.80-5.40) m/uL Hgb (11.4-16.0) gm/dL Hct (34.0-46.0) % MCV (80.0-100.0) fL RDW (11.5-15.5) % Neutrophils # (1.3-7.7) k/uL Lymphocytes # (1.0-4.8) k/uL Macrocytosis APTT (22.0-30.0) sec Sodium (137-145) mmol/L Carbon Dioxide (22-30) mmol/L BUN (7-17) mg/dL Creatinine (0.52-1.04) mg/dL Glucose (74-99) mg/dL AST (14-36) U/L Alkaline Phosphatase (38-126) U/L Troponin I 0.043 H* (0.000-0.034) ng/mL Total Protein (6.3-8.2) g/dL Albumin (3.5-5.0) g/dL
[2020-12-31] MEDS: INSULIN ASPART (NovoLOG) 100 UNIT/ML VIAL SQ SCH ×2 (12:33→17:14)
[2020-12-31 12:38] LABS: Anisocytosis Slight; Basophils % (A) 0 %; Eosinophils % (A) 0 %; HCT 27.5 % (34.0-46.0); HGB 9.1 gm/dL (11.4-16.0); Lymphocytes # (A) 0.5 k/uL (1.0-4.8); Lymphocytes % (A) 6 %; MCH 34.8 pg (25.0-35.0); MCHC 32.9 g/dL (31.0-37.0); MCV 105.8 fL (80.0-100.0); Macrocytosis Marked; Mean Platelet Volume 11.4; Monocytes # (A) 0.2 k/uL (0-1.0); Monocytes % (A) 3 %; Neutrophils # (A) 7.4 k/uL (1.3-7.7); Neutrophils % (A) 90 %; Platelet Count 187 k/uL (150-450); RDW 19.6 % (11.5-15.5); WBC 8.3 k/uL (3.8-10.6)
[2020-12-31 13:00] LABS: Albumin 3.1 g/dL (3.5-5.0); Calcium 8.2 mg/dL (8.4-10.2); Potassium 3.9 mmol/L (3.5-5.1); Total Bilirubin 0.3 mg/dL (0.2-1.3); Total Protein 5.5 g/dL (6.3-8.2)
[2020-12-31] MEDS: methylPREDNISolone SOD SUCCI 125 MG/2 ML VIAL IV SCH ×2 (13:21→17:55)
[2020-12-31] MEDS: ASPIRIN 81 MG PO SCH (13:23)
[2020-12-31 14:22] LABS: Glucose,Whole Blood 83 mg/dL (75-99)
[2020-12-31] MEDS ORDERED: ALBUTEROL HFA INHALER INHALATION PRN ×2 (14:25→14:28)
[2020-12-31] MEDS ORDERED: ALBUTEROL HFA INHALER INHALATION SCH (14:29)
--- NOTE | 2020-12-31 14:56 | P.CNPUL ---
History of Present Illness Consult date: 12/31/20 Requesting physician: Aman Wooten Reason for consult: dyspnea, abnormal CXR/CT Chief complaint: Shortness of breath History of present illness: This is a pleasant 70-year-old female patient with a history of coronary artery disease and previous stent placement, diastolic congestive heart failure, diabetes mellitus, paroxysmal atrial fibrillation, hypothyroidism, hyperlipidemia, hypertension, obstructive sleep apnea. She presented here to the emergency room earlier today with complaints of shortness of breath. She was having increasing shortness of breath overnight. She is found to be hypoxemic with O2 saturation 87-88%. She does have underlying COPD and her breathing treatments weren't helping her. White count 8.3. Hemoglobin 9.1. Lymphocytes 0.5. Sodium 133. Potassium 3.9. Creatinine 1.73. Glucose 79. AST 41. ALT 20. Alk phos 146. ProBNP 60-60. Troponin 0.043. Zaman virus positive. She's been initiated on Symbicort, Ventolin, IV Solu-Medrol. She is anticoagulated with Eliquis. She is on IV diuretics. Vitamin supplements. She is seen in consultation in the emergency department. She is currently awake and alert. Breathing easier today compared to yesterday. Recent chest x-ray on 12/15/2020, chronic changes but no acute pulmonary process. Review of Systems REVIEW OF SYSTEMS: CONSTITUTIONAL: Denies any recent significant weight loss or weight gain. EYES: Denies change in vision. EARS, NOSE, MOUTH, THROAT: Denies headaches, denies sore throat. CARDIOVASCULAR: Denies chest pain, palpitations or syncopal episodes. RESPIRATORY: Positive for shortness of breath, cough, congestion or hemoptysis. GASTROINTESTINAL: Denies change in appetite, denies abdominal pain GENITOURINARY: Denies hematuria, denies infections. MUSKULOSKELETAL: Denies pain, denies swelling. INTEGUMENTARY: Denies rash, denies eczema. NEUROLOGICAL: Denies recent memory loss, no recent seizure activity. PSYCHIATRIC: Denies anxiety, denies depression. HEMATOLOGIC/LYMPHATIC: Denies anemia, denies enlarged lymph nodes. Past Medical History Past Medical History: Coronary Artery Disease (CAD), Heart Failure, COPD, Diabetes Mellitus, Hyperlipidemia, Hypertension, Skin Disorder, Sleep Apnea/CPAP/BIPAP Additional Past Medical History / Comment(s): Hx Psoriasis History of Any Multi-Drug Resistant Organisms: None Reported Past Surgical History: Heart Catheterization With Stent Additional Past Surgical History / Comment(s): Cataracts, abcess on buttocks, colonoscopies Past Anesthesia/Blood Transfusion Reactions: No Reported Reaction Date of Last Stent Placement:: unknown Past Psychological History: No Psychological Hx Reported Smoking Status: Never smoker Past Alcohol Use History: None Reported Past Drug Use History: None Reported - Past Family History Mother Family Medical History: Hypertension Additional Family Medical History / Comment(s): Mother in her 80s from old age. Father Family Medical History: Hypertension Additional Family Medical History / Comment(s): Father at age 70 during his sleep of unknown cause. Sister(s) Additional Family Medical History / Comment(s): Patient has 3 sisters and one has from ovarian cancer. One is alive with colon cancer and doing very poorly expected to sound. One sister has no major medical problems. Brother(s) Additional Family Medical History / Comment(s): The patient has 1 brother with no major medical problems. Patient does not have any children. Medications and Allergies Home Medications Medication Instructions Recorded Confirmed Type Aspirin [Adult Low Dose Aspirin EC] 81 mg PO Q48H 08/28/16 12/31/20 History Multivit-Min/FA/Lycopen/Lutein 1 tab PO DAILY 08/28/16 12/31/20 History [Centrum Silver Tablet] Metoprolol Tartrate [Lopressor] 25 mg PO BID #180 tab 09/04/16 12/31/20 Rx amLODIPine BESYLATE [Norvasc] 5 mg PO DAILY #1 tablet 09/04/16 12/31/20 Rx Glimepiride [Amaryl] 4 mg PO BID 04/08/18 12/31/20 History Levothyroxine Sodium [Synthroid] 25 mcg PO DAILY 04/08/18 12/31/20 History Vit C/E/Zn/Coppr/Lutein/Zeaxan 2 cap PO DAILY 04/08/18 12/31/20 History [Preservision Areds 2 Softgel] sitaGLIPtin [Januvia] 50 mg PO DAILY 04/08/18 12/31/20 History Atorvastatin [Lipitor] 40 mg PO DAILY 11/11/20 12/31/20 History Cholecalciferol [Vitamin D3 (25 50 mcg PO DAILY 11/11/20 12/31/20 History Mcg = 1000 Iu)] Furosemide [Lasix] 80 mg PO Q48H 11/11/20 12/31/20 History Semaglutide [Ozempic] 0.25 mg SQ LOZANO 11/11/20 12/31/20 History lisinopriL [Zestril] 5 mg PO DAILY 11/11/20 12/31/20 History Ipratropium-Albuterol Nebulize 3 ml INHALATION RT-QID #120 inh 11/16/20 12/31/20 Rx [Duoneb 0.5 mg-3 mg/3 ml Soln] Apixaban [Eliquis] 5 mg PO BID #60 tab 11/29/20 12/31/20 Rx Lactulose [Cephulac] 20 gm PO BID #1800 ml 11/29/20 12/31/20 Rx Allergies Allergy/AdvReac Type Severity Reaction Status Date / Time No Known Allergies Allergy Verified 12/31/20 11:50 Physical Exam Vitals: Vital Signs Temp Pulse Resp BP Pulse Ox 12/31/20 14:14 96 26 H 118/47 92 L 12/31/20 12:05 111 H 12/31/20 12:00 111 H 118/66 91 L 12/31/20 11:42 110 H 12/31/20 11:00 112 H 22 104/60 91 L 12/31/20 10:30 110 H 22 109/60 91 L 12/31/20 10:10 98.4 F 109 H 24 129/58 91 L Intake and Output 12/30/20 12/31/20 12/31/20 22:59 06:59 14:59 Other: Weight 120.202 kg GENERAL EXAM: Alert, pleasant 70-year-old female patient, on 4 L nasal cannula, fairly comfortable in no apparent distress. HEAD: Normocephalic. EYES: Normal reaction of pupils, equal size. NOSE: Clear with pink turbinates. THROAT: No erythema or exudates. NECK: No masses, no JVD. CHEST: No chest wall deformity. LUNGS: Equal air entry with crackles in the bilateral bases. CVS: S1 and S2 normal with no audible murmur, regular rhythm. ABDOMEN: No hepatosplenomegaly, normal bowel sounds, no guarding or rigidity. SPINE: No scoliosis or deformity SKIN: No rashes CENTRAL NERVOUS SYSTEM: No focal deficits, tone is normal in all 4 extremities. EXTREMITIES: There is no peripheral edema. No clubbing, no cyanosis. Peripheral pulses are intact. Results - Laboratory Findings CBC and BMP: 12/31/20 12:25 12/31/20 12:25 PT/INR, D-dimer PT 11.2 sec (9.0-12.0) 12/31/20 10:41 INR 1.1 (<1.2) 12/31/20 10:41 Abnormal lab findings: Abnormal Labs 12/31/20 12/31/20 12/31/20 10:41 10:41 10:41 RBC 2.82 L Hgb 9.8 L Hct 29.9 L MCV 106.1 H RDW 19.7 H Neutrophils # 7.9 H Lymphocytes # 0.6 L Macrocytosis Marked A APTT 31.2 H Sodium 134 L Carbon Dioxide 20 L BUN 44 H Creatinine 1.74 H Glucose 43 L* Calcium AST 46 H Alkaline Phosphatase 152 H Troponin I Total Protein 5.9 L Albumin 3.3 L Coronavirus (PCR) 12/31/20 12/31/20 12/31/20 10:41 11:59 12:25 RBC 2.60 L Hgb 9.1 L Hct 27.5 L MCV 105.8 H RDW 19.6 H Neutrophils # Lymphocytes # 0.5 L Macrocytosis Marked A APTT Sodium Carbon Dioxide BUN Creatinine Glucose Calcium AST Alkaline Phosphatase Troponin I 0.043 H* Total Protein Albumin Coronavirus (PCR) Detected A 12/31/20 12:25 RBC Hgb Hct MCV RDW Neutrophils # Lymphocytes # Macrocytosis APTT Sodium 133 L Carbon Dioxide 21 L BUN 44 H Creatinine 1.73 H Glucose Calcium 8.2 L AST 41 H Alkaline Phosphatase 146 H Troponin I Total Protein 5.5 L Albumin 3.1 L Coronavirus (PCR) Assessment and Plan Assessment: 1 Acute hypoxemic respiratory failure secondary to an acute exacerbation of chronic diastolic congestive heart failure versus COVID-19 related pneumonia versus combination of CHF, CoVID, COPD 2 Acute hypoxic history failure secondary to an acute exacerbation of chronic obstructive pulmonary disease 3 Acute COVID-19 infection. 4 Recent hospitalization for fluid volume overload and possible atypical pneumonia 5 Coronary artery disease with previous stent placement 6 History of obstructive sleep apnea utilizing CPAP in the outpatient setting 7 Morbid obesity 8 Diabetes mellitus 9 Hyperlipidemia 10 Hypertension 11 History of psoriasis 12 Paroxysmal atrial fibrillation, anticoagulated with Eliquis Plan: Patient was seen and evaluated by Dr. Adams Recent chest x-ray and labs reviewed Continue the IV diuretics Continue Symbicort, albuterol, IV Solu-Medrol Anticoagulated with Eliquis Titrate the FiO2 as tolerated Follow-up chest x-ray and labs in the a.m. We will continue to follow and make further recommendations based on her clinical status I, the cosigning physician, performed a history & physical examination of the patient. Lungs sounds crackles in the bilateral bases. Maintaining good O2 saturations in the 90s on 2 L/m per nasal cannula. I discussed the assessment and plan of care with my nurse practitioner, Jenna Proctor. I attest to the above consultation as dictated by her. Time with Patient: Greater than 30
[2020-12-31] MEDS: ALBUTEROL HFA INHALER INHALATION SCH ×2 (16:42→20:45)
[2020-12-31 17:11] LABS: Glucose,Whole Blood 89 mg/dL (75-99)
[2020-12-31] MEDS: SYMBICORT 160-4.5 MCG INHALER INHALATION SCH (20:45)
[2020-12-31] MEDS ORDERED: BUDESONIDE 1 MG/2 ML NEBU INHALATION SCH (21:00)
[2021-01-01 00:20] LABS: Glucose,Whole Blood 244 mg/dL (75-99)
[2021-01-01] MEDS: INSULIN ASPART (NovoLOG) 100 UNIT/ML VIAL SQ SCH ×6 (00:49→20:54)
[2021-01-01] MEDS: LACTULOSE 20 GM/30 ML CUP PO SCH ×3 (00:50→20:43)
[2021-01-01] MEDS: METOPROLOL TARTRATE 25 MG TAB PO SCH ×3 (00:51→20:53)
[2021-01-01] MEDS: FUROSEMIDE 10 MG/ML 4 ML VIAL IV SCH ×3 (01:54→20:53)
[2021-01-01] MEDS: APIXABAN 5 MG TAB PO SCH ×3 (01:54→20:54)
[2021-01-01] MEDS: methylPREDNISolone SOD SUCCI 125 MG/2 ML VIAL IV SCH ×5 (02:01→20:53)
[2021-01-01 06:15] LABS: Glucose,Whole Blood 341 mg/dL (75-99)
[2021-01-01] MEDS: PANTOPRAZOLE 40 MG TABLET PO SCH (06:40)
[2021-01-01] MEDS: LEVOTHYROXINE 25 MCG TAB PO SCH (06:40)
--- NOTE | 2021-01-01 08:25 | P.PN ---
Subjective Progress Note Date: 01/01/21 HISTORY OF PRESENT ILLNESS: This is a 70-year-old female patient of [facility] with past medical hi story of diabetes mellitus type 2, diabetic polyneuropathy, paroxysmal atrial fibrillation, psoriasis, COPD, hypertension, coronary artery disease status post stenting of the mid LAD [place] [address] Zavala, remote history of tobacco use and dependence, obesity with obstructive sleep apnea and obesity hypoventilation syndrome, patient was recently hospitalized at [facility] between 11/11/2020 of 11/16/2020 after she was admitted for acute hypoxemic respiratory failure due to pneumonia as well as acute exacerbation of the diastolic heart failure and COPD exacerbation, she was treated with IV antibiotic as well as IV diuretics and IV steroid, then she developed to have a significant fatigue and tiredness she was hospitalized on November 26 through November 29 for acute and chronic anemia with hemoglobin of 5.9, she did receive blood procedure that time was seen in consultation by gastroenterology underwent EGD that showed chronic gastritis without evidence of expiratory bacteria she was seen in consultation by hematology and he was recommended for the patient to receive IV iron infusion as an outpatient and if her iron stores are adequate she will be started on erythropoietin treatment as an outpatient, patient stated that she was in her usual state of health until about yesterday when she went to sleep and stated her recliner woke up in the morning and she was extreme short of breath not able to catch her breath she did receive breathing treatment did not help much she c alled her nephew who came and brought her to the ER at [facility] , patient was hypoxemic with oxygenation of 87-88% on room air she was started on oxygen supply, she was started on Solu-Medrol 60 mg IV push every 6 hours, she was somewhat hypoglycemic she was given orange juice along with peanut butter and crackers her blood glucose level is around 57, chest x-ray was orders of any anatomic dictation, her hemoglobin is better at 9.9 today, her troponin slightly elevated, we will consult cardiology we will consult pulmonary medicine as well for further evaluation and recommendation, while the patient in the emergency department her COVID-19 PCR came back positive patient was admitted for Covid 19 with droplet precautions. 01/01: Patient sitting up in bed is feeling much better today, she continues to have some cough with minimal phlegm production, she denies any chest pain, she denies any abdominal pain, she has no nausea or vomiting she has no diarrhea, she has no loss of taste or smell, portable chest x-ray still pending at the time of dictation, she continues to be on Solu-Medrol 60 mg IV push every 6 hours, she continues to be hyperglycemic, patient elected to be a DO NOT RESUSCITATE. REVIEW OF SYSTEMS: Constitutional: No documented fever, no chills, no night sweats. positive for weight change. positive for weakness, positive for fatigue or lethargy. posit michell for daytime sleepiness. HEENT: No headache. No blurred vision or double vision, no loss of vision. No loss of Hearing, no ringing in the ears, no dizziness. No nasal drainage or congestion. No epistaxis. No sore throat. Lungs: positive for shortness of breath, positive for dry cough, no sputum production. Positive for wheezing. Reports dyspnea with activity. Cardiovascular: No chest pain, mild lower extremity edema. No palpitations. No paroxysmal nocturnal dyspnea. No orthopnea. No lightheadedness or dizziness. No syncopal episodes. Abdominal: Reports no abdominal pain. No nausea, vomiting. No diarrhea. No constipation. No bloody or tarry stools reports loss of appetite. Genitourinary: No dysuria, increased frequency, urgency. No urinary retention. Musculoskeletal: No myalgias. No muscle weakness, no gait dysfunction, no frequent falls. positive fpr back pain. No neck pain. Integumentary: No wounds, no lesions. positive for dry skin. positive for bruising. No change in hair or nails. Neurologic: No aphasia. No facial droop. No change in mentation. No head injury. No headache. No paralysis. No paresthesia. Psychiatric: No depression. No anxiety. No mood swings. Endocrine: hypoglycemic episode. PHYSICAL EXAMINATION: General: 70-year-old female sitting up in bed in moderate respiratory distress HEENT: Head is atraumatic, normocephalic, pupils were equal round reactive to light and recommendation, extraocular muscle movement were intact, sclera nonicteric, conjunctivae were pale, mucous membranes of the mouth are somewhat dry. Neck: Supple, no JVP, normal carotid upstroke bilaterally, no lymphadenopathy. Chest: Decreased breath sounds at the bases, few rhonchi, minimal expiratory wheezes, no chest wall tenderness, mild intercostal retractions. Heart: First heart sound is normal, second heart sounds normal, there is systolic ejection murmur 2/6 located in the left sternal border. Abdomen: Soft, nontender, nondistended, positive bowel sounds Extremities: There is +2 edema no calf tenderness DP +1 bilaterally. Neurologic examination: Patient is awake alert and oriented X 3, cranial nerves II-12 appear grossly intact, muscle power were 4 out of 5 in upper extremities and 4 out of 5 in bilateral lower extremities, deep tendon reflexes normal bilaterally. ASSESSMENT AND PLAN: 1. Acute hypoxemic respiratory failure due to acute exacerbation of COPD along with acute diastolic heart failure and COVID-19. Start the patient on Solu- Medrol 60 mg IV push every 6 hours, DuoNeb nebulization 4 times every day, oxygen support, Pulmicort 1 mL nebulization twice every day, start the patient on Lasix 40 mg IV push every 12 hours, input and output and daily weight obtain pulmonary and cardiology consultation. 2 .Acute COPD exacerbation Continue DuoNeb 3 mg nebulization 4 times every day, continue oxygen support, continue Solu-Medrol 60 mg IV push every 6 hours 3. Acute on Chronic diastolic heart failure. Continue patient on metoprolol 25 mg orally twice every day, Lasix 40 mg IV push every 12 hours, lisinopril 5 mg orally once every day, monitor input and output and daily weight. 4. hypertension and hypertensive cardiovascular disease. Continue patient on metoprolol 25 mg orally twice every day and lisinopril 5 mg orally once every day monitor the patient blood pressure very closely. 5. Hyperlipidemia. Continue Lipitor 40 mg orally once every day keep LDL cholesterol 55-70 6. Diabetes mellitus type 2. Continue patient on Januvia 50 mg orally once every day, discontinue Glimeperide, continue patient on Ozempic 0.25 mg SC q week on Sundays 7. Paroxysmal atrial fibrillation. Continue metoprolol 25 mg orally twice every day, Eliquis 5 mg orally twice every day. 8. Coronary artery disease status post PCI of the LAD in 2017. Continue metoprolol 25 mg orally twice every day, aspirin 81 mg once every day, Lipitor 40 mg orally once every day keep LDL 55-70. 9. Hypothyroidism. Continue Synthroid 25 incision orally once every day. 10. Obesity with obstructive sleep apnea. Continue patient on current CPAP. 11. History of psoriasis. Stable. 12. Chronic kidney disease stage III a. Monitor the patient CMP, avoid nephrotoxins . 13. Anemia of chronic kidney disease status post IV iron infusion as an outpatient she may need to be started on erythropoietin 14. DVT prophylaxis. Continue patient on Bilateral knee-high tigist hose, and Eliquis 2.5 mg orally twice every day 15. GI prophylaxis. Continue Protonix 40 mg IVP daily 16. DNR. Objective - Vital Signs Vital signs: Vital Signs Temp 97.3 F L 01/01/21 06:02 Pulse 82 01/01/21 06:02 Resp 20 01/01/21 06:02 BP 131/58 01/01/21 06:02 Pulse Ox 96 01/01/21 06:02 Intake & Output 12/31/20 01/01/21 01/01/21 18:59 06:59 18:59 Weight 120.202 kg 117.027 kg Other: Voiding Method External Catheter - Labs CBC & Chem 7: 12/31/20 12:25 12/31/20 12:25 Labs: Abnormal Lab Results - Last 24 Hours (Table) 12/31/20 12/31/20 12/31/20 Range/Units 10:41 10:41 10:41 RBC 2.82 L (3.80-5.40) m/uL Hgb 9.8 L (11.4-16.0) gm/dL Hct 29.9 L (34.0-46.0) % MCV 106.1 H (80.0-100.0) fL RDW 19.7 H (11.5-15.5) % Neutrophils # 7.9 H (1.3-7.7) k/uL Lymphocytes # 0.6 L (1.0-4.8) k/uL Macrocytosis Marked A APTT 31.2 H (22.0-30.0) sec Sodium 134 L (137-145) mmol/L Carbon Dioxide 20 L (22-30) mmol/L BUN 44 H (7-17) mg/dL Creatinine 1.74 H (0.52-1.04) mg/dL Glucose 43 L* (74-99) mg/dL POC Glucose (mg/dL) (75-99) mg/dL Calcium (8.4-10.2) mg/dL AST 46 H (14-36) U/L Alkaline Phosphatase 152 H (38-126) U/L Troponin I (0.000-0.034) ng/mL Total Protein 5.9 L (6.3-8.2) g/dL Albumin 3.3 L (3.5-5.0) g/dL Coronavirus (PCR) (Not Detectd) 12/31/20 12/31/20 12/31/20 Range/Units 10:41 11:59 12:25 RBC 2.60 L (3.80-5.40) m/uL Hgb 9.1 L (11.4-16.0) gm/dL Hct 27.5 L (34.0-46.0) % MCV 105.8 H (80.0-100.0) fL RDW 19.6 H (11.5-15.5) % Neutrophils # (1.3-7.7) k/uL Lymphocytes # 0.5 L (1.0-4.8) k/uL Macrocytosis Marked A APTT (22.0-30.0) sec Sodium (137-145) mmol/L Carbon Dioxide (22-30) mmol/L BUN (7-17) mg/dL Creatinine (0.52-1.04) mg/dL Glucose (74-99) mg/dL POC Glucose (mg/dL) (75-99) mg/dL Calcium (8.4-10.2) mg/dL AST (14-36) U/L Alkaline Phosphatase (38-126) U/L Troponin I 0.043 H* (0.000-0.034) ng/mL Total Protein (6.3-8.2) g/dL Albumin (3.5-5.0) g/dL Coronavirus (PCR) Detected A (Not Detectd) 12/31/20 01/01/21 01/01/21 Range/Units 12:25 00:18 06:13 RBC (3.80-5.40) m/uL Hgb (11.4-16.0) gm/dL Hct (34.0-46.0) % MCV (80.0-100.0) fL RDW (11.5-15.5) % Neutrophils # (1.3-7.7) k/uL Lymphocytes # (1.0-4.8) k/uL Macrocytosis APTT (22.0-30.0) sec Sodium 133 L (137-145) mmol/L Carbon Dioxide 21 L (22-30) mmol/L BUN 44 H (7-17) mg/dL Creatinine 1.73 H (0.52-1.04) mg/dL Glucose (74-99) mg/dL POC Glucose (mg/dL) 244 H 341 H (75-99) mg/dL Calcium 8.2 L (8.4-10.2) mg/dL AST 41 H (14-36) U/L Alkaline Phosphatase 146 H (38-126) U/L Troponin I (0.000-0.034) ng/mL Total Protein 5.5 L (6.3-8.2) g/dL Albumin 3.1 L (3.5-5.0) g/dL Coronavirus (PCR) (Not Detectd)
[2021-01-01] MEDS: SYMBICORT 160-4.5 MCG INHALER INHALATION SCH ×2 (08:28→20:04)
[2021-01-01] MEDS: ALBUTEROL HFA INHALER INHALATION SCH ×4 (08:28→20:04)
[2021-01-01] MEDS: LINAGLIPTIN 5 MG TABLET PO SCH (08:41)
[2021-01-01] MEDS: amLODIPine 5 MG TAB PO SCH (08:42)
[2021-01-01] MEDS: CHOLECALCIFEROL 25 MCG (1000 IU) TABLET PO SCH (08:42)
[2021-01-01] MEDS: VIT A,C & E-LUTEIN-MINERALS 1 EACH TAB PO SCH (08:42)
[2021-01-01] MEDS: ATORVASTATIN 40 MG TAB PO SCH (08:42)
[2021-01-01] MEDS: lisinopriL 5 MG TAB PO SCH (08:42)
[2021-01-01] MEDS: ASCORBIC ACID 500 MG TAB PO SCH ×2 (08:44→20:54)
[2021-01-01] MEDS: ZINC SULFATE 220 MG CAP PO SCH (08:44)
[2021-01-01] MEDS ORDERED: NON FORMULARY DRUG (Multivit-Min/Fa/Lycopen/Lutein [Centrum Silver Tablet] 1 EACH Tablet) PO SCH (09:00)
--- NOTE | 2021-01-01 09:30 | P.PN ---
Subjective Progress Note Date: 01/01/21 This is a pleasant 70-year-old female patient with a history of coronary artery disease and previous stent placement, diastolic congestive heart failure, diabetes mellitus, paroxysmal atrial fibrillation, hypothyroidism, hyperlipidemia, hypertension, obstructive sleep apnea. She presented here to the emergency room earlier today with complaints of shortness of breath. She was having increasing shortness of breath overnight. She is found to be hypoxemic with O2 saturation 87-88%. She does have underlying COPD and her breathing treatments weren't helping her. White count 8.3. Hemoglobin 9.1. L ymphocytes 0.5. Sodium 133. Potassium 3.9. Creatinine 1.73. Glucose 79. AST 41. ALT 20. Alk phos 146. ProBNP 60-60. Troponin 0.043. Zaman virus positive. She's been initiated on Symbicort, Ventolin, IV Solu-Medrol. She is anticoagulated with Eliquis. She is on IV diuretics. Vitamin supplements. She is seen in consultation in the emergency department. She is currently awake and alert. Breathing easier today compared to yesterday. Recent chest x-ray on 12/15/2020, chronic changes but no acute pulmonary process. 01/01/2021 the patient is feeling better. A patient continues to have cough. Of her cough has subsided. No chest pain. No altered mentation. No nausea or vomiting. As stated earlier, the patient has a surgical with that he related infection, possible pneumonia. The patient is currently on IV Solu-Medrol. The blood sugars are slightly elevated on today and this essentially due to the systemic steroids. All of the home medications have been resumed on this patient. The chest x-ray shows stable bilateral pulmonary infiltrates, patchy, worse in the left lung compared to the right. Objective - Vital Signs Vital signs: Vital Signs Temp 97.6 F 01/01/21 08:10 Pulse 104 H 01/01/21 08:10 Resp 20 01/01/21 08:10 BP 133/61 01/01/21 08:10 Pulse Ox 94 L 01/01/21 08:10 Intake & Output 12/31/20 01/01/21 01/01/21 18:59 06:59 18:59 Weight 120.202 kg 117.027 kg Other: Voiding Method External Catheter - Exam GENERAL EXAM: Alert, pleasant 70-year-old female patient, on 4 L nasal cannula, fairly comfortable in no apparent distress. HEAD: Normocephalic. EYES: Normal reaction of pupils, equal size. NOSE: Clear with pink turbinates. THROAT: No erythema or exudates. NECK: No masses, no JVD. CHEST: No chest wall deformity. LUNGS: Equal air entry with crackles in the bilateral bases. CVS: S1 and S2 normal with no audible murmur, regular rhythm. ABDOMEN: No hepatosplenomegaly, normal bowel sounds, no guarding or rigidity. SPINE: No scoliosis or deformity SKIN: No rashes CENTRAL NERVOUS SYSTEM: No focal deficits, tone is normal in all 4 extremities. EXTREMITIES: There is no peripheral edema. No clubbing, no cyanosis. Peripheral pulses are intact. - Labs CBC & Chem 7: 12/31/20 12:25 12/31/20 12:25 Labs: Abnormal Lab Results - Last 24 Hours (Table) 12/31/20 12/31/20 12/31/20 Range/Units 10:41 10:41 10:41 RBC 2.82 L (3.80-5.40) m/uL Hgb 9.8 L (11.4-16.0) gm/dL Hct 29.9 L (34.0-46.0) % MCV 106.1 H (80.0-100.0) fL RDW 19.7 H (11.5-15.5) % Neutrophils # 7.9 H (1.3-7.7) k/uL Lymphocytes # 0.6 L (1.0-4.8) k/uL Macrocytosis Marked A APTT 31.2 H (22.0-30.0) sec Sodium 134 L (137-145) mmol/L Carbon Dioxide 20 L (22-30) mmol/L BUN 44 H (7-17) mg/dL Creatinine 1.74 H (0.52-1.04) mg/dL Glucose 43 L* (74-99) mg/dL POC Glucose (mg/dL) (75-99) mg/dL Calcium (8.4-10.2) mg/dL AST 46 H (14-36) U/L Alkaline Phosphatase 152 H (38-126) U/L Troponin I (0.000-0.034) ng/mL Total Protein 5.9 L (6.3-8.2) g/dL Albumin 3.3 L (3.5-5.0) g/dL Coronavirus (PCR) (Not Detectd) 12/31/20 12/31/20 12/31/20 Range/Units 10:41 11:59 12:25 RBC 2.60 L (3.80-5.40) m/uL Hgb 9.1 L (11.4-16.0) gm/dL Hct 27.5 L (34.0-46.0) % MCV 105.8 H (80.0-100.0) fL RDW 19.6 H (11.5-15.5) % Neutrophils # (1.3-7.7) k/uL Lymphocytes # 0.5 L (1.0-4.8) k/uL Macrocytosis Marked A APTT (22.0-30.0) sec Sodium (137-145) mmol/L Carbon Dioxide (22-30) mmol/L BUN (7-17) mg/dL Creatinine (0.52-1.04) mg/dL Glucose (74-99) mg/dL POC Glucose (mg/dL) (75-99) mg/dL Calcium (8.4-10.2) mg/dL AST (14-36) U/L Alkaline Phosphatase (38-126) U/L Troponin I 0.043 H* (0.000-0.034) ng/mL Total Protein (6.3-8.2) g/dL Albumin (3.5-5.0) g/dL Coronavirus (PCR) Detected A (Not Detectd) 12/31/20 01/01/21 01/01/21 Range/Units 12:25 00:18 06:13 RBC (3.80-5.40) m/uL Hgb (11.4-16.0) gm/dL Hct (34.0-46.0) % MCV (80.0-100.0) fL RDW (11.5-15.5) % Neutrophils # (1.3-7.7) k/uL Lymphocytes # (1.0-4.8) k/uL Macrocytosis APTT (22.0-30.0) sec Sodium 133 L (137-145) mmol/L Carbon Dioxide 21 L (22-30) mmol/L BUN 44 H (7-17) mg/dL Creatinine 1.73 H (0.52-1.04) mg/dL Glucose (74-99) mg/dL POC Glucose (mg/dL) 244 H 341 H (75-99) mg/dL Calcium 8.2 L (8.4-10.2) mg/dL AST 41 H (14-36) U/L Alkaline Phosphatase 146 H (38-126) U/L Troponin I (0.000-0.034) ng/mL Total Protein 5.5 L (6.3-8.2) g/dL Albumin 3.1 L (3.5-5.0) g/dL Coronavirus (PCR) (Not Detectd) Assessment and Plan Plan: 1 Acute hypoxemic respiratory failure secondary to an acute exacerbation of chronic diastolic congestive heart failure versus COVID-19 related pneumonia versus combination of CHF, CoVID, COPD 2 Acute hypoxic history failure secondary to an acute exacerbation of chronic obstructive pulmonary disease 3 Acute COVID-19 infection. 4 Recent hospitalization for fluid volume overload and possible atypical pneumonia 5 Coronary artery disease with previous stent placement 6 History of obstructive sleep apnea utilizing CPAP in the outpatient setting 7 Morbid obesity 8 Diabetes mellitus 9 Hyperlipidemia 10 Hypertension 11 History of psoriasis 12 Paroxysmal atrial fibrillation, anticoagulated with Eliquis Plan: Recent chest x-ray and labs reviewed, the patient is stable bilateral pulmonary infiltrates more somnolent left more consistent with Coumadin related pneumonia Continue the IV diuretics for another 24 hours Continue IV Solu-Medrol Visit that the blood sugar control Continue Symbicort, albuterol, IV Solu-Medrol Anticoagulated with Eliquis Titrate the FiO2 as tolerated Awaiting and some other markers including LDH and CRP We will continue to follow and make further recommendations based on her clinical status
--- NOTE | 2021-01-01 10:18 | XR ---
EXAMINATION TYPE: XR chest 1V DATE OF EXAM: 01/01/2021 COMPARISON: 12/31/2020 INDICATION: CHF, covid TECHNIQUE: Single frontal view of the chest is obtained. FINDINGS: The heart size is enlarged. The pulmonary vasculature is upper limits for normal. Patchy infiltrates are developing at the bilateral lung bases greater on the left IMPRESSION: 1. Patchy infiltrates bilateral lung bases. Correlate for atypical pulmonary edema from CHF. Atypical pneumonia should be considered. Follow-up is recommended.
[2021-01-01 11:24] LABS: Glucose,Whole Blood 331 mg/dL (75-99)
[2021-01-01] MEDS ORDERED: NON FORMULARY DRUG (Semaglutide [Ozempic] 0.25 MG/0.2 ML Each) SQ SCH (12:06)
[2021-01-01 13:07] LABS: Anisocytosis Slight; Basophils % (A) 0 %; Eosinophils % (A) 0 %; HCT 26.8 % (34.0-46.0); HGB 8.7 gm/dL (11.4-16.0); Lymphocytes # (A) 0.6 k/uL (1.0-4.8); Lymphocytes % (A) 13 %; MCH 34.5 pg (25.0-35.0); MCHC 32.3 g/dL (31.0-37.0); MCV 106.9 fL (80.0-100.0); Macrocytosis Marked; Mean Platelet Volume 9.7; Monocytes # (A) 0.2 k/uL (0-1.0); Monocytes % (A) 4 %; Neutrophils # (A) 3.4 k/uL (1.3-7.7); Neutrophils % (A) 81 %; Platelet Count 222 k/uL (150-450); RDW 19.2 % (11.5-15.5); WBC 4.2 k/uL (3.8-10.6)
--- NOTE | 2021-01-01 13:13 | P.CRDCN ---
History of Present Illness Consult date: 01/01/21 Consult reason: congestive heart failure (And elevated troponins) History of present illness: History of present illness: This is a 70-year-old female patient of Dr. Zavala with past medical history significant for coronary artery disease status post drug-eluting stent placement to the mid LAD in 2017, paroxysmal atrial fibrillation, chronic diastolic heart failure, hypertension, dyslipidemia, diabetes mellitus, obstructive sleep apnea and obesity hypoventilation syndrome, chronic kidney disease and morbid obesity. Patient presented to the hospital due to increasing shortness of breath and hypoxia, unable to catch her breath despite using nebulizer treatments. EKG was atrial fibrillation Chest x-ray reveals patchy infiltrates bilateral lung bases. Correlate for atypical pulmonary edema from CHF. Atypical pneumonia should be considered. Laboratory studies: WBC 8.3, hemoglobin 9.1, platelet count 187. Sodium 133, potassium 3.9, BUN 44 creatinine 1.73. Lactic acid 1.1. Magnesium 2.1. Alkaline phosphatase 146, AST 41. Troponin 0.043. Pro BNP 6260. Coronavirus PCR detected Physical examination: Gen: This is a morbidly obese 70-year-old female. Patient is resting but appears to be comfortable at rest. VS: Afebrile, heart rate 80, blood pressure 133/61, pulse ox 93% on 4 L nasal cannula Deferred due to Covid 19 isolation. Assessment: Acute hypoxic respiratory failure secondary to COVID-19 pneumonia, COPD exacerbation, acute diastolic heart failure Acute diastolic heart failure COPD exacerbation Paroxysmal atrial fibrillation Coronary artery disease status post PCI of the LAD in 2017 Hypertension, hypertensive cardiovascular disease Hyperlipidemia Diabetes mellitus type 2 Obstructive sleep apnea with CPAP Chronic kidney disease stage III Plan: Continue Lasix 40 mg IV twice daily, monitor I&O, daily weights, electrolytes and renal function Continue amlodipine 5 mg daily, eliquis 5 mg twice daily, aspirin 81 mg every 48 hours, Lipitor 40 mg daily, lisinopril 5 mg daily, Lopressor 25 mg twice daily Obtain 2-D echocardiogram and Doppler study to assess cardiac structure and function. Further recommendations to follow based upon clinical course Thank you kindly for this consultation. Nurse practitioner note has been reviewed, I agree with documented findings and plan of care. Patient was seen and examined. Past Medical History Past Medical History: Coronary Artery Disease (CAD), Heart Failure, COPD, Diabetes Mellitus, Hyperlipidemia, Hypertension, Skin Disorder, Sleep Apnea/CPAP/BIPAP Additional Past Medical History / Comment(s): Hx Psoriasis History of Any Multi-Drug Resistant Organisms: None Reported Past Surgical History: Heart Catheterization With Stent Additional Past Surgical History / Comment(s): Cataracts, abcess on buttocks, colonoscopies Past Anesthesia/Blood Transfusion Reactions: No Reported Reaction Date of Last Stent Placement:: unknown Past Psychological History: No Psychological Hx Reported Smoking Status: Never smoker Past Alcohol Use History: None Reported Past Drug Use History: None Reported - Past Family History Mother Family Medical History: Hypertension Additional Family Medical History / Comment(s): Mother in her 80s from old age. Father Family Medical History: Hypertension Additional Family Medical History / Comment(s): Father at age 70 during his sleep of unknown cause. Sister(s) Additional Family Medical History / Comment(s): Patient has 3 sisters and one has from ovarian cancer. One is alive with colon cancer and doing very poorly expected to sound. One sister has no major medical problems. Brother(s) Additional Family Medical History / Comment(s): The patient has 1 brother with no major medical problems. Patient does not have any children. Medications and Allergies Home Medications Medication Instructions Recorded Confirmed Type Aspirin [Adult Low Dose Aspirin EC] 81 mg PO Q48H 08/28/16 12/31/20 History Multivit-Min/FA/Lycopen/Lutein 1 tab PO DAILY 08/28/16 12/31/20 History [Centrum Silver Tablet] Metoprolol Tartrate [Lopressor] 25 mg PO BID #180 tab 09/04/16 12/31/20 Rx amLODIPine BESYLATE [Norvasc] 5 mg PO DAILY #1 tablet 09/04/16 12/31/20 Rx Glimepiride [Amaryl] 4 mg PO BID 04/08/18 12/31/20 History Levothyroxine Sodium [Synthroid] 25 mcg PO DAILY 04/08/18 12/31/20 History Vit C/E/Zn/Coppr/Lutein/Zeaxan 2 cap PO DAILY 04/08/18 12/31/20 History [Preservision Areds 2 Softgel] sitaGLIPtin [Januvia] 50 mg PO DAILY 04/08/18 12/31/20 History Atorvastatin [Lipitor] 40 mg PO DAILY 11/11/20 12/31/20 History Cholecalciferol [Vitamin D3 (25 50 mcg PO DAILY 11/11/20 12/31/20 History Mcg = 1000 Iu)] Furosemide [Lasix] 80 mg PO Q48H 11/11/20 12/31/20 History Semaglutide [Ozempic] 0.25 mg SQ LOZANO 11/11/20 12/31/20 History lisinopriL [Zestril] 5 mg PO DAILY 11/11/20 12/31/20 History Ipratropium-Albuterol Nebulize 3 ml INHALATION RT-QID #120 inh 11/16/20 12/31/20 Rx [Duoneb 0.5 mg-3 mg/3 ml Soln] Apixaban [Eliquis] 5 mg PO BID #60 tab 11/29/20 12/31/20 Rx Lactulose [Cephulac] 20 gm PO BID #1800 ml 11/29/20 12/31/20 Rx Allergies Allergy/AdvReac Type Severity Reaction Status Date / Time No Known Allergies Allergy Verified 12/31/20 11:50 Physical Exam Vitals: Vital Signs Temp Pulse Pulse Resp BP BP BP 01/01/21 06:02 97.3 F L 82 20 131/58 01/01/21 05:47 73 18 123/66 01/01/21 02:03 85 18 108/57 12/31/20 23:34 98.8 F 84 18 99/63 12/31/20 16:56 99.1 F 99 19 104/68 12/31/20 14:14 96 26 H 118/47 12/31/20 12:05 111 H 12/31/20 12:00 111 H 118/66 12/31/20 11:42 110 H 12/31/20 11:00 112 H 22 104/60 12/31/20 10:30 110 H 22 109/60 12/31/20 10:10 98.4 F 109 H 24 129/58 Pulse Ox 01/01/21 06:02 96 01/01/21 05:47 95 01/01/21 02:03 95 12/31/20 23:34 94 L 12/31/20 16:56 93 L 12/31/20 14:14 92 L 12/31/20 12:05 12/31/20 12:00 91 L 12/31/20 11:42 12/31/20 11:00 91 L 12/31/20 10:30 91 L 12/31/20 10:10 91 L Intake and Output 12/31/20 01/01/21 01/01/21 22:59 06:59 14:59 Other: Voiding Method External Catheter Weight 117.027 kg Results 12/31/20 12:25 12/31/20 12:25 Cardiac Enzymes 12/31/20 12/31/20 12/31/20 Range/Units 10:41 10:41 12:25 AST 46 H 41 H (14-36) U/L Troponin I 0.043 H* (0.000-0.034) ng/mL Coagulation 12/31/20 Range/Units 10:41 PT 11.2 (9.0-12.0) sec APTT 31.2 H (22.0-30.0) sec CBC 12/31/20 12/31/20 Range/Units 10:41 12:25 WBC 8.9 8.3 (3.8-10.6) k/uL RBC 2.82 L 2.60 L (3.80-5.40) m/uL Hgb 9.8 L 9.1 L (11.4-16.0) gm/dL Hct 29.9 L 27.5 L (34.0-46.0) % Plt Count 215 187 (150-450) k/uL Comprehensive Metabolic Panel 12/31/20 12/31/20 Range/Units 10:41 12:25 Sodium 134 L 133 L (137-145) mmol/L Potassium 4.1 3.9 (3.5-5.1) mmol/L Chloride 101 102 (98-107) mmol/L Carbon Dioxide 20 L 21 L (22-30) mmol/L BUN 44 H 44 H (7-17) mg/dL Creatinine 1.74 H 1.73 H (0.52-1.04) mg/dL Glucose 43 L* 79 (74-99) mg/dL Calcium 8.4 8.2 L (8.4-10.2) mg/dL AST 46 H 41 H (14-36) U/L ALT 31 20 (4-34) U/L Alkaline Phosphatase 152 H 146 H (38-126) U/L Total Protein 5.9 L 5.5 L (6.3-8.2) g/dL Albumin 3.3 L 3.1 L (3.5-5.0) g/dL Current Medications Generic Name Dose Route Start Last Admin Trade Name Jocelyn PRN Reason Stop Dose Admin Albuterol Sulfate 2 puff 12/31/20 16:53 12/31/20 20:45 Albuterol Hfa Inhaler INHALATION Not Given RT-QID [facility] Amlodipine Besylate 5 mg 01/01/21 09:00 Amlodipine 5 Mg Tab PO DAILY [facility] Apixaban 5 mg 12/31/20 21:00 01/01/21 01:54 Apixaban 5 Mg Tab PO 5 mg BID DOROTHEA Administration Protocol Aspirin 81 mg 12/31/20 12:15 12/31/20 13:23 Aspirin 81 Mg PO 81 mg Q48H DOROTHEA Administration Atorvastatin Calcium 40 mg 01/01/21 09:00 Atorvastatin 40 Mg Tab PO DAILY [facility] Budesonide/Formoterol Fumarate 2 puff 12/31/20 20:00 12/31/20 20:45 Symbicort 160-4.5 Mcg Inhaler INHALATION Not Given RT-BID [facility] Cholecalciferol 50 mcg 01/01/21 09:00 Cholecalciferol 25 Mcg (1000 Iu) Tablet PO DAILY [facility] Furosemide 40 mg 12/31/20 21:00 01/01/21 01:54 Furosemide 10 Mg/Ml 4 Ml Vial IV 40 mg Q12HR [facility] Administration Insulin Aspart 0 unit 12/31/20 12:30 01/01/21 06:39 Insulin Aspart (Novolog) 100 Unit/Ml Vial SQ 9 unit ACHS [facility] Administration Protocol Lactulose 20 gm 12/31/20 21:00 01/01/21 00:50 Lactulose 20 Gm/30 Ml Cup PO Not Given BID [facility] Levothyroxine Sodium 25 mcg 01/01/21 06:30 01/01/21 06:40 Levothyroxine 25 Mcg Tab PO 25 mcg DAILY@0630 DOROTHEA Administration Linagliptin 5 mg 01/01/21 09:00 Linagliptin 5 Mg Tablet PO DAILY [facility] Lisinopril 5 mg 01/01/21 09:00 Lisinopril 5 Mg Tab PO DAILY [facility] Methylprednisolone Sodium Succinate 60 mg 12/31/20 12:00 01/01/21 06:39 Methylprednisolone Sod Succi 125 Mg/2 Ml Vial IV 60 mg Q6HR [facility] Administration Metoprolol Tartrate 25 mg 12/31/20 21:00 01/01/21 00:51 Metoprolol Tartrate 25 Mg Tab PO Not Given BID [facility] Multivitamins/Minerals 2 each 01/01/21 09:00 Vit A,C & Q-[id number]-[id number] 1 Each Tab PO DAILY [facility] Non-Formulary Medication 0.25 mg 01/01/21 12:06 Semaglutide [Ozempic] SQ LOZANO [facility] Pantoprazole Sodium 40 mg 01/01/21 07:30 01/01/21 06:40 Pantoprazole 40 Mg Tablet PO 40 mg [id number] [facility] Administration Intake and Output 12/31/20 01/01/21 01/01/21 22:59 06:59 14:59 Other: Voiding Method External Catheter Weight 117.027 kg 12/31/20 12:25 12/31/20 12:25
[2021-01-01 13:24] LABS: Albumin 2.8 g/dL (3.5-5.0); Calcium 8.4 mg/dL (8.4-10.2); Potassium 4.5 mmol/L (3.5-5.1); Total Bilirubin 0.3 mg/dL (0.2-1.3); Total Protein 5.1 g/dL (6.3-8.2)
[2021-01-01 13:30] LABS: C Reactive Protein 14.5 mg/dL (<1.0)
[2021-01-01 13:38] LABS: Poikilocytosis (M) Present; Polychromasia Present
[2021-01-01 17:15] LABS: Glucose,Whole Blood 328 mg/dL (75-99)
[2021-01-01 20:39] LABS: Glucose,Whole Blood 374 mg/dL (75-99)
[2021-01-02] MEDS: LEVOTHYROXINE 25 MCG TAB PO SCH (06:02)
[2021-01-02] MEDS: methylPREDNISolone SOD SUCCI 125 MG/2 ML VIAL IV SCH (06:02)
[2021-01-02] MEDS: PANTOPRAZOLE 40 MG TABLET PO SCH (06:04)
[2021-01-02 06:40] LABS: Glucose,Whole Blood 311 mg/dL (75-99)
[2021-01-02] MEDS: INSULIN ASPART (NovoLOG) 100 UNIT/ML VIAL SQ SCH ×7 (06:54→21:26)
[2021-01-02] MEDS: VIT A,C & E-LUTEIN-MINERALS 1 EACH TAB PO SCH (07:50)
[2021-01-02] MEDS: FUROSEMIDE 10 MG/ML 4 ML VIAL IV SCH (07:50)
[2021-01-02] MEDS: METOPROLOL TARTRATE 25 MG TAB PO SCH ×2 (07:51→21:25)
[2021-01-02] MEDS: ZINC SULFATE 220 MG CAP PO SCH (07:51)
[2021-01-02] MEDS: amLODIPine 5 MG TAB PO SCH (07:51)
[2021-01-02] MEDS: LINAGLIPTIN 5 MG TABLET PO SCH (07:51)
[2021-01-02] MEDS: APIXABAN 5 MG TAB PO SCH ×2 (07:51→21:25)
[2021-01-02] MEDS: LACTULOSE 20 GM/30 ML CUP PO SCH ×2 (07:51→21:25)
[2021-01-02] MEDS: ATORVASTATIN 40 MG TAB PO SCH (07:51)
[2021-01-02] MEDS: lisinopriL 5 MG TAB PO SCH (07:51)
[2021-01-02] MEDS: CHOLECALCIFEROL 25 MCG (1000 IU) TABLET PO SCH (07:51)
[2021-01-02] MEDS: methylPREDNISolone SOD SUCCI 40 MG/ML 1 ML VIAL IV SCH ×2 (07:53→17:34)
[2021-01-02] MEDS: ASPIRIN 81 MG PO SCH (07:55)
[2021-01-02] MEDS: ASCORBIC ACID 500 MG TAB PO SCH ×2 (07:55→21:25)
[2021-01-02] MEDS: SYMBICORT 160-4.5 MCG INHALER INHALATION SCH ×2 (08:12→20:48)
[2021-01-02] MEDS: ALBUTEROL HFA INHALER INHALATION SCH ×4 (08:12→20:48)
[2021-01-02 08:18] LABS: Anisocytosis Slight; Basophils % (A) 0 %; Eosinophils % (A) 0 %; HCT 30.1 % (34.0-46.0); HGB 9.3 gm/dL (11.4-16.0); Hypochromasia Moderate; Lymphocytes # (A) 0.6 k/uL (1.0-4.8); Lymphocytes % (A) 8 %; MCHC 30.8 g/dL (31.0-37.0); MCV 110.7 fL (80.0-100.0); Mean Platelet Volume 9.3; Monocytes # (A) 0.2 k/uL (0-1.0); Monocytes % (A) 3 %; Neutrophils # (A) 6.4 k/uL (1.3-7.7); Neutrophils % (A) 88 %; Platelet Count 277 k/uL (150-450); RBC 2.72 m/uL (3.80-5.40); RDW 18.3 % (11.5-15.5); WBC 7.3 k/uL (3.8-10.6)
[2021-01-02 08:26] LABS: Macrocytosis Marked
[2021-01-02 08:34] LABS: Albumin 3.3 g/dL (3.5-5.0); C Reactive Protein 6.6 mg/dL (<1.0); Calcium 8.9 mg/dL (8.4-10.2); Potassium 4.3 mmol/L (3.5-5.1); Total Bilirubin 0.4 mg/dL (0.2-1.3); Total Protein 5.9 g/dL (6.3-8.2)
--- NOTE | 2021-01-02 08:46 | XR ---
EXAMINATION TYPE: XR chest 2V DATE OF EXAM: 12/31/2020 COMPARISON: 11/13/2020, 12/14/2020 HISTORY: 70 year-old female shortness of breath, difficulty breathing TECHNIQUE: AP and lateral views FINDINGS: Heart mildly enlarged. Patchy lower lung airspace opacities. No pleural effusion. IMPRESSION: 1. Similar mild cardiomegaly. 2. Interval development of active airspace disease in the lower lungs. Correlate for infectious or as piration pneumonitis. Atypical/COVID pneumonia should also be excluded.
--- NOTE | 2021-01-02 11:52 | P.PN ---
Subjective Progress Note Date: 01/02/21 HISTORY OF PRESENT ILLNESS: This is a 70-year-old female patient of [facility] with past medical hi story of diabetes mellitus type 2, diabetic polyneuropathy, paroxysmal atrial fibrillation, psoriasis, COPD, hypertension, coronary artery disease status post stenting of the mid LAD [place] [address] Zavala, remote history of tobacco use and dependence, obesity with obstructive sleep apnea and obesity hypoventilation syndrome, patient was recently hospitalized at [facility] between 11/11/2020 of 11/16/2020 after she was admitted for acute hypoxemic respiratory failure due to pneumonia as well as acute exacerbation of the diastolic heart failure and COPD exacerbation, she was treated with IV antibiotic as well as IV diuretics and IV steroid, then she developed to have a significant fatigue and tiredness she was hospitalized on November 26 through November 29 for acute and chronic anemia with hemoglobin of 5.9, she did receive blood procedure that time was seen in consultation by gastroenterology underwent EGD that showed chronic gastritis without evidence of expiratory bacteria she was seen in consultation by hematology and he was recommended for the patient to receive IV iron infusion as an outpatient and if her iron stores are adequate she will be started on erythropoietin treatment as an outpatient, patient stated that she was in her usual state of health until about yesterday when she went to sleep and stated her recliner woke up in the morning and she was extreme short of breath not able to catch her breath she did receive breathing treatment did not help much she c alled her nephew who came and brought her to the ER at [facility] , patient was hypoxemic with oxygenation of 87-88% on room air she was started on oxygen supply, she was started on Solu-Medrol 60 mg IV push every 6 hours, she was somewhat hypoglycemic she was given orange juice along with peanut butter and crackers her blood glucose level is around 57, chest x-ray was orders of any anatomic dictation, her hemoglobin is better at 9.9 today, her troponin slightly elevated, we will consult cardiology we will consult pulmonary medicine as well for further evaluation and recommendation, while the patient in the emergency department her COVID-19 PCR came back positive patient was admitted for Covid 19 with droplet precautions. 01/01: Patient sitting up in bed is feeling much better today, she continues to have some cough with minimal phlegm production, she denies any chest pain, she denies any abdominal pain, she has no nausea or vomiting she has no diarrhea, she has no loss of taste or smell, portable chest x-ray still pending at the time of dictation, she continues to be on Solu-Medrol 60 mg IV push every 6 hours, she continues to be hyperglycemic, patient elected to be a DO NOT RESUSCITATE. 01/02: Patient is seen today on the cardiac stepdown unit. She denies having a [place] fever or chills. Shortness of breath seems to be stable and she is on 4 L nasal cannula. Patient does not have home oxygen therapy. Patient's last bowel movement was yesterday and denies diarrhea. No nausea or vomiting. AP blood work reveals hemoglobin 9.3. Sodium 131. BUN 73 and creatinine 1.84. Blood sugars are in the 300s. Levemir 12 units daily will be added. Solu-Medrol decreased to 40 mg IV every 8 hours. REVIEW OF SYSTEMS: Constitutional: No documented fever, no chills, no night sweats. positive for weight change. positive for weakness, positive for fatigue or lethargy. positive for daytime sleepiness. HEENT: No headache. No blurred vision or double vision, no loss of vision. No loss of Hearing, no ringing in the ears, no dizziness. No nasal drainage or congestion. No epistaxis. No sore throat. Lungs: positive for shortness of breath, positive for dry cough, no sputum production. Positive for wheezing. Reports dyspnea with activity. Cardiovascular: No chest pain, mild lower extremity edema. No palpitations. No paroxysmal nocturnal dyspnea. No orthopnea. No lightheadedness or dizziness. No syncopal episodes. Abdominal: Reports no abdominal pain. No nausea, vomiting. No diarrhea. No constipation. No bloody or tarry stools reports loss of appetite. Genitourinary: No dysuria, increased frequency, urgency. No urinary retention. Musculoskeletal: No myalgias. No muscle weakness, no gait dysfunction, no frequent falls. positive fpr back pain. No neck pain. Integumentary: No wounds, no lesions. positive for dry skin. positive for bru ising. No change in hair or nails. Neurologic: No aphasia. No facial droop. No change in mentation. No head injury. No headache. No paralysis. No paresthesia. Psychiatric: No depression. No anxiety. No mood swings. Endocrine: Noted hyperglycemia. PHYSICAL EXAMINATION: General: 70-year-old female sitting up in bed in no respiratory distress HEENT: Head is atraumatic, normocephalic, pupils were equal round, sclera nonicteric, conjunctivae were pale, mucous membranes of the mouth are somewhat dry. Neck: Supple, no JVP, normal carotid upstroke bilaterally, no lymphadenopathy. Chest: Decreased breath sounds at the bases, few rhonchi, no expiratory wheezes, no chest wall tenderness, no intercostal retractions. Heart: First heart sound is normal, second heart sounds normal, there is systolic ejection murmur 2/6 located in the left sternal border. Abdomen: Soft, nontender, nondistended, positive bowel sounds Extremities: There is +2 edema no calf tenderness DP +1 bilaterally. Neurologic examination: Patient is awake alert and oriented X 3, cranial nerves II-12 appear grossly intact, muscle power were 4 out of 5 in upper extremities and 4 out of 5 in bilateral lower extremities, deep tendon reflexes normal bilaterally. ASSESSMENT AND PLAN: 1. Acute hypoxemic respiratory failure due to acute exacerbation of COPD along with acute diastolic heart failure and COVID-19. Start the patient on Solu- Medrol decreased to 40 mg IV push every 8 hours, DuoNeb nebulization 4 times every day, oxygen support, Pulmicort 1 mL nebulization twice every day, start the patient on Lasix 40 mg twice daily transitioned to oral by cardiology, input and output and daily weight obtain pulmonary and cardiology consultation appreciated. 2 .Acute COPD exacerbation Continue DuoNeb 3 mg nebulization 4 times every day, continue oxygen support, continue Solu-Medrol 40 mg IV push every 8 hours 3. Acute on Chronic diastolic heart failure. Continue patient on metoprolol 25 mg orally twice every day, Lasix transitioned to oral 40 mg twice daily, continue lisinopril 5 mg orally once every day, monitor input and output and daily weight. 4. hypertension and hypertensive cardiovascular disease. Continue patient on metoprolol 25 mg orally twice every day and lisinopril 5 mg orally once every day monitor the patient blood pressure very closely. 5. Hyperlipidemia. Continue Lipitor 40 mg orally once every day keep LDL cholesterol 55-70 6. Diabetes mellitus type 2. Continue patient on Januvia 50 mg orally once every day, discontinue Glimeperide, continue patient on Ozempic 0.25 mg SC q week on Sundays. We'll add Levemir 12 units daily, NovoLog 5 units with meals and NovoLog scale. 7. Paroxysmal atrial fibrillation. Continue metoprolol 25 mg orally twice ever y day, Eliquis 5 mg orally twice every day. 8. Coronary artery disease status post PCI of the LAD in 2017. Continue metoprolol 25 mg orally twice every day, aspirin 81 mg once every day, Lipitor 40 mg orally once every day keep LDL 55-70. 9. Hypothyroidism. Continue Synthroid 25 incision orally once every day. 10. Obesity with obstructive sleep apnea. Continue patient on current CPAP. 11. History of psoriasis. Stable. 12. Chronic kidney disease stage III a. Monitor the patient CMP, avoid nephrotoxins . 13. Anemia of chronic kidney disease status post IV iron infusion as an o utpatient she may need to be started on erythropoietin 14. DVT prophylaxis. Continue patient on Bilateral knee-high tigist hose, and Eliquis 2.5 mg orally twice every day 15. GI prophylaxis. Continue Protonix 40 mg IVP daily 16. DNR. DISCHARGE PLAN Home on Saturday or Saturday Impression and plan of care have been directed as dictated by the signing physician. Antonette Carson nurse practitioner acting as scribe for signing physician. Objective - Vital Signs Vital signs: Vital Signs Temp 98.1 F 01/02/21 00:00 Pulse 70 01/02/21 04:00 Resp 20 01/02/21 04:00 BP 130/60 01/02/21 04:00 Pulse Ox 95 01/02/21 04:00 Intake & Output 01/01/21 01/02/21 01/02/21 18:59 06:59 18:59 Intake Total 1120 740 Output Total 700 250 Balance 420 490 Weight 120.5 kg Intake: IV 20 Invasive Line 1 20 Oral 1100 740 Output: Urine 700 250 Other: Voiding Method External Catheter Toilet # Voids 2 1 - Labs CBC & Chem 7: 01/02/21 07:52 01/02/21 07:52 Labs: Abnormal Lab Results - Last 24 Hours (Table) 01/01/21 01/01/21 01/01/21 Range/Units 11:23 12:08 12:08 RBC 2.50 L (3.80-5.40) m/uL Hgb 8.7 L (11.4-16.0) gm/dL Hct 26.8 L (34.0-46.0) % MCV 106.9 H (80.0-100.0) fL RDW 19.2 H (11.5-15.5) % Lymphocytes # 0.6 L (1.0-4.8) k/uL Macrocytosis Marked A Sodium 131 L (137-145) mmol/L BUN 56 H (7-17) mg/dL Creatinine 1.91 H (0.52-1.04) mg/dL Glucose 319 H (74-99) mg/dL POC Glucose (mg/dL) 331 H (75-99) mg/dL Alkaline Phosphatase 136 H (38-126) U/L Lactate Dehydrogenase (313-618) U/L C-Reactive Protein (<1.0) mg/dL Total Protein 5.1 L (6.3-8.2) g/dL Albumin 2.8 L (3.5-5.0) g/dL Procalcitonin (0.02-0.09) ng/mL 01/01/21 01/01/21 01/01/21 Range/Units 12:08 12:08 16:49 RBC (3.80-5.40) m/uL Hgb (11.4-16.0) gm/dL Hct (34.0-46.0) % MCV (80.0-100.0) fL RDW (11.5-15.5) % Lymphocytes # (1.0-4.8) k/uL Macrocytosis Sodium (137-145) mmol/L BUN (7-17) mg/dL Creatinine (0.52-1.04) mg/dL Glucose (74-99) mg/dL POC Glucose (mg/dL) 328 H (75-99) mg/dL Alkaline Phosphatase (38-126) U/L Lactate Dehydrogenase 718 H (313-618) U/L C-Reactive Protein 14.5 H (<1.0) mg/dL Total Protein (6.3-8.2) g/dL Albumin (3.5-5.0) g/dL Procalcitonin 0.68 H (0.02-0.09) ng/mL 01/01/21 01/02/21 Range/Units 20:35 06:38 RBC (3.80-5.40) m/uL Hgb (11.4-16.0) gm/dL Hct (34.0-46.0) % MCV (80.0-100.0) fL RDW (11.5-15.5) % Lymphocytes # (1.0-4.8) k/uL Macrocytosis Sodium (137-145) mmol/L BUN (7-17) mg/dL Creatinine (0.52-1.04) mg/dL Glucose (74-99) mg/dL POC Glucose (mg/dL) 374 H 311 H (75-99) mg/dL Alkaline Phosphatase (38-126) U/L Lactate Dehydrogenase (313-618) U/L C-Reactive Protein (<1.0) mg/dL Total Protein (6.3-8.2) g/dL Albumin (3.5-5.0) g/dL Procalcitonin (0.02-0.09) ng/mL
[2021-01-02 12:01] LABS: Glucose,Whole Blood 327 mg/dL (75-99)
--- NOTE | 2021-01-02 12:41 | ECHOF ---
Referral Reason:LVF MEASUREMENTS -------- HEIGHT: 157.5 cm WEIGHT: 117.0 kg BP: RVIDd: 3.0 cm (< 3.3) IVSd: 1.8 cm (0.6 - 1.1) LVIDd: 3.4 cm (3.9 - 5.3) LVPWd: 1.6 cm (0.6 - 1.1) IVSs: 2.3 cm LVIDs: 2.2 cm LVPWs: 2.1 cm Ao Diam: 3.3 cm (2.0 - 3.7) AV Cusp: 2.1 cm (1.5 - 2.6) LA Diam: 3.5 cm (2.7 - 3.8) MV EXCURSION: 15.119 mm (> 18.000) MV EF SLOPE: 88 mm/s (70 - 150) EPSS: 0.8 cm MV E Emigdio: 1.16 m/s MV DecT: 230 ms MV A Emigdio: 0.26 m/s MV E/A Ratio: 4.50 RAP: 5.00 mmHg RVSP: 22.99 mmHg FINDINGS -------- This was a technically difficult study with suboptimal views. The left ventricular size is normal. There is moderate concentric left ventricular hypertrophy. O verall left ventricular systolic function is normal with, an EF between 55 - 60 %. The right ventricle is normal in size. The left atrial size is normal. The right atrial size is normal. Lumason used The aortic valve was not well visualized. The mitral valve is normal. The mitral valve leaflets are mildly thickened. There is trace mitral regurgitation. The tricuspid valve appears structurally normal. Trace tricuspid regurgitation present. Right yuri tricular systolic pressure is normal at < 35 mmHg. The pulmonic valve was not well visualized. The aortic root size is normal. IVC Not well visulized. There is no pericardial effusion. CONCLUSIONS -------- 1. The left ventricular size is normal. 2. There is moderate concentric left ventricular hypertrophy. 3. Overall left ventricular systolic function is normal with, an EF between 55 - 60 %. 4. The mitral valve leaflets are mildly thickened. 5. There is trace mitral regurgitation. 6. Trace tricuspid regurgitation present. 7. There is no pericardial effusion. RHEUMATOLOGY NURSE: Zuleima Painting RDCS
--- NOTE | 2021-01-02 14:19 | P.PN ---
Subjective This is a 70-year-old female with past medical history significant for coronary artery disease status post drug-eluting stent placement to the mid LAD in 2017, paroxysmal atrial fibrillation, chronic diastolic heart failure, hypertension, dyslipidemia, diabetes mellitus, obstructive sleep apnea and obesity hypoventilation syndrome, chronic kidney disease and morbid obesity. She follows with Dr. Zavala. Patient presents emergency department 12/31 with complaints of increasing shortness of breath and hypoxia. She was found to be Covid 19 positive. Cardiology was consulted for elevated troponin and congestive heart failure. Patient was started on IV Lasix. Echocardiogram revealed EF 5560 percent, trace mitral regurgitation, trace tricuspid regurgitation. Patient with 950mL urine output. Labs: WBC 7.3, in 19.3, platelets 277, d-dimer 0.0, sodium 131, potassium 4.3, BUN 73, serum creatinine 1.8 Telemetry reviewed, patient in atrial fibrillation with controlled ventricular rates Meds: She is currently maintaining IV Lasix 40 mg twice a day, amlodipine 5 mg daily, Eliquis 5 mg twice a day, aspirin 80 mg daily, atorvastatin 40 mg daily, lisinopril 5 mg daily, metoprolol titrate 25 mg twice a day PHYSICAL EXAMINATION Gen: This is a 70-year-old female. Patient is resting but appears to be comfortable at rest. Physical exam not completed and not assessed by Dr. Avila due to covid-19 exposure risk. VS: Afebrile, heart rate 80, blood pressure 133/61, pulse ox 93% on 4 L nasal cannula ASSESSMENT: Acute hypoxic respiratory failure secondary to COVID-19 pneumonia, COPD exacerbation, acute diastolic heart failure Elevated troponin likely due to COVID-19 pneumonia and supply and demand mismatch Acute diastolic heart failure COPD exacerbation Paroxysmal atrial fibrillation on Eliquis Coronary artery disease status post PCI of the LAD in 2017 Hypertension, hypertensive cardiovascular disease Hyperlipidemia Diabetes mellitus type 2 Obstructive sleep apnea with CPAP Chronic kidney disease stage III PLAN: -Transition to PO Lasix 40mg BID monitor I&O, daily weights, electrolytes and renal function -Continue amlodipine 5 mg daily, eliquis 5 mg twice daily, aspirin 81 mg every 48 hours, Lipitor 40 mg daily, lisinopril 5 mg daily, Lopressor 25 mg twice daily -Continue Januvia -2D echocardiogram reviewed normal LV function, no significant wall motion abnormalities. -We will follow the patient as needed. Please reach out with any further questions or concerns. -Patient to follow-up in the office with Dr. Zavala Nurse practitioner note has been reviewed, I agree with documented findings and plan of care. Patient was seen and examined. Objective - Vital Signs Vital signs: Vital Signs Temp 97.8 F 01/02/21 07:45 Pulse 84 01/02/21 07:45 Resp 18 01/02/21 07:45 BP 120/62 01/02/21 07:45 Pulse Ox 95 01/02/21 11:31 Intake & Output 01/01/21 01/02/21 01/02/21 18:59 06:59 18:59 Intake Total 1120 740 620 Output Total 700 250 Balance 420 490 620 Weight 120.5 kg Intake: IV 20 20 Invasive Line 1 20 20 Oral 1100 740 600 Output: Urine 700 250 Other: Voiding Method External Catheter Toilet Toilet # Voids 2 1 - Labs CBC & Chem 7: 01/02/21 07:52 01/02/21 07:52 Labs: Abnormal Lab Results - Last 24 Hours (Table) 01/01/21 01/01/21 01/01/21 Range/Units 12:08 16:49 20:35 RBC (3.80-5.40) m/uL Hgb (11.4-16.0) gm/dL Hct (34.0-46.0) % MCV (80.0-100.0) fL MCHC (31.0-37.0) g/dL RDW (11.5-15.5) % Lymphocytes # (1.0-4.8) k/uL Macrocytosis D-Dimer (<0.60) mg/L FEU Sodium (137-145) mmol/L Carbon Dioxide (22-30) mmol/L BUN (7-17) mg/dL Creatinine (0.52-1.04) mg/dL Glucose (74-99) mg/dL POC Glucose (mg/dL) 328 H 374 H (75-99) mg/dL Alkaline Phosphatase (38-126) U/L C-Reactive Protein (<1.0) mg/dL Total Protein (6.3-8.2) g/dL Albumin (3.5-5.0) g/dL Procalcitonin 0.68 H (0.02-0.09) ng/mL 01/02/21 01/02/21 01/02/21 Range/Units 06:38 07:52 07:52 RBC 2.72 L (3.80-5.40) m/uL Hgb 9.3 L (11.4-16.0) gm/dL Hct 30.1 L (34.0-46.0) % MCV 110.7 H (80.0-100.0) fL MCHC 30.8 L (31.0-37.0) g/dL RDW 18.3 H (11.5-15.5) % Lymphocytes # 0.6 L (1.0-4.8) k/uL Macrocytosis Marked A D-Dimer 0.60 H (<0.60) mg/L FEU Sodium (137-145) mmol/L Carbon Dioxide (22-30) mmol/L BUN (7-17) mg/dL Creatinine (0.52-1.04) mg/dL Glucose (74-99) mg/dL POC Glucose (mg/dL) 311 H (75-99) mg/dL Alkaline Phosphatase (38-126) U/L C-Reactive Protein (<1.0) mg/dL Total Protein (6.3-8.2) g/dL Albumin (3.5-5.0) g/dL Procalcitonin (0.02-0.09) ng/mL 01/02/21 01/02/21 Range/Units 07:52 11:56 RBC (3.80-5.40) m/uL Hgb (11.4-16.0) gm/dL Hct (34.0-46.0) % MCV (80.0-100.0) fL MCHC (31.0-37.0) g/dL RDW (11.5-15.5) % Lymphocytes # (1.0-4.8) k/uL Macrocytosis D-Dimer (<0.60) mg/L FEU Sodium 131 L (137-145) mmol/L Carbon Dioxide 21 L (22-30) mmol/L BUN 73 H (7-17) mg/dL Creatinine 1.84 H (0.52-1.04) mg/dL Glucose 303 H (74-99) mg/dL POC Glucose (mg/dL) 327 H (75-99) mg/dL Alkaline Phosphatase 142 H (38-126) U/L C-Reactive Protein 6.6 H (<1.0) mg/dL Total Protein 5.9 L (6.3-8.2) g/dL Albumin 3.3 L (3.5-5.0) g/dL Procalcitonin (0.02-0.09) ng/mL
[2021-01-02 16:48] LABS: Glucose,Whole Blood 292 mg/dL (75-99)
[2021-01-02] MEDS: FUROSEMIDE 40 MG TAB PO SCH (17:33)
[2021-01-02] MEDS: INSULIN DETEMIR (LEVEMIR) 100 UNIT/ML SYR SQ SCH (17:34)
--- NOTE | 2021-01-02 18:21 | P.PN ---
Subjective Progress Note Date: 01/02/21 Principal diagnosis: Acute hypoxic respiratory failure secondary to COVID-19 pneumonia This is a pleasant 70-year-old female patient with a history of coronary artery disease and previous stent placement, diastolic congestive heart failure, diabetes mellitus, paroxysmal atrial fibrillation, hypothyroidism, hyperlipidemia, hypertension, obstructive sleep apnea. She presented here to the emergency room earlier today with complaints of shortness of breath. She was having increasing shortness of breath overnight. She is found to be hypoxemic with O2 saturation 87-88%. She does have underlying COPD and her breathing treatments weren't helping her. White count 8.3. Hemoglobin 9.1. Lymphocytes 0.5. Sodium 133. Potassium 3.9. Creatinine 1.73. Glucose 79. AST 41. ALT 20. Alk phos 146. ProBNP 60-60. Troponin 0.043. Zaman virus positive. She's been initiated on Symbicort, Ventolin, IV Solu-Medrol. She is anticoagulated with Eliquis. She is on IV diuretics. Vitamin supplements. She is seen in consultation in the emergency department. She is currently awake and alert. Breathing easier today compared to yesterday. Recent chest x-ray on 12/15/2020, chronic changes but no acute pulmonary process. 01/01/2021 the patient is feeling better. A patient continues to have cough. Of her cough has subsided. No chest pain. No altered mentation. No nausea or vomiting. As stated earlier, the patient has a surgical with that he related infection, possible pneumonia. The patient is currently on IV Solu-Medrol. The blood sugars are slightly elevated on today and this essentially due to the systemic steroids. All of the home medications have been resumed on this patient. The chest x-ray shows stable bilateral pulmonary infiltrates, patchy, worse in the left lung compared to the right. Reevaluated today on 01/02/2021, patient is doing much better, breathing a lot easier today. She is on 4 L nasal cannula, O2 saturations 95%. Chest x-ray from 01/01 showed evidence of patchy bilateral infiltrates. Consistent with atypical pneumonia. ABC today is relatively normal. D-dimer 0.60 electrolytes are normal BUN is 73 creatinine is 1.84, baseline is 1.74. C-reactive protein is 6.6. Blood sugar is 303. Objective - Vital Signs Vital signs: Vital Signs Temp 97.6 F 01/02/21 16:00 Pulse 70 01/02/21 16:00 Resp 18 01/02/21 16:00 BP 112/56 01/02/21 16:00 Pulse Ox 95 01/02/21 16:00 Intake & Output 01/01/21 01/02/21 01/02/21 18:59 06:59 18:59 Intake Total 5253 956 0680 Output Total 700 250 Balance 775 826 0825 Weight 120.5 kg Intake: IV 20 40 Invasive Line 1 20 40 Oral 9751 885 0319 Output: Urine 700 250 Other: Voiding Method External Catheter Toilet Toilet # Voids 2 2 - Exam GENERAL EXAM: Revealed 70-year-old female in no distress on 3 L nasal cannula. HEAD: Normocephalic. EENT: PERRLA, EOMI, nonicteric, no neck masses, no JVD. CHEST: No chest wall deformity. LUNGS: Crackles at the bases no rhonchi and no wheezes.. CVS: S1 and S2 normal with no audible murmur, regular rhythm. ABDOMEN: No hepatosplenomegaly, normal bowel sounds, no guarding or rigidity. Psychiatric: Normal mood affect and normal mental status examination. SKIN: No rashes CENTRAL NERVOUS SYSTEM: Alert and oriented 3 focal deficit. EXTREMITIES: No clubbing edema or cyanosis - Labs CBC & Chem 7: 01/02/21 07:52 01/02/21 07:52 Labs: Abnormal Lab Results - Last 24 Hours (Table) 01/01/21 01/01/21 01/02/21 Range/Units 12:08 20:35 06:38 RBC (3.80-5.40) m/uL Hgb (11.4-16.0) gm/dL Hct (34.0-46.0) % MCV (80.0-100.0) fL MCHC (31.0-37.0) g/dL RDW (11.5-15.5) % Lymphocytes # (1.0-4.8) k/uL Macrocytosis D-Dimer (<0.60) mg/L FEU Sodium (137-145) mmol/L Carbon Dioxide (22-30) mmol/L BUN (7-17) mg/dL Creatinine (0.52-1.04) mg/dL Glucose (74-99) mg/dL POC Glucose (mg/dL) 374 H 311 H (75-99) mg/dL Alkaline Phosphatase (38-126) U/L C-Reactive Protein (<1.0) mg/dL Total Protein (6.3-8.2) g/dL Albumin (3.5-5.0) g/dL Procalcitonin 0.68 H (0.02-0.09) ng/mL 01/02/21 01/02/21 01/02/21 Range/Units 07:52 07:52 07:52 RBC 2.72 L (3.80-5.40) m/uL Hgb 9.3 L (11.4-16.0) gm/dL Hct 30.1 L (34.0-46.0) % MCV 110.7 H (80.0-100.0) fL MCHC 30.8 L (31.0-37.0) g/dL RDW 18.3 H (11.5-15.5) % Lymphocytes # 0.6 L (1.0-4.8) k/uL Macrocytosis Marked A D-Dimer 0.60 H (<0.60) mg/L FEU Sodium 131 L (137-145) mmol/L Carbon Dioxide 21 L (22-30) mmol/L BUN 73 H (7-17) mg/dL Creatinine 1.84 H (0.52-1.04) mg/dL Glucose 303 H (74-99) mg/dL POC Glucose (mg/dL) (75-99) mg/dL Alkaline Phosphatase 142 H (38-126) U/L C-Reactive Protein 6.6 H (<1.0) mg/dL Total Protein 5.9 L (6.3-8.2) g/dL Albumin 3.3 L (3.5-5.0) g/dL Procalcitonin (0.02-0.09) ng/mL 01/02/21 01/02/21 Range/Units 11:56 16:45 RBC (3.80-5.40) m/uL Hgb (11.4-16.0) gm/dL Hct (34.0-46.0) % MCV (80.0-100.0) fL MCHC (31.0-37.0) g/dL RDW (11.5-15.5) % Lymphocytes # (1.0-4.8) k/uL Macrocytosis D-Dimer (<0.60) mg/L FEU Sodium (137-145) mmol/L Carbon Dioxide (22-30) mmol/L BUN (7-17) mg/dL Creatinine (0.52-1.04) mg/dL Glucose (74-99) mg/dL POC Glucose (mg/dL) 327 H 292 H (75-99) mg/dL Alkaline Phosphatase (38-126) U/L C-Reactive Protein (<1.0) mg/dL Total Protein (6.3-8.2) g/dL Albumin (3.5-5.0) g/dL Procalcitonin (0.02-0.09) ng/mL Assessment and Plan Assessment: Impression: Acute hypoxic respiratory failure secondary to COVID-19 pneumonia and suspect some component of acute diastolic congestive heart failure superimposed on chronic diastolic heart failure. As well as underlying COPD. Acute hypoxic respiratory failure, multifactorial. Secondary to COVID-19 pneumonia, acute on chronic diastolic heart failure, and acute COPD exacerbation. History of coronary artery disease and previous stent placement. History of obstructive sleep apnea syndrome on CPAP. Morbid obesity. Type 2 diabetes. Benign essential hypertension. Paroxysmal atrial fibrillation maintained on Eliquis. Recommendation: Continue present COVID-19 cocktail. Continue diuretics. Continue bronchodilators including Symbicort albuterol and Solu-Medrol. Continue Eliquis. Consider discharge planning in the next 24 hours, she will need to be on home oxygen. Follow-up on outpatient basis post discharge. Time with Patient: Less than 30
[2021-01-02] MEDS ORDERED: Semaglutide [Ozempic] 0.25 MG/0.2 ML Each SQ SCH (19:00)
[2021-01-02 20:28] LABS: Glucose,Whole Blood 276 mg/dL (75-99)
[2021-01-03] MEDS: methylPREDNISolone SOD SUCCI 40 MG/ML 1 ML VIAL IV SCH ×3 (00:21→21:43)
[2021-01-03 06:10] LABS: Glucose,Whole Blood 274 mg/dL (75-99)
[2021-01-03] MEDS: PANTOPRAZOLE 40 MG TABLET PO SCH (06:16)
[2021-01-03] MEDS: LEVOTHYROXINE 25 MCG TAB PO SCH (06:16)
[2021-01-03] MEDS: INSULIN ASPART (NovoLOG) 100 UNIT/ML VIAL SQ SCH ×7 (06:16→21:44)
[2021-01-03] MEDS: ALBUTEROL HFA INHALER INHALATION SCH ×4 (07:42→21:15)
[2021-01-03] MEDS: SYMBICORT 160-4.5 MCG INHALER INHALATION SCH ×2 (07:42→21:15)
[2021-01-03] MEDS: INSULIN DETEMIR (LEVEMIR) 100 UNIT/ML SYR SQ SCH (08:42)
[2021-01-03] MEDS: LACTULOSE 20 GM/30 ML CUP PO SCH ×2 (08:42→21:43)
[2021-01-03] MEDS: METOPROLOL TARTRATE 25 MG TAB PO SCH ×2 (08:43→21:43)
[2021-01-03] MEDS: LINAGLIPTIN 5 MG TABLET PO SCH (08:43)
[2021-01-03] MEDS: ATORVASTATIN 40 MG TAB PO SCH (08:43)
[2021-01-03] MEDS: FUROSEMIDE 40 MG TAB PO SCH ×2 (08:43→18:47)
[2021-01-03] MEDS: ZINC SULFATE 220 MG CAP PO SCH (08:43)
[2021-01-03] MEDS: ASCORBIC ACID 500 MG TAB PO SCH ×2 (08:43→21:43)
[2021-01-03] MEDS: lisinopriL 5 MG TAB PO SCH (08:43)
[2021-01-03] MEDS: APIXABAN 5 MG TAB PO SCH ×2 (08:43→21:43)
[2021-01-03] MEDS: CHOLECALCIFEROL 25 MCG (1000 IU) TABLET PO SCH (08:43)
[2021-01-03] MEDS: amLODIPine 5 MG TAB PO SCH (08:48)
[2021-01-03] MEDS: VIT A,C & E-LUTEIN-MINERALS 1 EACH TAB PO SCH (08:48)
--- NOTE | 2021-01-03 11:57 | P.PN ---
Subjective Progress Note Date: 01/03/21 HISTORY OF PRESENT ILLNESS: This is a 70-year-old female patient of [facility] with past medical hi story of diabetes mellitus type 2, diabetic polyneuropathy, paroxysmal atrial fibrillation, psoriasis, COPD, hypertension, coronary artery disease status post stenting of the mid LAD [place] [address] Zavala, remote history of tobacco use and dependence, obesity with obstructive sleep apnea and obesity hypoventilation syndrome, patient was recently hospitalized at [facility] between 11/11/2020 of 11/16/2020 after she was admitted for acute hypoxemic respiratory failure due to pneumonia as well as acute exacerbation of the diastolic heart failure and COPD exacerbation, she was treated with IV antibiotic as well as IV diuretics and IV steroid, then she developed to have a significant fatigue and tiredness she was hospitalized on November 26 through November 29 for acute and chronic anemia with hemoglobin of 5.9, she did receive blood procedure that time was seen in consultation by gastroenterology underwent EGD that showed chronic gastritis without evidence of expiratory bacteria she was seen in consultation by hematology and he was recommended for the patient to receive IV iron infusion as an outpatient and if her iron stores are adequate she will be started on erythropoietin treatment as an outpatient, patient stated that she was in her usual state of health until about yesterday when she went to sleep and stated her recliner woke up in the morning and she was extreme short of breath not able to catch her breath she did receive breathing treatment did not help much she c alled her nephew who came and brought her to the ER at [facility] , patient was hypoxemic with oxygenation of 87-88% on room air she was started on oxygen supply, she was started on Solu-Medrol 60 mg IV push every 6 hours, she was somewhat hypoglycemic she was given orange juice along with peanut butter and crackers her blood glucose level is around 57, chest x-ray was orders of any anatomic dictation, her hemoglobin is better at 9.9 today, her troponin slightly elevated, we will consult cardiology we will consult pulmonary medicine as well for further evaluation and recommendation, while the patient in the emergency department her COVID-19 PCR came back positive patient was admitted for Covid 19 with droplet precautions. 01/01: Patient sitting up in bed is feeling much better today, she continues to have some cough with minimal phlegm production, she denies any chest pain, she denies any abdominal pain, she has no nausea or vomiting she has no diarrhea, she has no loss of taste or smell, portable chest x-ray still pending at the time of dictation, she continues to be on Solu-Medrol 60 mg IV push every 6 hours, she continues to be hyperglycemic, patient elected to be a DO NOT RESUSCITATE. 01/02: Patient is seen today on the cardiac stepdown unit. She denies having a [place] fever or chills. Shortness of breath seems to be stable and she is on 4 L nasal cannula. Patient does not have home oxygen therapy. Patient's last bowel movement was yesterday and denies diarrhea. No nausea or vomiting. AP blood work reveals hemoglobin 9.3. Sodium 131. BUN 73 and creatinine 1.84. Blood sugars are in the 300s. Levemir 12 units daily will be added. Solu-Medrol decreased to 40 mg IV every 8 hours. 01/03: Patient is now on 2 L nasal cannula with pulse ox of 95%. She's been afebrile, heart rate 73, blood pressure 129/58. Anticipate need for home oxygen therapy. Prescription has been provided to caser to make arrangements today. Patient states that she slept good last night. She is on Solu-Medrol 40 mg every 8 hours and will be decreased frequency to every 12 hours and start prednisone tomorrow. REVIEW OF SYSTEMS: Constitutional: No documented fever, no chills, no night sweats. positive for weight change. positive for weakness, positive for fatigue or lethargy. positive for daytime sleepiness. HEENT: No headache. No blurred vision or double vision, no loss of vision. No loss of Hearing, no ringing in the ears, no dizziness. No nasal drainage or congestion. No epistaxis. No sore throat. Lungs: positive for shortness of breath, positive for dry cough, no sputum production. Positive for wheezing. Reports dyspnea with activity. Cardiovascular: No chest pain, mild lower extremity edema. No palpitations. No paroxysmal nocturnal dyspnea. No orthopnea. No lightheadedness or dizziness. No syncopal episodes. Abdominal: Reports no abdominal pain. No nausea, vomiting. No diarrhea. No constipation. No bloody or tarry stools reports loss of appetite. Genitourinary: No dysuria, increased frequency, urgency. No urinary retention. Musculoskeletal: No myalgias. No muscle weakness, no gait dysfunction, no frequent falls. positive fpr back pain. No neck pain. Integumentary: No wounds, no lesions. positive for dry skin. positive for bruising. No change in hair or nails. Neurologic: No aphasia. No facial droop. No change in mentation. No head injury. No headache. No paralysis. No paresthesia. Psychiatric: No depression. No anxiety. No mood swings. Endocrine: Noted hyperglycemia. PHYSICAL EXAMINATION: General: 70-year-old female sitting up in bed in no respiratory distress HEENT: Head is atraumatic, normocephalic, pupils were equal round, sclera nonicteric, conjunctivae were pale, mucous membranes of the mouth are somewhat dry. Neck: Supple, no JVP, normal carotid upstroke bilaterally, no lymphadenopathy. Chest: Decreased breath sounds at the bases, few rhonchi, no expiratory wheezes, no chest wall tenderness, no intercostal retractions. Heart: First heart sound is normal, second heart sounds normal, there is systolic ejection murmur 2/6 located in the left sternal border. Abdomen: Soft, nontender, nondistended, positive bowel sounds Extremities: There is +2 edema no calf tenderness DP +1 bilaterally. Neurologic examination: Patient is awake alert and oriented X 3, cranial nerves II-12 appear grossly intact, muscle power were 4 out of 5 in upper extremities and 4 out of 5 in bilateral lower extremities, deep tendon reflexes normal bilaterally. ASSESSMENT AND PLAN: 1. Acute hypoxemic respiratory failure due to acute exacerbation of COPD along with acute diastolic heart failure and COVID-19. Start the patient on Solu- Medrol decreased to 40 mg IV push every 12 hours and transitioned to oral prednisone tomorrow, DuoNeb nebulization 4 times every day, oxygen support, Pulmicort 1 mL nebulization twice every day, start the patient on Lasix 40 mg twice daily transitioned to oral by cardiology, input and output and daily weight obtain pulmonary and cardiology consultation appreciated. 2 .Acute COPD exacerbation Continue DuoNeb 3 mg nebulization 4 times every day, continue oxygen support, continue Solu-Medrol 40 mg IV push every 12 hours 3. Acute on Chronic diastolic heart failure. Continue patient on metoprolol 25 mg orally twice every day, Lasix transitioned to oral 40 mg twice daily, continue lisinopril 5 mg orally once every day, monitor input and output and daily weight. 4. hypertension and hypertensive cardiovascular disease. Continue patient on m etoprolol 25 mg orally twice every day and lisinopril 5 mg orally once every day monitor the patient blood pressure very closely. 5. Hyperlipidemia. Continue Lipitor 40 mg orally once every day keep LDL cholesterol 55-70 6. Diabetes mellitus type 2. Continue patient on Januvia 50 mg orally once every day, discontinue Glimeperide, continue patient on Ozempic 0.25 mg SC q week on Sundays. We'll add Levemir 12 units daily, NovoLog 5 units with meals and NovoLog scale. 7. Paroxysmal atrial fibrillation. Continue metoprolol 25 mg orally twice every day, Eliquis 5 mg orally twice every day. 8. Coronary artery disease status post PCI of the LAD in 2017. Continue metoprolol 25 mg orally twice every day, aspirin 81 mg once every day, Lipitor 40 mg orally once every day keep LDL 55-70. 9. Hypothyroidism. Continue Synthroid 25 incision orally once every day. 10. Obesity with obstructive sleep apnea. Continue patient on current CPAP. 11. History of psoriasis. Stable. 12. Chronic kidney disease stage III a. Monitor the patient CMP, avoid nephrotoxins . 13. Anemia of chronic kidney disease status post IV iron infusion as an outpatient she may need to be started on erythropoietin 14. Chronic hypoxic respiratory failure requiring home oxygen therapy 15. DVT prophylaxis. Continue patient on Bilateral knee-high tigist hose, and Eliquis 2.5 mg orally twice every day 16. GI prophylaxis. Continue Protonix 40 mg IVP daily DNR. DISCHARGE PLAN Home on Saturday Impression and plan of care have been directed as dictated by the signing physician. Antonette Carson nurse practitioner acting as scribe for signing physician. Objective - Vital Signs Vital signs: Vital Signs Temp 97.9 F 01/03/21 04:00 Pulse 72 01/03/21 04:00 Resp 16 01/03/21 04:00 BP 124/59 01/03/21 04:00 Pulse Ox 96 01/03/21 04:00 Intake & Output 01/02/21 01/03/21 01/03/21 18:59 06:59 18:59 Intake Total 1140 Output Total 300 Balance 1140 -300 Weight 119.2 kg Intake: IV 40 Invasive Line 1 40 Oral 1100 Output: Urine 300 Other: Voiding Method Toilet Toilet # Voids 2 1 - Labs CBC & Chem 7: 01/02/21 07:52 01/02/21 07:52 Labs: Abnormal Lab Results - Last 24 Hours (Table) 01/02/21 01/02/21 01/02/21 Range/Units 07:52 07:52 07:52 RBC 2.72 L (3.80-5.40) m/uL Hgb 9.3 L (11.4-16.0) gm/dL Hct 30.1 L (34.0-46.0) % MCV 110.7 H (80.0-100.0) fL MCHC 30.8 L (31.0-37.0) g/dL RDW 18.3 H (11.5-15.5) % Lymphocytes # 0.6 L (1.0-4.8) k/uL Macrocytosis Marked A D-Dimer 0.60 H (<0.60) mg/L FEU Sodium 131 L (137-145) mmol/L Carbon Dioxide 21 L (22-30) mmol/L BUN 73 H (7-17) mg/dL Creatinine 1.84 H (0.52-1.04) mg/dL Glucose 303 H (74-99) mg/dL POC Glucose (mg/dL) (75-99) mg/dL Alkaline Phosphatase 142 H (38-126) U/L C-Reactive Protein 6.6 H (<1.0) mg/dL Total Protein 5.9 L (6.3-8.2) g/dL Albumin 3.3 L (3.5-5.0) g/dL 01/02/21 01/02/21 01/02/21 Range/Units 11:56 16:45 20:26 RBC (3.80-5.40) m/uL Hgb (11.4-16.0) gm/dL Hct (34.0-46.0) % MCV (80.0-100.0) fL MCHC (31.0-37.0) g/dL RDW (11.5-15.5) % Lymphocytes # (1.0-4.8) k/uL Macrocytosis D-Dimer (<0.60) mg/L FEU Sodium (137-145) mmol/L Carbon Dioxide (22-30) mmol/L BUN (7-17) mg/dL Creatinine (0.52-1.04) mg/dL Glucose (74-99) mg/dL POC Glucose (mg/dL) 327 H 292 H 276 H (75-99) mg/dL Alkaline Phosphatase (38-126) U/L C-Reactive Protein (<1.0) mg/dL Total Protein (6.3-8.2) g/dL Albumin (3.5-5.0) g/dL 01/03/21 Range/Units 06:09 RBC (3.80-5.40) m/uL Hgb (11.4-16.0) gm/dL Hct (34.0-46.0) % MCV (80.0-100.0) fL MCHC (31.0-37.0) g/dL RDW (11.5-15.5) % Lymphocytes # (1.0-4.8) k/uL Macrocytosis D-Dimer (<0.60) mg/L FEU Sodium (137-145) mmol/L Carbon Dioxide (22-30) mmol/L BUN (7-17) mg/dL Creatinine (0.52-1.04) mg/dL Glucose (74-99) mg/dL POC Glucose (mg/dL) 274 H (75-99) mg/dL Alkaline Phosphatase (38-126) U/L C-Reactive Protein (<1.0) mg/dL Total Protein (6.3-8.2) g/dL Albumin (3.5-5.0) g/dL
[2021-01-03 11:58] LABS: Glucose,Whole Blood 228 mg/dL (75-99)
--- NOTE | 2021-01-03 16:20 | P.PN ---
Subjective Progress Note Date: 01/03/21 Principal diagnosis: Dyspnea, hypoxia, COVID-19 On 01/03/2001 patient seen in follow-up on selective care unit, she is awake and alert, she is sitting up in the chair, breathing comfortably, vital signs have been stable, no worsening dyspnea, she is currently on room air, pulse ox 92%, she does get her breath with exertion, but no acute distress, vital signs have been stable, she's had no acute events overnight. She remains on inhaled bronchodilators, she remains on IV Solu-Medrol 40 mg every 12 hours, Eliquis, and COVID-19 vitamins. No chest discomfort, occasional cough, no phlegm production. No new labs today. Objective - Vital Signs Vital signs: Vital Signs Temp 97.7 F 01/03/21 12:00 Pulse 72 01/03/21 12:00 Resp 16 01/03/21 12:00 BP 139/68 01/03/21 12:00 Pulse Ox 92 L 01/03/21 12:20 Intake & Output 01/02/21 01/03/21 01/03/21 18:59 06:59 18:59 Intake Total 1140 280 Output Total 900 Balance 1140 -620 Weight 119.2 kg Intake: IV 40 20 Invasive Line 1 40 20 Oral 1100 260 Output: Urine 900 Other: Voiding Method Toilet Toilet Toilet # Voids 2 1 - Exam GENERAL EXAM: Alert, very pleasant, morbidly obese 70-year-old white female, sitting up in the recliner, on room air with pulse ox of 92% comfortable in no apparent distress. HEAD: Normocephalic/atraumatic. EYES: Normal reaction of pupils, equal size. Conjunctiva pink, sclera white. NOSE: Clear with pink turbinates. THROAT: No erythema or exudates. NECK: No masses, no JVD, no thyroid enlargement, no adenopathy. CHEST: No chest wall deformity. Symmetrical expansion. LUNGS: Equal air entry with diminished breath sounds at the bases minimal crackles CVS: Regular rate and rhythm, normal S1 and S2, no gallops, no murmurs, no rubs ABDOMEN: Soft, nontender. No hepatosplenomegaly, normal bowel sounds, no guarding or rigidity. EXTREMITIES: No clubbing, no edema, no cyanosis, 2+ pulses and upper and lower extremities. MUSCULOSKELETAL: Muscle strength and tone normal. SPINE: No scoliosis or deformity SKIN: No rashes CENTRAL NERVOUS SYSTEM: Alert and oriented -3. No focal deficits, tone is normal in all 4 extremities. PSYCHIATRIC: Alert and oriented -3. Appropriate affect. Intact judgment and insight. - Labs CBC & Chem 7: 01/02/21 07:52 01/02/21 07:52 Labs: Abnormal Lab Results - Last 24 Hours (Table) 01/02/21 01/02/21 01/03/21 Range/Units 16:45 20:26 06:09 POC Glucose (mg/dL) 292 H 276 H 274 H (75-99) mg/dL 01/03/21 Range/Units 11:55 POC Glucose (mg/dL) 228 H (75-99) mg/dL Assessment and Plan Plan: Assessment: #1. Acute hypoxic respiratory failure secondary to COVID-19 pneumonia, suspect a component of acute diastolic CHF superimposed on chronic diastolic CHF #2. Acute hypoxic respiratory failure, multifactorial, related to acute COVID- 19 pneumonia, acute on chronic diastolic CHF and acute COPD exacerbation #3. History of coronary artery disease and previous stent placement #4. History of obstructive sleep apnea on CPAP #5. Morbid obesity with BMI of 48.1 kg/m #6. Type 2 diabetes mellitus #7. Benign essential hypertension #8. Paroxysmal A. fib maintained on Eliquis Plan: Continue current dose Solu-Medrol Continue oral anticoagulation Continue inhaled bronchodilators including Symbicort and albuterol Stable from pulmonary perspective, improving dyspnea and hypoxia Patient is on room air, doing well Stable for discharge home from pulmonary perspective Outpatient follow-up with Dr. Adams in the office in 2 weeks I performed a history & physical examination of the patient and discussed their management with my nurse practitioner, Hannah Beltran. I reviewed the nurse practitioner's note and agree with the documented findings and plan of care. Lung sounds are positive for diminished breath sounds with some limited crackles throughout the lung canales. The findings and the impression was discussed with the patient. I attest to the documentation by the nurse practitioner. Time with Patient: Less than 30
[2021-01-03 16:46] LABS: Glucose,Whole Blood 281 mg/dL (75-99)
[2021-01-03 19:54] LABS: Glucose,Whole Blood 274 mg/dL (75-99)
[2021-01-03 20:29] VITALS: RESP 18
[2021-01-04 05:57] LABS: Glucose,Whole Blood 227 mg/dL (75-99)
[2021-01-04] MEDS: PANTOPRAZOLE 40 MG TABLET PO SCH (06:28)
[2021-01-04] MEDS: LEVOTHYROXINE 25 MCG TAB PO SCH (06:28)
[2021-01-04] MEDS: INSULIN ASPART (NovoLOG) 100 UNIT/ML VIAL SQ SCH ×2 (06:28→06:29)
--- NOTE | 2021-01-04 08:34 | P.DS ---
Providers Date of admission: 12/31/20 11:59 Expected date of discharge: 01/04/21 Attending physician: Dimple Wooten Consults: 12/31/20 11:09 Consult Physician Urgent Consulting Provider: Laura Adams Consult Reason/Comments: Dyspnea,COPD Do you want consulting provider notified?: Yes 12/31/20 12:09 Consult Physician Routine Consulting Provider: Alexander Willson Consult Reason/Comments: CHF/Elevated troponin Do you want consulting provider notified?: Yes Primary care physician: Dimple Wooten Hospital Course: HISTORY OF PRESENT ILLNESS: This is a 70-year-old female patient of [facility] with past medical history of diabetes mellitus type 2, diabetic polyneuropathy, paroxysmal atrial fibrillation, psoriasis, COPD, hypertension, coronary artery disease status post stenting of the mid L[place] [address] Zavala, remote history of tobacco use and dependence, obesity with obstructive sleep apnea and obesity hypoventilation syndrome, patient was recently hospitalized at [facility] between 11/11/2020 of 11/16/2020 after she was admitted for acute hypoxemic respiratory failure due to pneumonia as well as acute exacerbation of the diastolic heart fa ilure and COPD exacerbation, she was treated with IV antibiotic as well as IV diuretics and IV steroid, then she developed to have a significant fatigue and tiredness she was hospitalized on November 26 through November 29 for acute and chronic anemia with hemoglobin of 5.9, she did receive blood procedure that time was seen in consultation by gastroenterology underwent EGD that showed chronic gastritis without evidence of expiratory bacteria she was seen in consultation by hematology and he was recommended for the patient to receive IV iron infusion as an outpatient and if her iron stores are adequate she will be started on erythropoietin treatment as an outpatient, patient stated that she was in her usual state of health until about yesterday when she went to sleep and stated her recliner woke up in the morning and she was extreme short of breath not able to catch her breath she did receive breathing treatment did not help much she called her nephew who came and brought her to the ER at [facility] , patient was hypoxemic with oxygenation of 87-88% on room air she was started on oxygen supply, she was started on Solu-Medrol 60 mg IV push every 6 hours, she was somewhat hypoglycemic she was given orange juice along with peanut butter and crackers her blood glucose level is around 57, chest x-ray was orders of any anatomic dictation, her hemoglobin is better at 9.9 today, her troponin slightly elevated, we will consult cardiology we will consult pulmonary medicine as well for further evaluation and recommendation, while the patient in the emergency department her COVID-19 PCR came back positive patient was admitted for Covid 19 with droplet precautions. 01/01: Patient sitting up in bed is feeling much better today, she continues to have some cough with minimal phlegm production, she denies any chest pain, she denies any abdominal pain, she has no nausea or vomiting she has no diarrhea, she has no loss of taste or smell, portable chest x-ray still pending at the time of dictation, she continues to be on Solu-Medrol 60 mg IV push every 6 hours, she continues to be hyperglycemic, patient elected to be a DO NOT RESUSCITATE. 01/02: Patient is seen today on the cardiac stepdown unit. She denies having any fever or chills. Shortness of breath seems to be stable and she is on 4 L nasal cannula. Patient does not have home oxygen therapy. Patient's last bowel movement was yesterday and denies diarrhea. No nausea or vomiting. AP blood work reveals hemoglobin 9.3. Sodium 131. BUN 73 and creatinine 1.84. Blood sugars are in the 300s. Levemir 12 units daily will be added. Solu-Medrol decreased to 40 mg IV every 8 hours. 01/03: Patient is now on 2 L nasal cannula with pulse ox of 95%. She's been afebrile, heart rate 73, blood pressure 129/58. Anticipate need for home oxygen therapy. Prescription has been provided to pillowcase folder to make arrangements today. Patient states that she slept good last night. She is on Solu-Medrol 40 mg every 8 hours and will be decreased frequency to every 12 hours and start prednisone tomorrow. 01/04: She was seen by both her medicine yesterday and cleared for discharge. She is currently on O2 at 4 L but dropped down to 88 on room air. Patient will need to be set up for home oxygen therapy for chronic hypoxic respiratory failure. reporting manager will make arrangements prior to discharge. She has been afebrile, heart rate 76, blood pressure 117/56. Blood glucose running between 227 and 281. Patient has been transitioned to oral prednisone starting this morning. Patient will be discharged today in stable condition DISCHARGE DIAGNOSES: 1. Acute hypoxemic respiratory failure due to acute exacerbation of COPD along with acute diastolic heart failure and COVID-19. 2 .Acute COPD exacerbation 3. Acute on Chronic diastolic heart failure. 4. hypertension and hypertensive cardiovascular disease. 5. Hyperlipidemia. 6. Diabetes mellitus type 2. 7. Paroxysmal atrial fibrillation. 8. Coronary artery disease status post PCI of the LAD in 2017. 9. Hypothyroidism. 10. Obesity with obstructive sleep apnea. 11. History of psoriasis. Stable. 12. Chronic kidney disease stage III a. 13. Anemia of chronic kidney disease status post IV iron infusion as an outpatient 14. Chronic hypoxic respiratory failure requiring home oxygen therapy DISCHARGE PLAN Home Greater than 35 minutes was utilized and coordinating patient's discharge. Impression and plan of care have been directed as dictated by the signing physician. Antonette Carson nurse practitioner acting as scribe for signing physician. Patient Condition at Discharge: Good Plan - Discharge Summary New Discharge Prescriptions: New Furosemide [Lasix] 40 mg PO BID@0900,1600 #60 tab predniSONE 0 mg PO DIRECTED #30 tab Pantoprazole [Protonix] 40 mg PO AC-BRKFST #30 tab Zinc Sulfate [Orazinc] 220 mg PO DAILY cap Budesonide-Formot 160-4.5 Mcg [Symbicort 160-4.5 Mcg Inhaler] 2 puff INHALATION RT-BID #1 inh Ascorbic Acid [Vitamin C] 500 mg PO BID tab Continue Multivit-Min/FA/Lycopen/Lutein [Centrum Silver Tablet] 1 tab PO DAILY Aspirin [Adult Low Dose Aspirin EC] 81 mg PO Q48H Metoprolol Tartrate [Lopressor] 25 mg PO BID #180 tab amLODIPine BESYLATE [Norvasc] 5 mg PO DAILY #1 tablet Glimepiride [Amaryl] 4 mg PO BID Levothyroxine Sodium [Synthroid] 25 mcg PO DAILY sitaGLIPtin [Januvia] 50 mg PO DAILY Vit C/E/Zn/Coppr/Lutein/Zeaxan [Preservision Areds 2 Softgel] 2 cap PO DAILY Atorvastatin [Lipitor] 40 mg PO DAILY Cholecalciferol [Vitamin D3 (25 Mcg = 1000 Iu)] 50 mcg PO DAILY lisinopriL [Zestril] 5 mg PO DAILY Semaglutide [Ozempic] 0.25 mg SQ LOZANO Ipratropium-Albuterol Nebulize [Duoneb 0.5 mg-3 mg/3 ml Soln] 3 ml INHALATION RT-QID #120 inh Lactulose [Cephulac] 20 gm PO BID #1800 ml Apixaban [Eliquis] 5 mg PO BID #60 tab Discontinued Furosemide [Lasix] 80 mg PO Q48H Discharge Medication List Aspirin [Adult Low Dose Aspirin EC] 81 mg PO Q48H 08/28/16 [History] Multivit-Min/FA/Lycopen/Lutein [Centrum Silver Tablet] 1 tab PO DAILY 08/28/16 [History] Metoprolol Tartrate [Lopressor] 25 mg PO BID #180 tab 09/04/16 [Rx] amLODIPine BESYLATE [Norvasc] 5 mg PO DAILY #1 tablet 09/04/16 [Rx] Glimepiride [Amaryl] 4 mg PO BID 04/08/18 [History] Levothyroxine Sodium [Synthroid] 25 mcg PO DAILY 04/08/18 [History] Vit C/E/Zn/Coppr/Lutein/Zeaxan [Preservision Areds 2 Softgel] 2 cap PO DAILY 04/08/18 [History] sitaGLIPtin [Januvia] 50 mg PO DAILY 04/08/18 [History] Atorvastatin [Lipitor] 40 mg PO DAILY 11/11/20 [History] Cholecalciferol [Vitamin D3 (25 Mcg = 1000 Iu)] 50 mcg PO DAILY 11/11/20 [History] Semaglutide [Ozempic] 0.25 mg SQ LOZANO 11/11/20 [History] lisinopriL [Zestril] 5 mg PO DAILY 11/11/20 [History] Ipratropium-Albuterol Nebulize [Duoneb 0.5 mg-3 mg/3 ml Soln] 3 ml INHALATION RT-QID #120 inh 11/16/20 [Rx] Apixaban [Eliquis] 5 mg PO BID #60 tab 11/29/20 [Rx] Lactulose [Cephulac] 20 gm PO BID #1800 ml 11/29/20 [Rx] Ascorbic Acid [Vitamin C] 500 mg PO BID tab 01/04/21 [Rx] Budesonide-Formot 160-4.5 Mcg [Symbicort 160-4.5 Mcg Inhaler] 2 puff INHALATION RT-BID #1 inh 01/04/21 [Rx] Furosemide [Lasix] 40 mg PO BID@0900,1600 #60 tab 01/04/21 [Rx] Pantoprazole [Protonix] 40 mg PO AC-BRKFST #30 tab 01/04/21 [Rx] Zinc Sulfate [Orazinc] 220 mg PO DAILY cap 01/04/21 [Rx] predniSONE 0 mg PO DIRECTED #30 tab 01/04/21 [Rx] Follow up Appointment(s)/Referral(s): Cedric Zavala MD [STAFF PHYSICIAN] - 4 Weeks Laura Adams MD [STAFF PHYSICIAN] - 2 Weeks Dimple Wooten MD [Primary Care Provider] - 1 Week Discharge Disposition: HOME SELF-CARE
[2021-01-04] MEDS ORDERED: predniSONE 20 MG TAB PO SCH (09:00)
[2021-01-04] MEDS: INSULIN DETEMIR (LEVEMIR) 100 UNIT/ML SYR SQ SCH (09:02)
[2021-01-04] MEDS: VIT A,C & E-LUTEIN-MINERALS 1 EACH TAB PO SCH (09:02)
[2021-01-04] MEDS: ZINC SULFATE 220 MG CAP PO SCH (09:03)
[2021-01-04] MEDS: lisinopriL 5 MG TAB PO SCH (09:03)
[2021-01-04] MEDS: FUROSEMIDE 40 MG TAB PO SCH (09:03)
[2021-01-04] MEDS: amLODIPine 5 MG TAB PO SCH (09:03)
[2021-01-04] MEDS: ASCORBIC ACID 500 MG TAB PO SCH (09:03)
[2021-01-04] MEDS: METOPROLOL TARTRATE 25 MG TAB PO SCH (09:03)
[2021-01-04] MEDS: LINAGLIPTIN 5 MG TABLET PO SCH (09:04)
[2021-01-04] MEDS: APIXABAN 5 MG TAB PO SCH (09:04)
[2021-01-04] MEDS: CHOLECALCIFEROL 25 MCG (1000 IU) TABLET PO SCH (09:04)
[2021-01-04] MEDS: ATORVASTATIN 40 MG TAB PO SCH (09:04)
[2021-01-04] MEDS: SYMBICORT 160-4.5 MCG INHALER INHALATION SCH (09:06)
[2021-01-04] MEDS: ALBUTEROL HFA INHALER INHALATION SCH ×2 (09:06→12:17)
[2021-01-04] MEDS: LACTULOSE 20 GM/30 ML CUP PO SCH (09:07)
[2021-01-04 09:10] VITALS: BP 117/56; PULSE 76; TEMP 97.9
[2021-01-04] MEDS ORDERED: GLIMEPIRIDE 2 MG TAB PO SCH (09:30)
[2021-01-04 12:08] LABS: Glucose,Whole Blood 274 mg/dL (75-99)
== END 2021-01-04 12:39 | disposition home or self-care (01) | DRG 177 ==
LOC: EC 10:09 → 4SSUR 11:59 → 3SCARD 12:18
PROVIDERS: ADMIT Internal Medicine; ATTEND Internal Medicine
DX: U07.1 COVID-19 (principal); J96.21 Acute and chronic respiratory failure with hypoxia; J12.82 Pneumonia due to coronavirus disease 2019; I50.33 Acute on chronic diastolic (congestive) heart failure; J44.1 Chronic obstructive pulmonary disease with (acute) exacerbation; J44.0 Chronic obstructive pulmonary disease with (acute) lower respiratory infection; I13.0 Hypertensive heart and chronic kidney disease with heart failure and stage 1 through stage 4 chronic kidney disease, or unspecified chronic kidney disease; Z68.42 Body mass index [BMI] 45.0-49.9, adult; E66.2 Morbid (severe) obesity with alveolar hypoventilation; N18.31 Chronic kidney disease, stage 3a; E11.22 Type 2 diabetes mellitus with diabetic chronic kidney disease; D63.1 Anemia in chronic kidney disease; E03.9 Hypothyroidism, unspecified; E11.42 Type 2 diabetes mellitus with diabetic polyneuropathy; E11.649 Type 2 diabetes mellitus with hypoglycemia without coma; E78.5 Hyperlipidemia, unspecified; L40.9 Psoriasis, unspecified; K29.50 Unspecified chronic gastritis without bleeding; I25.10 Atherosclerotic heart disease of native coronary artery without angina pectoris; I48.0 Paroxysmal atrial fibrillation; Z66 Do not resuscitate; Z79.01 Long term (current) use of anticoagulants; Z79.4 Long term (current) use of insulin; Z79.82 Long term (current) use of aspirin; Z79.890 Hormone replacement therapy; Z79.899 Other long term (current) drug therapy; Z87.891 Personal history of nicotine dependence; Z95.5 Presence of coronary angioplasty implant and graft; Z99.81 Dependence on supplemental oxygen; Z80.0 Family history of malignant neoplasm of digestive organs; Z80.41 Family history of malignant neoplasm of ovary; Z82.49 Family history of ischemic heart disease and other diseases of the circulatory system
CPT/HCPCS: 36415; 71045; 71046; 80053; 83605; 83615; 83735; 83880; 84145; 84484; 85025; 85379; 85610; 85730; 86140; 87635; 93005; 93306; 94640; 99285

== ENCOUNTER 2022-11-26 05:34 | Day surgery (SDC) | payer MEDICARE ==
[2022-11-20 12:59] VITALS: BMI 43.4
[2022-11-26] MEDS ORDERED: HEPARIN SODIUM,PORCINE 10,000 UNIT in SODIUM CHLORIDE 0.9% 1,000 ML IRRIGATION PRN (06:05)
[2022-11-26] MEDS ORDERED: ALPRAZolam 0.5 MG TAB PO PRN (06:05)
[2022-11-26] MEDS ORDERED: HEPARIN SODIUM,PORCINE (1 ML) 2,500 UNIT in SODIUM CHLORIDE 0.9% 250 ML IRRIGATION PRN (06:05)
[2022-11-26] MEDS ORDERED: SODIUM CHLORIDE 0.9% 1,000 ML in EMPTY BAG 1 BAG IV ONE (06:05)
[2022-11-26] MEDS ORDERED: ATORVASTATIN 80 MG TAB PO STA (06:05)
[2022-11-26] MEDS ORDERED: ASPIRIN 325 MG TAB PO STA (06:05)
[2022-11-26] MEDS ORDERED: NITROGLYCERIN SL TABS 0.4 MG TAB SUBLINGUAL PRN (06:05)
[2022-11-26] MEDS ORDERED: ALPRAZolam 0.25 MG TAB PO PRN (06:05)
[2022-11-26] MEDS ORDERED: SODIUM CHLORIDE 0.9% 1,000 ML IV ONE (06:19)
[2022-11-26 06:40] LABS: Glucose,Whole Blood 182 mg/dL (70-110)
[2022-11-26 06:44] LABS: Basophils # (A) 0.1 k/uL (0-0.2); Basophils % (A) 1 %; Eosinophils # (A) 0.3 k/uL (0-0.7); Eosinophils % (A) 2 %; HCT 40.8 % (34.0-46.0); HGB 13.2 gm/dL (11.4-16.0); Lymphocytes # (A) 2.3 k/uL (1.0-4.8); Lymphocytes % (A) 19 %; MCH 37.7 pg (25.0-35.0); MCHC 32.4 g/dL (31.0-37.0); MCV 116.4 fL (80.0-100.0); Macrocytosis Marked; Mean Platelet Volume 10.7; Monocytes # (A) 0.6 k/uL (0-1.0); Monocytes % (A) 5 %; Neutrophils # (A) 8.4 k/uL (1.3-7.7); Neutrophils % (A) 71 %; Platelet Count 192 k/uL (150-450); RBC 3.51 m/uL (3.80-5.40); RDW 13.1 % (11.5-15.5); WBC 11.9 k/uL (3.8-10.6)
[2022-11-26 06:50] VITALS: TEMP 97.8
[2022-11-26] MEDS ORDERED: LIDOCAINE 1% INJ 10MG/ML (20 ML MDV) ONE (07:24)
[2022-11-26] MEDS ORDERED: fentaNYL (PF) 50 MCG/ML 2 ML AMP ONE (07:24)
[2022-11-26] MEDS ORDERED: VERAPAMIL 2.5 MG/ML 2 ML AMP ONE (07:24)
[2022-11-26] MEDS ORDERED: HEPARIN SODIUM 1,000 UN/ML (10ML VL) ONE (07:24)
[2022-11-26 07:30] LABS: Large Platelets Present
[2022-11-26] MEDS ORDERED: fentaNYL (PF) 50 MCG/ML 2 ML AMP IVP ONE (07:33)
[2022-11-26] MEDS ORDERED: LIDOCAINE 1% INJ 10MG/ML (20 ML MDV) SQ ONE (07:36)
[2022-11-26] MEDS ORDERED: VERAPAMIL SYRINGE (5 MG/10 ML) INTRAARTER ONE (07:38)
[2022-11-26] MEDS ORDERED: HEPARIN SODIUM 1,000 UN/ML (10ML VL) IV ONE (07:40)
[2022-11-26] MEDS ORDERED: IOPAMIDOL-370 100ML BTL INJ ONE (07:47)
[2022-11-26] MEDS ORDERED: RX INFO: IV CONTRAST WAS GIVEN 1 EACH MISC MISCELLANE PRN (07:55)
[2022-11-26] MEDS ORDERED: SODIUM CHLORIDE 0.9% 1,000 ML IV SCH (08:00)
[2022-11-26] MEDS ORDERED: IPRATROPIUM-ALBUTEROL 3 ML NEB INHALATION SCH (08:00)
--- NOTE | 2022-11-26 08:01 | P.CARDCATH ---
Date of Procedure: 11/26/22 Description of Procedure: Cardiac Catheterization: The patient is a 72-year-old female with known history of hypertension hyperlipidemia and diabetes who has been complaining of dyspnea on exertion and had an abnormal MPI. Recommendations were made regarding cardiac catheterization, the risks and the complications were discussed with the patient who is in full understanding and agreement. Procedure Description: Patient was brought to entry level lab technician in fasting semi-sedated state after receiving Fentanyl and Benadryl achieiving moderate conscious sedated state. Using Xylocaine Anesthesia and modified Seldinger technique, a 6-Irish sheath was introduced in the right radial artery . Subsequently, selective coronary angiography was performed using a 5-Irish 3.5 bend Gina catheter. Multiple views of the coronary artery including hemiaxial views were obtained. The 5-Irish pigtail catheter was used to cross the aortic valve and LVEDP was calculated. Following that, catheter and sheath were removed. Hemostasis was obtained with deployment of vascular band . There was no immediate complication. Patient was returned to room in stable condition. Of note, the patient received a total of 5000 units of intravenous heparin as well as intra-arterial verapamil. Findings: Left main: This is a large size vessel, bifurcating into LAD and circumflex, left main has no obstructive disease LAD: This is a large size vessel, reaching to the apex, giving rise to a very proximal diagonal branch. The proximal LAD has 10% plaque. The mid LAD stented segment is patent with no evidence of in-stent restenosis Left circumflex: This is a nondominant vessel during rise to a large obtuse margin branch that has no evidence of high-grade stenosis RCA: This is a large dominant vessel bifurcating distally to PDA and PLV, the mid RCA has mild intimal disease of 10-20% with no evidence of high-grade stenosis Left Ventriculogram: Not performed Hemodynamics: There was no gradient across the aortic valve , LVEDP was 20-25 mmHg Conclusion: 1. Patent stent in the mid LAD 2. Mild intimal disease in the mid RCA and proximal LAD 3. Right dominance 4. Elevated LVEDP Recommendations: The patient will continue medical therapy with further adjustment of her regimen depending on her progress. The findings and the recommendations were discussed with the patient and the family and they were in full understanding and agreement. Duration of sedation is 11 minutes.
[2022-11-26] MEDS ORDERED: NON FORMULARY DRUG (Vit C/E/Zn/Coppr/Lutein/Zeaxan [Preservision Areds 2 Softgel] 1 EACH C PO SCH (09:00)
[2022-11-26] MEDS ORDERED: NON FORMULARY DRUG (Aspirin [Adult Low Dose Aspirin Ec] 81 MG Tablet.Dr) PO SCH (09:00)
[2022-11-26] MEDS ORDERED: METOPROLOL TARTRATE 25 MG TAB PO SCH (09:00)
[2022-11-26] MEDS ORDERED: LEVOTHYROXINE 25 MCG TAB PO SCH (09:00)
[2022-11-26] MEDS ORDERED: NON FORMULARY DRUG (Multivit-Min/Fa/Lycopen/Lutein [Centrum Silver Tablet] 1 EACH Tablet) PO SCH (09:00)
[2022-11-26] MEDS ORDERED: GLIMEPIRIDE 2 MG TAB PO SCH (09:00)
[2022-11-26 09:04] VITALS: RESP 16
[2022-11-26 12:36] VITALS: BP 121/61; PULSE 70
[2022-11-26] MEDS ORDERED: ATORVASTATIN 40 MG TAB PO SCH (21:00)
[2022-12-02] MEDS ORDERED: NON FORMULARY DRUG (Semaglutide [Ozempic] 0.25 MG/0.2 ML Each) SQ SCH (09:00)
== END 2022-11-26 12:07 | disposition home or self-care (01) ==
LOC: CATHCVL 05:34
PROVIDERS: ATTEND Internal Medicine Interventional Cardiology
DX: I48.19 Other persistent atrial fibrillation (principal); I11.0 Hypertensive heart disease with heart failure; I50.9 Heart failure, unspecified; E78.5 Hyperlipidemia, unspecified; E11.9 Type 2 diabetes mellitus without complications; I27.20 Pulmonary hypertension, unspecified; I25.10 Atherosclerotic heart disease of native coronary artery without angina pectoris; L40.9 Psoriasis, unspecified; Z79.01 Long term (current) use of anticoagulants; Z79.82 Long term (current) use of aspirin; Z79.899 Other long term (current) drug therapy; Z79.84 Long term (current) use of oral hypoglycemic drugs; Z87.891 Personal history of nicotine dependence
CPT/HCPCS: 93458; 85025; C1769 ×2; C1894; J2001; J3010; J1644; Q9967

== ENCOUNTER → 2024-08-17 | Outpatient (CLI) | payer MEDICARE ==
--- NOTE | 2024-08-17 15:39 | US ---
EXAMINATION TYPE: US kidneys/renal and bladder DATE OF EXAM: 08/17/2024 COMPARISON: NONE CLINICAL INDICATION: Female, 73 years old with history of N18.9 CKD; CKD TECHNIQUE: Grayscale imaging of the bilateral kidneys and urinary bladder: FINDINGS: EXAM MEASUREMENTS: Right Kidney: 9.1 x 4.6 x 3.4 cm Left Kidney: 8.8 x 4.6 x 4.4 cm Right Kidney: *Anechoic area seen lower pole: 1.7 x 1.4 x 1.4 cm. Cortex appears thin. Left Kidney: *Small in size. No hydronephrosis or masses seen Cortex appears thin. Bladder: Not well seen. Patient has difficulty prepping her bladder. Pt aware of limitations, and franklin t bladder appears mostly empty- pt did not want to attempt more prep. Bilateral Jets seen: No IMPRESSION: Diminutive left kidney. Simple cyst right kidney. Limited evaluation of the urinary bladder. [facility], , 08/17/2024 3:36 PM
== END | disposition home or self-care (01) ==
LOC: RADUSWWP 15:09
PROVIDERS: ATTEND Internal Medicine
DX: N18.9 Chronic kidney disease, unspecified (principal); N28.1 Cyst of kidney, acquired
CPT/HCPCS: 76770